=== PATIENT | female | born 1940 | race Two or more races ===

== ENCOUNTER 2016-03-08 18:13 | Inpatient (IN) | payer MEDICARE, MEDICAID ==
[~2016-03-08] VITALS: Ht 162.6 cm; Wt 63.2 kg
[~2016-03-08 18:13] MED LIST: AMLODIPINE BESY10 MG ORAL; ASPIRIN-LOW81 MG ORAL; ATORVASTATIN CA40 MG ORAL; CLONIDINE1 EAC1 TD; DIPHENHYDRAMINE25 M1 ORAL; DONEPEZIL HCL5 M2 ORAL; DOXYCYCLINE HY100 M2 ORAL; FAMOTIDINE40 MG ORAL; GABAPENTIN100 MG ORAL; GLIPIZIDE5 MG ORAL; HYDRALAZINE HCL50 MG ORAL; NORMODYNE200 MG ORAL; PENTOXIFYLLINE400 MG ORAL; PLAVIX75 MG ORAL; ROPINIROLE HCL2 MG PO
[2016-03-08 22:20] VITALS: BP 132/58
[2016-03-09 00:10] VITALS: BP 154/59
[2016-03-09 04:10] VITALS: BP 174/78
[2016-03-09] MEDS: HydrALAZINE 50mg tab ORAL SCH ×3 (06:03→23:41)
[2016-03-09] MEDS: GlipiZIDE 5mg tab ORAL SCH ×2 (06:04→17:33)
[2016-03-09] MEDS: NovoLOG Insulin Flexpen SUBQ SCH ×4 (06:17→21:00)
[2016-03-09 07:16] LABS: EOSINOPHILS % (AUTO) 3.2 % (0.0-3.0); MEAN CORPUSCULAR HEMOGLOBIN 29.9 PG (27.0-31.0); MEAN CORPUSCULAR HGB CONC 31.2 G/DL (32.0-36.0); MEAN CORPUSCULAR VOLUME 96 FL (80-99); MEAN PLATELET VOLUME 6.9 FL (6.5-10.1); MONOCYTES % (AUTO) 10.1 % (1.0-10.0); NEUTROPHILS % (AUTO) 67.8 % (45.0-75.0); PLATELET COUNT 214 K/UL (150-450); RED BLOOD COUNT 3.21 M/UL (4.20-5.40); RED CELL DISTRIBUTION WIDTH 16.7 % (11.6-14.8); WHITE BLOOD COUNT 7.8 K/UL (4.8-10.8)
[2016-03-09 07:49] VITALS: BP 123/91
[2016-03-09 07:56] LABS: ALANINE AMINOTRANSFERASE 11 U/L (3-33); ALBUMIN/GLOBULIN RATIO 1.2 (1.0-2.7); ANION GAP 12 (5-15); ASPARTATE AMINO TRANSFERASE 18 U/L (5-40); CALCIUM 8.3 mg/dL (8.6-10.2); CARBON DIOXIDE 27 mEQ/L (20-30); CHLORIDE 99 mEQ/L (98-107); CREATININE 2.1 mg/dL (0.5-0.9); HEMOLYSIS 4; MAGNESIUM 1.7 mg/dL (1.7-2.5); PHOSPHORUS 2.9 mg/dL (2.5-4.8); POTASSIUM 3.8 mEQ/L (3.4-4.9); SODIUM 138 mEQ/L (135-145); TOTAL PROTEIN 5.5 g/dL (6.6-8.7)
[2016-03-09 08:30] LABS: TROPONIN I < 0.30 ng/mL (<=0.30)
[2016-03-09] MEDS: Aspirin Baby 81mg ORAL SCH (09:57)
[2016-03-09] MEDS: Labetalol 200mg tab ORAL SCH ×2 (09:58→20:39)
[2016-03-09] MEDS: Heparin 5000 units/ml inj SUBQ SCH ×2 (09:59→20:38)
[2016-03-09] MEDS ORDERED: Influenza Virus Vaccine 0.5ml IM ONE (11:30)
[2016-03-09 11:33] VITALS: BP 184/68
--- NOTE | 2016-03-09 11:56 | Consultation ---
History of Present Illness General Date patient seen: Mar 09, 2016 Reason for Consultation: dyspnea Present Illness HPI 75 year old female with hx of ESRF, on HD, DM, PVD CABG 2004, Pace maker, s/p cerebellar tumor resection 2014, missed her HD and got short of breath, called paramedics. was taken to [facility] where she was urgently dialyzed, 2.6 liters removed and [place] [facility] [place] Currently Patient is somfortable, complaining of generalized weakness. Doesn't seem to be dyspnic, poor historian. Allergies: Coded Allergies: No Known Allergies (Unverified , 02/02/15) Medication History Scheduled Amlodipine Besylate* (Amlodipine Besylate*), 10 MG ORAL DAILY, (Reported) Aspirin (Aspirin EC), 81 MG ORAL DAILY, (Reported) Atorvastatin Calcium* (Atorvastatin Calcium*), 40 MG ORAL BEDTIME, (Reported) Clopidogrel Bisulfate* (Plavix*), 75 MG ORAL DAILY, (Reported) Donepezil Hcl* (Donepezil Hcl*), 5 MG ORAL DAILY, (Reported) Doxycycline Hyclate (Doxycycline Hyclate), 100 MG ORAL EVERY 12 HOURS Famotidine (Famotidine), 40 MG ORAL DAILY, (Reported) Gabapentin* (Gabapentin*), 100 MG ORAL THREE TIMES A DAY, (Reported) Glipizide* (Glipizide*), 5 MG ORAL BIDAC, (Reported) Hydralazine Hcl* (Hydralazine Hcl*), 50 MG ORAL TID, (Reported) Labetalol HCl (Labetalol HCl), 200 MG ORAL BID, (Reported) Pentoxifylline* (Trental*), 400 MG ORAL BID, (Reported) Ropinirole Hcl* (Ropinirole Hcl*), 2 MG PO QHS, (Reported) Scheduled PRN Diphenhydramine Hcl* (Diphenhydramine Hcl*), 25 MG ORAL Q8H PRN for Itching, ( Reported) Miscellaneous Medications Clonidine (Clonidine), 0.3 MG TD, (Reported) Patient History Healthcare decision maker Resuscitation status Full Code Advanced Directive on File Past Medical/Surgical History Past Medical/Surgical History: (1) Alzheimer's dementia (2) Parkinson disease (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 Review of Systems Respiratory: Reports: shortness of breath, stridor All Other Systems: negative except mentioned in HPI Physical Exam General Appearance: WD/WN, no apparent distress Lines, tubes and drains: peripheral, central line HEENT: normocephalic, atraumatic Neck: non-tender, normal alignment Respiratory/Chest: chest wall non-tender, lungs clear Cardiovascular/Chest: normal peripheral pulses, normal rate Abdomen: normal bowel sounds, non tender Genitourinary/Rectal: normal genital exam, normal rectal exam Last 24 Hour Vital Signs Date Time Temp Pulse Resp B/P Pulse Ox O2 Delivery O2 Flow Rate FiO2 03/09/16 11:33 97.6 70 18 184/68 96 Room Air 03/09/16 10:56 97.1 03/09/16 09:58 78 123/91 03/09/16 09:57 123/91 03/09/16 09:57 78 123/91 03/09/16 08:00 72 03/09/16 07:49 97.1 78 18 123/91 100 Nasal Cannula 2.0 03/09/16 06:03 155/68 03/09/16 04:10 97.2 68 20 174/78 100 Nasal Cannula 2.0 03/09/16 04:00 65 03/09/16 00:10 97.8 71 20 154/59 98 Room Air 03/09/16 00:00 68 03/08/16 22:20 98.7 69 20 132/58 97 Nasal Cannula 2.0 Intake and Output 03/08/16 03/09/16 19:00 07:00 Output Total 450 ml Balance -450 ml Output Urine Total 450 ml Laboratory Tests Test 03/09/16 06:20 White Blood Count 7.8 K/UL (4.8-10.8) Red Blood Count 3.21 M/UL (4.20-5.40) L Hemoglobin 9.6 G/DL (12.0-16.0) L Hematocrit 30.7 % (37.0-47.0) L Mean Corpuscular Volume 96 FL (80-99) Mean Corpuscular Hemoglobin 29.9 PG (27.0-31.0) Mean Corpuscular Hemoglobin Concent 31.2 G/DL (32.0-36.0) L Red Cell Distribution Width 16.7 % (11.6-14.8) H Platelet Count 214 K/UL (150-450) Mean Platelet Volume 6.9 FL (6.5-10.1) Neutrophils (%) (Auto) 67.8 % (45.0-75.0) Lymphocytes (%) (Auto) 18.0 % (20.0-45.0) L Monocytes (%) (Auto) 10.1 % (1.0-10.0) H Eosinophils (%) (Auto) 3.2 % (0.0-3.0) H Basophils (%) (Auto) 1.0 % (0.0-2.0) Sodium Level 138 mEQ/L (135-145) Potassium Level 3.8 mEQ/L (3.4-4.9) Chloride Level 99 mEQ/L (98-107) Carbon Dioxide Level 27 mEQ/L (20-30) Anion Gap 12 (5-15) Blood Urea Nitrogen 23 mg/dL (7-23) Creatinine 2.1 mg/dL (0.5-0.9) H Estimat Glomerular Filtration Rate mL/min (>60) Glucose Level 104 mg/dL (74-106) Calcium Level 8.3 mg/dL (8.6-10.2) L Phosphorus Level 2.9 mg/dL (2.5-4.8) Magnesium Level 1.7 mg/dL (1.7-2.5) Total Bilirubin 0.2 mg/dL (0.0-1.2) Aspartate Amino Transf (AST/SGOT) 18 U/L (5-40) Alanine Aminotransferase (ALT/SGPT) 11 U/L (3-33) Alkaline Phosphatase 92 U/L (35-104) Troponin I < 0.30 ng/mL (<=0.30) Pro-B-Type Natriuretic Peptide 6933 pg/mL (0-125) H Total Protein 5.5 g/dL (6.6-8.7) L Albumin 3.0 g/dL (3.5-5.2) L Globulin 2.5 g/dL Albumin/Globulin Ratio 1.2 (1.0-2.7) Thyroid Stimulating Hormone (TSH) 9.200 uIU/mL (0.300-4.500) Height (Feet): 5 Height (Inches): 4.00 Weight (Pounds): 142 Medications Current Medications Medications (Trade) Dose Ordered Sig/Carrie Route PRN Reason Start Time Stop Time Status Last Admin Dose Admin Amlodipine Besylate (Norvasc) 10 mg DAILY ORAL 03/09/16 09:00 04/08/16 08:59 03/09/16 09:57 Aspirin (ASA) 81 mg DAILY ORAL 03/09/16 09:00 04/08/16 08:59 03/09/16 09:57 Atorvastatin Calcium (Lipitor) 40 mg BEDTIME ORAL 03/09/16 21:00 04/08/16 20:59 Clopidogrel Bisulfate (Plavix) 75 mg DAILY ORAL 03/09/16 09:00 04/08/16 08:59 03/09/16 09:57 Dextrose (Dextrose 50%) STAT PRN IV Hypoglycemia 03/09/16 01:15 04/08/16 01:14 Diphenhydramine HCl (Benadryl) 25 mg Q8H PRN ORAL Itching 03/09/16 01:15 04/08/16 01:14 Donepezil HCl (Aricept) 5 mg QHS ORAL 03/09/16 21:00 04/08/16 20:59 Gabapentin (Neurontin) 100 mg THREE TIMES A DAY ORAL 03/09/16 09:00 04/08/16 08:59 03/09/16 09:57 Glipizide (Glucotrol) 5 mg BIAC ORAL 03/09/16 06:30 04/08/16 06:29 03/09/16 06:04 Heparin Sodium (Porcine) (Heparin 5000 units/ml) 5,000 units EVERY 12 HOURS SUBQ 03/09/16 09:00 04/08/16 08:59 03/09/16 09:59 Hydralazine HCl (Apresoline) 50 mg TID@0600,1400,2200 ORAL 03/09/16 06:00 04/08/16 05:59 03/09/16 06:03 Insulin Aspart (NovoLOG) BEFORE MEALS AND HS SUBQ 03/09/16 06:30 04/08/16 06:29 Labetalol HCl (Normodyne) 200 mg BID@0900,2100 ORAL 03/09/16 09:00 04/08/16 08:59 03/09/16 09:58 Pentoxifylline (TRENtal) 400 mg BID ORAL 03/09/16 09:00 04/08/16 08:59 03/09/16 09:57 Ranitidine HCl (Zantac) 150 mg DAILY ORAL 03/09/16 09:00 04/08/16 08:59 03/09/16 09:57 Ropinirole HCl (Requip) 2 mg QHS ORAL 03/09/16 21:00 04/08/16 20:59 Assessment/Plan Problem List: (1) Acute respiratory failure ICD Codes: J96.00 - Acute respiratory failure, unspecified whether with hypoxia or hypercapnia SNOMED: 29456036 (2) Alzheimer's dementia ICD Codes: G30.9 - Alzheimer's disease, unspecified SNOMED: 92410956 (3) ESRD (end stage renal disease) on dialysis ICD Codes: N18.6 - End stage renal disease; Z99.2 - Dependence on renal dialysis SNOMED: 855522378 (4) DM (diabetes mellitus) ICD Codes: E11.9 - Type 2 diabetes mellitus without complications SNOMED: 09718256 (5) Parkinson disease ICD Codes: G20 - Parkinson's disease SNOMED: 55344420 Assessment/Plan repeat cxr respiratory treatment Nephro and cardio evaluation sliding scale diabetic diet ALMA DELIA MONTES Mar 09, 2016 11:56
--- NOTE | 2016-03-09 12:55 | History & Physical ---
History and Physical History & Physicial Dictated for Int Med - Dr Gr no. [id number]. YENIFER SCHULER Mar 09, 2016 12:55
--- NOTE | 2016-03-09 13:00 | Consultation ---
Consult Note Consult Note asked to eval for dialysis management 75 year old female with hx of ESRF, on HD, DM, PVD CABG 2004, Pace maker, s/p cerebellar tumor resection 2014, missed her HD and got short of breath, called paramedics. was taken to [facility] where she was urgently dialyzed, 2.6 liters removed and transferred to [facility] [place] for further management. Currently Patient is somfortable, complaining of generalized weakness. Doesn't seem to be dyspnic, poor historian. Patient interviewed and examined and data reviewed has left arm fistula last dialysed 03/08 next due 03/11 . Assessment/Plan status; - ESRD (end stage renal disease) on dialysis - Acute respiratory failure ? CHF - Alzheimer's dementia - Pacer / s/p CABGS - DM (diabetes mellitus) - Parkinson disease Plan; Optimize cardiac and pulm status- HD on 03/11 Anemia DODIE Villar Mar 09, 2016 13:00
[2016-03-09] MEDS ORDERED: Tubing IV Secondary IV ONE (13:54)
[2016-03-09] MEDS ORDERED: NS 275ml ONE (13:54)
--- NOTE | 2016-03-09 15:44 | Cardiology Report ---
APPROVED REPORT EXAM: Two-dimensional and M-mode echocardiogram with Doppler and color Doppler. INDICATION Other M-Mode DIMENSIONS IVSd1.5 (0.7-1.1cm)Left Atrium (MM)5.3 (1.6-4.0cm) LVDd3.5 (3.5-5.6cm)Aortic Root2.8 (2.0-3.7cm) PWd1.4 (0.7-1.1cm)Aortic Cusp Exc.1.1 (1.5-2.0cm) LVDs1.4 (2.5-4.0cm) PWs0.8 cm Normal left ventricular chamber size, systolic function and wall motion. Left ventricular ejection fraction estimated to be 60-65%. Mild left ventricular hypertrophy. No evidence of pericardial fat or effusion. Right cardiac chamber sizes are within normal limits. Mild left atrial enlargement by 2D. Focal aortic valve sclerosis with adequate cusp excursion Mildly thickened mitral valve leaflets with normal excursion. Mild mitral annulus and aortic root calcification. Pulmonic valve not well visualized. Normal tricuspid valve structure. IVC is normal in size with minimal physiologic collapse. A color flow and spectral Doppler study was performed and revealed: Trace aortic regurgitation. Peak aortic valve gradient of 27mmHg and a mean of 14 mmHg. Aortic valve area 1.4cm2 calculated by continuity equation. Trace mitral regurgitation. Left ventricular diastolic dysfunction grade 1. Moderate tricuspid regurgitation. Tricuspid systolic velocities suggests peak right ventricular systolic pressure of 52 mmHg Consistent with severe pulmonary hypertension. Pulmonic regurgitation present.
[2016-03-09 16:00] VITALS: BP_SYST 140; BP_SYST 160; BP_DIAS 70
--- NOTE | 2016-03-09 16:57 | History and Physical Report ---
DATE OF ADMISSION: 03/08/2016 CHIEF COMPLAINT: The patient is a 75-year-old female, who presents with a chief complaint of shortness of breath. HISTORY OF PRESENT ILLNESS: The patient has a history of end-stage renal disease and congestive heart failure. The patient states she became short of breath on , 03/07/2016. The patient became increasingly short of breath. The patient was transported to [facility] emergency room. The patient was found to be in fluid overload with congestive heart failure. The patient received dialysis at [facility]. A 2.6 liters was removed. The patient is transferred to [facility] for insurance purposes. The patient presents with a chief complaint of shortness of breath. The patient states her last dialysis was on 03/06/2016. PAST MEDICAL HISTORY: Significant for: 1. End-stage renal disease, on hemodialysis every Friday, Friday, and Friday. The patient's last dialysis was 03/06/2016. 2. Diabetes type 2. 3. Hypertension. 4. Parkinson disease. 5. Coronary artery disease. 6. Congestive heart failure. 7. History of ovarian cancer, status post resection. 8. Metastatic cerebellar tumor, status post resection in 2014. PAST SURGICAL HISTORY: Significant for: 1. Coronary artery bypass graft in April of 2004. 2. Pacemaker implantation. 3. Resection of ovarian tumor. 4. Cerebellar metastatic tumor resection in June of 2014. 5. Left upper extremity arteriovenous graft for dialysis. CURRENT MEDICATIONS: 1. Amlodipine 10 mg one tablet p.o. daily. 2. Terazosin 1 mg one tablet p.o. at bedtime. 3. Lantus insulin of an unknown dose at bedtime. 4. Lispro sliding scale. 5. Glipizide 5 mg p.o. twice daily. 6. Requip 1 mg one tablet p.o. at bedtime. 7. Trental 400 mg p.o. at bedtime. 8. Atorvastatin of an unknown dose daily. 9. Benadryl 25 mg q.4 h. p.r.n. 10. Hydralazine of an unknown dose three times daily. 11. Glyburide 5 mg one tablet p.o. twice daily. 12. Neurontin 100 mg one tablet p.o. twice daily. 13. Plavix 75 mg one tablet p.o. daily. 14. Pepcid 40 mg one tablet p.o. daily. 15. Aspirin 81 mg one tablet p.o. daily. ALLERGIES: No known drug allergies. SOCIAL HISTORY: The patient lives with her adult son. The patient denies tobacco or alcohol use. PHYSICAL EXAMINATION: VITAL SIGNS: Temperature 97.1 degrees, respirations 18, pulse 70, and blood pressure 123/91. GENERAL: The patient is a well-developed and well-nourished female, in no apparent distress. HEENT: Eyes, pupils are equal and responsive to light and accommodation. Extraocular movements are intact. NECK: Supple without lymphadenopathy. CHEST: Lungs are clear to auscultation bilaterally without wheezes or rales. CARDIOVASCULAR: Regular rhythm and rate. S1 and S2 are normal without murmurs, rubs, or gallops. ABDOMEN: Soft, nontender, and nondistended. Positive bowel sounds. No evidence of hepatosplenomegaly. Currently, no rebound or guarding noted. RECTAL/GENITAL: Refused. NEUROLOGIC: Cranial nerves II through XII are grossly intact without focal deficits. Motor strength is 5/5 bilaterally. Deep tendon reflexes are 2+ plantar. LABORATORY DATA: Laboratory studies from [facility], WBC 7.0, hemoglobin 9.8, hematocrit 30.3, and platelets 277,000. Sodium 139, potassium 3.3, chloride 104, CO2 25, BUN 38, creatinine 2.62, and glucose 156. An echocardiogram revealed ejection fraction of 70%. ASSESSMENT: This is a 75-year-old female. 1. Volume overload. 2. Congestive heart failure. 3. Shortness of breath. 4. End-stage renal disease. 5. Diabetes type 2. 6. Hypertension. 7. Parkinson disease. 8. Coronary artery disease. 9. Ovarian cancer. 10. History metastatic cerebellar tumor. TREATMENT: 1. Shortness of breath. This is probably secondary to fluid overload and congestive heart failure. The patient received dialysis at [facility] with 2.6 liters removed. A Nephrology consultation was obtained with Dr. Mamadou Forbes. A Pulmonary consultation was obtained with Dr. Daisha Child. 2. Fluid overload/congestive heart failure. Cardiology consultation is pending. Congestive heart failure appears to be secondary to volume overload. We will follow recommendation of Cardiology. 3. End-stage renal disease. The patient's last dialysis was 03/06/2016. The patient then received dialysis at [facility] on 03/08/2016. The patient's next dialysis is scheduled for 03/11/2016. A Nephrology consultation was obtained with Dr. Mamadou Forbes. 4. Diabetes type 2. Continue Lantus and NovoLog sliding scale as above. 5. Hypertension. The patient is currently receiving labetalol 200 mg twice daily. 6. Parkinson disease. 7. Coronary artery disease. The patient is status post coronary artery bypass graft. 8. History of ovarian cancer. The patient is status post resection. 9. History of metastatic cerebral tumor. The patient is status post resection. Jasen Larkin M.D. DR: LIZ JOB#: [id number] CC:
--- NOTE | 2016-03-09 17:22 | Consultation ---
Consult Note Consult Note Cardiology for Dr. Earl full note dictated #[id number] MELL GARZON Mar 09, 2016 17:22
[2016-03-09 20:00] VITALS: BP 184/76
[2016-03-09] MEDS: Donepezil 5mg Tab ORAL SCH (20:39)
--- NOTE | 2016-03-09 22:47 | Consultation ---
DATE OF CONSULTATION: CARDIOLOGY CONSULTATION: REQUESTING PHYSICIAN: Daisha Child M.D. REASON FOR CONSULT: Shortness of breath. HISTORY OF PRESENT ILLNESS: History was obtained from the patient, treating providers, and the chart. HISTORY OF PRESENT ILLNESS: The patient is a 75-year-old woman with a history of coronary artery disease, remote history of coronary artery bypass graft surgery, history of permanent pacemaker placement, diabetes, and end-stage renal disease on hemodialysis, who presented with increasing shortness of breath over a few days prior to admission. She was initially admitted to [facility] where she received urgent hemodialysis with removal of 2.6 liters of fluid. She was felt to be in pulmonary edema. She was transferred here for insurance reasons. She is currently comfortable without complaints of chest pain, dyspnea, or palpitation. PAST MEDICAL HISTORY: As noted above. History of coronary artery bypass graft surgery in 2004, history of permanent pacemaker (uncertain indication) history of ovarian and cerebellar tumors treated surgically, and history of end-stage renal disease, on hemodialysis with placement of the left upper extremity AV graft. MEDICATIONS: Lipitor 40 mg daily, Aricept 5 mg at nightly, Requip 2 mg at nightly, subcutaneous heparin 5000 units q.12 hours, amlodipine 10 mg daily, aspirin 81 mg daily, Plavix 75 mg daily, Neurontin 100 mg three times daily, labetalol 200 mg twice daily, Trental 400 mg b.i.d., insulin sliding scale, glipizide 5 mg daily, hydralazine 50 mg t.i.d., and Benadryl p.r.n. ALLERGIES: No known drug allergies. SOCIAL HISTORY: The patient is a nonsmoker. She has no history of alcohol abuse. PHYSICAL EXAMINATION: VITAL SIGNS: Blood pressure is 140/70, pulse 70 regular, respirations 18, and afebrile. GENERAL: Alert and elderly appearing female in no acute distress. HEENT: Normocephalic and atraumatic. Pupils are equal, round, and reactive to light. Sclerae anicteric. Oral mucosa are moist. NECK: Supple. There is no jugular venous distention. Carotid pulses are 2+. There is a bilateral transmitted carotid murmur. LUNGS: Clear to auscultation bilaterally. HEART: Regular rate and rhythm. S1, S2 with a harsh 2 to 3/6 systolic ejection murmur heard at the right second intercostal space radiating along left sternal border and to the carotids. No S3-S4 or rubs. ABDOMEN: Obese, soft, and nontender. No palpable mass. EXTREMITIES: No cyanosis, clubbing, or edema. There is a healed left thigh surgical scar (saphenous vein graft) and left upper extremity AV graft proximally, positive bruit. LABORATORY AND DIAGNOSTIC DATA: EKG shows sinus rhythm at a rate of 80 beats per minute, axis +10 degrees, normal intervals, nonspecific lateral T-wave changes. No old EKG available for comparison. Potassium 3.8, BUN 23, and creatinine 2.1. Troponin less than 0.3. Hemoglobin 9.6, white blood count 7800, and platelets 214,000. Chest x-ray is pending. Echo shows normal left ventricular systolic function with ejection fraction 60% to 65%, mild left ventricular hypertrophy, mild aortic stenosis with valve area 1.4 cm square peak gradient 27, mean 14, moderate tricuspid regurgitation, PA pressure, moderate tricuspid regurgitation, and severe pulmonary hypertension with RV systolic pressure of 52. ASSESSMENT AND RECOMMENDATION: The patient is a 75-year-old woman with multiple chronic medical problems as outlined above, who was admitted initially to [place] with pulmonary edema and responded to dialysis with removal of 2.6 liters. She is currently hemodynamically stable. The reason for her acute decompensation is unclear. She does not appear to have an acute cardiac event. Troponin levels were negative. She does not have any chest pain. An EKG did not show any acute ischemic changes. Echo does not show any wall motion abnormalities. She may have had a heart failure due to diastolic dysfunction or volume overload related to dialysis issues. I would favor continued treatment with aspirin , statin, and beta-erica (labetalol and alpha beta-erica) for coronary artery disease. Continue amlodipine and hydralazine for blood pressure control. I would not pursue further evaluation for ischemia given lack of objective would not pursue further workup for myocardial ischemia at this time. We will attempt to obtain information regarding her pacemaker and interrogate the device to determine if normal function and if any arrhythmias may have contributed to her recent decompensation. Ramona Nguyen M.D. DR: Ed JOB#: [id number] CC:
[2016-03-10 00:32] VITALS: BP 155/79
[2016-03-10 04:17] VITALS: BP 124/70
[2016-03-10] MEDS: NovoLOG Insulin Flexpen SUBQ SCH ×4 (06:42→20:37)
[2016-03-10] MEDS: GlipiZIDE 5mg tab ORAL SCH ×2 (06:42→17:55)
[2016-03-10] MEDS: HydrALAZINE 50mg tab ORAL SCH (06:43)
[2016-03-10 07:04] LABS: BASOPHILS % (AUTO) 1.1 % (0.0-2.0); EOSINOPHILS % (AUTO) 3.5 % (0.0-3.0); LYMPHOCYTES % (AUTO) 19.9 % (20.0-45.0); MEAN CORPUSCULAR HEMOGLOBIN 30.7 PG (27.0-31.0); MEAN CORPUSCULAR HGB CONC 32.5 G/DL (32.0-36.0); MEAN CORPUSCULAR VOLUME 94 FL (80-99); MEAN PLATELET VOLUME 7.2 FL (6.5-10.1); MONOCYTES % (AUTO) 10.2 % (1.0-10.0); NEUTROPHILS % (AUTO) 65.3 % (45.0-75.0); PLATELET COUNT 226 K/UL (150-450); RED CELL DISTRIBUTION WIDTH 15.9 % (11.6-14.8); WHITE BLOOD COUNT 6.3 K/UL (4.8-10.8)
[2016-03-10 07:46] VITALS: BP 151/55
[2016-03-10 07:51] LABS: HEMOLYSIS 20; IRON 29 ug/dL (37-145); TOTAL IRON BINDING CAPACITY 188 ug/dL (250-400)
[2016-03-10 07:52] LABS: FERRITIN 411 ng/mL (13-150)
[2016-03-10 07:53] LABS: ALANINE AMINOTRANSFERASE 9 U/L (3-33); ANION GAP 17 (5-15); ASPARTATE AMINO TRANSFERASE 19 U/L (5-40); CALCIUM 8.3 mg/dL (8.6-10.2); CARBON DIOXIDE 23 mEQ/L (20-30); CHLORIDE 99 mEQ/L (98-107); CHOLESTEROL 154 mg/dL (< 200); CHOLESTEROL/HDL RATIO 2.7 (3.3-4.4); CREATININE 2.7 mg/dL (0.5-0.9); HEMOLYSIS 20; LDL CHOLESTEROL (CALC.) 54 mg/dL (60-99); POTASSIUM 4.2 mEQ/L (3.4-4.9); SODIUM 139 mEQ/L (135-145); TOTAL PROTEIN 5.4 g/dL (6.6-8.7)
[2016-03-10 07:54] LABS: CRP QUANT < 0.3 mg/dL (< 0.5); MAGNESIUM 1.7 mg/dL (1.7-2.5); PHOSPHORUS 3.9 mg/dL (2.5-4.8); URIC ACID 6.1 mg/dL (3.0-7.5)
[2016-03-10] MEDS: Aspirin Baby 81mg ORAL SCH (09:26)
[2016-03-10] MEDS: Labetalol 200mg tab ORAL SCH ×2 (09:26→20:36)
[2016-03-10] MEDS: Heparin 5000 units/ml inj SUBQ SCH ×2 (09:28→20:37)
[2016-03-10 11:21] VITALS: BP 153/70
--- NOTE | 2016-03-10 11:55 | General Progress Note ---
Assessment/Plan Status: stable Assessment/Plan status; - ESRD (end stage renal disease) on dialysis by history - Acute respiratory failure ? CHF - Alzheimer's dementia - Pacer / s/p CABGS - DM (diabetes mellitus) - Parkinson disease Plan; Optimize cardiac and pulm status- HD if needed- check 24 h Urine Cr Cl Anemia rothman per orders adjust BP meds Subjective ROS Limited/Unobtainable: No Constitutional: Reports: malaise Allergies: Coded Allergies: No Known Allergies (Unverified , 02/02/15) Objective Last 24 Hour Vital Signs Date Time Temp Pulse Resp B/P Pulse Ox O2 Delivery O2 Flow Rate FiO2 03/10/16 11:21 98.1 74 18 153/70 99 Room Air 03/10/16 09:26 151/55 03/10/16 09:26 76 151/55 03/10/16 09:26 76 151/55 03/10/16 08:00 67 03/10/16 07:46 97.9 76 18 151/55 99 Room Air 03/10/16 06:43 124/70 03/10/16 04:17 98.5 70 19 124/70 98 Room Air 03/10/16 04:00 70 03/10/16 00:32 98.6 73 18 155/79 95 Room Air 03/10/16 00:00 73 03/09/16 23:41 184/76 03/09/16 20:39 85 184/76 03/09/16 20:00 80 03/09/16 20:00 97.2 85 18 184/76 96 Room Air 03/09/16 17:34 140/70 03/09/16 16:00 75 03/09/16 16:00 98.4 70 18 140/70 98 Room Air 03/09/16 16:00 96.4 70 18 160/70 98 Room Air 03/09/16 14:11 97.6 03/09/16 13:11 168/72 Intake and Output 03/09/16 03/10/16 19:00 07:00 Intake Total 480 ml 240 ml Output Total 525 ml 800 ml Balance -45 ml -560 ml Intake Oral 480 ml 240 ml Output Urine Total 525 ml 800 ml # Bowel Movements 2 1 Laboratory Tests 03/10/16 04:55: White Blood Count 6.3, Red Blood Count 3.00L, Hemoglobin 9.2L, Hematocrit 28.3L , Mean Corpuscular Volume 94, Mean Corpuscular Hemoglobin 30.7, Mean Corpuscular Hemoglobin Concent 32.5, Red Cell Distribution Width 15.9H, Platelet Count 226, Mean Platelet Volume 7.2, Neutrophils (%) (Auto) 65.3, Lymphocytes (%) (Auto) 19.9L, Monocytes (%) (Auto) 10.2H, Eosinophils (%) (Auto ) 3.5H, Basophils (%) (Auto) 1.1, Sodium Level 139, Potassium Level 4.2, Chloride Level 99, Carbon Dioxide Level 23, Anion Gap 17H, Blood Urea Nitrogen 39H, Creatinine 2.7H, Estimat Glomerular Filtration Rate , Glucose Level 113H, Hemoglobin A1c 5.0, Uric Acid 6.1, Calcium Level 8.3L, Phosphorus Level 3.9, Magnesium Level 1.7, Iron Level 29L, Total Iron Binding Capacity 188L, Percent Iron Saturation 15, Unsaturated Iron Binding 159, Ferritin 411H, Total Bilirubin 0.3, Gamma Glutamyl Transpeptidase 16, Aspartate Amino Transf (AST/ SGOT) 19, Alanine Aminotransferase (ALT/SGPT) 9, Alkaline Phosphatase 83, C- Reactive Protein, Quantitative < 0.3, Pro-B-Type Natriuretic Peptide 7200H, Total Protein 5.4L, Albumin 2.8L, Globulin 2.6, Albumin/Globulin Ratio 1.0, Triglycerides Level 217H, Cholesterol Level 154, LDL Cholesterol 54L, HDL Cholesterol 57, Cholesterol/HDL Ratio 2.7L, Vitamin B12 Level 366, Folate [ Pending], Thyroid Stimulating Hormone (TSH) 3.910, Free Thyroxine 1.05 Height (Feet): 5 Height (Inches): 4.00 Weight (Pounds): 142 General Appearance: no apparent distress Cardiovascular: normal rate Abdomen: soft Objective no change in PE DODIE CONNER Mar 10, 2016 11:55
--- NOTE | 2016-03-10 12:13 | Pulmonology Progress Note ---
Assessment/Plan Problems: (1) Acute respiratory failure (2) Alzheimer's dementia (3) ESRD (end stage renal disease) on dialysis (4) DM (diabetes mellitus) (5) Parkinson disease Assessment/Plan improving respiratory treatment cxr reviewed HD by nephrology anemia work up Subjective ROS Limited/Unobtainable: No Constitutional: Reports: no symptoms HEENT: Repors: no symptoms Respiratory: Reports: no symptoms Cardiovascular: Reports: no symptoms Allergies: Coded Allergies: No Known Allergies (Unverified , 02/02/15) Objective Last 24 Hour Vital Signs Date Time Temp Pulse Resp B/P Pulse Ox O2 Delivery O2 Flow Rate FiO2 03/10/16 11:21 98.1 74 18 153/70 99 Room Air 03/10/16 09:26 151/55 03/10/16 09:26 76 151/55 03/10/16 09:26 76 151/55 03/10/16 08:00 67 03/10/16 07:46 97.9 76 18 151/55 99 Room Air 03/10/16 06:43 124/70 03/10/16 04:17 98.5 70 19 124/70 98 Room Air 03/10/16 04:00 70 03/10/16 00:32 98.6 73 18 155/79 95 Room Air 03/10/16 00:00 73 03/09/16 23:41 184/76 03/09/16 20:39 85 184/76 03/09/16 20:00 80 03/09/16 20:00 97.2 85 18 184/76 96 Room Air 03/09/16 17:34 140/70 03/09/16 16:00 75 03/09/16 16:00 98.4 70 18 140/70 98 Room Air 03/09/16 16:00 96.4 70 18 160/70 98 Room Air 03/09/16 14:11 97.6 03/09/16 13:11 168/72 Intake and Output 03/09/16 03/10/16 19:00 07:00 Intake Total 480 ml 240 ml Output Total 525 ml 800 ml Balance -45 ml -560 ml Intake Oral 480 ml 240 ml Output Urine Total 525 ml 800 ml # Bowel Movements 2 1 General Appearance: WD/WN HEENT: normocephalic, atraumatic Respiratory/Chest: chest wall non-tender, lungs clear Cardiovascular: normal peripheral pulses, normal rate Abdomen: normal bowel sounds, soft, non tender Genitourinary: normal external genitalia Extremities: no cyanosis Neurologic/Psychiatric: dedenter II-XII grossly normal Microbiology Date/Time Source Procedure Growth Status 03/08/16 23:05 Wound Gram Stain - Final Resulted 03/08/16 23:05 Wound Wound Culture - Preliminary NO GROWTH AFTER 24 HOURS Resulted Laboratory Tests 03/10/16 04:55: White Blood Count 6.3, Red Blood Count 3.00L, Hemoglobin 9.2L, Hematocrit 28.3L , Mean Corpuscular Volume 94, Mean Corpuscular Hemoglobin 30.7, Mean Corpuscular Hemoglobin Concent 32.5, Red Cell Distribution Width 15.9H, Platelet Count 226, Mean Platelet Volume 7.2, Neutrophils (%) (Auto) 65.3, Lymphocytes (%) (Auto) 19.9L, Monocytes (%) (Auto) 10.2H, Eosinophils (%) (Auto ) 3.5H, Basophils (%) (Auto) 1.1, Sodium Level 139, Potassium Level 4.2, Chloride Level 99, Carbon Dioxide Level 23, Anion Gap 17H, Blood Urea Nitrogen 39H, Creatinine 2.7H, Estimat Glomerular Filtration Rate , Glucose Level 113H, Hemoglobin A1c 5.0, Uric Acid 6.1, Calcium Level 8.3L, Phosphorus Level 3.9, Magnesium Level 1.7, Iron Level 29L, Total Iron Binding Capacity 188L, Percent Iron Saturation 15, Unsaturated Iron Binding 159, Ferritin 411H, Total Bilirubin 0.3, Gamma Glutamyl Transpeptidase 16, Aspartate Amino Transf (AST/ SGOT) 19, Alanine Aminotransferase (ALT/SGPT) 9, Alkaline Phosphatase 83, C- Reactive Protein, Quantitative < 0.3, Pro-B-Type Natriuretic Peptide 7200H, Total Protein 5.4L, Albumin 2.8L, Globulin 2.6, Albumin/Globulin Ratio 1.0, Triglycerides Level 217H, Cholesterol Level 154, LDL Cholesterol 54L, HDL Cholesterol 57, Cholesterol/HDL Ratio 2.7L, Vitamin B12 Level 366, Folate [ Pending], Thyroid Stimulating Hormone (TSH) 3.910, Free Thyroxine 1.05 Current Medications Medications (Trade) Dose Ordered Sig/Carrie Route PRN Reason Start Time Stop Time Status Last Admin Dose Admin Amlodipine Besylate (Norvasc) 10 mg DAILY ORAL 1/28/17 09:00 04/08/16 08:59 03/10/16 09:26 Aspirin (ASA) 81 mg DAILY ORAL 03/09/16 09:00 04/08/16 08:59 03/10/16 09:26 Atorvastatin Calcium (Lipitor) 40 mg BEDTIME ORAL 03/09/16 21:00 04/08/16 20:59 03/09/16 20:30 Clonidine HCl (Catapres) 0.1 mg Q4H PRN ORAL bp over 170 syst 03/10/16 12:00 04/09/16 11:59 Clopidogrel Bisulfate (Plavix) 75 mg DAILY ORAL 03/09/16 09:00 04/08/16 08:59 03/10/16 09:26 Dextrose (Dextrose 50%) STAT PRN IV Hypoglycemia 03/09/16 01:15 04/08/16 01:14 Diphenhydramine HCl (Benadryl) 25 mg Q8H PRN ORAL Itching 03/09/16 01:15 04/08/16 01:14 Donepezil HCl (Aricept) 5 mg QHS ORAL 03/09/16 21:00 04/08/16 20:59 03/09/16 20:39 Gabapentin (Neurontin) 100 mg THREE TIMES A DAY ORAL 03/09/16 09:00 04/08/16 08:59 03/10/16 09:26 Glipizide (Glucotrol) 5 mg BIAC ORAL 03/09/16 06:30 04/08/16 06:29 03/10/16 06:42 Heparin Sodium (Porcine) (Heparin 5000 units/ml) 5,000 units EVERY 12 HOURS SUBQ 03/09/16 09:00 04/08/16 08:59 03/10/16 09:28 Hydralazine HCl (Apresoline) 75 mg TID@0600,1400,2200 ORAL 03/10/16 14:00 04/09/16 13:59 Insulin Aspart (NovoLOG) BEFORE MEALS AND HS SUBQ 03/09/16 06:30 04/08/16 06:29 03/10/16 11:34 Labetalol HCl (Normodyne) 200 mg BID@0900,2100 ORAL 03/09/16 09:00 04/08/16 08:59 03/10/16 09:26 Pentoxifylline (TRENtal) 400 mg BID ORAL 03/09/16 09:00 04/08/16 08:59 03/10/16 09:26 Ranitidine HCl (Zantac) 150 mg DAILY ORAL 03/09/16 09:00 04/08/16 08:59 03/10/16 09:26 Ropinirole HCl (Requip) 2 mg QHS ORAL 03/09/16 21:00 04/08/16 20:59 03/09/16 20:31 ALMA DELIA MONTES Mar 10, 2016 12:12
[2016-03-10] MEDS: HydrALAZINE 25mg tab ORAL SCH ×2 (13:46→22:02)
[2016-03-10 14:07] LABS: APPEARANCE,URINE SLIGHTLY CLOUDY; KETONES,URINE NEGATIVE (NEGATIVE); LEUKOCYTE ESTERASE ,URINE 1+ (NEGATIVE); NITRITE,URINE NEGATIVE (NEGATIVE); PH,URINE 7 (4.5-8.0); PROTEIN,URINE 4+ (NEGATIVE); UROBILINOGEN,URINE NORMAL MG/DL (0.0-1.0)
[2016-03-10 14:20] LABS: SQUAMOUS EPITHELIAL CELL,UR OCCASIONAL /LPF (NONE/OCC); WBC,URINE 0-2 /HPF (0 - 2)
--- NOTE | 2016-03-10 14:25 | Cardiology Progress Note ---
Assessment/Plan Problem List: (1) Vascular dementia (2) Diabetic polyneuropathy associated with type 2 diabetes mellitus (3) Anemia (4) CAD (coronary artery disease) (5) Hypercholesterolemia (6) Pulmonary edema (7) ESRD (end stage renal disease) on dialysis (8) HTN (hypertension) Status: stable, progressing Status Narrative Mrs Nicole is hemodynamically stable. She has no angina or chf symptoms. Her ECHO showed normal LV systolic function, pulm hypertension. Her recent decompensation may have been due to vol overload in the setting of RF Assessment/Plan Continue current rx w/ b erica, asa, plavix, statin Management of dialysis per Dr. Forbes Subjective ROS Limited/Unobtainable: No Subjective Cardiology for Dr. Sotelo Pt without c/o chest pain or dyspnea. Objective Last 24 Hour Vital Signs Date Time Temp Pulse Resp B/P Pulse Ox O2 Delivery O2 Flow Rate FiO2 03/10/16 13:46 153/70 03/10/16 11:21 98.1 74 18 153/70 99 Room Air 03/10/16 09:26 151/55 03/10/16 09:26 76 151/55 03/10/16 09:26 76 151/55 03/10/16 08:00 67 03/10/16 07:46 97.9 76 18 151/55 99 Room Air 03/10/16 06:43 124/70 03/10/16 04:17 98.5 70 19 124/70 98 Room Air 03/10/16 04:00 70 03/10/16 00:32 98.6 73 18 155/79 95 Room Air 03/10/16 00:00 73 03/09/16 23:41 184/76 03/09/16 20:39 85 184/76 03/09/16 20:00 80 03/09/16 20:00 97.2 85 18 184/76 96 Room Air 03/09/16 17:34 140/70 03/09/16 16:00 75 03/09/16 16:00 98.4 70 18 140/70 98 Room Air 03/09/16 16:00 96.4 70 18 160/70 98 Room Air General Appearance: WD/WN, no apparent distress, alert Neck: non-tender, no JVD Rhythm: NSR Cardiovascular: normal rate, regular rhythm, systolic murmur - ii/vi agustin along lsb. no s3 Respiratory/Chest: lungs clear, normal breath sounds, no respiratory distress Abdomen: non tender, soft Extremities: other - L UE av graft + bruit. no edema Intake and Output 03/09/16 03/10/16 19:00 07:00 Intake Total 480 ml 240 ml Output Total 525 ml 800 ml Balance -45 ml -560 ml Intake Oral 480 ml 240 ml Output Urine Total 525 ml 800 ml # Bowel Movements 2 1 Laboratory Tests Test 03/10/16 04:55 03/10/16 13:00 White Blood Count 6.3 K/UL (4.8-10.8) Red Blood Count 3.00 M/UL (4.20-5.40) L Hemoglobin 9.2 G/DL (12.0-16.0) L Hematocrit 28.3 % (37.0-47.0) L Mean Corpuscular Volume 94 FL (80-99) Mean Corpuscular Hemoglobin 30.7 PG (27.0-31.0) Mean Corpuscular Hemoglobin Concent 32.5 G/DL (32.0-36.0) Red Cell Distribution Width 15.9 % (11.6-14.8) H Platelet Count 226 K/UL (150-450) Mean Platelet Volume 7.2 FL (6.5-10.1) Neutrophils (%) (Auto) 65.3 % (45.0-75.0) Lymphocytes (%) (Auto) 19.9 % (20.0-45.0) L Monocytes (%) (Auto) 10.2 % (1.0-10.0) H Eosinophils (%) (Auto) 3.5 % (0.0-3.0) H Basophils (%) (Auto) 1.1 % (0.0-2.0) Sodium Level 139 mEQ/L (135-145) Potassium Level 4.2 mEQ/L (3.4-4.9) Chloride Level 99 mEQ/L (98-107) Carbon Dioxide Level 23 mEQ/L (20-30) Anion Gap 17 (5-15) H Blood Urea Nitrogen 39 mg/dL (7-23) H Creatinine 2.7 mg/dL (0.5-0.9) H Estimat Glomerular Filtration Rate mL/min (>60) Glucose Level 113 mg/dL (74-106) H Hemoglobin A1c 5.0 % (< 6.0) Uric Acid 6.1 mg/dL (3.0-7.5) Calcium Level 8.3 mg/dL (8.6-10.2) L Phosphorus Level 3.9 mg/dL (2.5-4.8) Magnesium Level 1.7 mg/dL (1.7-2.5) Iron Level 29 ug/dL (37-145) L Total Iron Binding Capacity 188 ug/dL (250-400) L Percent Iron Saturation 15 % (15-50) Unsaturated Iron Binding 159 ug/dL (112-346) Ferritin 411 ng/mL (13-150) H Total Bilirubin 0.3 mg/dL (0.0-1.2) Gamma Glutamyl Transpeptidase 16 U/L (5-36) Aspartate Amino Transf (AST/SGOT) 19 U/L (5-40) Alanine Aminotransferase (ALT/SGPT) 9 U/L (3-33) Alkaline Phosphatase 83 U/L (35-104) C-Reactive Protein, Quantitative < 0.3 mg/dL (< 0.5) Pro-B-Type Natriuretic Peptide 7200 pg/mL (0-125) H Total Protein 5.4 g/dL (6.6-8.7) L Albumin 2.8 g/dL (3.5-5.2) L Globulin 2.6 g/dL Albumin/Globulin Ratio 1.0 (1.0-2.7) Triglycerides Level 217 mg/dL (< 150) H Cholesterol Level 154 mg/dL (< 200) LDL Cholesterol 54 mg/dL (60-99) L HDL Cholesterol 57 mg/dL (> 60) Cholesterol/HDL Ratio 2.7 (3.3-4.4) L Vitamin B12 Level 366 pg/mL (211-946) Folate Pending Thyroid Stimulating Hormone (TSH) 3.910 uIU/mL (0.300-4.500) Free Thyroxine 1.05 ng/dL (0.86-1.85) Urine Color Yellow Urine Appearance Slightly cloudy Urine pH 7 (4.5-8.0) Urine Specific [place] 1.005 (1.005-1.035) Urine Protein 4+ (NEGATIVE) H Urine Glucose (UA) 1+ (NEGATIVE) H Urine Ketones Negative (NEGATIVE) Urine Occult Blood 4+ (NEGATIVE) H Urine Nitrite Negative (NEGATIVE) Urine Bilirubin Negative (NEGATIVE) Urine Urobilinogen Normal MG/DL (0.0-1.0) Urine Leukocyte Esterase 1+ (NEGATIVE) H Urine RBC 5-10 /HPF (0 - 2) H Urine WBC 0-2 /HPF (0 - 2) Urine Squamous Epithelial Cells Occasional /LPF Urine Bacteria None /HPF (NONE) Microbiology Date/Time Source Procedure Growth Status 03/08/16 23:05 Wound Gram Stain - Final Resulted 03/08/16 23:05 Wound Wound Culture - Preliminary NO GROWTH AFTER 24 HOURS Resulted MELL GARZON Mar 10, 2016 14:25
--- NOTE | 2016-03-10 14:46 | Internal Med Progress Note ---
Subjective Date of Service: Mar 10, 2016 Physician Name Yenifer Schuler Attending Physician Jovani Gr MD Current Medications Medications (Trade) Dose Ordered Sig/Carrie Route PRN Reason Start Time Stop Time Status Last Admin Dose Admin Amlodipine Besylate (Norvasc) 10 mg DAILY ORAL 03/09/16 09:00 04/08/16 08:59 03/10/16 09:26 Aspirin (ASA) 81 mg DAILY ORAL 03/09/16 09:00 04/08/16 08:59 03/10/16 09:26 Atorvastatin Calcium (Lipitor) 40 mg BEDTIME ORAL 03/09/16 21:00 04/08/16 20:59 03/09/16 20:30 Clonidine HCl (Catapres) 0.1 mg Q4H PRN ORAL bp over 170 syst 03/10/16 12:00 04/09/16 11:59 Clopidogrel Bisulfate (Plavix) 75 mg DAILY ORAL 03/09/16 09:00 04/08/16 08:59 03/10/16 09:26 Dextrose (Dextrose 50%) STAT PRN IV Hypoglycemia 03/09/16 01:15 04/08/16 01:14 Diphenhydramine HCl (Benadryl) 25 mg Q8H PRN ORAL Itching 03/09/16 01:15 04/08/16 01:14 Donepezil HCl (Aricept) 5 mg QHS ORAL 03/09/16 21:00 04/08/16 20:59 03/09/16 20:39 Gabapentin (Neurontin) 100 mg THREE TIMES A DAY ORAL 03/09/16 09:00 04/08/16 08:59 03/10/16 13:46 Glipizide (Glucotrol) 5 mg BIAC ORAL 03/09/16 06:30 04/08/16 06:29 03/10/16 06:42 Heparin Sodium (Porcine) (Heparin 5000 units/ml) 5,000 units EVERY 12 HOURS SUBQ 03/09/16 09:00 04/08/16 08:59 03/10/16 09:28 Hydralazine HCl (Apresoline) 75 mg TID@0600,1400,2200 ORAL 03/10/16 14:00 04/09/16 13:59 03/10/16 13:46 Insulin Aspart (NovoLOG) BEFORE MEALS AND HS SUBQ 03/09/16 06:30 04/08/16 06:29 03/10/16 11:34 Labetalol HCl (Normodyne) 200 mg BID@0900,2100 ORAL 03/09/16 09:00 04/08/16 08:59 03/10/16 09:26 Pentoxifylline (TRENtal) 400 mg BID ORAL 03/09/16 09:00 04/08/16 08:59 03/10/16 09:26 Ranitidine HCl (Zantac) 150 mg DAILY ORAL 03/09/16 09:00 04/08/16 08:59 03/10/16 09:26 Ropinirole HCl (Requip) 2 mg QHS ORAL 03/09/16 21:00 04/08/16 20:59 03/09/16 20:31 Allergies: Coded Allergies: No Known Allergies (Unverified , 02/02/15) ROS Limited/Unobtainable: No Constitutional: Reports: no symptoms HEENT: Reports: no symptoms Cardiovascular: Reports: no symptoms Respiratory: Reports: shortness of breath Gastrointestinal/Abdominal: Reports: no symptoms Genitourinary: Reports: no symptoms Neurologic/Psychiatric: Reports: no symptoms Subjective 75 YO F admitted with shortness of breath and arpita heart failure. Cover for Int Med-Dr Gr Objective Last Vital Signs Date Time Temp Pulse Resp B/P Pulse Ox O2 Delivery O2 Flow Rate FiO2 03/10/16 13:46 153/70 03/10/16 11:21 98.1 74 18 99 Room Air 03/09/16 07:49 2.0 General Appearance: WD/WN, no apparent distress, alert EENT: PERRL/EOMI, normal ENT inspection, TMs normal Neck: non-tender, normal alignment, supple Cardiovascular: normal peripheral pulses, normal rate, regular rhythm, no gallop/murmur, no JVD Respiratory/Chest: chest wall non-tender, no respiratory distress, no accessory muscle use, crackles/rales, rhonchi - bilaterally, expiratory wheezing Abdomen: normal bowel sounds, non tender, soft, no organomegaly, no mass Extremities: normal range of motion Neurologic: mophead trimmer and wrapper II-XII grossly normal, no motor/sensory deficits Skin: normal pigmentation, warm/dry Laboratory Tests Test 03/10/16 04:55 1/29/17 13:00 White Blood Count 6.3 K/UL (4.8-10.8) Red Blood Count 3.00 M/UL (4.20-5.40) L Hemoglobin 9.2 G/DL (12.0-16.0) L Hematocrit 28.3 % (37.0-47.0) L Mean Corpuscular Volume 94 FL (80-99) Mean Corpuscular Hemoglobin 30.7 PG (27.0-31.0) Mean Corpuscular Hemoglobin Concent 32.5 G/DL (32.0-36.0) Red Cell Distribution Width 15.9 % (11.6-14.8) H Platelet Count 226 K/UL (150-450) Mean Platelet Volume 7.2 FL (6.5-10.1) Neutrophils (%) (Auto) 65.3 % (45.0-75.0) Lymphocytes (%) (Auto) 19.9 % (20.0-45.0) L Monocytes (%) (Auto) 10.2 % (1.0-10.0) H Eosinophils (%) (Auto) 3.5 % (0.0-3.0) H Basophils (%) (Auto) 1.1 % (0.0-2.0) Sodium Level 139 mEQ/L (135-145) Potassium Level 4.2 mEQ/L (3.4-4.9) Chloride Level 99 mEQ/L (98-107) Carbon Dioxide Level 23 mEQ/L (20-30) Anion Gap 17 (5-15) H Blood Urea Nitrogen 39 mg/dL (7-23) H Creatinine 2.7 mg/dL (0.5-0.9) H Estimat Glomerular Filtration Rate mL/min (>60) Glucose Level 113 mg/dL (74-106) H Hemoglobin A1c 5.0 % (< 6.0) Uric Acid 6.1 mg/dL (3.0-7.5) Calcium Level 8.3 mg/dL (8.6-10.2) L Phosphorus Level 3.9 mg/dL (2.5-4.8) Magnesium Level 1.7 mg/dL (1.7-2.5) Iron Level 29 ug/dL (37-145) L Total Iron Binding Capacity 188 ug/dL (250-400) L Percent Iron Saturation 15 % (15-50) Unsaturated Iron Binding 159 ug/dL (112-346) Ferritin 411 ng/mL (13-150) H Total Bilirubin 0.3 mg/dL (0.0-1.2) Gamma Glutamyl Transpeptidase 16 U/L (5-36) Aspartate Amino Transf (AST/SGOT) 19 U/L (5-40) Alanine Aminotransferase (ALT/SGPT) 9 U/L (3-33) Alkaline Phosphatase 83 U/L (35-104) C-Reactive Protein, Quantitative < 0.3 mg/dL (< 0.5) Pro-B-Type Natriuretic Peptide 7200 pg/mL (0-125) H Total Protein 5.4 g/dL (6.6-8.7) L Albumin 2.8 g/dL (3.5-5.2) L Globulin 2.6 g/dL Albumin/Globulin Ratio 1.0 (1.0-2.7) Triglycerides Level 217 mg/dL (< 150) H Cholesterol Level 154 mg/dL (< 200) LDL Cholesterol 54 mg/dL (60-99) L HDL Cholesterol 57 mg/dL (> 60) Cholesterol/HDL Ratio 2.7 (3.3-4.4) L Vitamin B12 Level 366 pg/mL (211-946) Folate Pending Thyroid Stimulating Hormone (TSH) 3.910 uIU/mL (0.300-4.500) Free Thyroxine 1.05 ng/dL (0.86-1.85) Urine Color Yellow Urine Appearance Slightly cloudy Urine pH 7 (4.5-8.0) Urine Specific [place] 1.005 (1.005-1.035) Urine Protein 4+ (NEGATIVE) H Urine Glucose (UA) 1+ (NEGATIVE) H Urine Ketones Negative (NEGATIVE) Urine Occult Blood 4+ (NEGATIVE) H Urine Nitrite Negative (NEGATIVE) Urine Bilirubin Negative (NEGATIVE) Urine Urobilinogen Normal MG/DL (0.0-1.0) Urine Leukocyte Esterase 1+ (NEGATIVE) H Urine RBC 5-10 /HPF (0 - 2) H Urine WBC 0-2 /HPF (0 - 2) Urine Squamous Epithelial Cells Occasional /LPF Urine Bacteria None /HPF (NONE) Microbiology Date/Time Source Procedure Growth Status 03/08/16 23:05 Wound Gram Stain - Final Resulted 03/08/16 23:05 Wound Wound Culture - Preliminary NO GROWTH AFTER 24 HOURS Resulted Intake and Output 03/09/16 03/10/16 19:00 07:00 Intake Total 480 ml 240 ml Output Total 525 ml 800 ml Balance -45 ml -560 ml Intake Oral 480 ml 240 ml Output Urine Total 525 ml 800 ml # Bowel Movements 2 1 Assessment/Plan Problem List: (1) SOB (shortness of breath) Assessment & Plan: Due to fluid overload. S/P dialysis 03/08 @ [place]. Follow nephrology recs for dialysis. (2) CHF (congestive heart failure) Assessment & Plan: Secondary to fluid overload. See cardiology note. (3) Fluid overload (4) Mass, brain (5) ESRD (end stage renal disease) on dialysis Assessment & Plan: See nephrology note. Hemodialysis in am 03/11/16 per nephrology (6) DM (diabetes mellitus) Assessment & Plan: Cont glipizide and novolog sliding scale. (7) HTN (hypertension) Assessment & Plan: Cont hydralazine and labetolol (8) Parkinson disease (9) CAD (coronary artery disease) Assessment & Plan: See cardiology note. Status: progressing YENIFER SCHULER Mar 10, 2016 14:46
[2016-03-10 16:00] VITALS: BP 146/58
[2016-03-10 20:00] VITALS: BP 143/62
[2016-03-10] MEDS: Donepezil 5mg Tab ORAL SCH (20:36)
[2016-03-10] MEDS ORDERED: Miralax 17gm pkt ORAL ONE (22:30)
[2016-03-11 00:10] VITALS: BP 159/61
[2016-03-11 04:03] VITALS: BP 156/61
[2016-03-11] MEDS: GlipiZIDE 5mg tab ORAL SCH ×2 (06:01→16:26)
[2016-03-11] MEDS: NovoLOG Insulin Flexpen SUBQ SCH ×4 (06:02→21:50)
[2016-03-11] MEDS: HydrALAZINE 25mg tab ORAL SCH ×3 (06:03→21:47)
[2016-03-11 06:48] LABS: EOSINOPHILS % (AUTO) 3.6 % (0.0-3.0); MEAN CORPUSCULAR HEMOGLOBIN 30.5 PG (27.0-31.0); MEAN CORPUSCULAR HGB CONC 31.4 G/DL (32.0-36.0); MEAN CORPUSCULAR VOLUME 97 FL (80-99); MEAN PLATELET VOLUME 6.6 FL (6.5-10.1); MONOCYTES % (AUTO) 10.4 % (1.0-10.0); PLATELET COUNT 194 K/UL (150-450); RED BLOOD COUNT 2.88 M/UL (4.20-5.40); RED CELL DISTRIBUTION WIDTH 15.7 % (11.6-14.8); WHITE BLOOD COUNT 6.7 K/UL (4.8-10.8)
[2016-03-11 07:05] LABS: ALANINE AMINOTRANSFERASE 9 U/L (3-33); ALBUMIN/GLOBULIN RATIO 1.2 (1.0-2.7); ANION GAP 15 (5-15); ASPARTATE AMINO TRANSFERASE 12 U/L (5-40); CALCIUM 8.2 mg/dL (8.6-10.2); CARBON DIOXIDE 25 mEQ/L (20-30); CHLORIDE 98 mEQ/L (98-107); CRP QUANT < 0.3 mg/dL (< 0.5); HEMOLYSIS 3; MAGNESIUM 1.8 mg/dL (1.7-2.5); PHOSPHORUS 4.6 mg/dL (2.5-4.8); POTASSIUM 4.7 mEQ/L (3.4-4.9); SODIUM 138 mEQ/L (135-145); TOTAL PROTEIN 5.4 g/dL (6.6-8.7); URIC ACID 6.6 mg/dL (3.0-7.5)
[2016-03-11 08:00] VITALS: BP 143/65
[2016-03-11] MEDS: Labetalol 200mg tab ORAL SCH ×2 (09:36→21:46)
[2016-03-11] MEDS: Aspirin Baby 81mg ORAL SCH (09:36)
[2016-03-11] MEDS: Heparin 5000 units/ml inj SUBQ SCH ×2 (09:38→21:49)
--- NOTE | 2016-03-11 10:16 | Pulmonology Progress Note ---
Assessment/Plan Problems: (1) Acute respiratory failure (2) Alzheimer's dementia (3) ESRD (end stage renal disease) on dialysis (4) DM (diabetes mellitus) (5) Parkinson disease Assessment/Plan improving respiratory treatment cxr reviewed HD by nephrology anemia work up cxr from yesterday, showing minimal congestion 24 hour urine being collected. Subjective ROS Limited/Unobtainable: No Interval Events: feeling bettter Allergies: Coded Allergies: No Known Allergies (Unverified , 02/02/15) Objective Last 24 Hour Vital Signs Date Time Temp Pulse Resp B/P Pulse Ox O2 Delivery O2 Flow Rate FiO2 03/11/16 09:36 143/65 03/11/16 09:36 60 143/65 03/11/16 09:35 60 143/65 03/11/16 08:00 96.8 60 17 143/65 97 Room Air 03/11/16 06:03 147/61 03/11/16 04:03 97.9 67 20 156/61 95 Room Air 03/11/16 04:00 69 03/11/16 00:10 98.4 64 20 159/61 97 Room Air 03/11/16 00:00 63 03/10/16 22:02 143/62 03/10/16 20:36 68 143/62 03/10/16 20:00 65 03/10/16 20:00 98.2 68 20 143/62 97 Room Air 03/10/16 17:54 146/58 03/10/16 16:00 67 03/10/16 16:00 97.7 67 19 146/58 100 Room Air 03/10/16 13:46 153/70 03/10/16 12:00 64 03/10/16 11:21 98.1 74 18 153/70 99 Room Air Intake and Output 03/10/16 03/11/16 19:00 07:00 Intake Total 320 ml 600 ml Output Total 400 ml 800 ml Balance -80 ml -200 ml Intake Oral 320 ml 600 ml Output Urine Total 400 ml 800 ml # Bowel Movements 2 General Appearance: WD/WN HEENT: normocephalic, atraumatic Respiratory/Chest: chest wall non-tender, lungs clear Cardiovascular: normal peripheral pulses, normal rate Abdomen: normal bowel sounds, soft, non tender Skin: no rash Microbiology Date/Time Source Procedure Growth Status 03/08/16 23:05 Wound Gram Stain - Final Resulted 03/08/16 23:05 Wound Wound Culture - Preliminary NO GROWTH AFTER 48 HOURS Resulted 03/08/16 23:05 Nasal Nares MRSA Culture - Final NO METHICILLIN RESISTANT STAPH AUREUS... Complete 03/08/16 23:05 Rectum VRE Culture - Final NO VANCOMYCIN RESISTANT ENTEROCOCCUS ... Complete Laboratory Tests 03/10/16 13:00: Urine Color Yellow, Urine Appearance Slightly cloudy, Urine pH 7, Urine Specific [place] 1.005, Urine Protein 4+H, Urine Glucose (UA) 1+H, Urine Ketones Negative, Urine Occult Blood 4+H, Urine Nitrite Negative, Urine Bilirubin Negative, Urine Urobilinogen Normal, Urine Leukocyte Esterase 1+H, Urine RBC 5-10H, Urine WBC 0-2, Urine Squamous Epithelial Cells Occasional, Urine Bacteria None 03/11/16 05:40: White Blood Count 6.7, Red Blood Count 2.88L, Hemoglobin 8.8L, Hematocrit 27.9L , Mean Corpuscular Volume 97, Mean Corpuscular Hemoglobin 30.5, Mean Corpuscular Hemoglobin Concent 31.4L, Red Cell Distribution Width 15.7H, Platelet Count 194, Mean Platelet Volume 6.6, Neutrophils (%) (Auto) 64.0, Lymphocytes (%) (Auto) 21.0, Monocytes (%) (Auto) 10.4H, Eosinophils (%) (Auto) 3.6H, Basophils (%) (Auto) 1.0, Sodium Level 138, Potassium Level 4.7, Chloride Level 98, Carbon Dioxide Level 25, Anion Gap 15, Blood Urea Nitrogen 54H, Creatinine 3.0H, Estimat Glomerular Filtration Rate , Glucose Level 142H, Uric Acid 6.6, Calcium Level 8.2L, Phosphorus Level 4.6, Magnesium Level 1.8, Total Bilirubin < 0.2, Aspartate Amino Transf (AST/SGOT) 12, Alanine Aminotransferase (ALT/SGPT) 9, Alkaline Phosphatase 89, C-Reactive Protein, Quantitative < 0.3, Pro-B-Type Natriuretic Peptide 6780H, Total Protein 5.4L, Albumin 3.0L, Globulin 2.4, Albumin/Globulin Ratio 1.2 Current Medications Medications (Trade) Dose Ordered Sig/Carrie Route PRN Reason Start Time Stop Time Status Last Admin Dose Admin Amlodipine Besylate (Norvasc) 10 mg DAILY ORAL 1/28/17 09:00 04/08/16 08:59 03/11/16 09:35 Aspirin (ASA) 81 mg DAILY ORAL 03/09/16 09:00 04/08/16 08:59 03/11/16 09:36 Atorvastatin Calcium (Lipitor) 40 mg BEDTIME ORAL 03/09/16 21:00 04/08/16 20:59 03/10/16 20:35 Clonidine HCl (Catapres) 0.1 mg Q4H PRN ORAL bp over 170 syst 03/10/16 12:00 04/09/16 11:59 Clopidogrel Bisulfate (Plavix) 75 mg DAILY ORAL 03/09/16 09:00 04/08/16 08:59 03/11/16 09:36 Dextrose (Dextrose 50%) STAT PRN IV Hypoglycemia 03/09/16 01:15 04/08/16 01:14 Diphenhydramine HCl (Benadryl) 25 mg Q8H PRN ORAL Itching 03/09/16 01:15 04/08/16 01:14 Donepezil HCl (Aricept) 5 mg QHS ORAL 03/09/16 21:00 04/08/16 20:59 03/10/16 20:36 Gabapentin (Neurontin) 100 mg THREE TIMES A DAY ORAL 03/09/16 09:00 04/08/16 08:59 03/11/16 09:36 Glipizide (Glucotrol) 5 mg BIAC ORAL 03/09/16 06:30 04/08/16 06:29 03/11/16 06:01 Heparin Sodium (Porcine) (Heparin 5000 units/ml) 5,000 units EVERY 12 HOURS SUBQ 03/09/16 09:00 04/08/16 08:59 03/11/16 09:38 Hydralazine HCl (Apresoline) 75 mg TID@0600,1400,2200 ORAL 03/10/16 14:00 04/09/16 13:59 03/11/16 06:03 Insulin Aspart (NovoLOG) BEFORE MEALS AND HS SUBQ 03/09/16 06:30 04/08/16 06:29 03/11/16 06:02 Labetalol HCl (Normodyne) 200 mg BID@0900,2100 ORAL 03/09/16 09:00 04/08/16 08:59 03/11/16 09:36 Pentoxifylline (TRENtal) 400 mg BID ORAL 03/09/16 09:00 04/08/16 08:59 03/11/16 09:36 Ranitidine HCl (Zantac) 150 mg DAILY ORAL 03/09/16 09:00 04/08/16 08:59 03/11/16 09:36 Ropinirole HCl (Requip) 2 mg QHS ORAL 03/09/16 21:00 04/08/16 20:59 03/10/16 20:35 ALMA DELIA MONTES Mar 11, 2016 10:16
--- NOTE | 2016-03-11 10:32 | Internal Med Progress Note ---
Subjective Date of Service: Mar 11, 2016 Physician Name Yenifer Schuler Attending Physician Jovani Gr MD Current Medications Medications (Trade) Dose Ordered Sig/Carrie Route PRN Reason Start Time Stop Time Status Last Admin Dose Admin Amlodipine Besylate (Norvasc) 10 mg DAILY ORAL 03/09/16 09:00 04/08/16 08:59 03/11/16 09:35 Aspirin (ASA) 81 mg DAILY ORAL 03/09/16 09:00 04/08/16 08:59 03/11/16 09:36 Atorvastatin Calcium (Lipitor) 40 mg BEDTIME ORAL 03/09/16 21:00 04/08/16 20:59 03/10/16 20:35 Clonidine HCl (Catapres) 0.1 mg Q4H PRN ORAL bp over 170 syst 03/10/16 12:00 04/09/16 11:59 Clopidogrel Bisulfate (Plavix) 75 mg DAILY ORAL 03/09/16 09:00 04/08/16 08:59 03/11/16 09:36 Dextrose (Dextrose 50%) STAT PRN IV Hypoglycemia 03/09/16 01:15 04/08/16 01:14 Diphenhydramine HCl (Benadryl) 25 mg Q8H PRN ORAL Itching 03/09/16 01:15 04/08/16 01:14 Donepezil HCl (Aricept) 5 mg QHS ORAL 03/09/16 21:00 04/08/16 20:59 03/10/16 20:36 Gabapentin (Neurontin) 100 mg THREE TIMES A DAY ORAL 03/09/16 09:00 04/08/16 08:59 03/11/16 09:36 Glipizide (Glucotrol) 5 mg BIAC ORAL 03/09/16 06:30 04/08/16 06:29 03/11/16 06:01 Heparin Sodium (Porcine) (Heparin 5000 units/ml) 5,000 units EVERY 12 HOURS SUBQ 03/09/16 09:00 04/08/16 08:59 03/11/16 09:38 Hydralazine HCl (Apresoline) 75 mg TID@0600,1400,2200 ORAL 03/10/16 14:00 04/09/16 13:59 03/11/16 06:03 Insulin Aspart (NovoLOG) BEFORE MEALS AND HS SUBQ 03/09/16 06:30 04/08/16 06:29 03/11/16 06:02 Labetalol HCl (Normodyne) 200 mg BID@0900,2100 ORAL 03/09/16 09:00 04/08/16 08:59 03/11/16 09:36 Pentoxifylline (TRENtal) 400 mg BID ORAL 03/09/16 09:00 04/08/16 08:59 03/11/16 09:36 Ranitidine HCl (Zantac) 150 mg DAILY ORAL 03/09/16 09:00 04/08/16 08:59 03/11/16 09:36 Ropinirole HCl (Requip) 2 mg QHS ORAL 03/09/16 21:00 04/08/16 20:59 03/10/16 20:35 Allergies: Coded Allergies: No Known Allergies (Unverified , 02/02/15) ROS Limited/Unobtainable: No Constitutional: Reports: no symptoms HEENT: Reports: no symptoms Cardiovascular: Reports: no symptoms Respiratory: Reports: shortness of breath Gastrointestinal/Abdominal: Reports: no symptoms Genitourinary: Reports: no symptoms Neurologic/Psychiatric: Reports: no symptoms Subjective 75 YO F admitted with shortness of breath and congestive heart failure. Cover for Int Morales-Dr Gr Objective Last Vital Signs Date Time Temp Pulse Resp B/P Pulse Ox O2 Delivery O2 Flow Rate FiO2 03/11/16 09:36 143/65 03/11/16 09:36 60 03/11/16 08:00 96.8 17 97 Room Air 03/09/16 07:49 2.0 Laboratory Tests Test 03/10/16 13:00 03/11/16 05:40 Urine Color Yellow Urine Appearance Slightly cloudy Urine pH 7 (4.5-8.0) Urine Specific [place] 1.005 (1.005-1.035) Urine Protein 4+ (NEGATIVE) H Urine Glucose (UA) 1+ (NEGATIVE) H Urine Ketones Negative (NEGATIVE) Urine Occult Blood 4+ (NEGATIVE) H Urine Nitrite Negative (NEGATIVE) Urine Bilirubin Negative (NEGATIVE) Urine Urobilinogen Normal MG/DL (0.0-1.0) Urine Leukocyte Esterase 1+ (NEGATIVE) H Urine RBC 5-10 /HPF (0 - 2) H Urine WBC 0-2 /HPF (0 - 2) Urine Squamous Epithelial Cells Occasional /LPF Urine Bacteria None /HPF (NONE) White Blood Count 6.7 K/UL (4.8-10.8) Red Blood Count 2.88 M/UL (4.20-5.40) L Hemoglobin 8.8 G/DL (12.0-16.0) L Hematocrit 27.9 % (37.0-47.0) L Mean Corpuscular Volume 97 FL (80-99) Mean Corpuscular Hemoglobin 30.5 PG (27.0-31.0) Mean Corpuscular Hemoglobin Concent 31.4 G/DL (32.0-36.0) L Red Cell Distribution Width 15.7 % (11.6-14.8) H Platelet Count 194 K/UL (150-450) Mean Platelet Volume 6.6 FL (6.5-10.1) Neutrophils (%) (Auto) 64.0 % (45.0-75.0) Lymphocytes (%) (Auto) 21.0 % (20.0-45.0) Monocytes (%) (Auto) 10.4 % (1.0-10.0) H Eosinophils (%) (Auto) 3.6 % (0.0-3.0) H Basophils (%) (Auto) 1.0 % (0.0-2.0) Sodium Level 138 mEQ/L (135-145) Potassium Level 4.7 mEQ/L (3.4-4.9) Chloride Level 98 mEQ/L (98-107) Carbon Dioxide Level 25 mEQ/L (20-30) Anion Gap 15 (5-15) Blood Urea Nitrogen 54 mg/dL (7-23) H Creatinine 3.0 mg/dL (0.5-0.9) H Estimat Glomerular Filtration Rate mL/min (>60) Glucose Level 142 mg/dL (74-106) H Uric Acid 6.6 mg/dL (3.0-7.5) Calcium Level 8.2 mg/dL (8.6-10.2) L Phosphorus Level 4.6 mg/dL (2.5-4.8) Magnesium Level 1.8 mg/dL (1.7-2.5) Total Bilirubin < 0.2 mg/dL (0.0-1.2) Aspartate Amino Transf (AST/SGOT) 12 U/L (5-40) Alanine Aminotransferase (ALT/SGPT) 9 U/L (3-33) Alkaline Phosphatase 89 U/L (35-104) C-Reactive Protein, Quantitative < 0.3 mg/dL (< 0.5) Pro-B-Type Natriuretic Peptide 6780 pg/mL (0-125) H Total Protein 5.4 g/dL (6.6-8.7) L Albumin 3.0 g/dL (3.5-5.2) L Globulin 2.4 g/dL Albumin/Globulin Ratio 1.2 (1.0-2.7) Microbiology Date/Time Source Procedure Growth Status 03/08/16 23:05 Wound Gram Stain - Final Resulted 03/08/16 23:05 Wound Wound Culture - Preliminary NO GROWTH AFTER 48 HOURS Resulted 03/08/16 23:05 Nasal Nares MRSA Culture - Final NO METHICILLIN RESISTANT STAPH AUREUS... Complete 03/08/16 23:05 Rectum VRE Culture - Final NO VANCOMYCIN RESISTANT ENTEROCOCCUS ... Complete Intake and Output 03/10/16 03/11/16 19:00 07:00 Intake Total 320 ml 600 ml Output Total 400 ml 800 ml Balance -80 ml -200 ml Intake Oral 320 ml 600 ml Output Urine Total 400 ml 800 ml # Bowel Movements 2 Objective General Appearance: WD/WN, no apparent distress, alert EENT: PERRL/EOMI, normal ENT inspection, TMs normal Neck: non-tender, normal alignment, supple Cardiovascular: normal peripheral pulses, normal rate, regular rhythm, no gallop/murmur, no JVD Respiratory/Chest: chest wall non-tender, no respiratory distress, no accessory muscle use, crackles/rales, rhonchi - bilaterally, expiratory wheezing Abdomen: normal bowel sounds, non tender, soft, no organomegaly, no mass Extremities: normal range of motion Neurologic: swing manager II-XII grossly normal, no motor/sensory deficits Skin: normal pigmentation, warm/dry Assessment/Plan Problem List: (1) SOB (shortness of breath) Assessment & Plan: Due to fluid overload. S/P dialysis 03/08 @ [place]. Follow nephrology recs for dialysis. (2) CHF (congestive heart failure) Assessment & Plan: Secondary to fluid overload. See cardiology note. (3) Fluid overload (4) Mass, brain (5) ESRD (end stage renal disease) on dialysis Assessment & Plan: See nephrology note. Hemodialysis today 03/11/16 per nephrology (6) DM (diabetes mellitus) Assessment & Plan: Cont glipizide and novolog sliding scale. (7) HTN (hypertension) Assessment & Plan: Cont hydralazine and labetolol (8) Parkinson disease (9) CAD (coronary artery disease) Assessment & Plan: See cardiology note. Status: progressing YENIFER SCHULER Mar 11, 2016 10:32
[2016-03-11 12:00] VITALS: BP 141/46
--- NOTE | 2016-03-11 12:32 | General Progress Note ---
Assessment/Plan Status: stable Assessment/Plan status; - ESRD (end stage renal disease) on dialysis by history - Acute respiratory failure ? CHF - Alzheimer's dementia - Pacer / s/p CABGS - DM (diabetes mellitus) - Parkinson disease Plan; Optimize cardiac and pulm status- Hold HD - check 24 h Urine Cr Cl Anemia rothman per orders adjust BP meds Subjective ROS Limited/Unobtainable: No Constitutional: Reports: malaise Allergies: Coded Allergies: No Known Allergies (Unverified , 02/02/15) Objective Last 24 Hour Vital Signs Date Time Temp Pulse Resp B/P Pulse Ox O2 Delivery O2 Flow Rate FiO2 03/11/16 09:36 143/65 03/11/16 09:36 60 143/65 03/11/16 09:35 60 143/65 03/11/16 08:00 96.8 60 17 143/65 97 Room Air 03/11/16 06:03 147/61 03/11/16 04:03 97.9 67 20 156/61 95 Room Air 03/11/16 04:00 69 03/11/16 00:10 98.4 64 20 159/61 97 Room Air 03/11/16 00:00 63 03/10/16 22:02 143/62 03/10/16 20:36 68 143/62 03/10/16 20:00 65 03/10/16 20:00 98.2 68 20 143/62 97 Room Air 03/10/16 17:54 146/58 03/10/16 16:00 67 03/10/16 16:00 97.7 67 19 146/58 100 Room Air 03/10/16 13:46 153/70 Intake and Output 03/10/16 03/11/16 19:00 07:00 Intake Total 320 ml 600 ml Output Total 400 ml 800 ml Balance -80 ml -200 ml Intake Oral 320 ml 600 ml Output Urine Total 400 ml 800 ml # Bowel Movements 2 Laboratory Tests 03/10/16 13:00: Urine Color Yellow, Urine Appearance Slightly cloudy, Urine pH 7, Urine Specific [place] 1.005, Urine Protein 4+H, Urine Glucose (UA) 1+H, Urine Ketones Negative, Urine Occult Blood 4+H, Urine Nitrite Negative, Urine Bilirubin Negative, Urine Urobilinogen Normal, Urine Leukocyte Esterase 1+H, Urine RBC 5-10H, Urine WBC 0-2, Urine Squamous Epithelial Cells Occasional, Urine Bacteria None 03/11/16 05:40: White Blood Count 6.7, Red Blood Count 2.88L, Hemoglobin 8.8L, Hematocrit 27.9L , Mean Corpuscular Volume 97, Mean Corpuscular Hemoglobin 30.5, Mean Corpuscular Hemoglobin Concent 31.4L, Red Cell Distribution Width 15.7H, Platelet Count 194, Mean Platelet Volume 6.6, Neutrophils (%) (Auto) 64.0, Lymphocytes (%) (Auto) 21.0, Monocytes (%) (Auto) 10.4H, Eosinophils (%) (Auto) 3.6H, Basophils (%) (Auto) 1.0, Sodium Level 138, Potassium Level 4.7, Chloride Level 98, Carbon Dioxide Level 25, Anion Gap 15, Blood Urea Nitrogen 54H, Creatinine 3.0H, Estimat Glomerular Filtration Rate , Glucose Level 142H, Uric Acid 6.6, Calcium Level 8.2L, Phosphorus Level 4.6, Magnesium Level 1.8, Total Bilirubin < 0.2, Aspartate Amino Transf (AST/SGOT) 12, Alanine Aminotransferase (ALT/SGPT) 9, Alkaline Phosphatase 89, C-Reactive Protein, Quantitative < 0.3, Pro-B-Type Natriuretic Peptide 6780H, Total Protein 5.4L, Albumin 3.0L, Globulin 2.4, Albumin/Globulin Ratio 1.2 Height (Feet): 5 Height (Inches): 4.00 Weight (Pounds): 146 General Appearance: no apparent distress Respiratory/Chest: decreased breath sounds Abdomen: soft Objective no change in PE DODIE CONNER Mar 11, 2016 12:32
--- NOTE | 2016-03-11 12:40 | Cardiology Report ---
APPROVED REPORT EKG Measurement Heart [id number] Normal sinus rhythm Prolonged QT Abnormal ECG
[2016-03-11 16:00] VITALS: BP 131/54
--- NOTE | 2016-03-11 19:35 | Cardiology Progress Note ---
Assessment/Plan Problem List: (1) Vascular dementia (2) Diabetic polyneuropathy associated with type 2 diabetes mellitus (3) Anemia (4) CAD (coronary artery disease) (5) Hypercholesterolemia (6) Pulmonary edema (7) ESRD (end stage renal disease) on dialysis (8) HTN (hypertension) Status: stable, not improved Status Narrative Mrs Nicole is hemodynamically stable. She has no angina or chf symptoms. ECHO shows miild to mod and normal LV systolic function Her recent decompensation may have been due to vol overload in the setting of RF She is now c/o rt abd pain Assessment/Plan Continue current rx w/ b erica, asa, plavix, statin W/u of abd pain per primary MD Subjective ROS Limited/Unobtainable: No Subjective Cardiology for Dr. Earl Pt without c/o chest pain or dyspnea. She c/o Rt sided abd pain Objective Last 24 Hour Vital Signs Date Time Temp Pulse Resp B/P Pulse Ox O2 Delivery O2 Flow Rate FiO2 03/11/16 17:28 131/54 03/11/16 16:00 98.1 60 20 131/54 97 Room Air 03/11/16 13:41 141/46 03/11/16 12:00 98.4 60 17 141/46 98 Room Air 03/11/16 12:00 60 03/11/16 09:36 143/65 03/11/16 09:36 60 143/65 03/11/16 09:35 60 143/65 03/11/16 08:00 96.8 60 17 143/65 97 Room Air 03/11/16 08:00 60 03/11/16 06:03 147/61 03/11/16 04:03 97.9 67 20 156/61 95 Room Air 03/11/16 04:00 69 03/11/16 00:10 98.4 64 20 159/61 97 Room Air 03/11/16 00:00 63 03/10/16 22:02 143/62 03/10/16 20:36 68 143/62 03/10/16 20:00 65 03/10/16 20:00 98.2 68 20 143/62 97 Room Air General Appearance: WD/WN, alert, mild distress EENT: PERRL/EOMI Neck: supple, no JVD Rhythm: NSR Cardiovascular: normal rate, regular rhythm, systolic murmur Respiratory/Chest: lungs clear Abdomen: normal bowel sounds, soft, other - R sided abd tenderness Extremities: no swelling, other - L UE AV graft Intake and Output 03/10/16 03/11/16 19:00 07:00 Intake Total 320 ml 600 ml Output Total 400 ml 800 ml Balance -80 ml -200 ml Intake Oral 320 ml 600 ml Output Urine Total 400 ml 800 ml # Bowel Movements 2 Laboratory Tests Test 03/11/16 05:40 03/11/16 14:00 White Blood Count 6.7 K/UL (4.8-10.8) Red Blood Count 2.88 M/UL (4.20-5.40) L Hemoglobin 8.8 G/DL (12.0-16.0) L Hematocrit 27.9 % (37.0-47.0) L Mean Corpuscular Volume 97 FL (80-99) Mean Corpuscular Hemoglobin 30.5 PG (27.0-31.0) Mean Corpuscular Hemoglobin Concent 31.4 G/DL (32.0-36.0) L Red Cell Distribution Width 15.7 % (11.6-14.8) H Platelet Count 194 K/UL (150-450) Mean Platelet Volume 6.6 FL (6.5-10.1) Neutrophils (%) (Auto) 64.0 % (45.0-75.0) Lymphocytes (%) (Auto) 21.0 % (20.0-45.0) Monocytes (%) (Auto) 10.4 % (1.0-10.0) H Eosinophils (%) (Auto) 3.6 % (0.0-3.0) H Basophils (%) (Auto) 1.0 % (0.0-2.0) Sodium Level 138 mEQ/L (135-145) Potassium Level 4.7 mEQ/L (3.4-4.9) Chloride Level 98 mEQ/L (98-107) Carbon Dioxide Level 25 mEQ/L (20-30) Anion Gap 15 (5-15) Blood Urea Nitrogen 54 mg/dL (7-23) H Creatinine 3.0 mg/dL (0.5-0.9) H 3.0 mg/dL (0.5-0.9) H Estimat Glomerular Filtration Rate mL/min (>60) mL/min (>60) Glucose Level 142 mg/dL (74-106) H Uric Acid 6.6 mg/dL (3.0-7.5) Calcium Level 8.2 mg/dL (8.6-10.2) L Phosphorus Level 4.6 mg/dL (2.5-4.8) Magnesium Level 1.8 mg/dL (1.7-2.5) Total Bilirubin < 0.2 mg/dL (0.0-1.2) Aspartate Amino Transf (AST/SGOT) 12 U/L (5-40) Alanine Aminotransferase (ALT/SGPT) 9 U/L (3-33) Alkaline Phosphatase 89 U/L (35-104) C-Reactive Protein, Quantitative < 0.3 mg/dL (< 0.5) Pro-B-Type Natriuretic Peptide 6780 pg/mL (0-125) H Total Protein 5.4 g/dL (6.6-8.7) L Albumin 3.0 g/dL (3.5-5.2) L Globulin 2.4 g/dL Albumin/Globulin Ratio 1.2 (1.0-2.7) Microbiology Date/Time Source Procedure Growth Status 03/08/16 23:05 Wound Gram Stain - Final Resulted 03/08/16 23:05 Wound Wound Culture - Preliminary NO GROWTH AFTER 48 HOURS Resulted 03/08/16 23:05 Nasal Nares MRSA Culture - Final NO METHICILLIN RESISTANT STAPH AUREUS... Complete 03/08/16 23:05 Rectum VRE Culture - Final NO VANCOMYCIN RESISTANT ENTEROCOCCUS ... Complete MELL GARZON Mar 11, 2016 19:35
[2016-03-11 20:00] VITALS: BP 137/60
[2016-03-11] MEDS: Donepezil 5mg Tab ORAL SCH (21:45)
[2016-03-12 00:17] VITALS: BP 160/55
[2016-03-12 04:00] VITALS: BP 146/59
[2016-03-12] MEDS: HydrALAZINE 25mg tab ORAL SCH ×3 (05:32→21:30)
[2016-03-12] MEDS: GlipiZIDE 5mg tab ORAL SCH ×2 (05:48→16:37)
[2016-03-12] MEDS: NovoLOG Insulin Flexpen SUBQ SCH ×4 (06:40→20:32)
[2016-03-12 07:55] VITALS: BP 143/58
[2016-03-12 08:07] LABS: EOSINOPHILS % (AUTO) 2.8 % (0.0-3.0); LYMPHOCYTES % (AUTO) 10.6 % (20.0-45.0); MEAN CORPUSCULAR HEMOGLOBIN 30.6 PG (27.0-31.0); MEAN CORPUSCULAR HGB CONC 32.3 G/DL (32.0-36.0); MEAN CORPUSCULAR VOLUME 95 FL (80-99); MEAN PLATELET VOLUME 7.4 FL (6.5-10.1); MONOCYTES % (AUTO) 8.5 % (1.0-10.0); PLATELET COUNT 196 K/UL (150-450); RED BLOOD COUNT 2.98 M/UL (4.20-5.40); RED CELL DISTRIBUTION WIDTH 15.8 % (11.6-14.8); WHITE BLOOD COUNT 6.6 K/UL (4.8-10.8)
[2016-03-12 08:25] LABS: ANION GAP 14 (5-15); CALCIUM 8.2 mg/dL (8.6-10.2); CARBON DIOXIDE 22 mEQ/L (20-30); CHLORIDE 101 mEQ/L (98-107); CREATININE 3.2 mg/dL (0.5-0.9); HEMOLYSIS 0; POTASSIUM 4.7 mEQ/L (3.4-4.9); SODIUM 137 mEQ/L (135-145)
[2016-03-12] MEDS: Heparin 5000 units/ml inj SUBQ SCH ×2 (10:04→20:31)
[2016-03-12] MEDS: Aspirin Baby 81mg ORAL SCH (10:04)
[2016-03-12] MEDS: Labetalol 200mg tab ORAL SCH ×2 (10:06→20:28)
[2016-03-12 11:52] VITALS: BP 142/62
--- NOTE | 2016-03-12 13:49 | General Progress Note ---
Assessment/Plan Status: stable Assessment/Plan status; - ESRD (end stage renal disease) on dialysis by history - Acute respiratory failure ? CHF - Alzheimer's dementia - Pacer / s/p CABGS - DM (diabetes mellitus) - Parkinson disease Plan; Optimize cardiac and pulm status- Hold HD - check 24 h Urine Cr Cl- results pending Anemia rothman per orders adjust BP meds one dose Zaroxyline Subjective ROS Limited/Unobtainable: No Constitutional: Reports: other - denies sob Allergies: Coded Allergies: No Known Allergies (Unverified , 02/02/15) Objective Last 24 Hour Vital Signs Date Time Temp Pulse Resp B/P Pulse Ox O2 Delivery O2 Flow Rate FiO2 03/12/16 13:06 142/62 03/12/16 11:52 98.0 70 20 142/62 99 Room Air 03/12/16 10:06 72 143/58 03/12/16 10:05 143/58 03/12/16 10:05 72 143/58 03/12/16 07:55 97.6 72 21 143/58 97 Room Air 03/12/16 05:32 163/68 03/12/16 04:00 98.8 65 20 146/59 98 Room Air 03/12/16 00:39 99.0 03/12/16 00:17 100.6 64 20 160/55 97 Room Air 03/11/16 21:47 137/60 03/11/16 21:46 67 137/60 03/11/16 20:00 98.2 67 21 137/60 96 Room Air 03/11/16 17:28 131/54 03/11/16 16:00 98.1 60 20 131/54 97 Room Air Intake and Output 03/11/16 03/12/16 19:00 07:00 Intake Total 460 ml Output Total 300 ml 725 ml Balance 160 ml -725 ml Intake Oral 460 ml Output Urine Total 300 ml 725 ml Laboratory Tests 03/11/16 14:00: Creatinine 3.0H, Estimat Glomerular Filtration Rate 03/12/16 07:25: Creatinine 3.2H, Estimat Glomerular Filtration Rate , White Blood Count 6.6, Red Blood Count 2.98L, Hemoglobin 9.1L, Hematocrit 28.2L, Mean Corpuscular Volume 95, Mean Corpuscular Hemoglobin 30.6, Mean Corpuscular Hemoglobin Concent 32.3, Red Cell Distribution Width 15.8H, Platelet Count 196, Mean Platelet Volume 7.4, Neutrophils (%) (Auto) 77.0H, Lymphocytes (%) (Auto) 10.6L , Monocytes (%) (Auto) 8.5, Eosinophils (%) (Auto) 2.8, Basophils (%) (Auto) 1.0 , Sodium Level 137, Potassium Level 4.7, Chloride Level 101, Carbon Dioxide Level 22, Anion Gap 14, Blood Urea Nitrogen 60H, Glucose Level 164H, Calcium Level 8.2L Height (Feet): 5 Height (Inches): 4.00 Weight (Pounds): 148 General Appearance: no apparent distress Objective no change in PE- no signs of chf DODIE CONNER Mar 12, 2016 13:49
[2016-03-12] MEDS ORDERED: Metolazone 5mg tab ORAL ONE (14:30)
[2016-03-12 16:00] VITALS: BP 160/65
--- NOTE | 2016-03-12 16:52 | Internal Med Progress Note ---
Subjective Date of Service: Mar 12, 2016 Physician Name Jasen Schuler Attending Physician Jovani Gr MD Current Medications Medications (Trade) Dose Ordered Sig/Carrie Route PRN Reason Start Time Stop Time Status Last Admin Dose Admin Amlodipine Besylate (Norvasc) 10 mg DAILY ORAL 03/12/16 09:00 04/11/16 08:59 03/12/16 10:05 Aspirin (ASA) 81 mg DAILY ORAL 03/12/16 09:00 04/11/16 08:59 03/12/16 10:04 Atorvastatin Calcium (Lipitor) 40 mg BEDTIME ORAL 03/12/16 21:00 04/11/16 20:59 Clonidine HCl (Catapres) 0.1 mg Q4H PRN ORAL bp over 170 syst 03/12/16 04:00 04/11/16 03:59 Clopidogrel Bisulfate (Plavix) 75 mg DAILY ORAL 03/12/16 09:00 04/11/16 08:59 03/12/16 10:06 Dextrose (Dextrose 50%) STAT PRN IV Hypoglycemia 03/12/16 01:15 04/11/16 01:14 Diphenhydramine HCl (Benadryl) 25 mg Q8H PRN ORAL Itching 03/12/16 01:15 04/11/16 01:14 Donepezil HCl (Aricept) 5 mg QHS ORAL 03/12/16 21:00 04/11/16 20:59 Gabapentin (Neurontin) 100 mg THREE TIMES A DAY ORAL 03/12/16 09:00 04/11/16 08:59 03/12/16 13:05 Glipizide (Glucotrol) 5 mg BIAC ORAL 03/12/16 06:30 04/11/16 06:29 03/12/16 16:37 Heparin Sodium (Porcine) (Heparin 5000 units/ml) 5,000 units EVERY 12 HOURS SUBQ 03/12/16 09:00 04/11/16 08:59 03/12/16 10:04 Hydralazine HCl (Apresoline) 75 mg TID@0600,1400,2200 ORAL 03/12/16 06:00 04/11/16 05:59 03/12/16 13:06 Insulin Aspart (NovoLOG) BEFORE MEALS AND HS SUBQ 03/12/16 06:30 04/11/16 06:29 03/12/16 16:41 Labetalol HCl (Normodyne) 200 mg BID@0900,2100 ORAL 03/12/16 09:00 04/11/16 08:59 03/12/16 10:06 Pentoxifylline (TRENtal) 400 mg BID ORAL 03/12/16 09:00 04/11/16 08:59 03/12/16 10:05 Ranitidine HCl (Zantac) 150 mg DAILY ORAL 03/12/16 09:00 04/11/16 08:59 03/12/16 10:06 Ropinirole HCl (Requip) 2 mg QHS ORAL 03/12/16 21:00 04/11/16 20:59 Allergies: Coded Allergies: No Known Allergies (Unverified , 02/02/15) ROS Limited/Unobtainable: No Constitutional: Reports: no symptoms HEENT: Reports: no symptoms Cardiovascular: Reports: no symptoms Respiratory: Reports: shortness of breath Gastrointestinal/Abdominal: Reports: no symptoms Genitourinary: Reports: no symptoms Neurologic/Psychiatric: Reports: no symptoms Subjective 75 YO F admitted with shortness of breath and congestive heart failure. Cover for Int Med-Dr Gr Objective Last Vital Signs Date Time Temp Pulse Resp B/P Pulse Ox O2 Delivery O2 Flow Rate FiO2 03/12/16 16:00 100.6 67 20 160/65 95 Room Air 03/09/16 07:49 2.0 Laboratory Tests Test 03/12/16 07:25 White Blood Count 6.6 K/UL (4.8-10.8) Red Blood Count 2.98 M/UL (4.20-5.40) L Hemoglobin 9.1 G/DL (12.0-16.0) L Hematocrit 28.2 % (37.0-47.0) L Mean Corpuscular Volume 95 FL (80-99) Mean Corpuscular Hemoglobin 30.6 PG (27.0-31.0) Mean Corpuscular Hemoglobin Concent 32.3 G/DL (32.0-36.0) Red Cell Distribution Width 15.8 % (11.6-14.8) H Platelet Count 196 K/UL (150-450) Mean Platelet Volume 7.4 FL (6.5-10.1) Neutrophils (%) (Auto) 77.0 % (45.0-75.0) H Lymphocytes (%) (Auto) 10.6 % (20.0-45.0) L Monocytes (%) (Auto) 8.5 % (1.0-10.0) Eosinophils (%) (Auto) 2.8 % (0.0-3.0) Basophils (%) (Auto) 1.0 % (0.0-2.0) Sodium Level 137 mEQ/L (135-145) Potassium Level 4.7 mEQ/L (3.4-4.9) Chloride Level 101 mEQ/L (98-107) Carbon Dioxide Level 22 mEQ/L (20-30) Anion Gap 14 (5-15) Blood Urea Nitrogen 60 mg/dL (7-23) H Creatinine 3.2 mg/dL (0.5-0.9) H Estimat Glomerular Filtration Rate mL/min (>60) Glucose Level 164 mg/dL (74-106) H Calcium Level 8.2 mg/dL (8.6-10.2) L Intake and Output 03/11/16 03/12/16 19:00 07:00 Intake Total 460 ml Output Total 300 ml 725 ml Balance 160 ml -725 ml Intake Oral 460 ml Output Urine Total 300 ml 725 ml Objective General Appearance: WD/WN, no apparent distress, alert EENT: PERRL/EOMI, normal ENT inspection, TMs normal Neck: non-tender, normal alignment, supple Cardiovascular: normal peripheral pulses, normal rate, regular rhythm, no gallop/murmur, no JVD Respiratory/Chest: chest wall non-tender, no respiratory distress, no accessory muscle use, crackles/rales, rhonchi - bilaterally, expiratory wheezing Abdomen: normal bowel sounds, non tender, soft, no organomegaly, no mass Extremities: normal range of motion Neurologic: him clerk II-XII grossly normal, no motor/sensory deficits Skin: normal pigmentation, warm/dry Assessment/Plan Problem List: (1) SOB (shortness of breath) Assessment & Plan: Due to fluid overload. S/P dialysis 03/08 @ [place]. Follow nephrology recs for dialysis. (2) CHF (congestive heart failure) Assessment & Plan: Secondary to fluid overload. See cardiology note. (3) Fluid overload (4) Mass, brain (5) ESRD (end stage renal disease) on dialysis Assessment & Plan: See nephrology note. Hold Hemodialysis per nephrology (6) DM (diabetes mellitus) Assessment & Plan: Cont glipizide and novolog sliding scale. (7) HTN (hypertension) Assessment & Plan: Cont hydralazine and labetolol (8) Parkinson disease (9) CAD (coronary artery disease) Assessment & Plan: See cardiology note. Status: progressing JASEN SCHULER Mar 12, 2016 16:52
[2016-03-12 19:00] VITALS: BP 157/62
[2016-03-12] MEDS: Donepezil 5mg Tab ORAL SCH (20:27)
--- NOTE | 2016-03-12 23:33 | Pulmonology Progress Note ---
Assessment/Plan Problems: (1) Acute respiratory failure (2) Alzheimer's dementia (3) ESRD (end stage renal disease) on dialysis (4) DM (diabetes mellitus) (5) Parkinson disease Assessment/Plan improving respiratory treatment cxr reviewed HD by nephrology pt/ot Subjective ROS Limited/Unobtainable: No Interval Events: comfortable Allergies: Coded Allergies: No Known Allergies (Unverified , 02/02/15) Objective Last 24 Hour Vital Signs Date Time Temp Pulse Resp B/P Pulse Ox O2 Delivery O2 Flow Rate FiO2 03/12/16 21:30 151/62 03/12/16 20:28 73 151/62 03/12/16 19:00 99.3 73 20 157/62 95 Room Air 03/12/16 18:20 160/65 03/12/16 16:00 100.6 67 20 160/65 95 Room Air 03/12/16 13:06 142/62 03/12/16 11:52 98.0 70 20 142/62 99 Room Air 03/12/16 10:06 72 143/58 03/12/16 10:05 143/58 03/12/16 10:05 72 143/58 03/12/16 07:55 97.6 72 21 143/58 97 Room Air 03/12/16 05:32 163/68 03/12/16 04:00 98.8 65 20 146/59 98 Room Air 03/12/16 00:39 99.0 03/12/16 00:17 100.6 64 20 160/55 97 Room Air Intake and Output 03/11/16 03/12/16 19:00 07:00 Intake Total 460 ml Output Total 300 ml 725 ml Balance 160 ml -725 ml Intake Oral 460 ml Output Urine Total 300 ml 725 ml General Appearance: WD/WN HEENT: normocephalic, atraumatic Respiratory/Chest: chest wall non-tender, lungs clear Breasts: no masses Cardiovascular: normal peripheral pulses Abdomen: normal bowel sounds, soft, non tender Genitourinary: normal external genitalia Extremities: no cyanosis Skin: no rash Laboratory Tests 03/12/16 07:25: White Blood Count 6.6, Red Blood Count 2.98L, Hemoglobin 9.1L, Hematocrit 28.2L , Mean Corpuscular Volume 95, Mean Corpuscular Hemoglobin 30.6, Mean Corpuscular Hemoglobin Concent 32.3, Red Cell Distribution Width 15.8H, Platelet Count 196, Mean Platelet Volume 7.4, Neutrophils (%) (Auto) 77.0H, Lymphocytes (%) (Auto) 10.6L, Monocytes (%) (Auto) 8.5, Eosinophils (%) (Auto) 2.8, Basophils (%) (Auto) 1.0, Sodium Level 137, Potassium Level 4.7, Chloride Level 101, Carbon Dioxide Level 22, Anion Gap 14, Blood Urea Nitrogen 60H, Creatinine 3.2H, Estimat Glomerular Filtration Rate , Glucose Level 164H, Calcium Level 8.2L Current Medications Medications (Trade) Dose Ordered Sig/Carrie Route PRN Reason Start Time Stop Time Status Last Admin Dose Admin Amlodipine Besylate (Norvasc) 10 mg DAILY ORAL 03/12/16 09:00 04/11/16 08:59 03/12/16 10:05 Aspirin (ASA) 81 mg DAILY ORAL 03/12/16 09:00 04/11/16 08:59 03/12/16 10:04 Atorvastatin Calcium (Lipitor) 40 mg BEDTIME ORAL 03/12/16 21:00 04/11/16 20:59 03/12/16 20:27 Clonidine HCl (Catapres) 0.1 mg Q4H PRN ORAL bp over 170 syst 03/12/16 04:00 04/11/16 03:59 Clopidogrel Bisulfate (Plavix) 75 mg DAILY ORAL 03/12/16 09:00 04/11/16 08:59 03/12/16 10:06 Dextrose (Dextrose 50%) STAT PRN IV Hypoglycemia 03/12/16 01:15 04/11/16 01:14 Diphenhydramine HCl (Benadryl) 25 mg Q8H PRN ORAL Itching 03/12/16 01:15 04/11/16 01:14 Donepezil HCl (Aricept) 5 mg QHS ORAL 03/12/16 21:00 04/11/16 20:59 03/12/16 20:27 Gabapentin (Neurontin) 100 mg THREE TIMES A DAY ORAL 03/12/16 09:00 04/11/16 08:59 03/12/16 18:20 Glipizide (Glucotrol) 5 mg BIAC ORAL 03/12/16 06:30 04/11/16 06:29 03/12/16 16:37 Heparin Sodium (Porcine) (Heparin 5000 units/ml) 5,000 units EVERY 12 HOURS SUBQ 03/12/16 09:00 04/11/16 08:59 03/12/16 20:31 Hydralazine HCl (Apresoline) 75 mg TID@0600,1400,2200 ORAL 03/12/16 06:00 04/11/16 05:59 03/12/16 21:30 Insulin Aspart (NovoLOG) BEFORE MEALS AND HS SUBQ 03/12/16 06:30 04/11/16 06:29 03/12/16 20:32 Labetalol HCl (Normodyne) 200 mg BID@0900,2100 ORAL 03/12/16 09:00 04/11/16 08:59 03/12/16 20:28 Pentoxifylline (TRENtal) 400 mg BID ORAL 03/12/16 09:00 04/11/16 08:59 03/12/16 18:20 Ranitidine HCl (Zantac) 150 mg DAILY ORAL 03/12/16 09:00 04/11/16 08:59 03/12/16 10:06 Ropinirole HCl (Requip) 2 mg QHS ORAL 03/12/16 21:00 04/11/16 20:59 03/12/16 20:27 ALMA DELIA MONTES Mar 12, 2016 23:33
[2016-03-13] VITALS: BP 134/59
[2016-03-13 04:00] VITALS: BP 139/60
[2016-03-13] MEDS: GlipiZIDE 5mg tab ORAL SCH ×2 (06:27→16:47)
[2016-03-13] MEDS: HydrALAZINE 25mg tab ORAL SCH ×2 (06:28→13:30)
[2016-03-13] MEDS: NovoLOG Insulin Flexpen SUBQ SCH ×4 (06:29→21:08)
[2016-03-13 07:42] LABS: BASOPHILS % (AUTO) 1.4 % (0.0-2.0); EOSINOPHILS % (AUTO) 0.8 % (0.0-3.0); LYMPHOCYTES % (AUTO) 14.8 % (20.0-45.0); MEAN CORPUSCULAR HEMOGLOBIN 31.4 PG (27.0-31.0); MEAN CORPUSCULAR VOLUME 95 FL (80-99); NEUTROPHILS % (AUTO) 73.1 % (45.0-75.0); PLATELET COUNT 185 K/UL (150-450); RED BLOOD COUNT 2.83 M/UL (4.20-5.40); WHITE BLOOD COUNT 6.1 K/UL (4.8-10.8)
[2016-03-13 08:00] LABS: ALANINE AMINOTRANSFERASE 12 U/L (3-33); ALBUMIN/GLOBULIN RATIO 1.4 (1.0-2.7); ANION GAP 16 (5-15); ASPARTATE AMINO TRANSFERASE 23 U/L (5-40); CALCIUM 8.2 mg/dL (8.6-10.2); CARBON DIOXIDE 19 mEQ/L (20-30); CHLORIDE 97 mEQ/L (98-107); CREATININE 3.5 mg/dL (0.5-0.9); HEMOLYSIS 23; PHOSPHORUS 5.9 mg/dL (2.5-4.8); POTASSIUM 5.1 mEQ/L (3.4-4.9); SODIUM 132 mEQ/L (135-145); TOTAL PROTEIN 5.1 g/dL (6.6-8.7)
[2016-03-13 08:15] VITALS: BP 135/48
[2016-03-13] MEDS: Aspirin Baby 81mg ORAL SCH (09:23)
[2016-03-13] MEDS: Heparin 5000 units/ml inj SUBQ SCH ×2 (09:24→21:07)
[2016-03-13] MEDS: Labetalol 200mg tab ORAL SCH ×2 (09:24→21:07)
[2016-03-13 11:56] VITALS: BP 141/58
--- NOTE | 2016-03-13 13:31 | Internal Med Progress Note ---
Subjective Date of Service: Mar 13, 2016 Physician Name Jasen Schuler Attending Physician Jovani Gr MD Current Medications Medications (Trade) Dose Ordered Sig/Carrie Route PRN Reason Start Time Stop Time Status Last Admin Dose Admin Amlodipine Besylate (Norvasc) 10 mg DAILY ORAL 03/12/16 09:00 04/11/16 08:59 03/13/16 09:23 Aspirin (ASA) 81 mg DAILY ORAL 03/12/16 09:00 04/11/16 08:59 03/13/16 09:23 Atorvastatin Calcium (Lipitor) 40 mg BEDTIME ORAL 03/12/16 21:00 04/11/16 20:59 03/12/16 20:27 Clonidine HCl (Catapres) 0.1 mg Q4H PRN ORAL bp over 170 syst 03/12/16 04:00 04/11/16 03:59 Clopidogrel Bisulfate (Plavix) 75 mg DAILY ORAL 03/12/16 09:00 04/11/16 08:59 03/13/16 09:23 Dextrose (Dextrose 50%) STAT PRN IV Hypoglycemia 03/12/16 01:15 04/11/16 01:14 Diphenhydramine HCl (Benadryl) 25 mg Q8H PRN ORAL Itching 03/12/16 01:15 04/11/16 01:14 Donepezil HCl (Aricept) 5 mg QHS ORAL 03/12/16 21:00 04/11/16 20:59 03/12/16 20:27 Gabapentin (Neurontin) 100 mg THREE TIMES A DAY ORAL 03/12/16 09:00 04/11/16 08:59 03/13/16 13:30 Glipizide (Glucotrol) 5 mg BIAC ORAL 03/12/16 06:30 04/11/16 06:29 03/13/16 06:27 Heparin Sodium (Porcine) (Heparin 5000 units/ml) 5,000 units EVERY 12 HOURS SUBQ 03/12/16 09:00 04/11/16 08:59 03/13/16 09:24 Hydralazine HCl (Apresoline) 75 mg TID@0600,1400,2200 ORAL 03/12/16 06:00 04/11/16 05:59 03/13/16 13:30 Insulin Aspart (NovoLOG) BEFORE MEALS AND HS SUBQ 03/12/16 06:30 04/11/16 06:29 03/13/16 12:22 Labetalol HCl (Normodyne) 200 mg BID@0900,2100 ORAL 03/12/16 09:00 04/11/16 08:59 03/13/16 09:24 Pentoxifylline (TRENtal) 400 mg BID ORAL 03/12/16 09:00 04/11/16 08:59 03/13/16 09:23 Ranitidine HCl (Zantac) 150 mg DAILY ORAL 03/12/16 09:00 04/11/16 08:59 03/13/16 09:22 Ropinirole HCl (Requip) 2 mg QHS ORAL 03/12/16 21:00 04/11/16 20:59 03/12/16 20:27 Allergies: Coded Allergies: No Known Allergies (Unverified , 02/02/15) ROS Limited/Unobtainable: No Constitutional: Reports: no symptoms HEENT: Reports: no symptoms Cardiovascular: Reports: no symptoms Respiratory: Reports: shortness of breath Gastrointestinal/Abdominal: Reports: no symptoms Genitourinary: Reports: no symptoms Neurologic/Psychiatric: Reports: no symptoms Subjective 75 YO F admitted with shortness of breath and congestive heart failure. Cover for Int Med-Dr Gr Objective Last Vital Signs Date Time Temp Pulse Resp B/P Pulse Ox O2 Delivery O2 Flow Rate FiO2 03/13/16 13:30 141/58 03/13/16 11:56 97.6 71 20 97 Room Air 03/09/16 07:49 2.0 Laboratory Tests Test 03/13/16 05:45 White Blood Count 6.1 K/UL (4.8-10.8) Red Blood Count 2.83 M/UL (4.20-5.40) L Hemoglobin 8.9 G/DL (12.0-16.0) L Hematocrit 27.0 % (37.0-47.0) L Mean Corpuscular Volume 95 FL (80-99) Mean Corpuscular Hemoglobin 31.4 PG (27.0-31.0) H Mean Corpuscular Hemoglobin Concent 33.0 G/DL (32.0-36.0) Red Cell Distribution Width 16.0 % (11.6-14.8) H Platelet Count 185 K/UL (150-450) Mean Platelet Volume 8.0 FL (6.5-10.1) Neutrophils (%) (Auto) 73.1 % (45.0-75.0) Lymphocytes (%) (Auto) 14.8 % (20.0-45.0) L Monocytes (%) (Auto) 10.0 % (1.0-10.0) Eosinophils (%) (Auto) 0.8 % (0.0-3.0) Basophils (%) (Auto) 1.4 % (0.0-2.0) Sodium Level 132 mEQ/L (135-145) L Potassium Level 5.1 mEQ/L (3.4-4.9) H Chloride Level 97 mEQ/L (98-107) L Carbon Dioxide Level 19 mEQ/L (20-30) L Anion Gap 16 (5-15) H Blood Urea Nitrogen 64 mg/dL (7-23) H Creatinine 3.5 mg/dL (0.5-0.9) H Estimat Glomerular Filtration Rate mL/min (>60) Glucose Level 173 mg/dL (74-106) H Uric Acid Pending Calcium Level 8.2 mg/dL (8.6-10.2) L Phosphorus Level 5.9 mg/dL (2.5-4.8) H Total Bilirubin 0.3 mg/dL (0.0-1.2) Aspartate Amino Transf (AST/SGOT) 23 U/L (5-40) Alanine Aminotransferase (ALT/SGPT) 12 U/L (3-33) Alkaline Phosphatase 90 U/L (35-104) C-Reactive Protein, Quantitative Pending Pro-B-Type Natriuretic Peptide 83133 pg/mL (0-125) H Total Protein 5.1 g/dL (6.6-8.7) L Albumin 3.0 g/dL (3.5-5.2) L Globulin 2.1 g/dL Albumin/Globulin Ratio 1.4 (1.0-2.7) Intake and Output 03/12/16 03/13/16 19:00 07:00 Intake Total 540 ml 240 ml Output Total 250 ml Balance 290 ml 240 ml Intake Oral 540 ml 240 ml Output Urine Total 250 ml # Voids 3 6 Objective General Appearance: WD/WN, no apparent distress, alert EENT: PERRL/EOMI, normal ENT inspection, TMs normal Neck: non-tender, normal alignment, supple Cardiovascular: normal peripheral pulses, normal rate, regular rhythm, no gallop/murmur, no JVD Respiratory/Chest: chest wall non-tender, no respiratory distress, no accessory muscle use, crackles/rales, rhonchi - bilaterally, expiratory wheezing Abdomen: normal bowel sounds, non tender, soft, no organomegaly, no mass Extremities: normal range of motion Neurologic: snagger II-XII grossly normal, no motor/sensory deficits Skin: normal pigmentation, warm/dry Assessment/Plan Problem List: (1) SOB (shortness of breath) Assessment & Plan: Due to fluid overload. S/P dialysis 03/08 @ [place]. Follow nephrology recs for dialysis. (2) CHF (congestive heart failure) Assessment & Plan: Secondary to fluid overload. See cardiology note. (3) Fluid overload (4) Mass, brain (5) ESRD (end stage renal disease) on dialysis Assessment & Plan: See nephrology note. Hold Hemodialysis per nephrology (6) DM (diabetes mellitus) Assessment & Plan: Cont glipizide and novolog sliding scale. (7) HTN (hypertension) Assessment & Plan: Cont hydralazine and labetolol (8) Parkinson disease (9) CAD (coronary artery disease) Assessment & Plan: See cardiology note. Status: progressing JASEN SCHULER Mar 13, 2016 13:31
[2016-03-13 13:47] LABS: CRP QUANT 0.9 mg/dL (< 0.5); URIC ACID 8.6 mg/dL (3.0-7.5)
--- NOTE | 2016-03-13 13:52 | General Progress Note ---
Assessment/Plan Status: stable Assessment/Plan status; - ESRD (end stage renal disease) on dialysis by history - Acute respiratory failure ? CHF - Alzheimer's dementia - Pacer / s/p CABGS - DM (diabetes mellitus) - Parkinson disease Plan; Optimize cardiac and pulm status- Hold HD - check 24 h Urine Cr Cl- results pending Anemia rothman per orders adjust BP meds one dose Zaroxyline Subjective ROS Limited/Unobtainable: No Constitutional: Reports: malaise, weakness Allergies: Coded Allergies: No Known Allergies (Unverified , 02/02/15) Objective Last 24 Hour Vital Signs Date Time Temp Pulse Resp B/P Pulse Ox O2 Delivery O2 Flow Rate FiO2 03/13/16 13:30 141/58 03/13/16 11:56 97.6 71 20 141/58 97 Room Air 03/13/16 09:24 65 135/48 03/13/16 09:23 135/48 03/13/16 09:23 65 135/48 03/13/16 08:15 97.9 65 21 135/48 97 Room Air 03/13/16 06:28 139/60 03/13/16 04:00 97.2 72 20 139/60 97 Room Air 03/13/16 00:00 98.7 65 20 134/59 93 Room Air 03/12/16 21:30 151/62 03/12/16 20:28 73 151/62 03/12/16 19:00 99.3 73 20 157/62 95 Room Air 03/12/16 18:20 160/65 03/12/16 16:00 100.6 67 20 160/65 95 Room Air Intake and Output 03/12/16 03/13/16 19:00 07:00 Intake Total 540 ml 240 ml Output Total 250 ml Balance 290 ml 240 ml Intake Oral 540 ml 240 ml Output Urine Total 250 ml # Voids 3 6 Laboratory Tests 03/13/16 05:45: White Blood Count 6.1, Red Blood Count 2.83L, Hemoglobin 8.9L, Hematocrit 27.0L , Mean Corpuscular Volume 95, Mean Corpuscular Hemoglobin 31.4H, Mean Corpuscular Hemoglobin Concent 33.0, Red Cell Distribution Width 16.0H, Platelet Count 185, Mean Platelet Volume 8.0, Neutrophils (%) (Auto) 73.1, Lymphocytes (%) (Auto) 14.8L, Monocytes (%) (Auto) 10.0, Eosinophils (%) (Auto) 0.8, Basophils (%) (Auto) 1.4, Sodium Level 132L, Potassium Level 5.1H, Chloride Level 97L, Carbon Dioxide Level 19L, Anion Gap 16H, Blood Urea Nitrogen 64H, Creatinine 3.5H, Estimat Glomerular Filtration Rate , Glucose Level 173H, Uric Acid 8.6H, Calcium Level 8.2L, Phosphorus Level 5.9H, Total Bilirubin 0.3, Aspartate Amino Transf (AST/SGOT) 23, Alanine Aminotransferase ( ALT/SGPT) 12, Alkaline Phosphatase 90, C-Reactive Protein, Quantitative 0.9H, Pro-B-Type Natriuretic Peptide 59864C, Total Protein 5.1L, Albumin 3.0L, Globulin 2.1, Albumin/Globulin Ratio 1.4 Height (Feet): 5 Height (Inches): 4.00 Weight (Pounds): 148 General Appearance: no apparent distress Cardiovascular: normal rate Respiratory/Chest: decreased breath sounds Abdomen: soft Objective no change in PE- no signs of chf DODIE CONNER Mar 13, 2016 13:52
[2016-03-13] MEDS: Albuterol ud Inhalation HHN PRN ×2 (13:59→19:01)
[2016-03-13] MEDS ORDERED: Metolazone 5mg tab ORAL ONE (14:00)
[2016-03-13] MEDS ORDERED: HydrALAZINE 50mg tab ORAL SCH (14:00)
[2016-03-13] MEDS ORDERED: HydrALAZINE 25mg tab ORAL ONE (14:00)
[2016-03-13 16:00] VITALS: BP 168/60
--- NOTE | 2016-03-13 16:56 | Pulmonology Progress Note ---
Assessment/Plan Problems: (1) Acute respiratory failure (2) Alzheimer's dementia (3) ESRD (end stage renal disease) on dialysis (4) DM (diabetes mellitus) (5) Parkinson disease Assessment/Plan improving respiratory treatment cxr reviewed HD by nephrology pt/ot Subjective ROS Limited/Unobtainable: No Constitutional: Reports: no symptoms HEENT: Repors: no symptoms Respiratory: Reports: no symptoms Cardiovascular: Reports: no symptoms Allergies: Coded Allergies: No Known Allergies (Unverified , 02/02/15) Objective Last 24 Hour Vital Signs Date Time Temp Pulse Resp B/P Pulse Ox O2 Delivery O2 Flow Rate FiO2 03/13/16 14:40 141/58 03/13/16 14:14 Nasal Cannula 2.0 03/13/16 14:13 97 Nasal Cannula 2.0 03/13/16 14:11 67 22 97 Nasal Cannula 2.0 28 03/13/16 13:58 69 26 86 Room Air 21 03/13/16 13:55 69 26 Room Air 21 03/13/16 13:30 141/58 03/13/16 11:56 97.6 71 20 141/58 97 Room Air 03/13/16 09:24 65 135/48 03/13/16 09:23 135/48 03/13/16 09:23 65 135/48 03/13/16 08:15 97.9 65 21 135/48 97 Room Air 03/13/16 06:28 139/60 03/13/16 04:00 97.2 72 20 139/60 97 Room Air 03/13/16 00:00 98.7 65 20 134/59 93 Room Air 03/12/16 21:30 151/62 03/12/16 20:28 73 151/62 03/12/16 19:00 99.3 73 20 157/62 95 Room Air 03/12/16 18:20 160/65 Intake and Output 03/12/16 03/13/16 19:00 07:00 Intake Total 540 ml 240 ml Output Total 250 ml Balance 290 ml 240 ml Intake Oral 540 ml 240 ml Output Urine Total 250 ml # Voids 3 6 General Appearance: WD/WN, no acute distress HEENT: normocephalic Respiratory/Chest: chest wall non-tender, lungs clear Cardiovascular: normal peripheral pulses, normal rate Abdomen: normal bowel sounds, soft, non tender Laboratory Tests 03/13/16 05:45: White Blood Count 6.1, Red Blood Count 2.83L, Hemoglobin 8.9L, Hematocrit 27.0L , Mean Corpuscular Volume 95, Mean Corpuscular Hemoglobin 31.4H, Mean Corpuscular Hemoglobin Concent 33.0, Red Cell Distribution Width 16.0H, Platelet Count 185, Mean Platelet Volume 8.0, Neutrophils (%) (Auto) 73.1, Lymphocytes (%) (Auto) 14.8L, Monocytes (%) (Auto) 10.0, Eosinophils (%) (Auto) 0.8, Basophils (%) (Auto) 1.4, Sodium Level 132L, Potassium Level 5.1H, Chloride Level 97L, Carbon Dioxide Level 19L, Anion Gap 16H, Blood Urea Nitrogen 64H, Creatinine 3.5H, Estimat Glomerular Filtration Rate , Glucose Level 173H, Uric Acid 8.6H, Calcium Level 8.2L, Phosphorus Level 5.9H, Total Bilirubin 0.3, Aspartate Amino Transf (AST/SGOT) 23, Alanine Aminotransferase ( ALT/SGPT) 12, Alkaline Phosphatase 90, C-Reactive Protein, Quantitative 0.9H, Pro-B-Type Natriuretic Peptide 24970E, Total Protein 5.1L, Albumin 3.0L, Globulin 2.1, Albumin/Globulin Ratio 1.4 Current Medications Medications (Trade) Dose Ordered Sig/Carrie Route PRN Reason Start Time Stop Time Status Last Admin Dose Admin Albuterol Sulfate (Proventil) 2.5 mg Q4H PRN HHN Shortness of Breath 03/13/16 13:45 03/18/16 13:44 03/13/16 13:59 Amlodipine Besylate (Norvasc) 10 mg DAILY ORAL 03/12/16 09:00 04/11/16 08:59 03/13/16 09:23 Aspirin (ASA) 81 mg DAILY ORAL 03/12/16 09:00 04/11/16 08:59 03/13/16 09:23 Atorvastatin Calcium (Lipitor) 40 mg BEDTIME ORAL 03/12/16 21:00 04/11/16 20:59 03/12/16 20:27 Clonidine HCl (Catapres) 0.1 mg Q4H PRN ORAL bp over 170 syst 03/12/16 04:00 04/11/16 03:59 Clopidogrel Bisulfate (Plavix) 75 mg DAILY ORAL 03/12/16 09:00 04/11/16 08:59 03/13/16 09:23 Dextrose (Dextrose 50%) STAT PRN IV Hypoglycemia 03/12/16 01:15 04/11/16 01:14 Diphenhydramine HCl (Benadryl) 25 mg Q8H PRN ORAL Itching 03/12/16 01:15 04/11/16 01:14 Donepezil HCl (Aricept) 5 mg QHS ORAL 03/12/16 21:00 04/11/16 20:59 03/12/16 20:27 Gabapentin (Neurontin) 100 mg THREE TIMES A DAY ORAL 03/12/16 09:00 04/11/16 08:59 03/13/16 13:30 Glipizide (Glucotrol) 5 mg BIAC ORAL 03/12/16 06:30 04/11/16 06:29 03/13/16 16:47 Heparin Sodium (Porcine) (Heparin 5000 units/ml) 5,000 units EVERY 12 HOURS SUBQ 03/12/16 09:00 04/11/16 08:59 03/13/16 09:24 Hydralazine HCl (Apresoline) 100 mg TID@0600,1400,2200 ORAL 03/13/16 22:00 04/12/16 21:59 Insulin Aspart (NovoLOG) BEFORE MEALS AND HS SUBQ 03/12/16 06:30 04/11/16 06:29 03/13/16 16:49 Labetalol HCl (Normodyne) 200 mg BID@0900,2100 ORAL 03/12/16 09:00 04/11/16 08:59 03/13/16 09:24 Pentoxifylline (TRENtal) 400 mg BID ORAL 03/12/16 09:00 04/11/16 08:59 03/13/16 09:23 Ranitidine HCl (Zantac) 150 mg DAILY ORAL 03/12/16 09:00 04/11/16 08:59 03/13/16 09:22 Ropinirole HCl (Requip) 2 mg QHS ORAL 03/12/16 21:00 04/11/16 20:59 03/12/16 20:27 ALMA DELIA MONTES Mar 13, 2016 16:56
[2016-03-13 20:00] VITALS: BP 150/59
[2016-03-13] MEDS: Donepezil 5mg Tab ORAL SCH (21:08)
[2016-03-13] MEDS: HydrALAZINE 50mg tab ORAL SCH (21:08)
[2016-03-14] VITALS: BP 159/67
[2016-03-14 04:00] VITALS: BP 140/63
[2016-03-14] MEDS: HydrALAZINE 50mg tab ORAL SCH ×3 (06:09→21:32)
[2016-03-14] MEDS: GlipiZIDE 5mg tab ORAL SCH ×2 (06:09→17:36)
[2016-03-14] MEDS: NovoLOG Insulin Flexpen SUBQ SCH ×4 (06:11→21:35)
[2016-03-14 07:13] LABS: BASOPHILS % (AUTO) 0.9 % (0.0-2.0); EOSINOPHILS % (AUTO) 0.2 % (0.0-3.0); LYMPHOCYTES % (AUTO) 14.3 % (20.0-45.0); MEAN CORPUSCULAR HEMOGLOBIN 30.1 PG (27.0-31.0); MEAN CORPUSCULAR HGB CONC 32.2 G/DL (32.0-36.0); MEAN CORPUSCULAR VOLUME 93 FL (80-99); MONOCYTES % (AUTO) 7.6 % (1.0-10.0); NEUTROPHILS % (AUTO) 77.1 % (45.0-75.0); PLATELET COUNT 182 K/UL (150-450); RED BLOOD COUNT 2.83 M/UL (4.20-5.40); RED CELL DISTRIBUTION WIDTH 15.7 % (11.6-14.8); WHITE BLOOD COUNT 6.7 K/UL (4.8-10.8)
[2016-03-14 07:32] LABS: ALANINE AMINOTRANSFERASE 14 U/L (3-33); ALBUMIN/GLOBULIN RATIO 1.2 (1.0-2.7); ANION GAP 19 (5-15); ASPARTATE AMINO TRANSFERASE 25 U/L (5-40); CARBON DIOXIDE 19 mEQ/L (20-30); CHLORIDE 93 mEQ/L (98-107); CREATININE 3.7 mg/dL (0.5-0.9); HEMOLYSIS 1; MAGNESIUM 2.1 mg/dL (1.7-2.5); PHOSPHORUS 6.3 mg/dL (2.5-4.8); POTASSIUM 5.2 mEQ/L (3.4-4.9); SODIUM 131 mEQ/L (135-145); TOTAL PROTEIN 5.5 g/dL (6.6-8.7); URIC ACID 9.1 mg/dL (3.0-7.5)
[2016-03-14 07:35] LABS: CREATININE 2.7 mg/dL (0.5-0.9)
[2016-03-14 07:53] LABS: URINE TOTAL PROTEIN (MG/DL) > 600 mg/dL
[2016-03-14 08:08] VITALS: BP 138/57
[2016-03-14] MEDS: Labetalol 200mg tab ORAL SCH ×2 (09:00→21:34)
[2016-03-14] MEDS: Aspirin Baby 81mg ORAL SCH (09:10)
[2016-03-14] MEDS: Heparin 5000 units/ml inj SUBQ SCH ×2 (09:12→21:35)
[2016-03-14 11:42] VITALS: BP 143/65
[2016-03-14 12:11] LABS: CREATININE CLEARANCE,URINE 10 mL/min (71-151)
--- NOTE | 2016-03-14 12:58 | Diagnostic Imaging Report ---
Indication: Dyspnea Comparison: 10/15/15 A single view chest radiograph was obtained. Findings: Pulmonary vascularity is mildly prominent. The heart is enlarged. There is hazy opacity of scarring the left hemidiaphragm. Sternotomy and pacemaker noted. Bones are osteopenic. Impression: Probable small left pleural effusion. Borderline findings for CHF. Please correlate clinically
--- NOTE | 2016-03-14 13:00 | Diagnostic Imaging Report ---
Indication: SOB Technique: One view of the chest Comparison: 03/03/16 Findings: There is a left chest bifocal pacemaker. There is bilateral interstitial edema again demonstrated. Prior CABG. Impression: Findings consistent with congestive heart failure, unchanged from prior study of 03/09/2016 Other findings as noted
--- NOTE | 2016-03-14 13:27 | General Progress Note ---
Assessment/Plan Status: unchanged, deteriorating Assessment/Plan status; - ESRD (end stage renal disease) on dialysis by history - Acute respiratory failure ? CHF - Alzheimer's dementia - Pacer / s/p CABGS - DM (diabetes mellitus) - Parkinson disease Plan; dialysis today- Phos binders- Optimize cardiac and pulm status- check 24 h Urine Cr Cl- results 10 Anemia rothman per orders adjust BP meds Subjective ROS Limited/Unobtainable: No Constitutional: Reports: malaise, weakness Allergies: Coded Allergies: No Known Allergies (Unverified , 02/02/15) Objective Last 24 Hour Vital Signs Date Time Temp Pulse Resp B/P Pulse Ox O2 Delivery O2 Flow Rate FiO2 03/14/16 11:42 97.6 63 20 143/65 97 Nasal Cannula 2.0 03/14/16 09:15 138/57 03/14/16 09:00 60 138/57 03/14/16 09:00 60 138/57 03/14/16 08:08 97.7 60 20 138/57 99 Room Air 03/14/16 07:36 63 20 Nasal Cannula 2.0 28 03/14/16 07:36 93 Nasal Cannula 2.0 28 03/14/16 07:36 Nasal Cannula 2.0 28 03/14/16 06:09 140/63 03/14/16 04:00 98.6 60 20 140/63 94 Room Air 03/14/16 00:00 98.1 65 20 159/67 93 Room Air 03/13/16 21:08 150/59 03/13/16 21:07 72 150/59 03/13/16 20:00 97.8 72 16 150/59 100 Room Air 03/13/16 18:50 67 20 97 Nasal Cannula 2.0 28 03/13/16 18:45 Nasal Cannula 2.0 28 03/13/16 18:45 67 20 96 Nasal Cannula 2.0 28 03/13/16 18:45 96 Nasal Cannula 2.0 28 03/13/16 18:45 67 20 Nasal Cannula 2.0 28 03/13/16 17:51 168/60 03/13/16 16:00 97.2 69 19 168/60 97 Room Air 03/13/16 14:40 141/58 03/13/16 14:14 Nasal Cannula 2.0 28 03/13/16 14:13 97 Nasal Cannula 2.0 28 03/13/16 14:11 67 22 97 Nasal Cannula 2.0 28 03/13/16 13:58 69 26 86 Room Air 21 03/13/16 13:55 69 26 Room Air 21 03/13/16 13:30 141/58 Intake and Output 03/13/16 03/14/16 19:00 07:00 Intake Total 480 ml 180 ml Balance 480 ml 180 ml Intake Oral 480 ml 180 ml # Voids 3 4 # Bowel Movements 2 Laboratory Tests 03/14/16 05:40: White Blood Count 6.7, Red Blood Count 2.83L, Hemoglobin 8.5L, Hematocrit 26.4L , Mean Corpuscular Volume 93, Mean Corpuscular Hemoglobin 30.1, Mean Corpuscular Hemoglobin Concent 32.2, Red Cell Distribution Width 15.7H, Platelet Count 182, Mean Platelet Volume 8.0, Neutrophils (%) (Auto) 77.1H, Lymphocytes (%) (Auto) 14.3L, Monocytes (%) (Auto) 7.6, Eosinophils (%) (Auto) 0.2, Basophils (%) (Auto) 0.9, Sodium Level 131L, Potassium Level 5.2H, Chloride Level 93L, Carbon Dioxide Level 19L, Anion Gap 19H, Blood Urea Nitrogen 74H, Creatinine 3.7H, Estimat Glomerular Filtration Rate , Glucose Level 195H, Uric Acid 9.1H, Calcium Level 8.0L, Phosphorus Level 6.3H, Magnesium Level 2.1, Total Bilirubin < 0.2, Aspartate Amino Transf (AST/SGOT) 25 , Alanine Aminotransferase (ALT/SGPT) 14, Alkaline Phosphatase 91, Total Protein 5.5L, Albumin 3.0L, Globulin 2.5, Albumin/Globulin Ratio 1.2 Height (Feet): 5 Height (Inches): 4.00 Weight (Pounds): 146 General Appearance: mild distress Neck: stiff neck Cardiovascular: normal rate Respiratory/Chest: decreased breath sounds Abdomen: soft Objective no change in PE- no signs of chf DODIE CONNER Mar 14, 2016 13:27
--- NOTE | 2016-03-14 15:48 | Pulmonology Progress Note ---
Assessment/Plan Problems: (1) Acute respiratory failure (2) Alzheimer's dementia (3) ESRD (end stage renal disease) on dialysis (4) DM (diabetes mellitus) (5) Parkinson disease Assessment/Plan being dialyzed improving respiratory treatment cxr reviewed HD by nephrology pt/ot dc planning Subjective ROS Limited/Unobtainable: No Interval Events: being dialyzed Constitutional: Reports: no symptoms HEENT: Repors: no symptoms Respiratory: Reports: no symptoms Allergies: Coded Allergies: No Known Allergies (Unverified , 02/02/15) Objective Last 24 Hour Vital Signs Date Time Temp Pulse Resp B/P Pulse Ox O2 Delivery O2 Flow Rate FiO2 03/14/16 11:42 97.6 63 20 143/65 97 Nasal Cannula 2.0 03/14/16 09:15 138/57 03/14/16 09:00 60 138/57 03/14/16 09:00 60 138/57 03/14/16 08:08 97.7 60 20 138/57 99 Room Air 03/14/16 07:36 63 20 Nasal Cannula 2.0 28 03/14/16 07:36 93 Nasal Cannula 2.0 28 03/14/16 07:36 Nasal Cannula 2.0 28 03/14/16 06:09 140/63 03/14/16 04:00 98.6 60 20 140/63 94 Room Air 03/14/16 00:00 98.1 65 20 159/67 93 Room Air 03/13/16 21:08 150/59 03/13/16 21:07 72 150/59 03/13/16 20:00 97.8 72 16 150/59 100 Room Air 03/13/16 18:50 67 20 97 Nasal Cannula 2.0 28 03/13/16 18:45 Nasal Cannula 2.0 28 03/13/16 18:45 67 20 96 Nasal Cannula 2.0 28 03/13/16 18:45 96 Nasal Cannula 2.0 28 03/13/16 18:45 67 20 Nasal Cannula 2.0 28 03/13/16 17:51 168/60 03/13/16 16:00 97.2 69 19 168/60 97 Room Air Intake and Output 03/13/16 03/14/16 19:00 07:00 Intake Total 480 ml 180 ml Balance 480 ml 180 ml Intake Oral 480 ml 180 ml # Voids 3 4 # Bowel Movements 2 General Appearance: WD/WN HEENT: normocephalic, atraumatic Breasts: no masses Cardiovascular: normal rate Abdomen: normal bowel sounds, no organomegaly Genitourinary: normal external genitalia Skin: no rash Laboratory Tests 03/14/16 05:40: White Blood Count 6.7, Red Blood Count 2.83L, Hemoglobin 8.5L, Hematocrit 26.4L , Mean Corpuscular Volume 93, Mean Corpuscular Hemoglobin 30.1, Mean Corpuscular Hemoglobin Concent 32.2, Red Cell Distribution Width 15.7H, Platelet Count 182, Mean Platelet Volume 8.0, Neutrophils (%) (Auto) 77.1H, Lymphocytes (%) (Auto) 14.3L, Monocytes (%) (Auto) 7.6, Eosinophils (%) (Auto) 0.2, Basophils (%) (Auto) 0.9, Sodium Level 131L, Potassium Level 5.2H, Chloride Level 93L, Carbon Dioxide Level 19L, Anion Gap 19H, Blood Urea Nitrogen 74H, Creatinine 3.7H, Estimat Glomerular Filtration Rate , Glucose Level 195H, Uric Acid 9.1H, Calcium Level 8.0L, Phosphorus Level 6.3H, Magnesium Level 2.1, Total Bilirubin < 0.2, Aspartate Amino Transf (AST/SGOT) 25 , Alanine Aminotransferase (ALT/SGPT) 14, Alkaline Phosphatase 91, Total Protein 5.5L, Albumin 3.0L, Globulin 2.5, Albumin/Globulin Ratio 1.2 Current Medications Medications (Trade) Dose Ordered Sig/Carrie Route PRN Reason Start Time Stop Time Status Last Admin Dose Admin Albuterol Sulfate (Proventil) 2.5 mg Q4H PRN HHN Shortness of Breath 03/13/16 13:45 03/18/16 13:44 03/13/16 19:01 Amlodipine Besylate (Norvasc) 10 mg DAILY ORAL 03/12/16 09:00 04/11/16 08:59 03/13/16 09:23 Aspirin (ASA) 81 mg DAILY ORAL 03/12/16 09:00 04/11/16 08:59 03/14/16 09:10 Atorvastatin Calcium (Lipitor) 40 mg BEDTIME ORAL 03/12/16 21:00 04/11/16 20:59 03/13/16 21:07 Clonidine HCl (Catapres) 0.1 mg Q4H PRN ORAL bp over 170 syst 03/12/16 04:00 04/11/16 03:59 Clopidogrel Bisulfate (Plavix) 75 mg DAILY ORAL 03/12/16 09:00 04/11/16 08:59 03/14/16 09:09 Dextrose (Dextrose 50%) STAT PRN IV Hypoglycemia 03/12/16 01:15 04/11/16 01:14 Diphenhydramine HCl (Benadryl) 25 mg Q8H PRN ORAL Itching 03/12/16 01:15 04/11/16 01:14 Donepezil HCl (Aricept) 5 mg QHS ORAL 03/12/16 21:00 04/11/16 20:59 03/13/16 21:08 Gabapentin (Neurontin) 100 mg THREE TIMES A DAY ORAL 03/12/16 09:00 04/11/16 08:59 03/14/16 09:10 Glipizide (Glucotrol) 5 mg BIAC ORAL 03/12/16 06:30 04/11/16 06:29 03/14/16 06:09 Heparin Sodium (Porcine) (Heparin 5000 units/ml) 5,000 units EVERY 12 HOURS SUBQ 03/12/16 09:00 04/11/16 08:59 03/14/16 09:12 Hydralazine HCl (Apresoline) 100 mg TID@0600,1400,2200 ORAL 03/13/16 22:00 04/12/16 21:59 03/14/16 06:09 Insulin Aspart (NovoLOG) BEFORE MEALS AND HS SUBQ 03/12/16 06:30 04/11/16 06:29 03/14/16 06:11 Labetalol HCl (Normodyne) 200 mg BID@0900,2100 ORAL 03/12/16 09:00 04/11/16 08:59 03/13/16 21:07 Pentoxifylline (TRENtal) 400 mg BID ORAL 03/12/16 09:00 04/11/16 08:59 03/14/16 09:15 Ranitidine HCl (Zantac) 150 mg DAILY ORAL 03/12/16 09:00 04/11/16 08:59 03/14/16 09:09 Ropinirole HCl (Requip) 2 mg QHS ORAL 03/12/16 21:00 04/11/16 20:59 03/13/16 21:07 Sevelamer Carbonate (Renvela) 1,600 mg TIAC ORAL 03/14/16 16:30 04/13/16 16:29 ALMA DELIA MONTES Mar 14, 2016 15:48
[2016-03-14 16:00] VITALS: BP 157/56
--- NOTE | 2016-03-14 17:41 | Internal Med Progress Note ---
Subjective Date of Service: Mar 14, 2016 Physician Name Jasen Schuler Attending Physician Jovani Gr MD Current Medications Medications (Trade) Dose Ordered Sig/Carrie Route PRN Reason Start Time Stop Time Status Last Admin Dose Admin Albuterol Sulfate (Proventil) 2.5 mg Q4H PRN HHN Shortness of Breath 03/13/16 13:45 03/18/16 13:44 03/13/16 19:01 Amlodipine Besylate (Norvasc) 10 mg DAILY ORAL 03/12/16 09:00 04/11/16 08:59 03/13/16 09:23 Aspirin (ASA) 81 mg DAILY ORAL 03/12/16 09:00 04/11/16 08:59 03/14/16 09:10 Atorvastatin Calcium (Lipitor) 40 mg BEDTIME ORAL 03/12/16 21:00 04/11/16 20:59 03/13/16 21:07 Clonidine HCl (Catapres) 0.1 mg Q4H PRN ORAL bp over 170 syst 03/12/16 04:00 04/11/16 03:59 Clopidogrel Bisulfate (Plavix) 75 mg DAILY ORAL 03/12/16 09:00 04/11/16 08:59 03/14/16 09:09 Dextrose (Dextrose 50%) STAT PRN IV Hypoglycemia 03/12/16 01:15 04/11/16 01:14 Diphenhydramine HCl (Benadryl) 25 mg Q8H PRN ORAL Itching 03/12/16 01:15 04/11/16 01:14 Donepezil HCl (Aricept) 5 mg QHS ORAL 03/12/16 21:00 04/11/16 20:59 03/13/16 21:08 Gabapentin (Neurontin) 100 mg THREE TIMES A DAY ORAL 03/12/16 09:00 04/11/16 08:59 03/14/16 09:10 Glipizide (Glucotrol) 5 mg BIAC ORAL 03/12/16 06:30 04/11/16 06:29 03/14/16 17:36 Heparin Sodium (Porcine) (Heparin 5000 units/ml) 5,000 units EVERY 12 HOURS SUBQ 03/12/16 09:00 04/11/16 08:59 03/14/16 09:12 Hydralazine HCl (Apresoline) 100 mg TID@0600,1400,2200 ORAL 03/13/16 22:00 04/12/16 21:59 03/14/16 06:09 Insulin Aspart (NovoLOG) BEFORE MEALS AND HS SUBQ 03/12/16 06:30 04/11/16 06:29 03/14/16 06:11 Labetalol HCl (Normodyne) 200 mg BID@0900,2100 ORAL 03/12/16 09:00 04/11/16 08:59 03/13/16 21:07 Pentoxifylline (TRENtal) 400 mg BID ORAL 03/12/16 09:00 04/11/16 08:59 03/14/16 09:15 Ranitidine HCl (Zantac) 150 mg DAILY ORAL 03/12/16 09:00 04/11/16 08:59 03/14/16 09:09 Ropinirole HCl (Requip) 2 mg QHS ORAL 03/12/16 21:00 04/11/16 20:59 03/13/16 21:07 Sevelamer Carbonate (Renvela) 1,600 mg TIAC ORAL 03/14/16 16:30 04/13/16 16:29 03/14/16 17:36 Allergies: Coded Allergies: No Known Allergies (Unverified , 02/02/15) ROS Limited/Unobtainable: No Constitutional: Reports: no symptoms HEENT: Reports: no symptoms Cardiovascular: Reports: no symptoms Respiratory: Reports: shortness of breath Gastrointestinal/Abdominal: Reports: no symptoms Genitourinary: Reports: no symptoms Neurologic/Psychiatric: Reports: no symptoms Subjective 75 YO F admitted with shortness of breath and congestive heart failure. Cover for Int Med-Dr Gr. Hemodialysis today 03/14/16 Objective Last Vital Signs Date Time Temp Pulse Resp B/P Pulse Ox O2 Delivery O2 Flow Rate FiO2 03/14/16 16:00 96.8 61 20 157/56 99 Nasal Cannula 2.0 03/14/16 07:36 28 Laboratory Tests Test 03/14/16 05:40 White Blood Count 6.7 K/UL (4.8-10.8) Red Blood Count 2.83 M/UL (4.20-5.40) L Hemoglobin 8.5 G/DL (12.0-16.0) L Hematocrit 26.4 % (37.0-47.0) L Mean Corpuscular Volume 93 FL (80-99) Mean Corpuscular Hemoglobin 30.1 PG (27.0-31.0) Mean Corpuscular Hemoglobin Concent 32.2 G/DL (32.0-36.0) Red Cell Distribution Width 15.7 % (11.6-14.8) H Platelet Count 182 K/UL (150-450) Mean Platelet Volume 8.0 FL (6.5-10.1) Neutrophils (%) (Auto) 77.1 % (45.0-75.0) H Lymphocytes (%) (Auto) 14.3 % (20.0-45.0) L Monocytes (%) (Auto) 7.6 % (1.0-10.0) Eosinophils (%) (Auto) 0.2 % (0.0-3.0) Basophils (%) (Auto) 0.9 % (0.0-2.0) Sodium Level 131 mEQ/L (135-145) L Potassium Level 5.2 mEQ/L (3.4-4.9) H Chloride Level 93 mEQ/L (98-107) L Carbon Dioxide Level 19 mEQ/L (20-30) L Anion Gap 19 (5-15) H Blood Urea Nitrogen 74 mg/dL (7-23) H Creatinine 3.7 mg/dL (0.5-0.9) H Estimat Glomerular Filtration Rate mL/min (>60) Glucose Level 195 mg/dL (74-106) H Uric Acid 9.1 mg/dL (3.0-7.5) H Calcium Level 8.0 mg/dL (8.6-10.2) L Phosphorus Level 6.3 mg/dL (2.5-4.8) H Magnesium Level 2.1 mg/dL (1.7-2.5) Total Bilirubin < 0.2 mg/dL (0.0-1.2) Aspartate Amino Transf (AST/SGOT) 25 U/L (5-40) Alanine Aminotransferase (ALT/SGPT) 14 U/L (3-33) Alkaline Phosphatase 91 U/L (35-104) Total Protein 5.5 g/dL (6.6-8.7) L Albumin 3.0 g/dL (3.5-5.2) L Globulin 2.5 g/dL Albumin/Globulin Ratio 1.2 (1.0-2.7) Intake and Output 03/13/16 03/14/16 19:00 07:00 Intake Total 480 ml 180 ml Balance 480 ml 180 ml Intake Oral 480 ml 180 ml # Voids 3 4 # Bowel Movements 2 Objective General Appearance: WD/WN, no apparent distress, alert EENT: PERRL/EOMI, normal ENT inspection, TMs normal Neck: non-tender, normal alignment, supple Cardiovascular: normal peripheral pulses, normal rate, regular rhythm, no gallop/murmur, no JVD Respiratory/Chest: chest wall non-tender, no respiratory distress, no accessory muscle use, crackles/rales, rhonchi - bilaterally, expiratory wheezing Abdomen: normal bowel sounds, non tender, soft, no organomegaly, no mass Extremities: normal range of motion Neurologic: relations liaison II-XII grossly normal, no motor/sensory deficits Skin: normal pigmentation, warm/dry Assessment/Plan Problem List: (1) SOB (shortness of breath) Assessment & Plan: Due to fluid overload. S/P dialysis 03/08 @ [place]. Follow nephrology recs for dialysis. (2) CHF (congestive heart failure) Assessment & Plan: Secondary to fluid overload. See cardiology note. (3) Fluid overload (4) Mass, brain (5) ESRD (end stage renal disease) on dialysis Assessment & Plan: See nephrology note. Hold Hemodialysis today 03/14/16 per nephrology (6) DM (diabetes mellitus) Assessment & Plan: Cont glipizide and novolog sliding scale. (7) HTN (hypertension) Assessment & Plan: Cont hydralazine and labetolol (8) Parkinson disease (9) CAD (coronary artery disease) Assessment & Plan: See cardiology note. Status: not improved JASEN SCHULER Mar 14, 2016 17:41
[2016-03-14 19:00] VITALS: BP 158/67
[2016-03-14] MEDS: Donepezil 5mg Tab ORAL SCH (21:32)
[2016-03-15] VITALS: BP 147/57
[2016-03-15] MEDS ORDERED: Guaifenesin/DM 10ml syrup ORAL PRN
[2016-03-15 04:00] VITALS: BP 149/68
[2016-03-15] MEDS: GlipiZIDE 5mg tab ORAL SCH ×2 (06:18→17:01)
[2016-03-15] MEDS: HydrALAZINE 50mg tab ORAL SCH ×2 (06:19→13:17)
[2016-03-15] MEDS: NovoLOG Insulin Flexpen SUBQ SCH ×3 (06:22→17:04)
[2016-03-15 07:52] VITALS: BP 151/85
[2016-03-15] MEDS: Labetalol 200mg tab ORAL SCH (09:32)
[2016-03-15] MEDS: Aspirin Baby 81mg ORAL SCH (09:32)
[2016-03-15] MEDS: Heparin 5000 units/ml inj SUBQ SCH (09:33)
[2016-03-15 09:59] LABS: BASOPHILS % (AUTO) 1.6 % (0.0-2.0); EOSINOPHILS % (AUTO) 0.2 % (0.0-3.0); LYMPHOCYTES % (AUTO) 15.6 % (20.0-45.0); MEAN CORPUSCULAR HEMOGLOBIN 30.1 PG (27.0-31.0); MEAN CORPUSCULAR HGB CONC 32.4 G/DL (32.0-36.0); MEAN CORPUSCULAR VOLUME 93 FL (80-99); MEAN PLATELET VOLUME 8.2 FL (6.5-10.1); MONOCYTES % (AUTO) 9.4 % (1.0-10.0); NEUTROPHILS % (AUTO) 73.2 % (45.0-75.0); PLATELET COUNT 164 K/UL (150-450); RED BLOOD COUNT 2.95 M/UL (4.20-5.40); RED CELL DISTRIBUTION WIDTH 15.7 % (11.6-14.8); WHITE BLOOD COUNT 5.2 K/UL (4.8-10.8)
[2016-03-15 10:34] LABS: ALANINE AMINOTRANSFERASE 13 U/L (3-33); ANION GAP 12 (5-15); ASPARTATE AMINO TRANSFERASE 22 U/L (5-40); CARBON DIOXIDE 30 mEQ/L (20-30); CHLORIDE 93 mEQ/L (98-107); CREATININE 2.5 mg/dL (0.5-0.9); HEMOLYSIS 5; PHOSPHORUS 3.8 mg/dL (2.5-4.8); SODIUM 135 mEQ/L (135-145); TOTAL PROTEIN 5.4 g/dL (6.6-8.7); URIC ACID 5.8 mg/dL (3.0-7.5)
[2016-03-15 11:13] VITALS: BP 144/56
--- NOTE | 2016-03-15 12:28 | General Progress Note ---
Assessment/Plan Status: stable - from renal stand Status Narrative Assessment/Plan status; - ESRD (end stage renal disease) on dialysis by history - Acute respiratory failure ? CHF - Alzheimer's dementia - Pacer / s/p CABGS - DM (diabetes mellitus) - Parkinson disease Plan; dialysis 2/2 Phos binders- Optimize cardiac and pulm status- check 24 h Urine Cr Cl- results 10 Anemia rothman per orders adjust BP meds ? DC ? Subjective ROS Limited/Unobtainable: No Constitutional: Reports: malaise Allergies: Coded Allergies: No Known Allergies (Unverified , 02/02/15) Objective Last 24 Hour Vital Signs Date Time Temp Pulse Resp B/P Pulse Ox O2 Delivery O2 Flow Rate FiO2 03/15/16 11:13 98.1 60 14 144/56 97 03/15/16 09:32 151/85 03/15/16 09:32 62 151/85 03/15/16 09:31 62 151/85 03/15/16 07:52 98.4 62 15 151/85 98 Room Air 03/15/16 06:19 149/68 03/15/16 04:00 97.9 65 20 149/68 99 Room Air 03/15/16 00:00 99.0 61 20 147/57 95 Room Air 03/14/16 21:34 65 157/56 03/14/16 21:32 157/56 03/14/16 21:10 96.8 03/14/16 20:11 157/56 03/14/16 19:07 Nasal Cannula 2.0 28 03/14/16 19:07 95 Nasal Cannula 2.0 28 03/14/16 19:06 63 20 Nasal Cannula 2.0 28 03/14/16 19:00 100.2 65 20 158/67 94 Nasal Cannula 2.0 03/14/16 18:24 Nasal Cannula 03/14/16 18:13 Nasal Cannula 2.0 28 03/14/16 16:00 96.8 61 20 157/56 99 Nasal Cannula 2.0 Intake and Output 03/14/16 03/15/16 19:00 07:00 Intake Total 440 ml 360 ml Output Total 2200 ml Balance -1760 ml 360 ml Intake Oral 440 ml 360 ml Hemodialysis UF 2200 ml # Voids 4 # Bowel Movements 4 Laboratory Tests 03/15/16 09:45: White Blood Count 5.2, Red Blood Count 2.95L, Hemoglobin 8.9L, Hematocrit 27.4L , Mean Corpuscular Volume 93, Mean Corpuscular Hemoglobin 30.1, Mean Corpuscular Hemoglobin Concent 32.4, Red Cell Distribution Width 15.7H, Platelet Count 164, Mean Platelet Volume 8.2, Neutrophils (%) (Auto) 73.2, Lymphocytes (%) (Auto) 15.6L, Monocytes (%) (Auto) 9.4, Eosinophils (%) (Auto) 0.2, Basophils (%) (Auto) 1.6, Sodium Level 135, Potassium Level 4.0, Chloride Level 93L, Carbon Dioxide Level 30, Anion Gap 12, Blood Urea Nitrogen 36#H, Creatinine 2.5H, Estimat Glomerular Filtration Rate , Glucose Level 85#, Uric Acid 5.8, Calcium Level 8.0L, Phosphorus Level 3.8, Total Bilirubin < 0.2, Aspartate Amino Transf (AST/SGOT) 22, Alanine Aminotransferase (ALT/SGPT) 13, Alkaline Phosphatase 81, Total Protein 5.4L, Albumin 2.8L, Globulin 2.6, Albumin /Globulin Ratio 1.0 Height (Feet): 5 Height (Inches): 4.00 Weight (Pounds): 139 General Appearance: no apparent distress Objective no change in PE- no signs of chf DODIE CONNER Mar 15, 2016 12:28
--- NOTE | 2016-03-15 15:28 | Discharge Summary ---
Discharge Summary Hospital Course Date of Admission Mar 08, 2016 at 21:51 Date of Discharge Admitting Diagnosis HPI Meghann Nicole is a 75 year old female who was admitted on Mar 08, 2016 at 21: 51 for Pulmonary Edema Hospital Course The patient was seen and examined at bedside and all new and available data was reviewed in the patients chart. Last 24 Hour Vital Signs Date Time Temp Pulse Resp B/P Pulse Ox O2 Delivery O2 Flow Rate FiO2 03/15/16 13:17 147/70 03/15/16 11:13 98.1 60 14 144/56 97 03/15/16 09:32 151/85 03/15/16 09:32 62 151/85 03/15/16 09:31 62 151/85 03/15/16 07:52 98.4 62 15 151/85 98 Room Air 03/15/16 06:19 149/68 03/15/16 04:00 97.9 65 20 149/68 99 Room Air 03/15/16 00:00 99.0 61 20 147/57 95 Room Air 03/14/16 21:34 65 157/56 03/14/16 21:32 157/56 03/14/16 21:10 96.8 03/14/16 20:11 157/56 03/14/16 19:07 Nasal Cannula 2.0 28 03/14/16 19:07 95 Nasal Cannula 2.0 28 03/14/16 19:06 63 20 Nasal Cannula 2.0 28 03/14/16 19:00 100.2 65 20 158/67 94 Nasal Cannula 2.0 03/14/16 18:24 Nasal Cannula 03/14/16 18:13 Nasal Cannula 2.0 28 03/14/16 16:00 96.8 61 20 157/56 99 Nasal Cannula 2.0 General Appearance: WD/WN, no apparent distress, alert EENT: PERRL/EOMI, normal ENT inspection, TMs normal Neck: non-tender, normal alignment, supple Cardiovascular: normal peripheral pulses, normal rate, regular rhythm, no murmur. Respiratory/Chest: chest wall non-tender, no respiratory distress,No wheezes or Rales. Abdomen: normal bowel sounds, non tender, soft, no organomegaly, no mass Extremities: normal range of motion, No edema, Left UE AVF. Neurologic: kier pleater II-XII grossly normal, no motor/sensory deficits Skin: normal pigmentation, warm/dry Plan : DC Home today F/U at dialysis (Patient was seen earlier today. Signature timestamp does not reflect patient encounter time) Jovani Gr MD Discharge Discharge Disposition Patient was discharged to Discharge Diagnoses: Jovani Gr MD Mar 15, 2016 15:28
[2016-03-15 16:00] VITALS: BP 139/74
[2016-03-15 18:19] VITALS: BP 139/74
--- NOTE | 2016-03-15 19:07 | Internal Med Progress Note ---
Subjective Date of Service: Mar 15, 2016 Physician Name Yenifer Schuler Attending Physician Jovani Gr MD Current Medications Medications (Trade) Dose Ordered Sig/Carrie Route PRN Reason Start Time Stop Time Status Last Admin Dose Admin Albuterol Sulfate (Proventil) 2.5 mg Q4H PRN HHN Shortness of Breath 03/13/16 13:45 03/18/16 13:44 03/13/16 19:01 Amlodipine Besylate (Norvasc) 10 mg DAILY ORAL 03/12/16 09:00 04/11/16 08:59 03/15/16 09:31 Aspirin (ASA) 81 mg DAILY ORAL 03/12/16 09:00 04/11/16 08:59 03/15/16 09:32 Atorvastatin Calcium (Lipitor) 40 mg BEDTIME ORAL 03/12/16 21:00 04/11/16 20:59 03/14/16 21:34 Clonidine HCl (Catapres) 0.1 mg Q4H PRN ORAL bp over 170 syst 03/12/16 04:00 04/11/16 03:59 Clopidogrel Bisulfate (Plavix) 75 mg DAILY ORAL 03/12/16 09:00 04/11/16 08:59 03/15/16 09:32 Dextrose (Dextrose 50%) STAT PRN IV Hypoglycemia 03/12/16 01:15 04/11/16 01:14 Diphenhydramine HCl (Benadryl) 25 mg Q8H PRN ORAL Itching 03/12/16 01:15 04/11/16 01:14 Donepezil HCl (Aricept) 5 mg QHS ORAL 03/12/16 21:00 04/11/16 20:59 03/14/16 21:32 Gabapentin (Neurontin) 100 mg THREE TIMES A DAY ORAL 03/12/16 09:00 04/11/16 08:59 03/15/16 18:19 Glipizide (Glucotrol) 5 mg BIAC ORAL 03/12/16 06:30 04/11/16 06:29 03/15/16 17:01 Guaifenesin/ Dextromethorphan (Robitussin DM Syrup) 10 ml Q4H PRN ORAL For Cough 03/15/16 00:00 04/14/16 00:00 03/15/16 03:26 Heparin Sodium (Porcine) (Heparin 5000 units/ml) 5,000 units EVERY 12 HOURS SUBQ 03/12/16 09:00 04/11/16 08:59 03/15/16 09:33 Hydralazine HCl (Apresoline) 100 mg TID@0600,1400,2200 ORAL 03/13/16 22:00 04/12/16 21:59 03/15/16 13:17 Insulin Aspart (NovoLOG) BEFORE MEALS AND HS SUBQ 03/12/16 06:30 04/11/16 06:29 03/15/16 17:04 Labetalol HCl (Normodyne) 200 mg BID@0900,2100 ORAL 03/12/16 09:00 04/11/16 08:59 03/15/16 09:32 Ondansetron HCl (Zofran) 4 mg Q4H PRN IVP Nausea & Vomiting 03/15/16 14:00 04/14/16 13:59 Pentoxifylline (TRENtal) 400 mg BID ORAL 03/12/16 09:00 04/11/16 08:59 03/15/16 18:19 Ranitidine HCl (Zantac) 150 mg DAILY ORAL 03/12/16 09:00 04/11/16 08:59 03/15/16 09:32 Ropinirole HCl (Requip) 2 mg QHS ORAL 03/12/16 21:00 04/11/16 20:59 03/14/16 21:32 Sevelamer Carbonate (Renvela) 1,600 mg TIAC ORAL 03/14/16 16:30 04/13/16 16:29 03/15/16 17:02 Allergies: Coded Allergies: No Known Allergies (Unverified , 02/02/15) ROS Limited/Unobtainable: No Constitutional: Reports: no symptoms HEENT: Reports: no symptoms Cardiovascular: Reports: no symptoms Respiratory: Reports: no symptoms Genitourinary: Reports: no symptoms Neurologic/Psychiatric: Reports: no symptoms Subjective 75 YO F admitted with shortness of breath and congestive heart failure. Cover for Int [facility]-Dr Gr. Await discharge. Objective Last Vital Signs Date Time Temp Pulse Resp B/P Pulse Ox O2 Delivery O2 Flow Rate FiO2 03/15/16 18:19 139/74 03/15/16 16:00 96.3 62 20 97 Room Air 03/14/16 19:07 2.0 28 Laboratory Tests Test 03/15/16 09:45 White Blood Count 5.2 K/UL (4.8-10.8) Red Blood Count 2.95 M/UL (4.20-5.40) L Hemoglobin 8.9 G/DL (12.0-16.0) L Hematocrit 27.4 % (37.0-47.0) L Mean Corpuscular Volume 93 FL (80-99) Mean Corpuscular Hemoglobin 30.1 PG (27.0-31.0) Mean Corpuscular Hemoglobin Concent 32.4 G/DL (32.0-36.0) Red Cell Distribution Width 15.7 % (11.6-14.8) H Platelet Count 164 K/UL (150-450) Mean Platelet Volume 8.2 FL (6.5-10.1) Neutrophils (%) (Auto) 73.2 % (45.0-75.0) Lymphocytes (%) (Auto) 15.6 % (20.0-45.0) L Monocytes (%) (Auto) 9.4 % (1.0-10.0) Eosinophils (%) (Auto) 0.2 % (0.0-3.0) Basophils (%) (Auto) 1.6 % (0.0-2.0) Sodium Level 135 mEQ/L (135-145) Potassium Level 4.0 mEQ/L (3.4-4.9) Chloride Level 93 mEQ/L (98-107) L Carbon Dioxide Level 30 mEQ/L (20-30) Anion Gap 12 (5-15) Blood Urea Nitrogen 36 mg/dL (7-23) #H Creatinine 2.5 mg/dL (0.5-0.9) H Estimat Glomerular Filtration Rate mL/min (>60) Glucose Level 85 mg/dL (74-106) # Uric Acid 5.8 mg/dL (3.0-7.5) Calcium Level 8.0 mg/dL (8.6-10.2) L Phosphorus Level 3.8 mg/dL (2.5-4.8) Total Bilirubin < 0.2 mg/dL (0.0-1.2) Aspartate Amino Transf (AST/SGOT) 22 U/L (5-40) Alanine Aminotransferase (ALT/SGPT) 13 U/L (3-33) Alkaline Phosphatase 81 U/L (35-104) Total Protein 5.4 g/dL (6.6-8.7) L Albumin 2.8 g/dL (3.5-5.2) L Globulin 2.6 g/dL Albumin/Globulin Ratio 1.0 (1.0-2.7) Intake and Output 03/14/16 03/15/16 19:00 07:00 Intake Total 440 ml 360 ml Output Total 2200 ml Balance -1760 ml 360 ml Intake Oral 440 ml 360 ml Hemodialysis UF 2200 ml # Voids 4 # Bowel Movements 4 Objective General Appearance: WD/WN, no apparent distress, alert EENT: PERRL/EOMI, normal ENT inspection, TMs normal Neck: non-tender, normal alignment, supple Cardiovascular: normal peripheral pulses, normal rate, regular rhythm, no gallop/murmur, no JVD Respiratory/Chest: chest wall non-tender, no respiratory distress, no accessory muscle use, crackles/rales, rhonchi - bilaterally, expiratory wheezing Abdomen: normal bowel sounds, non tender, soft, no organomegaly, no mass Extremities: normal range of motion Neurologic: compliance review specialist II-XII grossly normal, no motor/sensory deficits Skin: normal pigmentation, warm/dry Assessment/Plan Problem List: (1) SOB (shortness of breath) Assessment & Plan: Due to fluid overload. S/P dialysis 03/08 @ [place]. Follow nephrology recs for dialysis. (2) CHF (congestive heart failure) Assessment & Plan: Secondary to fluid overload. See cardiology note. (3) Fluid overload (4) Mass, brain (5) ESRD (end stage renal disease) on dialysis Assessment & Plan: See nephrology note. Hold Hemodialysis today 03/14/16 per nephrology (6) DM (diabetes mellitus) Assessment & Plan: Cont glipizide and novolog sliding scale. (7) HTN (hypertension) Assessment & Plan: Cont hydralazine and labetolol (8) Parkinson disease (9) CAD (coronary artery disease) Assessment & Plan: See cardiology note. Assessment/Plan D/C home today SCHULERYENIFER Mar 15, 2016 19:07
== END 2016-03-15 19:10 | disposition home or self-care (01) | DRG 291 ==
LOC: 2E 21:51 → 4E 03-12 00:18
PROC: 5A1D00Z (ICD-10-PCS; principal; 2016-03-14)
DX: I50.30 Unspecified diastolic (congestive) heart failure (principal); N18.6 End stage renal disease; J96.00 Acute respiratory failure, unspecified whether with hypoxia or hypercapnia; N17.9 Acute kidney failure, unspecified; I12.0 Hypertensive chronic kidney disease with stage 5 chronic kidney disease or end stage renal disease; Z99.2 Dependence on renal dialysis; G20 Parkinson's disease; E11.9 Type 2 diabetes mellitus without complications; G30.9 Alzheimer's disease, unspecified; F02.80 Dementia in other diseases classified elsewhere, unspecified severity, without behavioral disturbance, psychotic disturbance, mood disturbance, and anxiety; Z95.1 Presence of aortocoronary bypass graft; Z85.43 Personal history of malignant neoplasm of ovary; Z85.841 Personal history of malignant neoplasm of brain; I25.10 Atherosclerotic heart disease of native coronary artery without angina pectoris; Z95.0 Presence of cardiac pacemaker; Z79.4 Long term (current) use of insulin; Z86.73 Personal history of transient ischemic attack (TIA), and cerebral infarction without residual deficits; Z23 Encounter for immunization
CPT/HCPCS: 36415; 71010; 80048; 80053; 80061; 81001; 81050; 82565; 82575; 82607; 82728; 82746; 82962; 82977; 83036; 83540; 83550; 83735; 83880; 84100; 84156; 84439; 84443; 84484; 84550; 85025; 86140; 87070; 87081; 87205; 93005; 93306; 94640; 94664; 94760; J1815; Q2036

== ENCOUNTER 2016-03-16 22:12 | Inpatient (IN) | payer MEDICARE, MEDICAID ==
[~2016-03-16] VITALS: Ht 152.4 cm; Wt 56.7 kg
[2016-03-16 22:24] VITALS: BP 141/42
--- NOTE | 2016-03-16 22:25 | Emergency Room Report ---
History of Present Illness General Chief Complaint: Pain Source: Patient Present Illness HPI Patient presents with flank pain and abdominal discomfort. She states that food just stays in her stomach and doesn't get processed. She feels distended. She also denies chest pain. Denies any fevers. She gets dialysis Friday and Friday however she states her last dialysis was 2 days ago ( ). She rarely makes urine and denies dysuria. She has no fevers but has a mild cough. She states there is no medicine for nausea or this feeling in her stomach. She was discharged from the hospital after she was admitted from March 08 to March 15. She was admitted with a diagnosis of pulmonary edema. She still has a mild cough and also WHITEHEAD and orthopnea. Denies chest pain or fevers. She complains of fairly severe bilateral flank pain that began after being discharged from the hospital. It is somewhat positional. It is an aching pain. She is uncertain if this is related to the feeling in her stomach. No rashes, headache, bleeding, change in bowels including denying constipation or diarrhea. No melena. Allergies: Coded Allergies: No Known Allergies (Unverified , 02/02/15) Patient History Past Medical History: see triage record Past Surgical History: pacemaker, other - fistula Social History Narrative home Now: No Reviewed Nursing Documentation: PMH: Agreed, PSxH: Agreed Nursing Documentation-PMH Hx Cardiac Problems: Yes - Severe mitral stenosis Hx Hypertension: Yes Hx Pacemaker: Yes - Left upper chest Hx Diabetes: Yes Hx Cancer: No Hx Gastrointestinal Problems: No Hx Dialysis: Yes - M-W-F Hx Neurological Problems: Yes Hx Cerebrovascular Accident: Yes Hx Dementia: Yes Hx Neurologic Surgery: Yes - 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 Review of Systems All Other Systems: negative except mentioned in HPI Physical Exam Vital Signs Date Time Temp Pulse Resp B/P Pulse Ox O2 Delivery O2 Flow Rate FiO2 03/16/16 22:09 97.3 69 16 146/79 98 Room Air Sp02 EP Interpretation: reviewed, normal General Appearance: well appearing, no apparent distress, GCS 15 Head: normocephalic Eyes: bilateral eye normal inspection ENT: moist mucus membranes Neck: supple Respiratory: chest non-tender, rales, wheezing, expiration Cardiovascular #1: regular rate, rhythm, other - fistula forearm with thrill Cardiovascular #2: 2+ radial (L) Gastrointestinal: normal inspection, normal bowel sounds, non tender, no mass, distended - minimally Musculoskeletal: back normal, gait/station normal, normal range of motion Neurologic: alert, motor strength/tone normal, sensory intact, speech normal, oriented - X2 Psychiatric: depressed affect Skin: normal inspection, warm/dry Medical Decision Making Diagnostic Impression: Primary Impression: Flank pain Additional Impressions: CHF (congestive heart failure) Qualified Codes: I50.43 - Acute on chronic combined systolic (congestive) and diastolic (congestive) heart failure ESRD (end stage renal disease) on dialysis ER Course Discharged to home. Unable to eat well due to flank pain and also feeling stomach not emptying. DDx: gastroenteritis, GERD, gastritis, diabetic gastroparesis, AMI amongst others. Evaluation with labs, EKG, CXR undertaken. Pepcid and zofran given. Pt with wheezing - albuterol/atrovent ordered. Wheezing could represent cardiac asthma or bronchitis. CXR with CHF. Labs remarkable for elevated BNP. Through night, O2 sats dropped to 94%. Pt NAD. Flank pain better but still feels bloated and lack of appetite. Admit tele Dr. Gr. Laboratory Tests Test 03/16/16 22:35 White Blood Count 6.0 K/UL (4.8-10.8) Red Blood Count 3.07 M/UL (4.20-5.40) L Hemoglobin 9.2 G/DL (12.0-16.0) L Hematocrit 29.1 % (37.0-47.0) L Mean Corpuscular Volume 95 FL (80-99) Mean Corpuscular Hemoglobin 30.0 PG (27.0-31.0) Mean Corpuscular Hemoglobin Concent 31.6 G/DL (32.0-36.0) L Red Cell Distribution Width 15.3 % (11.6-14.8) H Platelet Count 208 K/UL (150-450) Mean Platelet Volume 7.8 FL (6.5-10.1) Neutrophils (%) (Auto) 77.6 % (45.0-75.0) H Lymphocytes (%) (Auto) 14.0 % (20.0-45.0) L Monocytes (%) (Auto) 7.0 % (1.0-10.0) Eosinophils (%) (Auto) 0.6 % (0.0-3.0) Basophils (%) (Auto) 0.9 % (0.0-2.0) Prothrombin Time 10.5 SEC (9.30-11.50) Prothrombin Time INR 1.0 (0.9-1.1) PTT 29 SEC (23-33) Sodium Level 137 mEQ/L (135-145) Potassium Level 3.4 mEQ/L (3.4-4.9) Chloride Level 98 mEQ/L (98-107) Carbon Dioxide Level 22 mEQ/L (20-30) Anion Gap 17 (5-15) H Blood Urea Nitrogen 36 mg/dL (7-23) H Creatinine 2.5 mg/dL (0.5-0.9) H Estimate Glomerular Filtration Rate mL/min (>60) Glucose Level 166 mg/dL (74-106) H Calcium Level 6.9 mg/dL (8.6-10.2) L Total Bilirubin 0.2 mg/dL (0.0-1.2) Aspartate Amino Transferase (AST) 19 U/L (5-40) Alanine Aminotransferase (ALT) 10 U/L (3-33) Alkaline Phosphatase 79 U/L (35-104) Troponin I < 0.30 ng/mL (<=0.30) Pro-B-Type Natriuretic Peptide 8359 pg/mL (0-125) H Total Protein 4.7 g/dL (6.6-8.7) L Albumin 2.4 g/dL (3.5-5.2) L Globulin 2.3 g/dL Albumin/Globulin Ratio 1.0 (1.0-2.7) Lipase 37 U/L (< 60) EKG Diagnostic Results Rhythm: other - paced ST Segments: no acute changes Rhythm Strip Diag. Results Rhythm: no PVC's, no ectopy, other - paced Chest X-Ray Diagnostic Results EP Interpretation: Yes Findings: no pneumothorax, other - CHF, pacer Number of Views: 1 Last Vital Signs Date Time Temp Pulse Resp B/P Pulse Ox O2 Delivery O2 Flow Rate FiO2 03/17/16 08:07 98.7 60 21 134/49 98 Room Air Status: improved Disposition: ADMITTED INPATIENT Condition: Serious Kaushal Lundberg M.D. Mar 16, 2016 22:25
[2016-03-16 22:47] LABS: BASOPHILS % (AUTO) 0.9 % (0.0-2.0); EOSINOPHILS % (AUTO) 0.6 % (0.0-3.0); MEAN CORPUSCULAR HGB CONC 31.6 G/DL (32.0-36.0); MEAN CORPUSCULAR VOLUME 95 FL (80-99); MEAN PLATELET VOLUME 7.8 FL (6.5-10.1); NEUTROPHILS % (AUTO) 77.6 % (45.0-75.0); PLATELET COUNT 208 K/UL (150-450); RED BLOOD COUNT 3.07 M/UL (4.20-5.40); RED CELL DISTRIBUTION WIDTH 15.3 % (11.6-14.8)
[2016-03-16 22:57] LABS: PROTHROMBIN TIME 10.5 SEC (9.30-11.50)
[2016-03-16 23:08] LABS: TROPONIN I < 0.30 ng/mL (<=0.30)
[2016-03-16 23:13] LABS: ALANINE AMINOTRANSFERASE 10 U/L (3-33); ANION GAP 17 (5-15); ASPARTATE AMINO TRANSFERASE 19 U/L (5-40); CALCIUM 6.9 mg/dL (8.6-10.2); CARBON DIOXIDE 22 mEQ/L (20-30); CHLORIDE 98 mEQ/L (98-107); CREATININE 2.5 mg/dL (0.5-0.9); HEMOLYSIS 11; LIPASE 37 U/L (< 60); POTASSIUM 3.4 mEQ/L (3.4-4.9); SODIUM 137 mEQ/L (135-145); TOTAL PROTEIN 4.7 g/dL (6.6-8.7)
[2016-03-16] MEDS ORDERED: Albuterol ud Inhalation HHN ONE (23:15)
[2016-03-16 23:53] VITALS: BP 140/39
[2016-03-17] VITALS (10 sets, daily range): BP systolic 107–157; BP diastolic 38–101
--- NOTE | 2016-03-17 11:06 | Diagnostic Imaging Report ---
Clinical history: Acute shortness of breath. Technique: Portable AP chest radiograph was obtained. Comparison: 03/13/16. Findings: Persistent but diminished airspace opacities are compatible with improving, mild residual pulmonary edema. There is otherwise no significant interval change in the interval, allowing for differences in technique and positioning. Impression: 1. Cardiomegaly with mild residual pulmonary edema, improved since the prior study. 2. Low lung volumes with probable basilar atelectasis. 3. Left chest cardiac conduction device, post cardiothoracic surgical changes, atherosclerotic vascular disease.
[2016-03-17] MEDS ORDERED: Milk of Magnesia 30ml Ud ORAL PRN (18:00)
[2016-03-17] MEDS ORDERED: LORazepam Inj 2mg/ml 1ml IV PRN (18:00)
[2016-03-17] MEDS ORDERED: Miralax 17gm pkt ORAL PRN (18:00)
--- NOTE | 2016-03-17 18:05 | History & Physical ---
History and Physical History & Physicial Dictated for Int Med-Dr Gr no. [id number]. YENIFER SCHULER Mar 17, 2016 18:05
[2016-03-17] MEDS: HydrALAZINE 50mg tab ORAL SCH (20:05)
[2016-03-17] MEDS: GlipiZIDE 5mg tab ORAL SCH (20:07)
[2016-03-17] MEDS ORDERED: NovoLOG Insulin Flexpen SUBQ SCH (21:00)
[2016-03-17] MEDS ORDERED: Docusate 100mg cap ORAL SCH (21:00)
[2016-03-17] MEDS ORDERED: Zolpidem 5mg tab ORAL PRN (21:00)
[2016-03-17] MEDS: Labetalol 200mg tab ORAL SCH (21:40)
[2016-03-17] MEDS: Insulin NovoLOG Flexpen S/S (Mod) SUBQ SCH (21:43)
[2016-03-17] MEDS: Heparin 5000 units/ml inj SUBQ SCH (21:44)
[2016-03-17 22:01] LABS: APPEARANCE,URINE SLIGHTLY CLOUDY; KETONES,URINE NEGATIVE (NEGATIVE); LEUKOCYTE ESTERASE ,URINE NEGATIVE (NEGATIVE); NITRITE,URINE NEGATIVE (NEGATIVE); PROTEIN,URINE 4+ (NEGATIVE); UROBILINOGEN,URINE NORMAL MG/DL (0.0-1.0)
[2016-03-17 22:19] LABS: BACTERIA,URINE MANY /HPF; RBC,URINE 0-2 /HPF (0 - 2); SQUAMOUS EPITHELIAL CELL,UR MODERATE /LPF (NONE/OCC)
--- NOTE | 2016-03-17 23:28 | History and Physical Report ---
DATE OF ADMISSION: 03/17/2016 CHIEF COMPLAINT: The patient is a 75-year-old female presents with complaint of flank pain. HISTORY OF PRESENT ILLNESS: The patient was admitted to [facility] from 03/08/2016 through 03/15/2016. Please see history and physical and discharge summary dictated at that time. The patient was admitted for pulmonary edema. The patient presents to emergency room stating she was having abdominal pain. The patient states she feels like the food is not being processed. The patient complains of right flank pain. The patient was admitted for abdominal pain to rule out obstruction. PAST MEDICAL HISTORY: Significant for 1. End-stage renal disease, on hemodialysis every Friday, Friday, and Friday. The patient's last dialysis was on Friday,03/15/2016. 2. Diabetes type 2. 3. Hypertension. 4. Parkinson disease. 5. Coronary artery disease. 6. Congestive heart failure. 7. History of ovarian cancer, status post resection. 8. Metastatic cerebellar tumor, status post resection in 2014. 9. Bilateral pleural effusion. PAST SURGICAL HISTORY: Significant for 1. Coronary artery bypass graft in 2004. 2. Pacemaker implantation. 3. Resection of ovarian tumor. 4. Cerebellar metastatic tumor, status post resection in June 2014. 5. Left upper extremity arteriovenous graft for dialysis. MEDICATIONS: Current medications 1. Norvasc 10 mg one tablet p.o. daily. 2. Aspirin 81 mg one tablet p.o. daily. 3. Atorvastatin 40 mg one tablet p.o. at bedtime. 4. Clonidine patch 0.3 mg apply weekly. 5. Plavix 75 mg one tablet p.o. daily. 6. Benadryl 25 mg one tablet p.o. q.8 h. p.r.n. #18. 7. Aricept 5 mg one tablet p.o. at bedtime. 8. Pepcid 40 mg one tablet p.o. daily. 9. Gabapentin 100 mg one tablet p.o. three times daily. 10. Glipizide 5 mg one tablet p.o. twice daily. 11. Hydralazine 50 mg one tablet p.o. three times daily. 12. Labetalol 200 mg one tablet p.o. twice daily. 13. Trental 400 mg one tablet p.o. twice daily. 14. Ropinirole 2 mg one tablet p.o. at bedtime. ALLERGIES: No known drug allergies. SOCIAL HISTORY: The patient lives with his adult son. The patient denies tobacco or alcohol use. REVIEW OF SYSTEMS: Constitutional: The patient denies weight loss or weight gain. The patient denies fevers or chills. HEENT: The patient denies ear or throat pain. Cardiovascular: The patient denies palpitations or chest pain. Chest: The patient denies wheeze or shortness of breath. Abdomen: The patient denies diarrhea or constipation. The patient complains of right-sided abdominal pain. Genitourinary: The patient denies dysuria or increased frequency of urination. Neuromuscular: The patient denies seizures or generalized weakness. PHYSICAL EXAMINATION: GENERAL: The patient is a well-developed and well-nourished female, in no apparent distress. VITAL SIGNS: Temperature 98.4 degrees, respirations 23, pulse 74, blood pressure 141/30 to 49. HEENT: Pupils are equal and responsive to light and accommodation. Extraocular movements are intact. NECK: Supple without lymphadenopathy. CHEST: Lungs are clear to auscultation bilaterally without wheezes or rales. CARDIOVASCULAR: Regular rhythm and rate. S1 and S2 normal without murmurs, rubs, or gallops. ABDOMEN: Soft, nontender, and nondistended. Positive bowel sounds. No hepatosplenomegaly. Currently, no rebound. No guarding. EXTREMITIES: No clubbing, cyanosis or edema. RECTAL: Refused. GENITALIA: Refused. NEUROLOGIC: Cranial Nerves II through XII are grossly intact without focal deficits. Motor strength is 5/5 bilaterally. Deep tendon reflexes are 2+ plantar. LABORATORY AND DIAGNOSTIC DATA: WBC 6.3, hemoglobin 9.2, hematocrit 29.1, and platelets 208,000. Sodium 137, potassium 3.4, chloride 98, CO2 22, BUN 36, creatinine 2.5, and glucose 166. BNP elevated at 8359. ASSESSMENT: This is a 75-year-old female 1. Abdominal pain. 2. End-stage renal disease. 3. Diabetes type 2. 4. Hypertension. 5. Parkinson disease. 6. Coronary artery disease. 7. History ovarian cancer. 8. History metastatic cerebral tumor. TREATMENT: 1. Abdominal pain. A Gastroenterology consultation will be obtained with Dr. Santo Polanco. This may be ileus secondary to medication. We will follow recommendations of Gastroenterology. 2. Diabetes type 2. Continue Lantus and NovoLog sliding scale. 3. Hypertension. The patient will received labetalol and hydralazine as above. 4. Parkinson disease. 5. Coronary artery disease. The patient is status post coronary artery bypass graft. 6. History of ovarian cancer. 7. History of metastatic cerebral tumor. 8. End-stage renal disease. A Nephrology consultation will be obtained with Dr. Forbes. The patient's last dialysis was on 03/15/2016. The patient will require dialysis tomorrow on 03/18/2016. We will follow recommendations of Nephrology. Jasen Larkin M.D. DR: JERAD JOB#: [id number] CC:
[2016-03-18] VITALS: BP 136/64
[2016-03-18 04:00] VITALS: BP 145/56
[2016-03-18] MEDS: Insulin NovoLOG Flexpen S/S (Mod) SUBQ SCH ×4 (06:30→21:00)
[2016-03-18] MEDS ORDERED: NovoLOG Insulin Flexpen SUBQ SCH (06:30)
[2016-03-18 07:40] LABS: BASOPHILS % (AUTO) 1.1 % (0.0-2.0); EOSINOPHILS % (AUTO) 2.6 % (0.0-3.0); LYMPHOCYTES % (AUTO) 32.8 % (20.0-45.0); MEAN CORPUSCULAR HEMOGLOBIN 29.8 PG (27.0-31.0); MEAN CORPUSCULAR HGB CONC 32.3 G/DL (32.0-36.0); MEAN CORPUSCULAR VOLUME 92 FL (80-99); MEAN PLATELET VOLUME 7.8 FL (6.5-10.1); MONOCYTES % (AUTO) 10.5 % (1.0-10.0); NEUTROPHILS % (AUTO) 53.1 % (45.0-75.0); PLATELET COUNT 210 K/UL (150-450); RED BLOOD COUNT 2.85 M/UL (4.20-5.40); RED CELL DISTRIBUTION WIDTH 15.6 % (11.6-14.8); WHITE BLOOD COUNT 4.6 K/UL (4.8-10.8)
[2016-03-18 07:45] LABS: INR 1.1 (0.9-1.1); PROTHROMBIN TIME 10.9 SEC (9.30-11.50)
[2016-03-18 07:55] LABS: CRP QUANT 0.5 mg/dL (< 0.5); PHOSPHORUS 3.8 mg/dL (2.5-4.8); URIC ACID 8.9 mg/dL (3.0-7.5)
[2016-03-18 07:58] VITALS: BP 159/61
[2016-03-18 08:02] LABS: ALANINE AMINOTRANSFERASE 11 U/L (3-33); ALBUMIN/GLOBULIN RATIO 1.6 (1.0-2.7); ANION GAP 15 (5-15); ASPARTATE AMINO TRANSFERASE 19 U/L (5-40); CALCIUM 7.7 mg/dL (8.6-10.2); CARBON DIOXIDE 26 mEQ/L (20-30); CHLORIDE 95 mEQ/L (98-107); CREATININE 3.2 mg/dL (0.5-0.9); HEMOLYSIS 0; MAGNESIUM 2.1 mg/dL (1.7-2.5); POTASSIUM 3.9 mEQ/L (3.4-4.9); SODIUM 136 mEQ/L (135-145); TOTAL PROTEIN 4.8 g/dL (6.6-8.7)
[2016-03-18 08:39] LABS: HEMOGLOBIN A1C 4.8 % (< 6.0)
--- NOTE | 2016-03-18 09:32 | Consultation ---
Consult Note Consult Note known to me from her previous admission- Asked to eval for management of renal failure and dialysis Chief Complaint: Pain HPI Patient presents with flank pain and abdominal discomfort. She states that food just stays in her stomach and doesn't get processed. She feels distended. She also denies chest pain. Denies any fevers. She gets dialysis Friday and Friday however she states her last dialysis was 2 days ago ( ). She rarely makes urine and denies dysuria. She has no fevers but has a mild cough. She was discharged from the hospital after she was admitted from March 08 to March 15. She was admitted with a diagnosis of pulmonary edema. She still has a mild cough and also WHITEHEAD and orthopnea. Denies chest pain or fevers. Admitted with Dx of Flank Pain , CHF , ESRD Patient examined- data reviewed. . Assessment/Plan - Flank Pain, Etiology? - ESRD (end stage renal disease) on dialysis by history: check 24 h Urine Cr Cl - results 10 - Acute respiratory failure ? CHF - Alzheimer's dementia - Pacer / s/p CABGS - DM (diabetes mellitus) - Parkinson disease - Anemia Plan; dialysis as needed- plan for 2/7 Phos binders- Monitor Lytes and Chems Optimize cardiac and pulm status- Per GI advise per orders adjust BP DODIE Valdes Mar 18, 2016 09:32
[2016-03-18] MEDS: Heparin 5000 units/ml inj SUBQ SCH ×2 (10:07→21:27)
[2016-03-18] MEDS: Aspirin EC 81mg tab ORAL SCH (10:09)
[2016-03-18] MEDS: Labetalol 200mg tab ORAL SCH ×2 (10:09→21:29)
[2016-03-18] MEDS: GlipiZIDE 5mg tab ORAL SCH ×2 (10:09→18:24)
[2016-03-18] MEDS: Docusate 100mg cap ORAL SCH ×3 (10:09→21:00)
[2016-03-18] MEDS: HydrALAZINE 50mg tab ORAL SCH ×3 (10:10→18:25)
[2016-03-18] MEDS: Donepezil 5mg Tab ORAL SCH (10:13)
[2016-03-18 11:21] VITALS: BP 160/67
--- NOTE | 2016-03-18 13:16 | Consultation ---
History of Present Illness General Date patient seen: Mar 18, 2016 Chief Complaint: Pain Referring physician: Dr. Larkin Reason for Consultation: Dyspnea Present Illness HPI 75 year old female with hx of ESRF on HD, was recently at [facility] for pulmonary edema and dyspnea. She was discharged after she improved. She is coming back with CC of Flank pain and dyspnea and cough. Her cxr showed mild edema. She has a pace maker therefore she is admitted to telemetry. Allergies: Coded Allergies: No Known Allergies (Unverified , 02/02/15) Medication History Scheduled Amlodipine Besylate* (Amlodipine Besylate*), 10 MG ORAL DAILY, (Reported) Aspirin (Aspirin EC), 81 MG ORAL DAILY, (Reported) Atorvastatin Calcium* (Atorvastatin Calcium*), 40 MG ORAL BEDTIME, (Reported) Clopidogrel Bisulfate* (Plavix*), 75 MG ORAL DAILY, (Reported) Donepezil Hcl* (Donepezil Hcl*), 5 MG ORAL DAILY, (Reported) Famotidine (Famotidine), 40 MG ORAL DAILY, (Reported) Gabapentin* (Gabapentin*), 100 MG ORAL THREE TIMES A DAY, (Reported) Glipizide* (Glipizide*), 5 MG ORAL BIDAC, (Reported) Hydralazine Hcl* (Hydralazine Hcl*), 50 MG ORAL TID, (Reported) Labetalol HCl (Labetalol HCl), 200 MG ORAL BID, (Reported) Pentoxifylline* (Trental*), 400 MG ORAL BID, (Reported) Ropinirole Hcl* (Ropinirole Hcl*), 2 MG PO QHS, (Reported) Scheduled PRN Diphenhydramine Hcl* (Diphenhydramine Hcl*), 25 MG ORAL Q8H PRN for Itching, ( Reported) Miscellaneous Medications Clonidine (Clonidine), 0.3 MG TD, (Reported) Discontinued Medications Doxycycline Hyclate (Doxycycline Hyclate), 100 MG ORAL EVERY 12 HOURS Discontinued Reason: Therapy completed Patient History Healthcare decision maker Resuscitation status Advanced Directive on File Past Medical/Surgical History Past Medical/Surgical History: (1) Vascular dementia (2) Parkinson disease (3) Alzheimer's dementia (4) Pulmonary edema (5) ESRD (end stage renal disease) on dialysis (6) DM (diabetes mellitus) (7) HTN (hypertension) Review of Systems Respiratory: Reports: shortness of breath, sputum Cardiovascular: Reports: no symptoms Genitourinary: Reports: no symptoms Musculoskeletal: Reports: no symptoms Skin: Reports: no symptoms Psychiatric: Reports: no symptoms Physical Exam General Appearance: WD/WN Lines, tubes and drains: peripheral, central line HEENT: normocephalic, atraumatic Respiratory/Chest: chest wall non-tender, lungs clear Cardiovascular/Chest: normal peripheral pulses Abdomen: normal bowel sounds Extremities: normal range of motion Skin Exam: normal pigmentation Last 24 Hour Vital Signs Date Time Temp Pulse Resp B/P Pulse Ox O2 Delivery O2 Flow Rate FiO2 03/18/16 11:21 97.3 64 18 160/67 96 Room Air 03/18/16 10:10 159/61 03/18/16 10:10 61 159/61 03/18/16 10:09 61 159/61 03/18/16 10:08 159/61 03/18/16 08:00 60 03/18/16 07:58 97.5 61 18 159/61 96 Room Air 03/18/16 04:00 98.1 60 18 145/56 95 Room Air 03/18/16 04:00 60 03/18/16 00:00 98.1 60 18 136/64 95 Room Air 03/18/16 00:00 60 03/17/16 21:40 66 159/74 03/17/16 20:05 170/62 03/17/16 20:05 170/62 03/17/16 20:04 170/62 03/17/16 20:00 98.2 66 18 118/85 96 Room Air 03/17/16 20:00 64 03/17/16 17:00 66 03/17/16 16:32 65 18 170/52 100 Room Air 03/17/16 15:09 63 20 157/54 98 Room Air 03/17/16 13:57 62 20 146/101 95 Room Air Intake and Output 03/17/16 03/18/16 19:00 07:00 # Voids 1 # Bowel Movements 1 Laboratory Tests Test 03/17/16 21:05 03/17/16 21:45 03/18/16 06:35 Hemoglobin A1c 5.1 % (< 6.0) 4.8 % (< 6.0) Urine Color Yellow Urine Appearance Slightly cloudy Urine pH 7.0 (4.5-8.0) Urine Specific [place] 1.005 (1.005-1.035) Urine Protein 4+ (NEGATIVE) H Urine Glucose (UA) 4+ (NEGATIVE) H Urine Ketones Negative (NEGATIVE) Urine Occult Blood Negative (NEGATIVE) Urine Nitrite Negative (NEGATIVE) Urine Bilirubin Negative (NEGATIVE) Urine Urobilinogen Normal MG/DL (0.0-1.0) Urine Leukocyte Esterase Negative (NEGATIVE) Urine RBC 0-2 /HPF (0 - 2) Urine WBC 10-15 /HPF (0 - 2) H Urine Squamous Epithelial Cells Moderate /LPF (NONE/OCC) H Urine Bacteria Many /HPF (NONE) H White Blood Count 4.6 K/UL (4.8-10.8) L Red Blood Count 2.85 M/UL (4.20-5.40) L Hemoglobin 8.5 G/DL (12.0-16.0) L Hematocrit 26.4 % (37.0-47.0) L Mean Corpuscular Volume 92 FL (80-99) Mean Corpuscular Hemoglobin 29.8 PG (27.0-31.0) Mean Corpuscular Hemoglobin Concent 32.3 G/DL (32.0-36.0) Red Cell Distribution Width 15.6 % (11.6-14.8) H Platelet Count 210 K/UL (150-450) Mean Platelet Volume 7.8 FL (6.5-10.1) Neutrophils (%) (Auto) 53.1 % (45.0-75.0) Lymphocytes (%) (Auto) 32.8 % (20.0-45.0) Monocytes (%) (Auto) 10.5 % (1.0-10.0) H Eosinophils (%) (Auto) 2.6 % (0.0-3.0) Basophils (%) (Auto) 1.1 % (0.0-2.0) Prothrombin Time 10.9 SEC (9.30-11.50) Prothromb Time International Ratio 1.1 (0.9-1.1) Activated Partial Thromboplast Time 29 SEC (23-33) Sodium Level 136 mEQ/L (135-145) Potassium Level 3.9 mEQ/L (3.4-4.9) Chloride Level 95 mEQ/L (98-107) L Carbon Dioxide Level 26 mEQ/L (20-30) Anion Gap 15 (5-15) Blood Urea Nitrogen 44 mg/dL (7-23) H Creatinine 3.2 mg/dL (0.5-0.9) H Estimat Glomerular Filtration Rate mL/min (>60) Glucose Level 101 mg/dL (74-106) Uric Acid 8.9 mg/dL (3.0-7.5) H Calcium Level 7.7 mg/dL (8.6-10.2) L Phosphorus Level 3.8 mg/dL (2.5-4.8) Magnesium Level 2.1 mg/dL (1.7-2.5) Total Bilirubin 0.3 mg/dL (0.0-1.2) Gamma Glutamyl Transpeptidase 32 U/L (5-36) Aspartate Amino Transf (AST/SGOT) 19 U/L (5-40) Alanine Aminotransferase (ALT/SGPT) 11 U/L (3-33) Alkaline Phosphatase 81 U/L (35-104) Total Creatine Kinase 93 U/L (26-140) C-Reactive Protein, Quantitative 0.5 mg/dL (< 0.5) Pro-B-Type Natriuretic Peptide 20758 pg/mL (0-125) H Total Protein 4.8 g/dL (6.6-8.7) L Albumin 3.0 g/dL (3.5-5.2) L Globulin 1.8 g/dL Albumin/Globulin Ratio 1.6 (1.0-2.7) Height (Feet): 5 Height (Inches): 0.00 Weight (Pounds): 125 Medications Current Medications Medications (Trade) Dose Ordered Sig/Carrie Route PRN Reason Start Time Stop Time Status Last Admin Dose Admin Acetaminophen (Tylenol) 650 mg Q4H PRN ORAL Mild Pain (Pain Scale 1-3) 03/17/16 18:00 04/16/16 17:59 Amlodipine Besylate (Norvasc) 10 mg DAILY ORAL 03/18/16 09:00 04/17/16 08:59 03/18/16 10:10 Aspirin (Ecotrin) 81 mg DAILY ORAL 03/18/16 09:00 04/17/16 08:59 03/18/16 10:09 Atorvastatin Calcium (Lipitor) 40 mg BEDTIME ORAL 03/17/16 21:00 04/16/16 20:59 03/17/16 21:39 Bisacodyl (Dulcolax) 10 mg DAILYPRN PRN RECTAL Constipation 03/17/16 18:26 04/16/16 17:59 Clonidine HCl (Catapres TTS-2) 1 patch QWEEK TDERMAL 03/17/16 20:00 04/16/16 19:59 03/17/16 20:04 Clopidogrel Bisulfate (Plavix) 75 mg DAILY ORAL 03/18/16 09:00 04/17/16 08:59 03/18/16 10:11 Dextrose (Dextrose 50%) STAT PRN IV Hypoglycemia 03/17/16 18:00 04/16/16 17:59 Diphenhydramine HCl (Benadryl) 25 mg Q6H PRN ORAL Itching/Pruritis 03/17/16 18:00 04/16/16 17:59 Docusate Sodium (Colace) 100 mg TID ORAL 03/18/16 10:00 04/17/16 09:59 03/18/16 10:09 Donepezil HCl (Aricept) 5 mg DAILY ORAL 03/18/16 09:00 04/17/16 08:59 03/18/16 10:13 Gabapentin (Neurontin) 100 mg THREE TIMES A DAY ORAL 03/17/16 18:00 04/16/16 17:59 03/18/16 10:08 Glipizide (Glucotrol) 5 mg BID ORAL 03/17/16 18:00 04/16/16 17:59 03/18/16 10:09 Heparin Sodium (Porcine) (Heparin 5000 units/ml) 5,000 units EVERY 12 HOURS SUBQ 03/17/16 21:00 04/16/16 20:59 03/18/16 10:07 Hydralazine HCl (Apresoline) 50 mg TID ORAL 03/17/16 20:00 04/16/16 19:59 03/18/16 10:10 Insulin Aspart (NovoLOG) No Dose BEFORE MEALS AND HS SUBQ 03/17/16 21:00 04/16/16 20:59 03/17/16 21:43 Labetalol HCl (Normodyne) 200 mg Q12HR ORAL 03/17/16 21:00 04/16/16 20:59 03/18/16 10:09 Lorazepam (Ativan 2mg/ml 1ml) 0.5 mg Q4H PRN IV For Anxiety 03/17/16 18:00 03/24/16 17:59 Morphine Sulfate (Morphine Sulfate) 1 mg Q4H PRN IVP Moderate Pain (Pain Scale 4-6) 03/17/16 18:00 03/24/16 17:59 Ondansetron HCl (Zofran) 4 mg Q6H PRN IVP Nausea & Vomiting 03/17/16 18:00 04/16/16 17:59 Pantoprazole (Protonix) 40 mg DAILY ORAL 03/18/16 09:00 04/17/16 08:59 03/18/16 10:10 Pentoxifylline (TRENtal) 400 mg BID ORAL 03/17/16 20:00 04/16/16 19:59 03/18/16 10:08 Polyethylene Glycol (Miralax) 17 gm DAILYPRN PRN ORAL Constipation 03/17/16 18:00 04/16/16 17:59 Zolpidem Tartrate (Ambien) 5 mg HSPRN PRN ORAL Insomnia 03/17/16 21:00 04/16/16 20:59 Assessment/Plan Problem List: (1) Pulmonary edema ICD Codes: J81.1 - Chronic pulmonary edema SNOMED: 04491170 (2) Alzheimer's dementia ICD Codes: G30.9 - Alzheimer's disease, unspecified SNOMED: 44327937 (3) Parkinson disease ICD Codes: G20 - Parkinson's disease SNOMED: 27907125 (4) Vascular dementia ICD Codes: F01.50 - Vascular dementia without behavioral disturbance SNOMED: 467045959 (5) Flank pain ICD Codes: R10.9 - Unspecified abdominal pain SNOMED: 180870231 (6) HTN (hypertension) ICD Codes: I10 - Essential (primary) hypertension SNOMED: 82897963 (7) ESRD (end stage renal disease) on dialysis ICD Codes: N18.6 - End stage renal disease; Z99.2 - Dependence on renal dialysis SNOMED: 689061893 Assessment/Plan respiratory treatment check sputum HD f/u cxr antitussives titrate fio2 to sat of 92% cardio evaluation. ALMA DELIA MONTES Mar 18, 2016 13:16
[2016-03-18 16:00] VITALS: BP 140/55
[2016-03-18 20:00] VITALS: BP 128/55
--- NOTE | 2016-03-18 20:08 | Internal Med Progress Note ---
Subjective Date of Service: Mar 18, 2016 Physician Name Yenifer Schuler Attending Physician Jovani Gr MD Current Medications Medications (Trade) Dose Ordered Sig/Carrie Route PRN Reason Start Time Stop Time Status Last Admin Dose Admin Acetaminophen (Tylenol) 650 mg Q4H PRN ORAL Mild Pain (Pain Scale 1-3) 03/17/16 18:00 04/16/16 17:59 Amlodipine Besylate (Norvasc) 10 mg DAILY ORAL 03/18/16 09:00 04/17/16 08:59 03/18/16 10:10 Aspirin (Ecotrin) 81 mg DAILY ORAL 03/18/16 09:00 04/17/16 08:59 03/18/16 10:09 Atorvastatin Calcium (Lipitor) 40 mg BEDTIME ORAL 03/17/16 21:00 04/16/16 20:59 03/17/16 21:39 Bisacodyl (Dulcolax) 10 mg DAILYPRN PRN RECTAL Constipation 03/17/16 18:26 04/16/16 17:59 Clonidine HCl (Catapres TTS-2) 1 patch QWEEK TDERMAL 03/17/16 20:00 04/16/16 19:59 03/17/16 20:04 Clopidogrel Bisulfate (Plavix) 75 mg DAILY ORAL 03/18/16 09:00 04/17/16 08:59 03/18/16 10:11 Dextrose (Dextrose 50%) STAT PRN IV Hypoglycemia 03/17/16 18:00 04/16/16 17:59 Diphenhydramine HCl (Benadryl) 25 mg Q6H PRN ORAL Itching/Pruritis 03/17/16 18:00 04/16/16 17:59 Docusate Sodium (Colace) 100 mg TID ORAL 03/18/16 10:00 04/17/16 09:59 03/18/16 13:22 Donepezil HCl (Aricept) 5 mg DAILY ORAL 03/18/16 09:00 04/17/16 08:59 03/18/16 10:13 Gabapentin (Neurontin) 100 mg THREE TIMES A DAY ORAL 03/17/16 18:00 04/16/16 17:59 03/18/16 18:24 Glipizide (Glucotrol) 5 mg BID ORAL 03/17/16 18:00 04/16/16 17:59 2/6/17 18:24 Heparin Sodium (Porcine) (Heparin 5000 units/ml) 5,000 units EVERY 12 HOURS SUBQ 03/17/16 21:00 04/16/16 20:59 03/18/16 10:07 Hydralazine HCl (Apresoline) 50 mg TID ORAL 03/17/16 20:00 04/16/16 19:59 03/18/16 18:25 Insulin Aspart (NovoLOG) No Dose BEFORE MEALS AND HS SUBQ 03/17/16 21:00 04/16/16 20:59 03/17/16 21:43 Labetalol HCl (Normodyne) 200 mg Q12HR ORAL 03/17/16 21:00 04/16/16 20:59 03/18/16 10:09 Lorazepam (Ativan 2mg/ml 1ml) 0.5 mg Q4H PRN IV For Anxiety 03/17/16 18:00 03/24/16 17:59 Morphine Sulfate (Morphine Sulfate) 1 mg Q4H PRN IVP Moderate Pain (Pain Scale 4-6) 03/17/16 18:00 03/24/16 17:59 Ondansetron HCl (Zofran) 4 mg Q6H PRN IVP Nausea & Vomiting 03/17/16 18:00 04/16/16 17:59 Pantoprazole (Protonix) 40 mg DAILY ORAL 03/18/16 09:00 04/17/16 08:59 03/18/16 10:10 Pentoxifylline (TRENtal) 400 mg BID ORAL 03/17/16 20:00 04/16/16 19:59 03/18/16 18:23 Polyethylene Glycol (Miralax) 17 gm DAILYPRN PRN ORAL Constipation 03/17/16 18:00 04/16/16 17:59 Zolpidem Tartrate (Ambien) 5 mg HSPRN PRN ORAL Insomnia 03/17/16 21:00 04/16/16 20:59 Allergies: Coded Allergies: No Known Allergies (Unverified , 02/02/15) ROS Limited/Unobtainable: No Constitutional: Reports: no symptoms HEENT: Reports: no symptoms Cardiovascular: Reports: no symptoms Respiratory: Reports: no symptoms Gastrointestinal/Abdominal: Reports: abdominal pain Genitourinary: Reports: no symptoms Neurologic/Psychiatric: Reports: no symptoms Subjective 75 YO F admitted with flank pain. Cover for Int Med-Sr Simón. Objective Last Vital Signs Date Time Temp Pulse Resp B/P Pulse Ox O2 Delivery O2 Flow Rate FiO2 03/18/16 18:25 140/55 03/18/16 16:00 98.2 60 22 99 Room Air General Appearance: WD/WN, no apparent distress, alert EENT: PERRL/EOMI, normal ENT inspection, TMs normal Neck: non-tender, normal alignment, supple, normal inspection Cardiovascular: normal peripheral pulses, normal rate, regular rhythm, no gallop/murmur, no JVD Respiratory/Chest: chest wall non-tender, lungs clear, normal breath sounds, no respiratory distress, no accessory muscle use Abdomen: no organomegaly, no mass, decreased bowel sounds, guarding, tender Extremities: normal range of motion 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, no motor/sensory deficits Skin: normal pigmentation, warm/dry Laboratory Tests Test 03/17/16 21:05 03/17/16 21:45 03/18/16 06:35 Hemoglobin A1c 5.1 % (< 6.0) 4.8 % (< 6.0) Urine Color Yellow Urine Appearance Slightly cloudy Urine pH 7.0 (4.5-8.0) Urine Specific [place] 1.005 (1.005-1.035) Urine Protein 4+ (NEGATIVE) H Urine Glucose (UA) 4+ (NEGATIVE) H Urine Ketones Negative (NEGATIVE) Urine Occult Blood Negative (NEGATIVE) Urine Nitrite Negative (NEGATIVE) Urine Bilirubin Negative (NEGATIVE) Urine Urobilinogen Normal MG/DL (0.0-1.0) Urine Leukocyte Esterase Negative (NEGATIVE) Urine RBC 0-2 /HPF (0 - 2) Urine WBC 10-15 /HPF (0 - 2) H Urine Squamous Epithelial Cells Moderate /LPF (NONE/OCC) H Urine Bacteria Many /HPF (NONE) H White Blood Count 4.6 K/UL (4.8-10.8) L Red Blood Count 2.85 M/UL (4.20-5.40) L Hemoglobin 8.5 G/DL (12.0-16.0) L Hematocrit 26.4 % (37.0-47.0) L Mean Corpuscular Volume 92 FL (80-99) Mean Corpuscular Hemoglobin 29.8 PG (27.0-31.0) Mean Corpuscular Hemoglobin Concent 32.3 G/DL (32.0-36.0) Red Cell Distribution Width 15.6 % (11.6-14.8) H Platelet Count 210 K/UL (150-450) Mean Platelet Volume 7.8 FL (6.5-10.1) Neutrophils (%) (Auto) 53.1 % (45.0-75.0) Lymphocytes (%) (Auto) 32.8 % (20.0-45.0) Monocytes (%) (Auto) 10.5 % (1.0-10.0) H Eosinophils (%) (Auto) 2.6 % (0.0-3.0) Basophils (%) (Auto) 1.1 % (0.0-2.0) Prothrombin Time 10.9 SEC (9.30-11.50) Prothromb Time International Ratio 1.1 (0.9-1.1) Activated Partial Thromboplast Time 29 SEC (23-33) Sodium Level 136 mEQ/L (135-145) Potassium Level 3.9 mEQ/L (3.4-4.9) Chloride Level 95 mEQ/L (98-107) L Carbon Dioxide Level 26 mEQ/L (20-30) Anion Gap 15 (5-15) Blood Urea Nitrogen 44 mg/dL (7-23) H Creatinine 3.2 mg/dL (0.5-0.9) H Estimat Glomerular Filtration Rate mL/min (>60) Glucose Level 101 mg/dL (74-106) Uric Acid 8.9 mg/dL (3.0-7.5) H Calcium Level 7.7 mg/dL (8.6-10.2) L Phosphorus Level 3.8 mg/dL (2.5-4.8) Magnesium Level 2.1 mg/dL (1.7-2.5) Total Bilirubin 0.3 mg/dL (0.0-1.2) Gamma Glutamyl Transpeptidase 32 U/L (5-36) Aspartate Amino Transf (AST/SGOT) 19 U/L (5-40) Alanine Aminotransferase (ALT/SGPT) 11 U/L (3-33) Alkaline Phosphatase 81 U/L (35-104) Total Creatine Kinase 93 U/L (26-140) C-Reactive Protein, Quantitative 0.5 mg/dL (< 0.5) Pro-B-Type Natriuretic Peptide 32720 pg/mL (0-125) H Total Protein 4.8 g/dL (6.6-8.7) L Albumin 3.0 g/dL (3.5-5.2) L Globulin 1.8 g/dL Albumin/Globulin Ratio 1.6 (1.0-2.7) Intake and Output 03/17/16 03/18/16 19:00 07:00 # Voids 1 # Bowel Movements 1 Assessment/Plan Problem List: (1) Ovarian cancer Assessment & Plan: S/P resection (2) Cerebellar tumor Assessment & Plan: S/P resection (3) Flank pain (4) Abdominal pain Assessment & Plan: await GI consult. (5) ESRD (end stage renal disease) on dialysis Assessment & Plan: Next dialysis on 03/19/16-See nephrology note. (6) DM (diabetes mellitus) Assessment & Plan: Cont novolog (7) HTN (hypertension) Assessment & Plan: Cont labetolol (8) Parkinson disease (9) CAD (coronary artery disease) (10) CHF (congestive heart failure) Status: not improved YENIFER SCHULER Mar 18, 2016 20:08
[2016-03-19] VITALS (14 sets, daily range): BP systolic 124–169; BP diastolic 37–86
[2016-03-19] MEDS: Insulin NovoLOG Flexpen S/S (Mod) SUBQ SCH ×3 (05:54→16:30)
[2016-03-19 07:45] LABS: BASOPHILS % (AUTO) 0.8 % (0.0-2.0); EOSINOPHILS % (AUTO) 3.1 % (0.0-3.0); LYMPHOCYTES % (AUTO) 30.4 % (20.0-45.0); MEAN CORPUSCULAR HEMOGLOBIN 29.4 PG (27.0-31.0); MEAN CORPUSCULAR HGB CONC 31.9 G/DL (32.0-36.0); MEAN CORPUSCULAR VOLUME 92 FL (80-99); MEAN PLATELET VOLUME 7.5 FL (6.5-10.1); MONOCYTES % (AUTO) 8.1 % (1.0-10.0); NEUTROPHILS % (AUTO) 57.6 % (45.0-75.0); PLATELET COUNT 246 K/UL (150-450); RED BLOOD COUNT 3.03 M/UL (4.20-5.40); RED CELL DISTRIBUTION WIDTH 15.7 % (11.6-14.8); WHITE BLOOD COUNT 5.7 K/UL (4.8-10.8)
[2016-03-19 08:04] LABS: ALANINE AMINOTRANSFERASE 12 U/L (3-33); ALBUMIN/GLOBULIN RATIO 1.2 (1.0-2.7); ANION GAP 17 (5-15); ASPARTATE AMINO TRANSFERASE 20 U/L (5-40); CALCIUM 8.2 mg/dL (8.6-10.2); CARBON DIOXIDE 24 mEQ/L (20-30); CHLORIDE 94 mEQ/L (98-107); CHOLESTEROL 142 mg/dL (< 200); CHOLESTEROL/HDL RATIO 2.5 (3.3-4.4); CREATININE 3.2 mg/dL (0.5-0.9); CRP QUANT < 0.3 mg/dL (< 0.5); LDL CHOLESTEROL (CALC.) 42 mg/dL (60-99); POTASSIUM 4.2 mEQ/L (3.4-4.9); SODIUM 135 mEQ/L (135-145); TOTAL PROTEIN 5.5 g/dL (6.6-8.7)
[2016-03-19 08:06] LABS: FERRITIN 997 ng/mL (13-150)
[2016-03-19 08:15] LABS: HEMOGLOBIN A1C 4.8 % (< 6.0)
[2016-03-19] MEDS: Morphine Sulfate 2mg/ml Inj IVP PRN ×3 (08:16→14:13)
[2016-03-19 08:19] LABS: HEMOLYSIS 1; IRON 53 ug/dL (37-145); TOTAL IRON BINDING CAPACITY 188 ug/dL (250-400)
--- NOTE | 2016-03-19 08:54 | Cardiology Progress Note ---
Assessment/Plan Assessment/Plan 1. Aortic stenosis, mitral stenosis ([facility] echo 11/2015: PG 27.0 mmHg. MG 15.0 mmHg. STEFF 1.2 cm2. Trace aortic regurgitation. Severe mitral annular calcification. PG 21.0 mmHg. MG is 7.0 mmHg.MVA 2.0 cm )(not severe) 2. Congestive heart failure with [place] [employer] class 1. 3. Coronary artery disease status post coronary artery bypass graft in 2004, 4. 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 5. Ovarian cancer status post resection. The patient denies. 6. Thrombosis of right ovarian vein 2010. 7. Chronic migraines. 8. History of acute thromboembolism 9. Sick sinus syndrome s/p pmi st [facility] . 10. Hypertension. 11. Hyperlipidemia. 12. Chronic migraines. 13. Iron deficiency. 14. Bronchial asthma. 15. ESRD on HD 16. Sever knee pain seem she was see at [facility] for tavr one time but not followed up, i assume since the stenosis was nto felt to be severe based on echo no not have sever MS or only moderate dialysis as planned her ef in november at [facility] was 70% has a pacer seems to be functionin well ekg noted will repeat echo treatmetn of knee pain and falnk pain as per dr sky this is list of meds at [facility] records 1. Norvasc 10 mg p.o. daily. 2. Lipitor 40 mg p.o. at bedtime. 3. Insulin as directed by scale. 4. Plavix 75 mg p.o. daily. 5. Neurontin 100 mg p.o. t.i.d. 6. Glucotrol 5 mg p.o. b.i.d. 7. Humalog a.c., at bedtime. 8. Apresoline 100 mg p.o. daily. 9. Labetalol 100 mg p.o. b.i.d. 10. Lantus 10 units q.a.m. 11. Trental 400 mg p.o. b.i.d. 12. Requip 2 mg p.o. at bedtime. 13. Hytrin 1 mg p.o. daily. Objective Last 24 Hour Vital Signs Date Time Temp Pulse Resp B/P Pulse Ox O2 Delivery O2 Flow Rate FiO2 2/7/17 08:01 97.5 67 18 153/86 97 Room Air 03/19/16 04:27 98.1 59 20 139/52 96 Room Air 03/19/16 04:00 70 03/19/16 00:16 97.7 59 20 153/66 97 Room Air 03/19/16 00:00 66 03/18/16 21:29 60 128/55 03/18/16 20:00 98.0 60 19 128/55 97 Room Air 03/18/16 18:25 140/55 03/18/16 18:23 140/55 03/18/16 16:00 98.2 60 22 140/55 99 Room Air 03/18/16 16:00 60 03/18/16 14:21 97.3 03/18/16 13:21 160/67 03/18/16 12:00 61 03/18/16 11:21 97.3 64 18 160/67 96 Room Air 03/18/16 10:10 159/61 03/18/16 10:10 61 159/61 03/18/16 10:09 61 159/61 03/18/16 10:08 159/61 Intake and Output 03/18/16 03/19/16 19:00 07:00 Intake Total 270 ml 260 ml Balance 270 ml 260 ml Intake Oral 270 ml 260 ml # Voids 1 # Bowel Movements 1 2 Laboratory Tests Test 03/19/16 07:25 White Blood Count 5.7 K/UL (4.8-10.8) Red Blood Count 3.03 M/UL (4.20-5.40) L Hemoglobin 8.9 G/DL (12.0-16.0) L Hematocrit 27.9 % (37.0-47.0) L Mean Corpuscular Volume 92 FL (80-99) Mean Corpuscular Hemoglobin 29.4 PG (27.0-31.0) Mean Corpuscular Hemoglobin Concent 31.9 G/DL (32.0-36.0) L Red Cell Distribution Width 15.7 % (11.6-14.8) H Platelet Count 246 K/UL (150-450) Mean Platelet Volume 7.5 FL (6.5-10.1) Neutrophils (%) (Auto) 57.6 % (45.0-75.0) Lymphocytes (%) (Auto) 30.4 % (20.0-45.0) Monocytes (%) (Auto) 8.1 % (1.0-10.0) Eosinophils (%) (Auto) 3.1 % (0.0-3.0) H Basophils (%) (Auto) 0.8 % (0.0-2.0) Sodium Level 135 mEQ/L (135-145) Potassium Level 4.2 mEQ/L (3.4-4.9) Chloride Level 94 mEQ/L (98-107) L Carbon Dioxide Level 24 mEQ/L (20-30) Anion Gap 17 (5-15) H Blood Urea Nitrogen 46 mg/dL (7-23) H Creatinine 3.2 mg/dL (0.5-0.9) H Estimat Glomerular Filtration Rate mL/min (>60) Glucose Level 142 mg/dL (74-106) H Hemoglobin A1c 4.8 % (< 6.0) Uric Acid 9.0 mg/dL (3.0-7.5) H Calcium Level 8.2 mg/dL (8.6-10.2) L Phosphorus Level 4.0 mg/dL (2.5-4.8) Magnesium Level 2.0 mg/dL (1.7-2.5) Iron Level 53 ug/dL (37-145) Total Iron Binding Capacity 188 ug/dL (250-400) L Percent Iron Saturation 28 % (15-50) Unsaturated Iron Binding 135 ug/dL (112-346) Ferritin 997 ng/mL (13-150) H Total Bilirubin 0.3 mg/dL (0.0-1.2) Gamma Glutamyl Transpeptidase 36 U/L (5-36) Aspartate Amino Transf (AST/SGOT) 20 U/L (5-40) Alanine Aminotransferase (ALT/SGPT) 12 U/L (3-33) Alkaline Phosphatase 83 U/L (35-104) C-Reactive Protein, Quantitative < 0.3 mg/dL (< 0.5) Pro-B-Type Natriuretic Peptide 19812 pg/mL (0-125) H Total Protein 5.5 g/dL (6.6-8.7) L Albumin 3.0 g/dL (3.5-5.2) L Globulin 2.5 g/dL Albumin/Globulin Ratio 1.2 (1.0-2.7) Triglycerides Level 219 mg/dL (< 150) H Cholesterol Level 142 mg/dL (< 200) LDL Cholesterol 42 mg/dL (60-99) L HDL Cholesterol 56 mg/dL (> 60) Cholesterol/HDL Ratio 2.5 (3.3-4.4) L Vitamin B12 Level 1010 pg/mL (211-946) H Folate Pending Thyroid Stimulating Hormone (TSH) 10.150 uIU/mL (0.300-4.500) Microbiology Date/Time Source Procedure Growth Status 03/16/16 23:36 Nasal Nares MRSA Culture - Final NO METHICILLIN RESISTANT STAPH AUREUS... Complete 03/17/16 21:45 Urine,Clean Catch Urine Culture - Preliminary Gram Negative Bacillus 1 Resulted 03/16/16 23:36 Rectum VRE Culture - Final NO VANCOMYCIN RESISTANT ENTEROCOCCUS ... Complete CUAUHTEMOC WALKER Mar 19, 2016 08:53
[2016-03-19] MEDS: Donepezil 5mg Tab ORAL SCH ×2 (08:55→10:09)
[2016-03-19] MEDS: HydrALAZINE 50mg tab ORAL SCH ×4 (08:55→18:00)
[2016-03-19] MEDS: Docusate 100mg cap ORAL SCH ×3 (08:55→18:13)
[2016-03-19] MEDS: Labetalol 200mg tab ORAL SCH ×3 (08:56→21:16)
[2016-03-19] MEDS: GlipiZIDE 5mg tab ORAL SCH ×3 (08:56→18:13)
[2016-03-19] MEDS: Aspirin EC 81mg tab ORAL SCH ×2 (08:56→10:09)
[2016-03-19] MEDS: Heparin 5000 units/ml inj SUBQ SCH ×3 (08:57→21:17)
[2016-03-19] MEDS ORDERED: Morphine Sulfate 2mg/ml Inj IVP ONE (09:30)
--- NOTE | 2016-03-19 12:12 | Pulmonology Progress Note ---
Assessment/Plan Problems: (1) Pulmonary edema (2) Alzheimer's dementia (3) Parkinson disease (4) Vascular dementia (5) Flank pain (6) HTN (hypertension) (7) ESRD (end stage renal disease) on dialysis Assessment/Plan improving fistulogram HD by nephrology respiratory treatment d/w cardiology about Pts aortic stenosis sliding scale diabetic diet. Subjective ROS Limited/Unobtainable: No Interval Events: getting Hd Constitutional: Reports: no symptoms Allergies: Coded Allergies: No Known Allergies (Unverified , 02/02/15) Objective Last 24 Hour Vital Signs Date Time Temp Pulse Resp B/P Pulse Ox O2 Delivery O2 Flow Rate FiO2 03/19/16 12:02 153/59 03/19/16 11:25 97.7 62 18 153/59 97 Room Air 03/19/16 10:22 Room Air 03/19/16 10:10 153/86 03/19/16 10:10 67 153/86 03/19/16 10:10 153/86 03/19/16 10:10 67 153/86 03/19/16 08:45 Room Air 03/19/16 08:01 97.5 67 18 153/86 97 Room Air 03/19/16 04:27 98.1 59 20 139/52 96 Room Air 03/19/16 04:00 70 03/19/16 00:16 97.7 59 20 153/66 97 Room Air 03/19/16 00:00 66 03/18/16 21:29 60 128/55 03/18/16 20:00 98.0 60 19 128/55 97 Room Air 03/18/16 18:25 140/55 03/18/16 18:23 140/55 03/18/16 16:00 98.2 60 22 140/55 99 Room Air 03/18/16 16:00 60 03/18/16 14:21 97.3 03/18/16 13:21 160/67 Intake and Output 03/18/16 03/19/16 19:00 07:00 Intake Total 270 ml 260 ml Balance 270 ml 260 ml Intake Oral 270 ml 260 ml # Voids 1 # Bowel Movements 1 2 General Appearance: WD/WN Respiratory/Chest: chest wall non-tender, lungs clear Cardiovascular: normal peripheral pulses, normal rate 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 Complete 03/17/16 21:45 Urine,Clean Catch Urine Culture - Preliminary Gram Negative Bacillus 1 Resulted 03/16/16 23:36 Rectum VRE Culture - Final NO VANCOMYCIN RESISTANT ENTEROCOCCUS ... Complete Laboratory Tests 03/19/16 07:25: White Blood Count 5.7, Red Blood Count 3.03L, Hemoglobin 8.9L, Hematocrit 27.9L , Mean Corpuscular Volume 92, Mean Corpuscular Hemoglobin 29.4, Mean Corpuscular Hemoglobin Concent 31.9L, Red Cell Distribution Width 15.7H, Platelet Count 246, Mean Platelet Volume 7.5, Neutrophils (%) (Auto) 57.6, Lymphocytes (%) (Auto) 30.4, Monocytes (%) (Auto) 8.1, Eosinophils (%) (Auto) 3.1H, Basophils (%) (Auto) 0.8, Sodium Level 135, Potassium Level 4.2, Chloride Level 94L, Carbon Dioxide Level 24, Anion Gap 17H, Blood Urea Nitrogen 46H, Creatinine 3.2H, Estimat Glomerular Filtration Rate , Glucose Level 142H, Hemoglobin A1c 4.8, Uric Acid 9.0H, Calcium Level 8.2L, Phosphorus Level 4.0, Magnesium Level 2.0, Iron Level 53, Total Iron Binding Capacity 188L, Percent Iron Saturation 28, Unsaturated Iron Binding 135, Ferritin 997H, Total Bilirubin 0.3, Gamma Glutamyl Transpeptidase 36, Aspartate Amino Transf (AST/ SGOT) 20, Alanine Aminotransferase (ALT/SGPT) 12, Alkaline Phosphatase 83, C- Reactive Protein, Quantitative < 0.3, Pro-B-Type Natriuretic Peptide 61480Z, Total Protein 5.5L, Albumin 3.0L, Globulin 2.5, Albumin/Globulin Ratio 1.2, Triglycerides Level 219H, Cholesterol Level 142, LDL Cholesterol 42L, HDL Cholesterol 56, Cholesterol/HDL Ratio 2.5L, Vitamin B12 Level 1010H, Folate [ Pending], Thyroid Stimulating Hormone (TSH) 10.150H Current Medications Medications (Trade) Dose Ordered Sig/Carrie Route PRN Reason Start Time Stop Time Status Last Admin Dose Admin Acetaminophen (Tylenol) 650 mg Q4H PRN ORAL Mild Pain (Pain Scale 1-3) 03/17/16 18:00 04/16/16 17:59 Amlodipine Besylate (Norvasc) 10 mg DAILY ORAL 03/18/16 09:00 04/17/16 08:59 03/19/16 10:10 Aspirin (Ecotrin) 81 mg DAILY ORAL 03/18/16 09:00 04/17/16 08:59 03/19/16 10:09 Atorvastatin Calcium (Lipitor) 40 mg BEDTIME ORAL 03/17/16 21:00 04/16/16 20:59 03/18/16 21:27 Bisacodyl (Dulcolax) 10 mg DAILYPRN PRN RECTAL Constipation 03/17/16 18:26 04/16/16 17:59 Clonidine HCl (Catapres TTS-2) 1 patch QWEEK TDERMAL 03/17/16 20:00 04/16/16 19:59 03/17/16 20:04 Clopidogrel Bisulfate (Plavix) 75 mg DAILY ORAL 03/18/16 09:00 04/17/16 08:59 03/19/16 10:11 Dextrose (Dextrose 50%) STAT PRN IV Hypoglycemia 03/17/16 18:00 04/16/16 17:59 Diphenhydramine HCl (Benadryl) 25 mg Q6H PRN ORAL Itching/Pruritis 03/17/16 18:00 04/16/16 17:59 03/19/16 00:52 Docusate Sodium (Colace) 100 mg TID ORAL 03/18/16 10:00 04/17/16 09:59 03/19/16 12:01 Donepezil HCl (Aricept) 5 mg DAILY ORAL 03/18/16 09:00 04/17/16 08:59 03/19/16 10:09 Gabapentin (Neurontin) 100 mg THREE TIMES A DAY ORAL 03/17/16 18:00 04/16/16 17:59 03/19/16 12:01 Glipizide (Glucotrol) 5 mg BID ORAL 03/17/16 18:00 04/16/16 17:59 03/19/16 10:10 Heparin Sodium (Porcine) (Heparin 5000 units/ml) 5,000 units EVERY 12 HOURS SUBQ 03/17/16 21:00 04/16/16 20:59 03/19/16 10:12 Hydralazine HCl (Apresoline) 50 mg TID ORAL 03/17/16 20:00 04/16/16 19:59 03/19/16 12:02 Insulin Aspart (NovoLOG) No Dose BEFORE MEALS AND HS SUBQ 03/17/16 21:00 04/16/16 20:59 03/19/16 12:03 Labetalol HCl (Normodyne) 200 mg Q12HR ORAL 03/17/16 21:00 04/16/16 20:59 03/19/16 10:10 Lorazepam (Ativan 2mg/ml 1ml) 0.5 mg Q4H PRN IV For Anxiety 03/17/16 18:00 03/24/16 17:59 Morphine Sulfate (Morphine Sulfate) 1 mg Q4H PRN IVP Moderate Pain (Pain Scale 4-6) 03/17/16 18:00 03/24/16 17:59 03/19/16 08:16 Ondansetron HCl (Zofran) 4 mg Q6H PRN IVP Nausea & Vomiting 03/17/16 18:00 04/16/16 17:59 Pantoprazole (Protonix) 40 mg DAILY ORAL 03/18/16 09:00 04/17/16 08:59 03/19/16 10:10 Pentoxifylline (TRENtal) 400 mg BID ORAL 03/17/16 20:00 04/16/16 19:59 03/19/16 10:10 Polyethylene Glycol (Miralax) 17 gm DAILYPRN PRN ORAL Constipation 03/17/16 18:00 04/16/16 17:59 Zolpidem Tartrate (Ambien) 5 mg HSPRN PRN ORAL Insomnia 03/17/16 21:00 04/16/16 20:59 03/18/16 23:44 ALMA DELIA MONTES Mar 19, 2016 12:12
--- NOTE | 2016-03-19 12:31 | General Progress Note ---
Assessment/Plan Status: unchanged Status Narrative dialysis aborted as venous site infiltrated Assessment/Plan status: - Flank Pain, Etiology? - ESRD (end stage renal disease) on dialysis by history: check 24 h Urine Cr Cl - results 10 - Acute respiratory failure ? CHF - Alzheimer's dementia - Pacer / s/p CABGS - DM (diabetes mellitus) - Parkinson disease - Anemia Plan; dialysis as needed- plan for 03/19, aborted needle infiltrated Phos binders- Monitor Lytes and Chems Optimize cardiac and pulm status- Per GI advise per orders adjust BP meds retry HD in am. Subjective ROS Limited/Unobtainable: No Constitutional: Reports: malaise, weakness Allergies: Coded Allergies: No Known Allergies (Unverified , 02/02/15) Objective Last 24 Hour Vital Signs Date Time Temp Pulse Resp B/P Pulse Ox O2 Delivery O2 Flow Rate FiO2 03/19/16 12:02 153/59 03/19/16 11:25 97.7 62 18 153/59 97 Room Air 03/19/16 10:22 Room Air 03/19/16 10:10 153/86 03/19/16 10:10 67 153/86 03/19/16 10:10 153/86 03/19/16 10:10 67 153/86 03/19/16 08:45 Room Air 03/19/16 08:01 97.5 67 18 153/86 97 Room Air 03/19/16 04:27 98.1 59 20 139/52 96 Room Air 03/19/16 04:00 70 03/19/16 00:16 97.7 59 20 153/66 97 Room Air 03/19/16 00:00 66 03/18/16 21:29 60 128/55 03/18/16 20:00 98.0 60 19 128/55 97 Room Air 03/18/16 18:25 140/55 03/18/16 18:23 140/55 03/18/16 16:00 98.2 60 22 140/55 99 Room Air 03/18/16 16:00 60 03/18/16 14:21 97.3 03/18/16 13:21 160/67 Intake and Output 03/18/16 03/19/16 19:00 07:00 Intake Total 270 ml 260 ml Balance 270 ml 260 ml Intake Oral 270 ml 260 ml # Voids 1 # Bowel Movements 1 2 Laboratory Tests 03/19/16 07:25: White Blood Count 5.7, Red Blood Count 3.03L, Hemoglobin 8.9L, Hematocrit 27.9L , Mean Corpuscular Volume 92, Mean Corpuscular Hemoglobin 29.4, Mean Corpuscular Hemoglobin Concent 31.9L, Red Cell Distribution Width 15.7H, Platelet Count 246, Mean Platelet Volume 7.5, Neutrophils (%) (Auto) 57.6, Lymphocytes (%) (Auto) 30.4, Monocytes (%) (Auto) 8.1, Eosinophils (%) (Auto) 3.1H, Basophils (%) (Auto) 0.8, Sodium Level 135, Potassium Level 4.2, Chloride Level 94L, Carbon Dioxide Level 24, Anion Gap 17H, Blood Urea Nitrogen 46H, Creatinine 3.2H, Estimat Glomerular Filtration Rate , Glucose Level 142H, Hemoglobin A1c 4.8, Uric Acid 9.0H, Calcium Level 8.2L, Phosphorus Level 4.0, Magnesium Level 2.0, Iron Level 53, Total Iron Binding Capacity 188L, Percent Iron Saturation 28, Unsaturated Iron Binding 135, Ferritin 997H, Total Bilirubin 0.3, Gamma Glutamyl Transpeptidase 36, Aspartate Amino Transf (AST/ SGOT) 20, Alanine Aminotransferase (ALT/SGPT) 12, Alkaline Phosphatase 83, C- Reactive Protein, Quantitative < 0.3, Pro-B-Type Natriuretic Peptide 37743F, Total Protein 5.5L, Albumin 3.0L, Globulin 2.5, Albumin/Globulin Ratio 1.2, Triglycerides Level 219H, Cholesterol Level 142, LDL Cholesterol 42L, HDL Cholesterol 56, Cholesterol/HDL Ratio 2.5L, Vitamin B12 Level 1010H, Folate [ Pending], Thyroid Stimulating Hormone (TSH) 10.150H Height (Feet): 5 Height (Inches): 0.00 Weight (Pounds): 125 General Appearance: no apparent distress, lethargic Cardiovascular: regular rhythm Respiratory/Chest: decreased breath sounds Abdomen: soft Objective other PE not changed DODIE CONNER Mar 19, 2016 12:31
[2016-03-19] MEDS ORDERED: Lidocaine 1% Plain 30 ml INJ ONE (12:45)
[2016-03-19] MEDS ORDERED: Heparin 2000 units/Ns 1000ml IV ONE (12:45)
[2016-03-19] MEDS ORDERED: Heparin Sod 1000 units/ml 10ml INJ ONE (12:45)
[2016-03-19] MEDS ORDERED: Sodium Bicarbonate 8.4% 50ml Inj IV ONE (12:45)
--- NOTE | 2016-03-19 13:10 | Pre-Procedure Note/Attestation ---
Pre-Procedure Note/Attestation Complete Prior to Procedure Planned Procedure: not applicable Procedure Narrative: fistulogram and possible endovascular intervention Indications for Procedure Pre-Operative Diagnosis: malfunctioning dialysis graft Attestation I attest that I discussed the nature of the procedure; its benefits; risks and complications; and alternatives (and the risks and benefits of such alternatives ), prior to the procedure, with the patient (or the patient's legal sales representative jewelry). I attest that, if there was a reasonable possibility of needing a blood transfusion, the patient (or the patient's legal sales representative jewelry) was given the [facility] standardized written summary, pursuant to the Chandu Ruddy Blood Safety Act ([place] Health and Safety Code # 1645, as amended). I attest that I re-evaluated the patient just prior to the surgery and that there has been no change in the patient's H&P, except as documented below: BRENDEN DELANEY M.D. Mar 19, 2016 13:10
--- NOTE | 2016-03-19 13:11 | Moderate Sedation - Procedural ---
Moderate Sedation HPI Home Medication Reported Medications Clonidine (CLONIDINE) 1 Each Patch.tdwk, 0.3 MG TD, PATCH 10/13/15 Glipizide* (GLIPIZIDE*) 5 Mg Tablet, 5 MG ORAL BIDAC, TAB 10/13/15 Diphenhydramine Hcl* (DIPHENHYDRAMINE HCL*) 25 Mg Capsule, 25 MG ORAL Q8H Y for Itching, #30 CAP 0 Refills 02/02/15 Donepezil Hcl* (DONEPEZIL HCL*) 5 Mg Tab.rapdis, 5 MG ORAL DAILY, TAB 02/02/15 Gabapentin* (GABAPENTIN*) 100 Mg Capsule, 100 MG ORAL THREE TIMES A DAY, CAP 02/02/15 Aspirin (Aspirin EC) 81 Mg Tabec, 81 MG ORAL DAILY, TAB 02/02/15 Clopidogrel Bisulfate* (PLAVIX*) 75 Mg Tablet, 75 MG ORAL DAILY, TAB 02/02/15 Ropinirole Hcl* (ROPINIROLE HCL*) 2 Mg Tablet, 2 MG PO QHS, TAB 02/02/15 Pentoxifylline* (TRENTAL*) 400 Mg Tablet.er, 400 MG ORAL BID, #30 TAB 0 Refills 02/02/15 Labetalol HCl (Labetalol HCl) 200 Mg Tab, 200 MG ORAL BID, TAB 02/02/15 Atorvastatin Calcium* (ATORVASTATIN CALCIUM*) 40 Mg Tablet, 40 MG ORAL BEDTIME, TAB 02/02/15 Amlodipine Besylate* (AMLODIPINE BESYLATE*) 10 Mg Tablet, 10 MG ORAL DAILY, TAB 02/02/15 Famotidine (FAMOTIDINE) 40 Mg Tablet, 40 MG ORAL DAILY, #60 TAB 0 Refills 02/02/15 Hydralazine Hcl* (HYDRALAZINE HCL*) 50 Mg Tablet, 50 MG ORAL TID, TAB 02/02/15 Discontinued Scripts Doxycycline Hyclate (DOXYCYCLINE HYCLATE) 100 Mg Capsule, 100 MG ORAL EVERY 12 HOURS for 5 Days, CAP Prov:YENIFER SCHULER 10/18/15 Patient History Allergies: Coded Allergies: No Known Allergies (Unverified , 02/02/15) PAST MEDICAL HISTORY: Past Surgeries: Social History: Pre-Procedural Mod Sedation Date: Mar 19, 2016 Pre-Assessment Time: 13:30 Pre-Sedation Assessment: Elective Airway Assessment (Malampati): III Heart: normal Lungs: normal Abdomen: normal Extremities: normal Pre-op Diagnosis: malfunctioning dialysis graft Evaluation Hx of untoward rxns to mod sed: No Procedures/Plans: Radiology ASA Score: II Informed Consent The nature of the procedure/sedation; its benefits; risks and complications; and alternatives (and the risks and benefits of such alternatives) were discussed with the patient (or their legal customer assistance representative), prior to the procedure. All questions were answered to the patient's (or their legal customer assistance representative's) satisfaction and the patient (or their legal customer assistance representative) gave informed consent to the procedure. I attest that I re-evaluated the patient just prior to the surgery and that there has been no change in the patient's H&P, except as documented below: BRENDEN DELANEY M.D. Mar 19, 2016 13:11
[2016-03-19] MEDS ORDERED: LORazepam Inj 2mg/ml 1ml IV PRN (18:00)
[2016-03-19] MEDS ORDERED: Morphine Sulfate 2mg/ml Inj IVP PRN (18:00)
[2016-03-19] MEDS ORDERED: Miralax 17gm pkt ORAL PRN (18:00)
--- NOTE | 2016-03-19 19:01 | Internal Med Progress Note ---
Subjective Date of Service: Mar 19, 2016 Physician Name SchulerYenifer Attending Physician Jovani Gr MD Current Medications Medications (Trade) Dose Ordered Sig/Carrie Route PRN Reason Start Time Stop Time Status Last Admin Dose Admin Acetaminophen (Tylenol) 650 mg Q4H PRN ORAL Mild Pain (Pain Scale 1-3) 03/19/16 18:00 04/18/16 17:59 Amlodipine Besylate (Norvasc) 10 mg DAILY ORAL 03/20/16 09:00 04/19/16 08:59 Aspirin (Ecotrin) 81 mg DAILY ORAL 03/20/16 09:00 04/19/16 08:59 Atorvastatin Calcium (Lipitor) 40 mg BEDTIME ORAL 03/19/16 21:00 04/18/16 20:59 Bisacodyl (Dulcolax) 10 mg DAILYPRN PRN RECTAL Constipation 03/19/16 18:30 04/18/16 18:29 Clonidine HCl (Catapres TTS-2) 1 patch QWEEK TDERMAL 03/17/16 20:00 04/16/16 19:59 03/17/16 20:04 Clopidogrel Bisulfate (Plavix) 75 mg DAILY ORAL 03/20/16 09:00 04/19/16 08:59 Dextrose (Dextrose 50%) STAT PRN IV Hypoglycemia 03/19/16 18:00 04/18/16 17:59 Diphenhydramine HCl (Benadryl) 25 mg Q6H PRN ORAL Itching/Pruritis 03/19/16 18:00 04/18/16 17:59 Docusate Sodium (Colace) 100 mg TID ORAL 03/19/16 18:00 04/18/16 17:59 03/19/16 18:13 Donepezil HCl (Aricept) 5 mg DAILY ORAL 03/20/16 09:00 04/19/16 08:59 Gabapentin (Neurontin) 100 mg THREE TIMES A DAY ORAL 03/19/16 18:00 04/18/16 17:59 03/19/16 18:13 Glipizide (Glucotrol) 5 mg BID ORAL 03/19/16 18:00 04/18/16 17:59 03/19/16 18:13 Heparin Sodium (Porcine) (Heparin 5000 units/ml) 5,000 units EVERY 12 HOURS SUBQ 03/19/16 21:00 04/18/16 20:59 Hydralazine HCl (Apresoline) 50 mg TID ORAL 03/19/16 18:00 04/18/16 17:59 Insulin Aspart (NovoLOG) No Dose BEFORE MEALS AND HS SUBQ 03/19/16 21:00 04/18/16 20:59 Labetalol HCl (Normodyne) 200 mg Q12HR ORAL 03/19/16 21:00 04/18/16 20:59 Lorazepam (Ativan 2mg/ml 1ml) 0.5 mg Q4H PRN IV For Anxiety 03/19/16 18:00 03/26/16 17:59 Morphine Sulfate (Morphine Sulfate) 1 mg Q4H PRN IVP Moderate Pain (Pain Scale 4-6) 03/19/16 18:00 03/26/16 17:59 Ondansetron HCl (Zofran) 4 mg Q6H PRN IVP Nausea & Vomiting 03/19/16 18:00 04/18/16 17:59 Pantoprazole (Protonix) 40 mg DAILY ORAL 03/20/16 09:00 04/19/16 08:59 Pentoxifylline (TRENtal) 400 mg BID ORAL 03/19/16 18:00 04/18/16 17:59 03/19/16 18:13 Polyethylene Glycol (Miralax) 17 gm DAILYPRN PRN ORAL Constipation 03/19/16 18:00 04/18/16 17:59 Zolpidem Tartrate (Ambien) 5 mg HSPRN PRN ORAL Insomnia 03/19/16 21:00 04/18/16 20:59 Allergies: Coded Allergies: No Known Allergies (Unverified , 02/02/15) ROS Limited/Unobtainable: No Constitutional: Reports: no symptoms HEENT: Reports: no symptoms Cardiovascular: Reports: no symptoms Respiratory: Reports: no symptoms Gastrointestinal/Abdominal: Reports: abdominal pain Genitourinary: Reports: flank pain Neurologic/Psychiatric: Reports: no symptoms Subjective 75 YO F admitted with flank pain. Cover for Int Med-Sr Sim[facility]. Unsuccessful dialysis today. Objective Last Vital Signs Date Time Temp Pulse Resp B/P Pulse Ox O2 Delivery O2 Flow Rate FiO2 03/19/16 18:13 146/56 03/19/16 16:00 97.9 61 22 97 Room Air Laboratory Tests Test 03/19/16 07:25 White Blood Count 5.7 K/UL (4.8-10.8) Red Blood Count 3.03 M/UL (4.20-5.40) L Hemoglobin 8.9 G/DL (12.0-16.0) L Hematocrit 27.9 % (37.0-47.0) L Mean Corpuscular Volume 92 FL (80-99) Mean Corpuscular Hemoglobin 29.4 PG (27.0-31.0) Mean Corpuscular Hemoglobin Concent 31.9 G/DL (32.0-36.0) L Red Cell Distribution Width 15.7 % (11.6-14.8) H Platelet Count 246 K/UL (150-450) Mean Platelet Volume 7.5 FL (6.5-10.1) Neutrophils (%) (Auto) 57.6 % (45.0-75.0) Lymphocytes (%) (Auto) 30.4 % (20.0-45.0) Monocytes (%) (Auto) 8.1 % (1.0-10.0) Eosinophils (%) (Auto) 3.1 % (0.0-3.0) H Basophils (%) (Auto) 0.8 % (0.0-2.0) Sodium Level 135 mEQ/L (135-145) Potassium Level 4.2 mEQ/L (3.4-4.9) Chloride Level 94 mEQ/L (98-107) L Carbon Dioxide Level 24 mEQ/L (20-30) Anion Gap 17 (5-15) H Blood Urea Nitrogen 46 mg/dL (7-23) H Creatinine 3.2 mg/dL (0.5-0.9) H Estimat Glomerular Filtration Rate mL/min (>60) Glucose Level 142 mg/dL (74-106) H Hemoglobin A1c 4.8 % (< 6.0) Uric Acid 9.0 mg/dL (3.0-7.5) H Calcium Level 8.2 mg/dL (8.6-10.2) L Phosphorus Level 4.0 mg/dL (2.5-4.8) Magnesium Level 2.0 mg/dL (1.7-2.5) Iron Level 53 ug/dL (37-145) Total Iron Binding Capacity 188 ug/dL (250-400) L Percent Iron Saturation 28 % (15-50) Unsaturated Iron Binding 135 ug/dL (112-346) Ferritin 997 ng/mL (13-150) H Total Bilirubin 0.3 mg/dL (0.0-1.2) Gamma Glutamyl Transpeptidase 36 U/L (5-36) Aspartate Amino Transf (AST/SGOT) 20 U/L (5-40) Alanine Aminotransferase (ALT/SGPT) 12 U/L (3-33) Alkaline Phosphatase 83 U/L (35-104) C-Reactive Protein, Quantitative < 0.3 mg/dL (< 0.5) Pro-B-Type Natriuretic Peptide 03566 pg/mL (0-125) H Total Protein 5.5 g/dL (6.6-8.7) L Albumin 3.0 g/dL (3.5-5.2) L Globulin 2.5 g/dL Albumin/Globulin Ratio 1.2 (1.0-2.7) Triglycerides Level 219 mg/dL (< 150) H Cholesterol Level 142 mg/dL (< 200) LDL Cholesterol 42 mg/dL (60-99) L HDL Cholesterol 56 mg/dL (> 60) Cholesterol/HDL Ratio 2.5 (3.3-4.4) L Vitamin B12 Level 1010 pg/mL (211-946) H Folate Pending Thyroid Stimulating Hormone (TSH) 10.150 uIU/mL (0.300-4.500) Microbiology Date/Time Source Procedure Growth Status 03/16/16 23:36 Nasal Nares MRSA Culture - Final NO METHICILLIN RESISTANT STAPH AUREUS... Complete 03/17/16 21:45 Urine,Clean Catch Urine Culture - Preliminary Gram Negative Bacillus 1 Resulted 03/16/16 23:36 Rectum VRE Culture - Final NO VANCOMYCIN RESISTANT ENTEROCOCCUS ... Complete Intake and Output 03/18/16 03/19/16 19:00 07:00 Intake Total 270 ml 260 ml Balance 270 ml 260 ml Intake Oral 270 ml 260 ml # Voids 1 # Bowel Movements 1 2 Objective General Appearance: WD/WN, no apparent distress, alert EENT: PERRL/EOMI, normal ENT inspection, TMs normal Neck: non-tender, normal alignment, supple, normal inspection Cardiovascular: normal peripheral pulses, normal rate, regular rhythm, no gallop/murmur, no JVD Respiratory/Chest: chest wall non-tender, lungs clear, normal breath sounds, no respiratory distress, no accessory muscle use Abdomen: no organomegaly, no mass, decreased bowel sounds, guarding, tender Extremities: normal range of motion Neurologic: manager mass II-XII grossly normal, no motor/sensory deficits Skin: normal pigmentation, warm/dry Assessment/Plan Problem List: (1) Ovarian cancer Assessment & Plan: S/P resection (2) Cerebellar tumor Assessment & Plan: S/P resection (3) Flank pain (4) Abdominal pain Assessment & Plan: await GI consult. (5) ESRD (end stage renal disease) on dialysis Assessment & Plan: S/P procedure for malfunction of A/V graft today. Next dialysis on 03/20/16-See nephrology note. (6) DM (diabetes mellitus) Assessment & Plan: Cont novolog (7) HTN (hypertension) Assessment & Plan: Cont labetolol (8) Parkinson disease (9) CAD (coronary artery disease) (10) CHF (congestive heart failure) Status: not improved YENIFER SCHULER Mar 19, 2016 19:01
[2016-03-19] MEDS ORDERED: Zolpidem 5mg tab ORAL PRN (21:00)
[2016-03-19] MEDS: NovoLOG Insulin Flexpen SUBQ SCH (21:17)
[2016-03-20] VITALS: BP 120/75
[2016-03-20 04:00] VITALS: BP 116/61
[2016-03-20] MEDS: NovoLOG Insulin Flexpen SUBQ SCH ×4 (06:30→22:17)
[2016-03-20 07:04] LABS: MEAN CORPUSCULAR HEMOGLOBIN 31.1 PG (27.0-31.0); MEAN CORPUSCULAR HGB CONC 33.8 G/DL (32.0-36.0); MEAN CORPUSCULAR VOLUME 92 FL (80-99); MEAN PLATELET VOLUME 7.5 FL (6.5-10.1); PLATELET COUNT 202 K/UL (150-450); RED BLOOD COUNT 2.51 M/UL (4.20-5.40); RED CELL DISTRIBUTION WIDTH 15.3 % (11.6-14.8); WHITE BLOOD COUNT 9.2 K/UL (4.8-10.8)
[2016-03-20 07:13] LABS: ALANINE AMINOTRANSFERASE 9 U/L (3-33); ALBUMIN/GLOBULIN RATIO 0.9 (1.0-2.7); ANION GAP 14 (5-15); ASPARTATE AMINO TRANSFERASE 15 U/L (5-40); CALCIUM 7.7 mg/dL (8.6-10.2); CARBON DIOXIDE 23 mEQ/L (20-30); CHLORIDE 98 mEQ/L (98-107); CREATININE 3.4 mg/dL (0.5-0.9); HEMOLYSIS 0; SODIUM 135 mEQ/L (135-145)
--- NOTE | 2016-03-20 08:47 | Diagnostic Imaging Report ---
Indication: Nonfunctioning AV fistula Technique: Informed consent obtained prior to commencement of procedure. Total sterile technique, including sterile gloves and hand hygiene, hat, mask, sterile gown, large sterile drape, and preparation with 2% chlorhexidine utilized. Local anesthesia with 1% lidocaine. Under real-time ultrasound guidance, puncture juxta anastomotic segment of left arm AV fistula using 20-gauge micropuncture needle, passage 0.18 guidewire, insertion 4 Irish micropuncture introducer. This was used to inject contrast and perform multistation fistulography. After review of images, the catheter was removed, and pressure held until hemostasis was achieved. The patient tolerated the procedure well, without immediate complication. Total fluoroscopy time 4.7 minutes. Total dose area product 1428 [id number] Comparison: None Findings: Patent left upper extremity brachiobasilic AV fistula. No significant stenosis is demonstrated. The juxta anastomotic segment is patent without evidence of significant narrowing. Impression: Negative left upper extremity fistulogram
[2016-03-20] MEDS: Docusate 100mg cap ORAL SCH ×3 (09:21→16:52)
[2016-03-20] MEDS: GlipiZIDE 5mg tab ORAL SCH ×2 (09:22→16:52)
[2016-03-20] MEDS: HydrALAZINE 50mg tab ORAL SCH ×3 (09:22→16:52)
[2016-03-20] MEDS: Aspirin EC 81mg tab ORAL SCH (09:23)
[2016-03-20] MEDS: Labetalol 200mg tab ORAL SCH ×2 (09:23→22:18)
[2016-03-20] MEDS: Donepezil 5mg Tab ORAL SCH (09:23)
[2016-03-20] MEDS: Heparin 5000 units/ml inj SUBQ SCH ×2 (09:27→22:18)
[2016-03-20 10:21] LABS: ANISOCYTOSIS 1+; BAND NEUTROPHILS % (MANUAL) 0 % (0-8); BASOPHILS % (MANUAL) 0 % (0-2); EOSINOPHILS % (MANUAL) 0 % (0-3); HYPOCHROMASIA 1+; LYMPHOCYTES % (MANUAL) 26 % (20-45); NEUTROPHILS % (MANUAL) 72 % (45-75); PLATELET ESTIMATE ADEQUATE; PLATELET MORPHOLOGY NORMAL; TOTAL CELLS COUNTED 100
--- NOTE | 2016-03-20 11:46 | General Progress Note ---
Assessment/Plan Status: stable Assessment/Plan status: - Flank Pain, Etiology? - ESRD (end stage renal disease) on dialysis by history: check 24 h Urine Cr Cl - results 10 - Acute respiratory failure ? CHF - Alzheimer's dementia - Pacer / s/p CABGS - DM (diabetes mellitus) - Parkinson disease - Anemia Plan; dialysis as needed- plan for 03/19, aborted needle infiltrated, repeat today 03/20 Phos binders- Monitor Lytes and Chems Optimize cardiac and pulm status- Per GI advise per orders adjust BP meds Subjective ROS Limited/Unobtainable: No Constitutional: Reports: malaise Allergies: Coded Allergies: No Known Allergies (Unverified , 02/02/15) Objective Last 24 Hour Vital Signs Date Time Temp Pulse Resp B/P Pulse Ox O2 Delivery O2 Flow Rate FiO2 03/20/16 10:24 98.1 03/20/16 09:35 116/61 03/20/16 09:23 61 116/61 03/20/16 09:22 116/61 03/20/16 09:21 61 116/61 03/20/16 04:00 98.1 61 20 116/61 100 Room Air 03/20/16 03:23 98.1 03/20/16 00:00 100.2 60 20 120/75 97 Room Air 03/19/16 21:16 61 146/56 03/19/16 20:00 97.8 61 20 124/37 95 Room Air 03/19/16 18:13 146/56 03/19/16 16:00 97.9 61 22 146/56 97 Room Air 03/19/16 13:51 59 23 167/55 99 Room Air 03/19/16 13:46 59 23 169/53 99 Room Air 03/19/16 13:41 60 23 162/57 99 Room Air 03/19/16 13:37 59 23 161/52 100 Room Air 03/19/16 13:31 60 20 152/52 99 Room Air 03/19/16 13:22 62 18 03/19/16 13:21 59 20 162/57 99 Room Air 03/19/16 13:13 60 20 159/57 100 Room Air 03/19/16 12:02 153/59 03/19/16 12:00 61 Intake and Output 03/19/16 03/20/16 19:00 07:00 Intake Total 220 ml Balance 220 ml Intake Oral 220 ml # Voids 2 Laboratory Tests 03/20/16 05:50: White Blood Count 9.2#, Red Blood Count 2.51L, Hemoglobin 7.8L, Hematocrit 23.1L , Mean Corpuscular Volume 92, Mean Corpuscular Hemoglobin 31.1H, Mean Corpuscular Hemoglobin Concent 33.8, Red Cell Distribution Width 15.3H, Platelet Count 202, Mean Platelet Volume 7.5, Neutrophils (%) (Auto) , Lymphocytes (%) (Auto) , Monocytes (%) (Auto) , Eosinophils (%) (Auto) , Basophils (%) (Auto) , Differential Total Cells Counted 100, Neutrophils % ( Manual) 72, Lymphocytes % (Manual) 26, Monocytes % (Manual) 2, Eosinophils % ( Manual) 0, Basophils % (Manual) 0, Band Neutrophils 0, Platelet Estimate Adequate, Platelet Morphology Normal, Hypochromasia 1+, Anisocytosis 1+, Sodium Level 135, Potassium Level 4.0, Chloride Level 98, Carbon Dioxide Level 23, Anion Gap 14, Blood Urea Nitrogen 53H, Creatinine 3.4H, Estimat Glomerular Filtration Rate , Glucose Level 117H, Calcium Level 7.7L, Total Bilirubin 0.2, Aspartate Amino Transf (AST/SGOT) 15, Alanine Aminotransferase (ALT/SGPT) 9, Alkaline Phosphatase 76, Total Protein 5.0L, Albumin 2.4L, Globulin 2.6, Albumin /Globulin Ratio 0.9L Height (Feet): 5 Height (Inches): 0.00 Weight (Pounds): 125 General Appearance: no apparent distress Respiratory/Chest: decreased breath sounds Objective other PE not changed DODIE CONNER Mar 20, 2016 11:46
[2016-03-20 11:47] VITALS: BP 136/49
--- NOTE | 2016-03-20 11:51 | Internal Med Progress Note ---
Subjective Date of Service: Mar 20, 2016 Physician Name Yenifer Schuler Attending Physician Jovani Gr MD Current Medications Medications (Trade) Dose Ordered Sig/Carrie Route PRN Reason Start Time Stop Time Status Last Admin Dose Admin Acetaminophen (Tylenol) 650 mg Q4H PRN ORAL Mild Pain (Pain Scale 1-3) 03/19/16 18:00 04/18/16 17:59 03/20/16 02:24 Amlodipine Besylate (Norvasc) 10 mg DAILY ORAL 03/20/16 09:00 04/19/16 08:59 03/20/16 09:21 Aspirin (Ecotrin) 81 mg DAILY ORAL 03/20/16 09:00 04/19/16 08:59 03/20/16 09:23 Atorvastatin Calcium (Lipitor) 40 mg BEDTIME ORAL 03/19/16 21:00 04/18/16 20:59 03/19/16 21:16 Bisacodyl (Dulcolax) 10 mg DAILYPRN PRN RECTAL Constipation 03/19/16 18:30 04/18/16 18:29 Clonidine HCl (Catapres TTS-2) 1 patch QWEEK TDERMAL 03/17/16 20:00 04/16/16 19:59 03/17/16 20:04 Clopidogrel Bisulfate (Plavix) 75 mg DAILY ORAL 03/20/16 09:00 04/19/16 08:59 03/20/16 09:22 Dextrose (Dextrose 50%) STAT PRN IV Hypoglycemia 03/19/16 18:00 04/18/16 17:59 Diphenhydramine HCl (Benadryl) 25 mg Q6H PRN ORAL Itching/Pruritis 03/19/16 18:00 04/18/16 17:59 Docusate Sodium (Colace) 100 mg TID ORAL 03/19/16 18:00 04/18/16 17:59 03/20/16 09:21 Donepezil HCl (Aricept) 5 mg DAILY ORAL 03/20/16 09:00 04/19/16 08:59 03/20/16 09:23 Gabapentin (Neurontin) 100 mg THREE TIMES A DAY ORAL 03/19/16 18:00 04/18/16 17:59 03/20/16 09:22 Glipizide (Glucotrol) 5 mg BID ORAL 03/19/16 18:00 3/9/17 17:59 03/20/16 09:22 Heparin Sodium (Porcine) (Heparin 5000 units/ml) 5,000 units EVERY 12 HOURS SUBQ 03/19/16 21:00 04/18/16 20:59 03/20/16 09:27 Hydralazine HCl (Apresoline) 50 mg TID ORAL 03/19/16 18:00 04/18/16 17:59 03/20/16 09:22 Insulin Aspart (NovoLOG) No Dose BEFORE MEALS AND HS SUBQ 03/19/16 21:00 04/18/16 20:59 03/20/16 06:30 Labetalol HCl (Normodyne) 200 mg Q12HR ORAL 03/19/16 21:00 04/18/16 20:59 03/20/16 09:23 Lorazepam (Ativan 2mg/ml 1ml) 0.5 mg Q4H PRN IV For Anxiety 03/19/16 18:00 03/26/16 17:59 Morphine Sulfate (Morphine Sulfate) 1 mg Q4H PRN IVP Moderate Pain (Pain Scale 4-6) 03/19/16 18:00 03/26/16 17:59 Ondansetron HCl (Zofran) 4 mg Q6H PRN IVP Nausea & Vomiting 03/19/16 18:00 04/18/16 17:59 Pantoprazole (Protonix) 40 mg DAILY ORAL 03/20/16 09:00 04/19/16 08:59 03/20/16 09:22 Pentoxifylline (TRENtal) 400 mg BID ORAL 03/19/16 18:00 04/18/16 17:59 03/20/16 09:35 Polyethylene Glycol (Miralax) 17 gm DAILYPRN PRN ORAL Constipation 03/19/16 18:00 04/18/16 17:59 Zolpidem Tartrate (Ambien) 5 mg HSPRN PRN ORAL Insomnia 03/19/16 21:00 04/18/16 20:59 Allergies: Coded Allergies: No Known Allergies (Unverified , 02/02/15) ROS Limited/Unobtainable: No Constitutional: Reports: no symptoms HEENT: Reports: no symptoms Cardiovascular: Reports: no symptoms Respiratory: Reports: no symptoms Gastrointestinal/Abdominal: Reports: abdominal pain Genitourinary: Reports: flank pain Neurologic/Psychiatric: Reports: no symptoms Subjective 75 YO F admitted with flank pain. Cover for Int Med-Sr Simón. Unsuccessful dialysis yesterday. S/P interventional radiology on A/V graft on 03/19/16 Objective Last Vital Signs Date Time Temp Pulse Resp B/P Pulse Ox O2 Delivery O2 Flow Rate FiO2 03/20/16 11:47 97.5 60 19 136/49 97 Room Air Laboratory Tests Test 03/20/16 05:50 White Blood Count 9.2 K/UL (4.8-10.8) # Red Blood Count 2.51 M/UL (4.20-5.40) L Hemoglobin 7.8 G/DL (12.0-16.0) L Hematocrit 23.1 % (37.0-47.0) L Mean Corpuscular Volume 92 FL (80-99) Mean Corpuscular Hemoglobin 31.1 PG (27.0-31.0) H Mean Corpuscular Hemoglobin Concent 33.8 G/DL (32.0-36.0) Red Cell Distribution Width 15.3 % (11.6-14.8) H Platelet Count 202 K/UL (150-450) Mean Platelet Volume 7.5 FL (6.5-10.1) Neutrophils (%) (Auto) % (45.0-75.0) Lymphocytes (%) (Auto) % (20.0-45.0) Monocytes (%) (Auto) % (1.0-10.0) Eosinophils (%) (Auto) % (0.0-3.0) Basophils (%) (Auto) % (0.0-2.0) Differential Total Cells Counted 100 Neutrophils % (Manual) 72 % (45-75) Lymphocytes % (Manual) 26 % (20-45) Monocytes % (Manual) 2 % (1-10) Eosinophils % (Manual) 0 % (0-3) Basophils % (Manual) 0 % (0-2) Band Neutrophils 0 % (0-8) Platelet Estimate Adequate Platelet Morphology Normal Hypochromasia 1+ Anisocytosis 1+ Sodium Level 135 mEQ/L (135-145) Potassium Level 4.0 mEQ/L (3.4-4.9) Chloride Level 98 mEQ/L (98-107) Carbon Dioxide Level 23 mEQ/L (20-30) Anion Gap 14 (5-15) Blood Urea Nitrogen 53 mg/dL (7-23) H Creatinine 3.4 mg/dL (0.5-0.9) H Estimat Glomerular Filtration Rate mL/min (>60) Glucose Level 117 mg/dL (74-106) H Calcium Level 7.7 mg/dL (8.6-10.2) L Total Bilirubin 0.2 mg/dL (0.0-1.2) Aspartate Amino Transf (AST/SGOT) 15 U/L (5-40) Alanine Aminotransferase (ALT/SGPT) 9 U/L (3-33) Alkaline Phosphatase 76 U/L (35-104) Total Protein 5.0 g/dL (6.6-8.7) L Albumin 2.4 g/dL (3.5-5.2) L Globulin 2.6 g/dL Albumin/Globulin Ratio 0.9 (1.0-2.7) L Microbiology Date/Time Source Procedure Growth Status 03/17/16 21:45 Urine,Clean Catch Urine Culture - Preliminary Escherichia Coli Gram Positive Cocci Resulted Intake and Output 03/19/16 03/20/16 19:00 07:00 Intake Total 220 ml Balance 220 ml Intake Oral 220 ml # Voids 2 Objective General Appearance: WD/WN, no apparent distress, alert EENT: PERRL/EOMI, normal ENT inspection, TMs normal Neck: non-tender, normal alignment, supple, normal inspection Cardiovascular: normal peripheral pulses, normal rate, regular rhythm, no gallop/murmur, no JVD Respiratory/Chest: chest wall non-tender, lungs clear, normal breath sounds, no respiratory distress, no accessory muscle use Abdomen: no organomegaly, no mass, decreased bowel sounds, guarding, tender Extremities: normal range of motion Neurologic: economic historian II-XII grossly normal, no motor/sensory deficits Skin: normal pigmentation, warm/dry Assessment/Plan Problem List: (1) Ovarian cancer Assessment & Plan: S/P resection (2) Cerebellar tumor Assessment & Plan: S/P resection (3) Flank pain (4) Abdominal pain Assessment & Plan: await GI consult. (5) ESRD (end stage renal disease) on dialysis Assessment & Plan: S/P procedure for malfunction of A/V graft on 03/19/16. Next dialysis today 03/20/16-See nephrology note. (6) DM (diabetes mellitus) Assessment & Plan: Cont novolog (7) HTN (hypertension) Assessment & Plan: Cont labetolol (8) Parkinson disease (9) CAD (coronary artery disease) (10) CHF (congestive heart failure) Status: progressing YENIFER SCHULER Mar 20, 2016 11:51
--- NOTE | 2016-03-20 12:59 | Diagnostic Imaging Report ---
Indications: DYSPNEA Technique: Portable AP chest Findings: Comparison: 03/16/2016 Cardiomegaly, pulmonary vascular redistribution, bilateral interstitial infiltrates, thickening of right minor fissure suggesting pleural fluid unchanged. New abnormality demonstrated. IMPRESSION: Stable bilateral congestive changes
[2016-03-20 16:00] VITALS: BP 127/44
--- NOTE | 2016-03-20 16:22 | Pulmonology Progress Note ---
Assessment/Plan Problems: (1) Pulmonary edema (2) Alzheimer's dementia (3) Parkinson disease (4) Vascular dementia (5) Flank pain (6) HTN (hypertension) (7) ESRD (end stage renal disease) on dialysis Assessment/Plan improving fistulogram ordered HD by nephrology respiratory treatment d/w cardiology about Pts aortic stenosis sliding scale diabetic diet. prbc ordered Subjective ROS Limited/Unobtainable: No Constitutional: Reports: no symptoms HEENT: Repors: no symptoms Respiratory: Reports: no symptoms Allergies: Coded Allergies: No Known Allergies (Unverified , 02/02/15) Objective Last 24 Hour Vital Signs Date Time Temp Pulse Resp B/P Pulse Ox O2 Delivery O2 Flow Rate FiO2 03/20/16 16:00 97.3 61 18 127/44 97 Room Air 03/20/16 13:59 97.5 03/20/16 12:15 136/49 03/20/16 11:47 97.5 60 19 136/49 97 Room Air 03/20/16 09:35 116/61 03/20/16 09:23 61 116/61 03/20/16 09:22 116/61 03/20/16 09:21 61 116/61 03/20/16 04:00 98.1 61 20 116/61 100 Room Air 03/20/16 03:23 98.1 03/20/16 00:00 100.2 60 20 120/75 97 Room Air 03/19/16 21:16 61 146/56 03/19/16 20:00 97.8 61 20 124/37 95 Room Air 03/19/16 18:13 146/56 Intake and Output 03/19/16 03/20/16 19:00 07:00 Intake Total 220 ml Balance 220 ml Intake Oral 220 ml # Voids 2 General Appearance: WD/WN, no acute distress HEENT: atraumatic Respiratory/Chest: chest wall non-tender, lungs clear Cardiovascular: normal peripheral pulses, regular rhythm Abdomen: normal bowel sounds, soft, non tender Genitourinary: normal external genitalia Extremities: no clubbing Skin: no lesions Neurologic/Psychiatric: no motor/sensory deficits Microbiology Date/Time Source Procedure Growth Status 03/17/16 21:45 Urine,Clean Catch Urine Culture - Preliminary Escherichia Coli Gram Positive Cocci Resulted Laboratory Tests 03/20/16 05:50: White Blood Count 9.2#, Red Blood Count 2.51L, Hemoglobin 7.8L, Hematocrit 23.1L , Mean Corpuscular Volume 92, Mean Corpuscular Hemoglobin 31.1H, Mean Corpuscular Hemoglobin Concent 33.8, Red Cell Distribution Width 15.3H, Platelet Count 202, Mean Platelet Volume 7.5, Neutrophils (%) (Auto) , Lymphocytes (%) (Auto) , Monocytes (%) (Auto) , Eosinophils (%) (Auto) , Basophils (%) (Auto) , Differential Total Cells Counted 100, Neutrophils % ( Manual) 72, Lymphocytes % (Manual) 26, Monocytes % (Manual) 2, Eosinophils % ( Manual) 0, Basophils % (Manual) 0, Band Neutrophils 0, Platelet Estimate Adequate, Platelet Morphology Normal, Hypochromasia 1+, Anisocytosis 1+, Sodium Level 135, Potassium Level 4.0, Chloride Level 98, Carbon Dioxide Level 23, Anion Gap 14, Blood Urea Nitrogen 53H, Creatinine 3.4H, Estimat Glomerular Filtration Rate , Glucose Level 117H, Calcium Level 7.7L, Total Bilirubin 0.2, Aspartate Amino Transf (AST/SGOT) 15, Alanine Aminotransferase (ALT/SGPT) 9, Alkaline Phosphatase 76, Total Protein 5.0L, Albumin 2.4L, Globulin 2.6, Albumin /Globulin Ratio 0.9L Current Medications Medications (Trade) Dose Ordered Sig/Carrie Route PRN Reason Start Time Stop Time Status Last Admin Dose Admin Acetaminophen (Tylenol) 650 mg Q4H PRN ORAL Mild Pain (Pain Scale 1-3) 03/19/16 18:00 04/18/16 17:59 03/20/16 02:24 Amlodipine Besylate (Norvasc) 10 mg DAILY ORAL 03/20/16 09:00 04/19/16 08:59 03/20/16 09:21 Aspirin (Ecotrin) 81 mg DAILY ORAL 03/20/16 09:00 04/19/16 08:59 03/20/16 09:23 Atorvastatin Calcium (Lipitor) 40 mg BEDTIME ORAL 03/19/16 21:00 04/18/16 20:59 03/19/16 21:16 Bisacodyl (Dulcolax) 10 mg DAILYPRN PRN RECTAL Constipation 03/19/16 18:30 04/18/16 18:29 Clonidine HCl (Catapres TTS-2) 1 patch QWEEK TDERMAL 03/17/16 20:00 04/16/16 19:59 03/17/16 20:04 Clopidogrel Bisulfate (Plavix) 75 mg DAILY ORAL 03/20/16 09:00 04/19/16 08:59 03/20/16 09:22 Dextrose (Dextrose 50%) STAT PRN IV Hypoglycemia 03/19/16 18:00 04/18/16 17:59 Diphenhydramine HCl (Benadryl) 25 mg Q6H PRN ORAL Itching/Pruritis 03/19/16 18:00 04/18/16 17:59 Docusate Sodium (Colace) 100 mg TID ORAL 03/19/16 18:00 04/18/16 17:59 03/20/16 12:15 Donepezil HCl (Aricept) 5 mg DAILY ORAL 03/20/16 09:00 04/19/16 08:59 03/20/16 09:23 Gabapentin (Neurontin) 100 mg THREE TIMES A DAY ORAL 03/19/16 18:00 04/18/16 17:59 03/20/16 12:15 Glipizide (Glucotrol) 5 mg BID ORAL 03/19/16 18:00 04/18/16 17:59 03/20/16 09:22 Heparin Sodium (Porcine) (Heparin 5000 units/ml) 5,000 units EVERY 12 HOURS SUBQ 03/19/16 21:00 04/18/16 20:59 03/20/16 09:27 Hydralazine HCl (Apresoline) 50 mg TID ORAL 03/19/16 18:00 04/18/16 17:59 03/20/16 12:15 Insulin Aspart (NovoLOG) No Dose BEFORE MEALS AND HS SUBQ 03/19/16 21:00 04/18/16 20:59 03/20/16 12:19 Labetalol HCl (Normodyne) 200 mg Q12HR ORAL 03/19/16 21:00 04/18/16 20:59 03/20/16 09:23 Lorazepam (Ativan 2mg/ml 1ml) 0.5 mg Q4H PRN IV For Anxiety 03/19/16 18:00 03/26/16 17:59 Morphine Sulfate (Morphine Sulfate) 1 mg Q4H PRN IVP Moderate Pain (Pain Scale 4-6) 03/19/16 18:00 03/26/16 17:59 Ondansetron HCl (Zofran) 4 mg Q6H PRN IVP Nausea & Vomiting 03/19/16 18:00 04/18/16 17:59 Pantoprazole (Protonix) 40 mg DAILY ORAL 03/20/16 09:00 04/19/16 08:59 03/20/16 09:22 Pentoxifylline (TRENtal) 400 mg BID ORAL 03/19/16 18:00 04/18/16 17:59 03/20/16 09:35 Polyethylene Glycol (Miralax) 17 gm DAILYPRN PRN ORAL Constipation 03/19/16 18:00 04/18/16 17:59 Zolpidem Tartrate (Ambien) 5 mg HSPRN PRN ORAL Insomnia 03/19/16 21:00 04/18/16 20:59 ALMA DELIA MONTES Mar 20, 2016 16:22
[2016-03-20 19:00] VITALS: BP 122/60
--- NOTE | 2016-03-20 21:15 | Cardiology Progress Note ---
Assessment/Plan Assessment/Plan 1. Aortic stenosis, mitral stenosis ([facility] echo 11/2015: PG 27.0 mmHg. MG 15.0 mmHg. STEFF 1.2 cm2. Trace aortic regurgitation. Severe mitral annular calcification. PG 21.0 mmHg. MG is 7.0 mmHg.MVA 2.0 cm )(not severe) 2. Congestive heart failure with [place] [employer] class 1. 3. Coronary artery disease status post coronary artery bypass graft in 2004, 4. 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 5. Ovarian cancer status post resection. The patient denies. 6. Thrombosis of right ovarian vein 2010. 7. Chronic migraines. 8. History of acute thromboembolism 9. Sick sinus syndrome s/p pmi st judes . 10. Hypertension. 11. Hyperlipidemia. 12. Chronic migraines. 13. Iron deficiency. 14. Bronchial asthma. 15. ESRD on HD 16. Sever knee pain seem better pos dialysis await repeat echo same meds Subjective Cardiovascular: Denies: chest pain, edema, irregular heart rate Respiratory: Denies: shortness of breath Gastrointestinal/Abdominal: Denies: abdominal pain Genitourinary: Denies: burning Objective Last 24 Hour Vital Signs Date Time Temp Pulse Resp B/P Pulse Ox O2 Delivery O2 Flow Rate FiO2 03/20/16 19:00 96.6 62 18 122/60 97 Nasal Cannula 03/20/16 17:51 97.3 03/20/16 16:52 127/44 03/20/16 16:52 127/44 03/20/16 16:00 97.3 61 18 127/44 97 Room Air 03/20/16 12:15 136/49 03/20/16 11:47 97.5 60 19 136/49 97 Room Air 03/20/16 09:35 116/61 03/20/16 09:23 61 116/61 03/20/16 09:22 116/61 03/20/16 09:21 61 116/61 03/20/16 04:00 98.1 61 20 116/61 100 Room Air 03/20/16 03:23 98.1 03/20/16 00:00 100.2 60 20 120/75 97 Room Air 03/19/16 21:16 61 146/56 General Appearance: no apparent distress, alert Neck: no JVD Cardiovascular: normal rate, regular rhythm, systolic murmur Respiratory/Chest: lungs clear, normal breath sounds Abdomen: normal bowel sounds, non tender, soft Extremities: no swelling Intake and Output 03/19/16 03/20/16 19:00 07:00 Intake Total 220 ml Balance 220 ml Intake Oral 220 ml # Voids 2 Laboratory Tests Test 03/20/16 05:50 White Blood Count 9.2 K/UL (4.8-10.8) # Red Blood Count 2.51 M/UL (4.20-5.40) L Hemoglobin 7.8 G/DL (12.0-16.0) L Hematocrit 23.1 % (37.0-47.0) L Mean Corpuscular Volume 92 FL (80-99) Mean Corpuscular Hemoglobin 31.1 PG (27.0-31.0) H Mean Corpuscular Hemoglobin Concent 33.8 G/DL (32.0-36.0) Red Cell Distribution Width 15.3 % (11.6-14.8) H Platelet Count 202 K/UL (150-450) Mean Platelet Volume 7.5 FL (6.5-10.1) Neutrophils (%) (Auto) % (45.0-75.0) Lymphocytes (%) (Auto) % (20.0-45.0) Monocytes (%) (Auto) % (1.0-10.0) Eosinophils (%) (Auto) % (0.0-3.0) Basophils (%) (Auto) % (0.0-2.0) Differential Total Cells Counted 100 Neutrophils % (Manual) 72 % (45-75) Lymphocytes % (Manual) 26 % (20-45) Monocytes % (Manual) 2 % (1-10) Eosinophils % (Manual) 0 % (0-3) Basophils % (Manual) 0 % (0-2) Band Neutrophils 0 % (0-8) Platelet Estimate Adequate Platelet Morphology Normal Hypochromasia 1+ Anisocytosis 1+ Sodium Level 135 mEQ/L (135-145) Potassium Level 4.0 mEQ/L (3.4-4.9) Chloride Level 98 mEQ/L (98-107) Carbon Dioxide Level 23 mEQ/L (20-30) Anion Gap 14 (5-15) Blood Urea Nitrogen 53 mg/dL (7-23) H Creatinine 3.4 mg/dL (0.5-0.9) H Estimat Glomerular Filtration Rate mL/min (>60) Glucose Level 117 mg/dL (74-106) H Calcium Level 7.7 mg/dL (8.6-10.2) L Total Bilirubin 0.2 mg/dL (0.0-1.2) Aspartate Amino Transf (AST/SGOT) 15 U/L (5-40) Alanine Aminotransferase (ALT/SGPT) 9 U/L (3-33) Alkaline Phosphatase 76 U/L (35-104) Total Protein 5.0 g/dL (6.6-8.7) L Albumin 2.4 g/dL (3.5-5.2) L Globulin 2.6 g/dL Albumin/Globulin Ratio 0.9 (1.0-2.7) L Microbiology Date/Time Source Procedure Growth Status 03/17/16 21:45 Urine,Clean Catch Urine Culture - Preliminary Escherichia Coli Gram Positive Cocci Resulted CUAUHTEMOC WALKER Mar 20, 2016 21:15
[2016-03-21] VITALS (8 sets, daily range): BP systolic 117–162; BP diastolic 46–66
[2016-03-21] MEDS: NovoLOG Insulin Flexpen SUBQ SCH ×3 (06:23→17:34)
[2016-03-21 08:17] LABS: MEAN CORPUSCULAR HEMOGLOBIN 30.1 PG (27.0-31.0); MEAN CORPUSCULAR HGB CONC 32.8 G/DL (32.0-36.0); MEAN CORPUSCULAR VOLUME 92 FL (80-99); MEAN PLATELET VOLUME 7.3 FL (6.5-10.1); PLATELET COUNT 235 K/UL (150-450); RED BLOOD COUNT 2.48 M/UL (4.20-5.40); RED CELL DISTRIBUTION WIDTH 15.7 % (11.6-14.8); WHITE BLOOD COUNT 8.6 K/UL (4.8-10.8)
[2016-03-21] MEDS: Docusate 100mg cap ORAL SCH ×3 (08:19→17:33)
[2016-03-21] MEDS: Donepezil 5mg Tab ORAL SCH (08:20)
[2016-03-21] MEDS: GlipiZIDE 5mg tab ORAL SCH ×2 (08:20→17:33)
[2016-03-21] MEDS: HydrALAZINE 50mg tab ORAL SCH ×3 (08:20→17:33)
[2016-03-21] MEDS: Labetalol 200mg tab ORAL SCH (08:20)
[2016-03-21] MEDS: Aspirin EC 81mg tab ORAL SCH (08:20)
[2016-03-21 08:37] LABS: ANION GAP 17 (5-15); CALCIUM 7.6 mg/dL (8.6-10.2); CARBON DIOXIDE 22 mEQ/L (20-30); CHLORIDE 95 mEQ/L (98-107); CREATININE 3.8 mg/dL (0.5-0.9); HEMOLYSIS 5; POTASSIUM 4.2 mEQ/L (3.4-4.9); SODIUM 134 mEQ/L (135-145)
[2016-03-21] MEDS: Heparin 5000 units/ml inj SUBQ SCH (09:00)
[2016-03-21 09:50] LABS: BAND NEUTROPHILS % (MANUAL) 0 % (0-8); BASOPHILS % (MANUAL) 0 % (0-2); EOSINOPHILS % (MANUAL) 5 % (0-3); LYMPHOCYTES % (MANUAL) 16 % (20-45); NEUTROPHILS % (MANUAL) 74 % (45-75); PLATELET ESTIMATE ADEQUATE; PLATELET MORPHOLOGY NORMAL; TOTAL CELLS COUNTED 100
[2016-03-21 09:51] LABS: ANISOCYTOSIS 1+; HYPOCHROMASIA 1+
[2016-03-21 10:11] LABS: OTHERS PATHOLOGIST COMMENT
--- NOTE | 2016-03-21 10:29 | General Progress Note ---
Assessment/Plan Status: stable Assessment/Plan status: - Flank Pain, Etiology? - ESRD (end stage renal disease) on dialysis by history: check 24 h Urine Cr Cl - results 10 - Acute respiratory failure ? CHF - Alzheimer's dementia - Pacer / s/p CABGS - DM (diabetes mellitus) - Parkinson disease - Anemia Plan; dialysis as needed- plan for 03/19, aborted needle infiltrated, wasnt done 03/20 repeat today 03/21 Phos binders- Monitor Lytes and [employer] cardiac and pulm status- Per GI advise per orders adjust BP meds DC planning Subjective ROS Limited/Unobtainable: No Constitutional: Reports: malaise Allergies: Coded Allergies: No Known Allergies (Unverified , 02/02/15) Objective Last 24 Hour Vital Signs Date Time Temp Pulse Resp B/P Pulse Ox O2 Delivery O2 Flow Rate FiO2 03/21/16 09:45 97.7 03/21/16 08:20 60 122/57 03/21/16 08:20 122/57 03/21/16 08:20 60 122/57 03/21/16 08:19 122/57 03/21/16 08:15 98.1 60 19 155/66 97 Room Air 03/21/16 04:00 97.7 60 20 122/57 97 Room Air 03/21/16 00:00 98.1 61 20 117/46 96 Room Air 03/20/16 22:18 62 122/60 03/20/16 19:00 96.6 62 18 122/60 97 Nasal Cannula 03/20/16 16:52 127/44 03/20/16 16:52 127/44 03/20/16 16:00 97.3 61 18 127/44 97 Room Air 03/20/16 12:15 136/49 03/20/16 11:47 97.5 60 19 136/49 97 Room Air Intake and Output 03/20/16 03/21/16 19:00 07:00 Intake Total 480 ml 480 ml Output Total 0 ml Balance 480 ml 480 ml Intake Oral 480 ml 480 ml Output Urine Total 0 ml # Voids 4 Laboratory Tests 03/21/16 07:55: White Blood Count 8.6, Red Blood Count 2.48L, Hemoglobin 7.5L, Hematocrit 22.8L , Mean Corpuscular Volume 92, Mean Corpuscular Hemoglobin 30.1, Mean Corpuscular Hemoglobin Concent 32.8, Red Cell Distribution Width 15.7H, Platelet Count 235, Mean Platelet Volume 7.3, Neutrophils (%) (Auto) , Lymphocytes (%) (Auto) , Monocytes (%) (Auto) , Eosinophils (%) (Auto) , Basophils (%) (Auto) , Differential Total Cells Counted 100, Neutrophils % ( Manual) 74, Lymphocytes % (Manual) 16L, Monocytes % (Manual) 5, Eosinophils % ( Manual) 5H, Basophils % (Manual) 0, Band Neutrophils 0, Platelet Estimate Adequate, Platelet Morphology Normal, Hypochromasia 1+, Anisocytosis 1+, Sodium Level 134L, Potassium Level 4.2, Chloride Level 95L, Carbon Dioxide Level 22, Anion Gap 17H, Blood Urea Nitrogen 59H, Creatinine 3.8H, Estimat Glomerular Filtration Rate , Glucose Level 199H, Calcium Level 7.6L Height (Feet): 5 Height (Inches): 0.00 Weight (Pounds): 125 General Appearance: no apparent distress Cardiovascular: normal rate Respiratory/Chest: decreased breath sounds Abdomen: soft Objective other PE not changed DODIE CONNER Mar 21, 2016 10:29
--- NOTE | 2016-03-21 15:15 | Discharge Summary ---
Discharge Summary Hospital Course Date of Admission Mar 17, 2016 at 14:55 Date of Discharge Admitting Diagnosis flank pain ESRD HPI Meghann Nicole is a 75 year old female who was admitted on Mar 17, 2016 at 14:55 for Flank Pain End Stage Renal Disease Hospital Course The patient was seen and examined at bedside and all new and available data was reviewed in the patients chart. Last 24 Hour Vital Signs Date Time Temp Pulse Resp B/P Pulse Ox O2 Delivery O2 Flow Rate FiO2 03/21/16 14:50 97.0 03/21/16 14:17 Room Air 03/21/16 14:16 97.0 63 18 162/62 95 Room Air 03/21/16 11:52 97.7 60 20 144/58 97 Room Air 03/21/16 10:30 Room Air 03/21/16 10:30 97.2 60 20 141/50 99 Room Air 03/21/16 08:20 60 122/57 03/21/16 08:20 122/57 03/21/16 08:20 60 122/57 03/21/16 08:19 122/57 03/21/16 08:15 98.1 60 19 155/66 97 Room Air 03/21/16 04:00 97.7 60 20 122/57 97 Room Air 03/21/16 00:00 98.1 61 20 117/46 96 Room Air 03/20/16 22:18 62 122/60 03/20/16 19:00 96.6 62 18 122/60 97 Nasal Cannula 03/20/16 16:52 127/44 03/20/16 16:52 127/44 03/20/16 16:00 97.3 61 18 127/44 97 Room Air GENERAL: The patient is a well-developed and well-nourished female, in no apparent distress. HEENT: Eyes: Pupils are equal and responsive to light and accommodation. Extraocular movements are intact. NECK: Supple without lymphadenopathy. CHEST: Lungs are clear to auscultation bilaterally. without wheezes or rales. CARDIOVASCULAR: Regular rhythm and rate. S1 and S2 are normal without murmurs, ABDOMEN: Soft, nontender, and nondistended. Positive bowel sounds. RECTAL: Refused. GENITALIA: Refused. EXTREMITIES: No clubbing, cyanosis, or edema. LUE AVF. NEUROLOGIC: Cranial nerves II through XII grossly intact without focal deficits. Motor strength is 5/5 bilaterally. Plan: DC Home today with HH. (Patient was seen earlier today. Signature timestamp does not reflect patient encounter time) Jovani Gr MD Discharge Discharge Disposition Patient was discharged to Discharge Diagnoses: Jovani Gr MD Mar 21, 2016 15:15
--- NOTE | 2016-03-21 23:19 | Pulmonology Progress Note ---
Assessment/Plan Problems: (1) Pulmonary edema (2) Alzheimer's dementia (3) Parkinson disease (4) Vascular dementia (5) Flank pain (6) HTN (hypertension) (7) ESRD (end stage renal disease) on dialysis Assessment/Plan improving fistulogram ordered HD by nephrology respiratory treatment d/w cardiology about Pts aortic stenosis sliding scale diabetic diet. prbc ordered Subjective ROS Limited/Unobtainable: Yes Respiratory: Reports: dyspnea at rest, dyspnea on exertion, pleuritic pain, productive cough, shortness of breath, sputum, wheezing Neurologic: Reports: seizures Allergies: Coded Allergies: No Known Allergies (Unverified , 02/02/15) Objective Last 24 Hour Vital Signs Date Time Temp Pulse Resp B/P Pulse Ox O2 Delivery O2 Flow Rate FiO2 03/21/16 17:33 145/60 03/21/16 17:33 145/60 03/21/16 16:00 97.9 62 18 145/60 96 Room Air 03/21/16 14:50 97.0 03/21/16 14:17 Room Air 03/21/16 14:16 97.0 63 18 162/62 95 Room Air 03/21/16 11:52 97.7 60 20 144/58 97 Room Air 03/21/16 10:30 Room Air 03/21/16 10:30 97.2 60 20 141/50 99 Room Air 03/21/16 08:20 60 122/57 03/21/16 08:20 122/57 03/21/16 08:20 60 122/57 03/21/16 08:19 122/57 03/21/16 08:15 98.1 60 19 155/66 97 Room Air 03/21/16 04:00 97.7 60 20 122/57 97 Room Air 03/21/16 00:00 98.1 61 20 117/46 96 Room Air Intake and Output 03/20/16 03/21/16 19:00 07:00 Intake Total 480 ml 480 ml Output Total 0 ml Balance 480 ml 480 ml Intake Oral 480 ml 480 ml Output Urine Total 0 ml # Voids 4 General Appearance: no acute distress HEENT: normocephalic, atraumatic, PERRL Respiratory/Chest: chest wall non-tender, decreased breath sounds, accessory muscle use, rhonchi Breasts: no masses Cardiovascular: normal peripheral pulses, normal rate, regular rhythm, no JVD Abdomen: normal bowel sounds, soft, non tender, no organomegaly Genitourinary: normal external genitalia Extremities: no cyanosis Skin: rash, lesions Neurologic/Psychiatric: land manager II-XII grossly normal, responsive, disoriented, depressed affect Laboratory Tests 03/21/16 07:55: White Blood Count 8.6, Red Blood Count 2.48L, Hemoglobin 7.5L, Hematocrit 22.8L , Mean Corpuscular Volume 92, Mean Corpuscular Hemoglobin 30.1, Mean Corpuscular Hemoglobin Concent 32.8, Red Cell Distribution Width 15.7H, Platelet Count 235, Mean Platelet Volume 7.3, Neutrophils (%) (Auto) , Lymphocytes (%) (Auto) , Monocytes (%) (Auto) , Eosinophils (%) (Auto) , Basophils (%) (Auto) , Differential Total Cells Counted 100, Neutrophils % ( Manual) 74, Lymphocytes % (Manual) 16L, Monocytes % (Manual) 5, Eosinophils % ( Manual) 5H, Basophils % (Manual) 0, Band Neutrophils 0, Platelet Estimate Adequate, Platelet Morphology Normal, Hypochromasia 1+, Anisocytosis 1+, Sodium Level 134L, Potassium Level 4.2, Chloride Level 95L, Carbon Dioxide Level 22, Anion Gap 17H, Blood Urea Nitrogen 59H, Creatinine 3.8H, Estimat Glomerular Filtration Rate , Glucose Level 199H, Calcium Level 7.6L ALMA DELIA MONTES Mar 21, 2016 23:19
--- NOTE | 2016-04-03 09:29 | Cardiology Report ---
APPROVED REPORT EKG Measurement Heart [id number] [place] [id number] [id number] T wave abnormality, consider lateral ischemia Prolonged QT Atrial pacing ventricular sensing Abnormal ECG
--- NOTE | 2016-04-03 09:29 | Diagnostic Imaging Report ---
Clinical history: Acute abdominal pain. Technique: Single frontal abdominal radiograph was obtained. Comparisons: None Findings: Visualized bowel gas pattern is nonspecific,, without evidence of obstruction. The visualized soft tissues are unremarkable. Extensive calcification of the abdominal aorta and mesenteric and pelvic branches noted. The visualized osseous structures exhibit degenerative disease. IMPRESSION: Nonspecific, nonobstructive bowel gas pattern. Extensive atherosclerotic vascular disease.
--- NOTE | 2016-04-10 16:38 | Consultation ---
DATE OF CONSULTATION: 03/19/2016 CONSULTING PHYSICIAN: Micah Sotelo M.D. REFERRING PHYSICIAN: Daisha Child M.D. REASON FOR REFERRAL: Valvular heart disease. HISTORY OF PRESENT ILLNESS: This is an elderly female, who was brought in by paramedics with a complaint of flank pain. The patient apparently was complaining of back pain when the paramedics arrived, apparently she was seen for the same reason earlier. The patient was brought to the emergency room at [facility] and has been admitted to the hospital. She does have some shortness of breath on exertion. There is no PND, but she is not able to fall asleep because of pain, not clear whether the pains are purely in the flank or mainly in the knees as she seems to be complaining about that at the present time. She does not have any chest pain at this time. She uses two pillows at night. She does have dizziness and occasional palpitations as well. PAST MEDICAL HISTORY: Positive for history of coronary artery bypass grafting, three vessels were bypassed. She has a history of permanent pacemaker implantation, diabetes mellitus, and end-stage renal disease, on hemodialysis. She has a history of ovarian and cerebellar tumors, treated surgically and she has a history of congestive heart failure and she had been bradycardic and a pacemaker was implanted on 10/15/[address] Earl because of significant bradycardia. Apparently, the patient does have a history of known significant aortic stenosis, supposed to have a TAVR as an outpatient. She has also a history of hyperlipidemia, Parkinson disease, Alzheimer dementia, left bundle-branch conduction defect, as well as diabetes mellitus. I have been able to find some data on review of the [facility]. She has had a history of cerebellar tumor resection back in June of 2014 with pre-existing brain metastasis and ovarian cancer that was resected. She was noted to have moderate disease of both aortic and mitral valves and needed a workup in November with ejection fraction of 70% and aortic valve stenosis with a peak gradient of 27 and a mean gradient of 15, aortic valve area of 1.2 and severe mitral annular calcification with trivial mitral regurgitation with a peak gradient of 21 and a mean gradient of 71 with ejection fraction of 70%. Apparently, she has a history of bronchial asthma and history of deep venous thrombosis including thrombosis of the ovarian vein in 2010 on the right side and she has a [employer] pacemaker that was implanted. She has had oophorectomy, omentectomy, exploratory laparotomy, and a brain tumor debulking. SOCIAL HISTORY: She is . She has three sons and two daughters. No smoking. No alcoholic beverages. FAMILY HISTORY: Parents . REVIEW OF SYSTEMS: Gastrointestinal: She actually denies any nausea or vomiting. She claims to have had some diarrhea this morning, but the current nurse denies it. Genitourinary: She still makes urine. Pulmonary: She has coughing and wheezing and shortness of breath. Constitutional: Denies any fevers or chills. Musculoskeletal: She seems to indicate she has significant pain in the right knee. PHYSICAL EXAMINATION: VITAL SIGNS: This morning, blood pressure 153/86 with a heart rate of 67 and temperature 97.5. GENERAL: Elderly female, writhing around, and appears to be quite uncomfortable from the pain that she indicates only in her knee, nowhere else that we can elicit pain and/or pain on questioning. NECK: Supple. No jugular venous distention. LUNGS: Appear to be clear to auscultation. CARDIAC: Regular rate and rhythm. Systolic ejection murmur is noted. There is no RV lift, heaves or thrills noted. ABDOMEN: Soft and obese. Positive bowel sounds. EXTREMITIES: There is no edema. There is some eschar on the left knee. There does not appear to be any significant erythema or induration or effusion associated with the knee itself. LABORATORY DATA: EKG shows atrial pacing and ventricular sensing. She has some biphasic T-waves in multiple leads. The last EKG for comparison from [facility], and she was apparently in AV pacing at that time. EKG 03/09/2016 not available for comparison; however, it's interpretation is available, prolonged QT, abnormal EKG. Her labs, white count 5.7, hemoglobin 8.9, and platelet count of 246,000. Sodium 142, potassium 4.2, chloride 94, bicarbonate 24, BUN 46, creatinine 3.2, and glucose of 142. A1c of 4.8, 20% saturation and ferritin of 997. ProBNP of 12,621. Total protein of 5.5 and total cholesterol of 142, with LDL of 42. B12 level of 1010. TSH of 10.15, up from 3.9 not too long ago. Chest x-ray read as cardiomegaly with mild residual pulmonary edema, improved; low lung volumes; and left cardiac conduction device. INCOMPLETE DICTATION Micah Sotelo M.D. DR: YARELY JOB#: [id number] CC:
== END 2016-03-21 19:59 | disposition home health service (06) | DRG 682 ==
LOC: EDBD 22:12 → EMR 22:50 → EDBEDREQ 03-17 14:35 → 2E 03-17 14:55 → 4E 03-19 18:25
PROC: 5A1D60Z (ICD-10-PCS; principal; 2016-03-19)
PROC: B51W1ZZ Fluoroscopy of Dialysis Shunt/Fistula using Low Osmolar Contrast (ICD-10-PCS; principal; 2016-03-19)
PROC: 30233N1 Transfusion of Nonautologous Red Blood Cells into Peripheral Vein, Percutaneous Approach (ICD-10-PCS; 2016-03-21)
DX: I12.0 Hypertensive chronic kidney disease with stage 5 chronic kidney disease or end stage renal disease (principal); N18.6 End stage renal disease; T82.590A Other mechanical complication of surgically created arteriovenous fistula, initial encounter; G20 Parkinson's disease; I50.9 Heart failure, unspecified; Z99.2 Dependence on renal dialysis; Z95.1 Presence of aortocoronary bypass graft; Z85.43 Personal history of malignant neoplasm of ovary; Z85.841 Personal history of malignant neoplasm of brain; E11.9 Type 2 diabetes mellitus without complications; I25.10 Atherosclerotic heart disease of native coronary artery without angina pectoris; Z79.02 Long term (current) use of antithrombotics/antiplatelets; F01.50 Vascular dementia, unspecified severity, without behavioral disturbance, psychotic disturbance, mood disturbance, and anxiety; G30.9 Alzheimer's disease, unspecified; F02.80 Dementia in other diseases classified elsewhere, unspecified severity, without behavioral disturbance, psychotic disturbance, mood disturbance, and anxiety; I35.0 Nonrheumatic aortic (valve) stenosis; I05.0 Rheumatic mitral stenosis; Z86.718 Personal history of other venous thrombosis and embolism; E78.5 Hyperlipidemia, unspecified; Z79.4 Long term (current) use of insulin; Y83.8 Other surgical procedures as the cause of abnormal reaction of the patient, or of later complication, without mention of misadventure at the time of the procedure; R10.9 Unspecified abdominal pain
CPT/HCPCS: 20501; 36415; 71010; 74000; 76080; 80048; 80053; 80061; 81003; 82550; 82607; 82728; 82746; 82962; 82977; 83036; 83540; 83550; 83690; 83735; 83880; 84100; 84443; 84484; 84550; 85007; 85025; 85610; 85730; 86140; 86850; 86900; 86901; 86920; 87081; 87086; 87181; 93005; 94640; 94664; J1815

== ENCOUNTER 2017-04-12 03:34 | Inpatient (IN) | payer MEDICARE, MEDICAID ==
[~2017-04-12] VITALS: Ht 154.9 cm; Wt 67.8 kg
[2017-04-12] MEDS ORDERED: Nitroglycerin Subl 0.4mg tab SL PRN ×3 (03:45→08:00)
[2017-04-12 03:50] VITALS: BP 148/57
[2017-04-12 03:54] LABS: BASOPHILS % (AUTO) 2.1 % (0.0-2.0); HEMATOCRIT 39.6 % (37.0-47.0); HEMOGLOBIN 12.9 G/DL (12.0-16.0); LYMPHOCYTES % (AUTO) 37.5 % (20.0-45.0); MEAN CORPUSCULAR VOLUME 86 FL (80-99); MONOCYTES % (AUTO) 8.3 % (1.0-10.0); RED BLOOD COUNT 4.59 M/UL (4.20-5.40); RED CELL DISTRIBUTION WIDTH 13.5 % (11.6-14.8); WHITE BLOOD COUNT 8.3 K/UL (4.8-10.8)
[2017-04-12] MEDS ORDERED: Heparin 5000 units/ml inj IV ONE (04:00)
[2017-04-12] MEDS ORDERED: Heparin 25,000u/D5W 500ml 500 ML IV SCH (04:00)
[2017-04-12] MEDS ORDERED: LORazepam Inj 2mg/ml 1ml IV ONE (04:15)
[2017-04-12 04:26] LABS: PLATELET COUNT 109 K/UL (150-450)
[2017-04-12 04:45] LABS: ANION GAP 7 mmol/L (5-15); BLOOD UREA NITROGEN 59 mg/dL (7-18); CALCIUM 8.8 MG/DL (8.5-10.1); CARBON DIOXIDE 30 MMOL/L (21-32); CHLORIDE 92 MMOL/L (98-107); CREATININE 3.9 MG/DL (0.55-1.30); POTASSIUM 4.8 MMOL/L (3.5-5.1); SODIUM 129 MMOL/L (136-145)
[2017-04-12 04:58] LABS: ALANINE AMINOTRANSFERASE 41 U/L (12-78); ALBUMIN 3.4 G/DL (3.4-5.0); ALKALINE PHOSPHATASE 459 U/L (46-116); ASPARTATE AMINO TRANSFERASE 34 U/L (15-37); BILIRUBIN,TOTAL 0.6 MG/DL (0.2-1.0); CKMB 2.8 NG/ML (0.0-3.6); CREATINE KINASE 88 U/L (26-308)
[2017-04-12] MEDS ORDERED: Morphine Sulfate 2mg/ml Inj IVP ONE (05:15)
[2017-04-12 05:50] VITALS: BP 122/45
--- NOTE | 2017-04-12 07:28 | Emergency Room Report ---
History of Present Illness General Chief Complaint: Chest Pain Source: Patient Present Illness HPI Patient is a 76-year-old female who presented for increased chest pain. Patient had increased pain. She reported having increased abdominal pain for several days. The patient prior history of aortic stenosis as well as the previous CABG. The patient reported having increased pain onset at rest. Patient is diabetic and had prior history of end-stage renal disease and is on dialysis. She denied any fever or cough. 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 Review of Systems All Other Systems: negative except mentioned in HPI Physical Exam Vital Signs Date Time Temp Pulse Resp B/P (MAP) Pulse Ox O2 Delivery O2 Flow Rate FiO2 04/12/17 03:37 97.7 62 20 148/57 100 Room Air 97.7 Sp02 EP Interpretation: reviewed, normal General Appearance: normal inspection, alert, moderate distress Head: atraumatic ENT: normal ENT inspection, hearing grossly normal, normal voice Neck: normal inspection, full range of motion, supple, no bony tend Respiratory: normal inspection, lungs clear, normal breath sounds, no respiratory distress, no retraction, no wheezing Cardiovascular #1: regular rate, rhythm, no edema Gastrointestinal: normal inspection, normal bowel sounds, soft, no guarding, no hernia, tenderness - epigastric Genitourinary: no CVA tenderness Musculoskeletal: normal inspection, back normal, normal range of motion Neurologic: normal inspection, alert, responsive, speech normal Psychiatric: normal inspection, judgement/insight normal, mood/affect normal Skin: normal inspection, normal color, no rash Medical Decision Making Diagnostic Impression: Primary Impression: Chest pain Additional Impressions: ESRD (end stage renal disease) on dialysis Uncontrolled diabetes mellitus Pancreatitis, acute ER Course Patient presented for chest pain . Differential diagnosis included but was not limited to acute coronary syndrome, pulmonary embolism, pneumonia, aortic dissection, shingles, pneumothorax, aortic dissection, esophageal rupture, pericarditis. EKG interpreted by me showed paced rhythm. The patient noted have some T-wave inversion. The patient was given aspirin by EMS. She was given heparin drip initially but was noted to be thrombocytopenic and so this was DC'd. The patient was noted to have elevation of her lipase consistent with pancreatitis. The patient reported having some improvement in pain after IV morphine. Dr. Jovani Gr was contacted for inpatient management Labs Test 04/12/17 03:41 04/12/17 04:00 White Blood Count 8.3 K/UL (4.8-10.8) Red Blood Count 4.59 M/UL (4.20-5.40) Hemoglobin 12.9 G/DL (12.0-16.0) Hematocrit 39.6 % (37.0-47.0) Mean Corpuscular Volume 86 FL (80-99) Mean Corpuscular Hemoglobin 28.2 PG (27.0-31.0) Mean Corpuscular Hemoglobin Concent 32.7 G/DL (32.0-36.0) Red Cell Distribution Width 13.5 % (11.6-14.8) Platelet Count 109 K/UL (150-450) Mean Platelet Volume 8.2 FL (6.5-10.1) Neutrophils (%) (Auto) 51.0 % (45.0-75.0) Lymphocytes (%) (Auto) 37.5 % (20.0-45.0) Monocytes (%) (Auto) 8.3 % (1.0-10.0) Eosinophils (%) (Auto) 1.0 % (0.0-3.0) Basophils (%) (Auto) 2.1 % (0.0-2.0) Activated Partial Thromboplast Time 28 SEC (23-33) Sodium Level 129 MMOL/L (136-145) Potassium Level 4.8 MMOL/L (3.5-5.1) Chloride Level 92 MMOL/L (98-107) Carbon Dioxide Level 30 MMOL/L (21-32) Anion Gap 7 mmol/L (5-15) Blood Urea Nitrogen 59 mg/dL (7-18) Creatinine 3.9 MG/DL (0.55-1.30) Estimat Glomerular Filtration Rate mL/min (>60) Glucose Level 439 MG/DL (74-106) Calcium Level 8.8 MG/DL (8.5-10.1) Total Bilirubin 0.6 MG/DL (0.2-1.0) Aspartate Amino Transf (AST/SGOT) 34 U/L (15-37) Alanine Aminotransferase (ALT/SGPT) 41 U/L (12-78) Alkaline Phosphatase 459 U/L (46-116) Total Creatine Kinase 88 U/L (26-308) Creatine Kinase MB 2.8 NG/ML (0.0-3.6) Creatine Kinase MB Relative Index 3.1 Troponin I 0.123 ng/mL (0.000-0.056) Pro-B-Type Natriuretic Peptide 76122 pg/mL (0-125) Total Protein 6.9 G/DL (6.4-8.2) Albumin 3.4 G/DL (3.4-5.0) Globulin 3.5 g/dL Albumin/Globulin Ratio 1.0 (1.0-2.7) Lipase 586 U/L (73-393) Last Vital Signs Date Time Temp Pulse Resp B/P (MAP) Pulse Ox O2 Delivery O2 Flow Rate FiO2 04/12/17 06:05 97.7 04/12/17 06:05 60 19 122/45 99 Room Air Status: unchanged Disposition: ADMITTED INPATIENT Condition: Stable Referrals: NOT CHOSEN IPA/,REFERRING (PCP) Osmany Wright Apr 12, 2017 07:28
--- NOTE | 2017-04-12 07:48 | Consultation ---
History of Present Illness General Date patient seen: Apr 12, 2017 Time patient seen: 07:30 Chief Complaint: Chest Pain Referring physician: dr Gr Reason for Consultation: pulm status, inpatient management Present Illness HPI 76-year-old female with PMH of HTN, DM, ESRD, on HD, CVA, CAD with hx of stent and bypass, severe mitral stenosis, metastatic cerebellar tumor wih resection( 2014), presented with chest pain. Also reported increased abdominal pain for several days. The patient reported having increased pain onset at rest. Patient denied fevers, chills, workup in ED revealed elevated troponin-0.123 ECG paced rhythm, no acute ischemic changes no leukocytosis, stable HH BUN/creat c/w known ghx of ESRD, hypo Na -129 CXR no acute disease lipase -587 patient was admitted for further management Allergies: Coded Allergies: No Known Allergies (Unverified , 02/02/15) Medication History Scheduled Amlodipine Besylate* (Amlodipine Besylate*), 10 MG ORAL DAILY, (Reported) Aspirin (Aspirin EC), 81 MG ORAL DAILY, (Reported) Atorvastatin Calcium* (Atorvastatin Calcium*), 40 MG ORAL BEDTIME, (Reported) Clopidogrel Bisulfate* (Plavix*), 75 MG ORAL DAILY, (Reported) Donepezil Hcl* (Donepezil Hcl*), 5 MG ORAL DAILY, (Reported) Famotidine (Famotidine), 40 MG ORAL DAILY, (Reported) Gabapentin* (Gabapentin*), 100 MG ORAL THREE TIMES A DAY, (Reported) Glipizide* (Glipizide*), 5 MG ORAL BIDAC, (Reported) Hydralazine Hcl* (Hydralazine Hcl*), 50 MG ORAL TID, (Reported) Labetalol HCl (Labetalol HCl), 200 MG ORAL BID, (Reported) Pentoxifylline* (Trental*), 400 MG ORAL BID, (Reported) Ropinirole Hcl* (Ropinirole Hcl*), 2 MG PO QHS, (Reported) Scheduled PRN Diphenhydramine Hcl* (Diphenhydramine Hcl*), 25 MG ORAL Q8H PRN for Itching, ( Reported) Miscellaneous Medications Clonidine (Clonidine), 0.3 MG TD, (Reported) Patient History History Provided By: Patient Healthcare decision maker Resuscitation status Advanced Directive on File Past Medical/Surgical History Past Medical/Surgical History: (1) Diabetic polyneuropathy associated with type 2 diabetes mellitus (2) Vascular dementia (3) Alzheimer's dementia (4) ESRD (end stage renal disease) on dialysis (5) DM (diabetes mellitus) (6) HTN (hypertension) (7) CAD (coronary artery disease) (8) Cerebellar tumor (9) CHF (congestive heart failure) (10) Sick sinus syndrome (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 (12) Anemia Review of Systems Constitutional: Reports: weakness Eye: Reports: no symptoms ENT: Reports: no symptoms Respiratory: Reports: no symptoms Cardiovascular: Reports: see HPI Gastrointestinal: Reports: constipation Genitourinary: Reports: other - ESRD, on HD Skin: Reports: no symptoms Psychiatric: Reports: no symptoms Neurological: Reports: other - hx of CVA, hx of cerebellar tumor with resection Hematologic/Lymphatic: Reports: other - DM Physical Exam General Appearance: no apparent distress, alert - [place]ian speaking female in NASD Lines, tubes and drains: peripheral HEENT: normocephalic, atraumatic, anicteric, mucous membranes moist Neck: non-tender, supple Respiratory/Chest: no respiratory distress, decreased breath sounds, other - left chest pacemaker Cardiovascular/Chest: normal rate, regular rhythm - SR with TWI, other - LUE AV fistula + bruit/thrill Abdomen: normal bowel sounds, non tender - obese, soft Extremities: non-tender, no calf tenderness Skin Exam: warm/dry Neurologic: abnormal gait, alert, responsive Musculoskeletal: atrophy - BLE Last 24 Hour Vital Signs Date Time Temp Pulse Resp B/P (MAP) Pulse Ox O2 Delivery O2 Flow Rate FiO2 04/12/17 06:05 97.7 04/12/17 06:05 98.6 60 19 122/45 99 Room Air 207.9 04/12/17 05:50 60 19 122/45 99 Room Air 04/12/17 05:41 97.7 04/12/17 04:35 127/90 04/12/17 03:50 97.7 20 148/57 100 Room Air 97.7 04/12/17 03:50 62 20 Room Air 04/12/17 03:37 97.7 62 20 148/57 100 Room Air 97.7 Intake and Output 04/11/17 04/12/17 19:00 07:00 Intake Total 0 ml Balance 0 ml Intake Oral 0 ml Laboratory Tests Test 04/12/17 03:41 04/12/17 04:00 White Blood Count 8.3 K/UL (4.8-10.8) Red Blood Count 4.59 M/UL (4.20-5.40) Hemoglobin 12.9 G/DL (12.0-16.0) Hematocrit 39.6 % (37.0-47.0) Mean Corpuscular Volume 86 FL (80-99) Mean Corpuscular Hemoglobin 28.2 PG (27.0-31.0) Mean Corpuscular Hemoglobin Concent 32.7 G/DL (32.0-36.0) Red Cell Distribution Width 13.5 % (11.6-14.8) Platelet Count 109 K/UL (150-450) L Mean Platelet Volume 8.2 FL (6.5-10.1) Neutrophils (%) (Auto) 51.0 % (45.0-75.0) Lymphocytes (%) (Auto) 37.5 % (20.0-45.0) Monocytes (%) (Auto) 8.3 % (1.0-10.0) Eosinophils (%) (Auto) 1.0 % (0.0-3.0) Basophils (%) (Auto) 2.1 % (0.0-2.0) H Activated Partial Thromboplast Time 28 SEC (23-33) Sodium Level 129 MMOL/L (136-145) L Potassium Level 4.8 MMOL/L (3.5-5.1) Chloride Level 92 MMOL/L (98-107) L Carbon Dioxide Level 30 MMOL/L (21-32) Anion Gap 7 mmol/L (5-15) Blood Urea Nitrogen 59 mg/dL (7-18) H Creatinine 3.9 MG/DL (0.55-1.30) H Estimat Glomerular Filtration Rate mL/min (>60) Glucose Level 439 MG/DL (74-106) H Calcium Level 8.8 MG/DL (8.5-10.1) Total Bilirubin 0.6 MG/DL (0.2-1.0) Aspartate Amino Transf (AST/SGOT) 34 U/L (15-37) Alanine Aminotransferase (ALT/SGPT) 41 U/L (12-78) Alkaline Phosphatase 459 U/L (46-116) H Total Creatine Kinase 88 U/L (26-308) Creatine Kinase MB 2.8 NG/ML (0.0-3.6) Creatine Kinase MB Relative Index 3.1 Troponin I 0.123 ng/mL (0.000-0.056) Pro-B-Type Natriuretic Peptide 71482 pg/mL (0-125) H Total Protein 6.9 G/DL (6.4-8.2) Albumin 3.4 G/DL (3.4-5.0) Globulin 3.5 g/dL Albumin/Globulin Ratio 1.0 (1.0-2.7) Lipase 586 U/L (73-393) H Height (Feet): 5 Height (Inches): 1.00 Weight (Pounds): 140 Medications Current Medications Medications (Trade) Dose Ordered Sig/Carrie Route PRN Reason Start Time Stop Time Status Last Admin Dose Admin Nitroglycerin (Ntg) 0.4 mg Q5M PRN SL Prn Chest Pain 04/12/17 03:45 05/12/17 03:44 04/12/17 04:35 Assessment/Plan Assessment/Plan ASSESSMENT Chest pain elevated troponin ESRD, on HD abdominal pain elevated lipase DM OOC pacemaker CAD with hx of CABG hx of CVA HTN hx of metastatic cerebellar tumor resection PLAN OF CARE tele serial troponin ECHO ECG paced rhythm cardio eval- a/PLT therapy, BB BP management with BB and CCB continue statin DVT GI prophylaxis pain management with Nitro and Morphine prn BS management with SSI check HgA1c and optimize further as needed trend amylase, lipase, check lipid panel abdominal US bowel regimen case discussed and evaluated by supervising physician Cali Dunlap)My NP Apr 12, 2017 07:48
[2017-04-12 08:00] VITALS: BP 126/57
[2017-04-12] MEDS ORDERED: dilTIAZem HCl 25mg/5ml Inj IV PRN (08:00)
[2017-04-12] MEDS ORDERED: Miralax 17gm pkt ORAL PRN ×2 (08:00)
[2017-04-12] MEDS ORDERED: Zolpidem 5mg tab ORAL PRN (08:00)
[2017-04-12] MEDS ORDERED: Enalaprilat 2.5mg/2ml Inj IV PRN (08:00)
[2017-04-12] MEDS ORDERED: Acetaminophen 650 MG SUPP RECTAL PRN ×2 (08:00)
[2017-04-12] MEDS ORDERED: Morphine Sulfate 4mg/ml Inj IVP PRN (08:00)
[2017-04-12] MEDS ORDERED: Albuterol/Ipratropium 3ml neb HHN PRN (08:00)
[2017-04-12] MEDS ORDERED: Morphine Sulfate 2mg/ml Inj IVP PRN ×2 (08:00)
[2017-04-12] MEDS ORDERED: Heparin 5000 units/ml inj SUBQ SCH (09:00)
[2017-04-12] MEDS ORDERED: Pantoprazole Inj IVP SCH (09:30)
[2017-04-12] MEDS ORDERED: Aspirin Baby 81mg ORAL SCH (09:30)
[2017-04-12] MEDS: HydrALAZINE 50mg tab ORAL SCH ×3 (10:35→17:46)
[2017-04-12] MEDS: Docusate 100mg cap ORAL SCH ×2 (10:36→21:50)
[2017-04-12] MEDS: Labetalol 200mg tab ORAL SCH ×2 (10:36→17:45)
--- NOTE | 2017-04-12 10:36 | Consultation ---
Consult Note Consult Note asked to eval for dialysis management Patient is a 76-year-old female who presented for increased chest pain. Patient had increased pain. She reported having increased abdominal pain for several days. The patient prior history of aortic stenosis as well as the previous CABG. The patient reported having increased pain onset at rest. Patient is diabetic and had prior history of end-stage renal disease and is on dialysis. She denied any fever or cough. 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 Assessment/Plan Chest pain elevated troponin ESRD, on HD has left arm fistula abdominal pain probably acute pancreatitis DM OOC pacemaker CAD with hx of CABG hx of CVA HTN hx of metastatic cerebellar tumor resection Plan: per cardiology HD M W Fr or as needed DODIE CONNER Apr 12, 2017 10:36
[2017-04-12] MEDS: Donepezil 5mg Tab ORAL SCH (10:40)
--- NOTE | 2017-04-12 10:40 | Diagnostic Imaging Report ---
Indication: Chest pain Comparison: None A single view chest radiograph was obtained. Findings: Sternotomy and pacemaker again noted. No definite infiltrate or pulmonary vascular congestion identified. The heart is enlarged. The aorta is mildly enlarged consistent with atherosclerotic vascular disease. The bones are osteopenic. Impression: No acute disease
[2017-04-12] MEDS: NovoLOG Insulin Flexpen SUBQ SCH ×3 (11:54→21:59)
[2017-04-12 12:18] VITALS: BP 105/70
--- NOTE | 2017-04-12 12:22 | Cardiology Progress Note ---
Assessment/Plan Assessment/Plan [id number] repeat echo enzyme ekg may need ischemia eval as poor histoliran ecotrin for now and statin and bb Objective Last 24 Hour Vital Signs Date Time Temp Pulse Resp B/P (MAP) Pulse Ox O2 Delivery O2 Flow Rate FiO2 04/12/17 12:18 97.0 60 20 105/70 97 Room Air 97.0 04/12/17 12:01 126/57 04/12/17 10:36 126/57 04/12/17 10:36 60 126/57 04/12/17 10:36 60 126/57 04/12/17 10:35 126/57 04/12/17 08:00 97.9 60 21 126/57 98 Room Air 97.9 04/12/17 08:00 62 04/12/17 06:05 97.7 04/12/17 06:05 98.6 60 19 122/45 99 Room Air 207.9 04/12/17 05:50 60 19 122/45 99 Room Air 04/12/17 05:41 97.7 04/12/17 04:35 127/90 04/12/17 03:50 97.7 20 148/57 100 Room Air 97.7 04/12/17 03:50 62 20 Room Air 04/12/17 03:37 97.7 62 20 148/57 100 Room Air 97.7 Intake and Output 04/11/17 04/12/17 19:00 07:00 Intake Total 0 ml Balance 0 ml Intake Oral 0 ml Laboratory Tests Test 04/12/17 03:41 04/12/17 04:00 04/12/17 08:30 White Blood Count 8.3 K/UL (4.8-10.8) Red Blood Count 4.59 M/UL (4.20-5.40) Hemoglobin 12.9 G/DL (12.0-16.0) Hematocrit 39.6 % (37.0-47.0) Mean Corpuscular Volume 86 FL (80-99) Mean Corpuscular Hemoglobin 28.2 PG (27.0-31.0) Mean Corpuscular Hemoglobin Concent 32.7 G/DL (32.0-36.0) Red Cell Distribution Width 13.5 % (11.6-14.8) Platelet Count 109 K/UL (150-450) L Mean Platelet Volume 8.2 FL (6.5-10.1) Neutrophils (%) (Auto) 51.0 % (45.0-75.0) Lymphocytes (%) (Auto) 37.5 % (20.0-45.0) Monocytes (%) (Auto) 8.3 % (1.0-10.0) Eosinophils (%) (Auto) 1.0 % (0.0-3.0) Basophils (%) (Auto) 2.1 % (0.0-2.0) H Activated Partial Thromboplast Time 28 SEC (23-33) Sodium Level 129 MMOL/L (136-145) L Potassium Level 4.8 MMOL/L (3.5-5.1) Chloride Level 92 MMOL/L (98-107) L Carbon Dioxide Level 30 MMOL/L (21-32) Anion Gap 7 mmol/L (5-15) Blood Urea Nitrogen 59 mg/dL (7-18) H Creatinine 3.9 MG/DL (0.55-1.30) H Estimat Glomerular Filtration Rate mL/min (>60) Glucose Level 439 MG/DL (74-106) H Calcium Level 8.8 MG/DL (8.5-10.1) Total Bilirubin 0.6 MG/DL (0.2-1.0) Aspartate Amino Transf (AST/SGOT) 34 U/L (15-37) Alanine Aminotransferase (ALT/SGPT) 41 U/L (12-78) Alkaline Phosphatase 459 U/L (46-116) H Total Creatine Kinase 88 U/L (26-308) Creatine Kinase MB 2.8 NG/ML (0.0-3.6) Creatine Kinase MB Relative Index 3.1 Troponin I 0.123 ng/mL (0.000-0.056) 0.098 ng/mL (0.000-0.056) Pro-B-Type Natriuretic Peptide 89674 pg/mL (0-125) H Total Protein 6.9 G/DL (6.4-8.2) Albumin 3.4 G/DL (3.4-5.0) Globulin 3.5 g/dL Albumin/Globulin Ratio 1.0 (1.0-2.7) Lipase 586 U/L (73-393) H CUAUHTEMOC WALKER Apr 12, 2017 12:22
--- NOTE | 2017-04-12 13:32 | History & Physical ---
History and Physical History & Physicial Dictated for Int Med - Dr Gr no. [id number]. YENIFER SCHULER Apr 12, 2017 13:31
[2017-04-12] MEDS: Heparin 5000 units/ml inj SUBQ SCH ×2 (13:48→21:55)
[2017-04-12 16:00] VITALS: BP 108/50
[2017-04-12 20:00] VITALS: BP 106/60
[2017-04-12] MEDS ORDERED: Atorvastatin 80mg tab ORAL SCH (21:00)
[2017-04-12] MEDS: Atorvastatin 80mg tab ORAL SCH (21:50)
--- NOTE | 2017-04-12 22:45 | History and Physical Report ---
DATE OF ADMISSION: 04/12/2017 CHIEF COMPLAINT: The patient is a 76-year-old female with history of coronary artery disease, who presents with chief complaint of chest pain. HISTORY OF PRESENT ILLNESS: The patient has history of coronary artery disease. The patient is status post coronary artery bypass graft in 2004. The patient states history of the present illness began yesterday, 04/11/2017. The patient began to have chest pain. Chest pain is substernal. There is no radiation to the jaw or to the shoulder. The patient also complains of epigastric pain for several days. The patient presented to [facility]. The patient is admitted with chest pain to rule out acute coronary syndrome. REVIEW OF SYSTEMS: CONSTITUTIONAL: The patient denies weight loss or weight gain. The patient denies fevers or chills. HEENT: The patient denies ear or throat pain. The patient denies headache. CARDIOVASCULAR: The patient denies palpitations. The patient does complain of chest pain as above. ABDOMINAL: The patient complains of epigastric pain. The patient denies nausea, vomiting, diarrhea, or constipation. CHEST: The patient denies wheeze or shortness of breath. NEUROLOGIC: The patient denies seizures or generalized weakness. GENITOURINARY: The patient denies dysuria or increased frequency of urination. PAST MEDICAL HISTORY: Significant for: 1. Type 2 diabetes. 2. End-stage renal disease, on hemodialysis every Friday, Friday, and Friday. The patient's last dialysis was on 04/11/2017. 3. Diabetes type 2. 4. Hypertension. 5. Parkinson disease. 6. History of coronary artery disease. 7. History of congestive heart failure. 8. History of ovarian cancer, status post resection. 9. History of metastatic cerebellar tumor, status post resection in 2014. PAST SURGICAL HISTORY: Significant for: 1. Coronary artery bypass graft in 2004. 2. Pacemaker implantation. 3. Resection of ovarian tumor. 4. Metastatic cerebellar tumor, status post resection in June 2014. 5. Left upper extremity arteriovenous graft for dialysis. CURRENT MEDICATIONS: 1. Amlodipine 10 mg p.o. daily. 2. Aspirin 81 mg p.o. daily. 3. Atorvastatin 40 mg p.o. nightly. 4. Clonidine TTS-3 patch applied weekly. 5. Clopidogrel 75 mg p.o. daily. 6. 5 mg p.o. daily. 7. Pepcid 40 mg p.o. daily. 8. Gabapentin 100 mg p.o. 3 times daily. 9. Glipizide 5 mg p.o. twice daily. 10. Hydralazine 50 mg p.o. 3 times daily. 11. Labetalol 200 mg p.o. twice daily. 12. Trental 400 mg p.o. twice daily. 13. Ropinirole 2 mg p.o. nightly. ALLERGIES: No known drug allergies. SOCIAL HISTORY: The patient is . The patient lives with her adult son. The patient denies tobacco or alcohol use. PHYSICAL EXAMINATION: VITAL SIGNS: Temperature 97.7 degrees, respirations 19, pulse 60, blood pressure 122/45. GENERAL: The patient is a well-developed and well-nourished female, in no apparent distress. HEENT: Eyes, pupils equal and responsive to light and accommodation. Extraocular movements are intact. NECK: Supple without lymphadenopathy. CHEST: Lungs are clear to auscultation bilaterally without wheezes or rales. CARDIOVASCULAR: Regular rate. S1, S2 normal without murmurs, rubs, or gallops. ABDOMEN: Soft, nontender, nondistended. Positive bowel sounds. No evidence of hepatosplenomegaly. Currently, no rebound or guarding noted. EXTREMITIES: Negative for clubbing, cyanosis, or edema. RECTAL: Refused. GENITAL: Refused. NEUROLOGIC: Cranial nerves II through XII grossly intact without focal deficits. Motor strength is 5/5 bilaterally intact. Deep tendon reflexes are 2+, plantar. LABORATORY STUDIES: WBC 8.2, hemoglobin 12.9, hematocrit 39.6, platelets 109,000. Sodium 129, potassium 4.8, chloride 92, CO2 30, BUN 59, creatinine 3.9, glucose 439. Troponin elevated at 0.123. BNP elevated at 34,888. Lipase elevated at 586. ASSESSMENT: This is a 76-year-old female with: 1. Chest pain. 2. Hyponatremia. 3. Elevated troponin. 4. Epigastric pain. 5. Acute pancreatitis. 6. Diabetes type 2. 7. Hypertension. 8. Parkinson disease. 9. Coronary artery disease. 10. Congestive heart failure. 11. Hypercholesterolemia. 12. Pacemaker in situ. TREATMENT: 1. Chest pain/congestive heart failure/coronary artery disease/elevated troponin. Cardiology consultation has been obtained with Dr. Micah Sotelo. We will follow recommendations of Cardiology. 2. Epigastric pain/acute pancreatitis. Gastroenterology consultation has been obtained with Dr. Santo Polanco. We will follow recommendations of Gastroenterology. 3. Hyponatremia. The patient is currently receiving intravenous fluids. 4. Diabetes type 2. NovoLog sliding scale has been instituted. 5. Hypertension. Continue clonidine and amlodipine as above. 6. Parkinson disease. 7. History of coronary artery disease, status post coronary artery bypass graft. 8. Hypercholesterolemia. Continue Lipitor as above. 9. Pacemaker in situ. Jasen Larkin M.D. DR: Bennie JOB#: [id number] CC:
[2017-04-13] VITALS (7 sets, daily range): BP systolic 99–128; BP diastolic 50–70
--- NOTE | 2017-04-13 00:15 | Consultation ---
DATE OF CONSULTATION: 04/12/2017 NOTE: "POOR AUDIO QUALITY" CARDIOLOGY CONSULTATION CONSULTING PHYSICIAN: Micah Sotelo M.D. REFERRING PHYSICIAN: Jovani Gr M.D. REASON FOR REFERRAL: Chest pain. HISTORY OF PRESENT ILLNESS: This is an elderly female, who is a questionable historian. Information was obtained from my review of the patient's chart and records here and at [facility]. I have attempted to contact the patient's son, Laureen, and the patient's daughter, Lima, and I have not been successful in doing so. The patient herself here does not have any chest pain. No shortness of breath. No palpitations. She uses one pillow. No dizziness on standing and no tightness or heaviness in the chest is what she describes to me on questioning, however, the emergency room physician's notation indicated that the patient presented because of increased chest pain and has had some abdominal pain for several days. PAST MEDICAL HISTORY: The patient's past medical history is extensive and as reported in my consultation is the history of coronary artery disease, status post coronary artery bypass grafting of three vessels. She has history of permanent pacemaker implantation, diabetes mellitus, end-stage renal disease, on hemodialysis, history of ovarian and cerebellar tumors treated surgically, and history of congestive heart failure. She has had history of bradycardia for which she underwent a pacemaker implantation by Dr. Earl in 2016 and does have history of known aortic stenosis and was evaluated for possibility of TAVR, but [facility] records do not show that she ever followed up with that. I believe that possibly they felt that she would need some followup, but apparently never did. She does have history of hyperlipidemia, Parkinson disease, Alzheimer dementia, left bundle-branch conduction defect, diabetes mellitus, previously felt to have ejection fraction, the aortic valve peak gradient of 27, mean gradient of 15, and severe mitral annular calcification and with peak gradient of 21 and mean gradient of 7. She has history of bronchial asthma and history of deep venous thromboses and she was [facility]. She has had history of oophorectomy, omentectomy, exploratory laparotomy, brain tumor debulking. SOCIAL HISTORY: She is , 3 sons and 2 daughters. REVIEW OF SYSTEMS: GASTROINTESTINAL: She denies any nausea or vomiting. No diarrhea or constipation. No bloody or black stools. GENITOURINARY: She does not have any burning on urination. PULMONARY: She denies any coughing or wheezing. CONSTITUTIONAL: She denies any fevers, chills, or night sweats. PHYSICAL EXAMINATION: GENERAL: Shows to be an elderly female, in no respiratory distress. HEENT: Unremarkable. NECK: Supple. No jugular venous distention. No abdominojugular reflux noted. LUNGS: Appear to be clear to auscultation and percussion. CARDIAC: S1 is normal. S2 is normal. Regular rate and rhythm. No heaves or thrills noted. ABDOMEN: Soft. There does not appear to be any guarding. No rigidity. EXTREMITIES: Showed no clubbing, cyanosis, or edema. NEUROLOGICAL: She is awake and responsive. She is aware that she is at [facility]. LABORATORY DATA: Her white count is 8.3 with hemoglobin 12.9 and platelet count of 109,000. The values are somewhat different than what she was having in 2017, when she had platelet count of 239,000 and hemoglobin at that time was 7.5. She has got sodium of 129, potassium 4.8, chloride 92, bicarbonate 30, BUN of 59, creatinine 3.9, glucose of 439, and calcium is 8.8. Alkaline phosphatase is 459, that was 76 previously. She has had troponin of 0.123 and 0.098 and proBNP of 34,888. Albumin of 3.4. PTT of 28. Chest x-ray performed in the emergency room shows no acute disease processes at this time. An electrocardiogram shows T-wave inversions in I, aVL with ST segment depressions in V5 and V6 as well as T-wave inversions in basically the V2, V3, and V6. In direct comparison with her prior electrocardiogram back in May 2016, the electrocardiographic changes appeared to be more extensive than what was on prior occasion. ASSESSMENT AND PLAN: 1. Reported history of chest pains. 2. Minimal abnormal cardiac enzymes, questionable significance in light of renal insufficiency. 3. History of aortic stenosis with peak gradient of 27 and mean of 15 previously. 4. History of mitral stenosis with peak gradient of 21 and mean gradient of 7 previously at [facility]. 5. History of congestive heart failure. 6. Coronary artery disease, status post coronary artery bypass grafting in 2004. 7. History of cerebellar tumor, status post resection in 2014. 8. History of ovarian vein thrombosis in 2010. 9. History of thromboembolism. 10. History of sick sinus syndrome, status post permanent pacemaker implantation of [place]. 11. History of hypertension. 12. History of hyperlipidemia. 13. End-stage renal disease, on hemodialysis. Dr. Gr, this patient was seen in cardiac consultation. The patient is somewhat of a poor historian. Her electrocardiogram is abnormal, so did have some abnormalities in the cardiac enzymes. She does have coronary artery disease and several other risk factors. I would repeat the cardiac enzymes, repeat the EKG, and an echocardiogram for further evaluation and decide whether she needs further imaging and possibly in the form of an ischemia evaluation. We will determine whether her LV function has changed since prior evaluation, although her valvular severity has also changed since prior evaluation back in 2017. Further recommendation will be provided depending on the results of those tests. Micah Sotelo M.D. DR: Christine JOB#: [id number] CC:
--- NOTE | 2017-04-13 03:00 | Consultation ---
DATE OF CONSULTATION: 04/12/2017 GASTROENTEROLOGY CONSULTATION CONSULTING PHYSICIAN: Santo Polanco M.D. CHIEF COMPLAINT: Abdominal pain. HISTORY OF PRESENT ILLNESS: The patient is a 76-year-old female with multiple medical problems including diabetes, hypertension, end-stage renal disease, on hemodialysis, CVA, coronary artery disease, history of gastric bypass, stent placement, history of pacemaker placement, history of mitral stenosis, and history of metastatic cerebellar tumor, presented to the hospital mainly complaining of chest pain, had elevated troponin, also had complaint of abdominal pain and elevated lipase, so Gastrointestinal consultation requested for evaluation. At this time, the patient denies any abdominal pain. No nausea. No vomiting. No dysphagia. No odynophagia. She does not remember any prior history of endoscopy nor colonoscopy. PAST MEDICAL HISTORY: 1. End-stage renal disease, on hemodialysis. 2. Type 2 diabetes. 3. Hypertension. 4. Parkinson disease. 5. Coronary artery disease, status post gastric bypass. 6. Congestive heart failure. 7. History of ovarian cancer. 8. Metastatic cerebellar tumor. 9. Bilateral pleural effusions. 10. Pacemaker placement. ALLERGIES: No known drug allergies. MEDICATIONS: Please see medication reconciliation list. PAST SURGICAL HISTORY: 1. Coronary artery bypass. 2. Pacemaker. 3. Resection of ovarian tumor. 4. Cerebellar metastasis tumor resection. 5. Left upper extremity AV graft placement for hemodialysis. SOCIAL HISTORY: The patient denies any tobacco, alcohol, or drug abuse. FAMILY HISTORY: Noncontributory. REVIEW OF SYSTEMS: A 10-point review of systems was performed and pertinent positives in the history of present illness. PHYSICAL EXAMINATION: GENERAL: This is a well-developed female, in no acute distress. VITAL SIGNS: Temperature is 97.5, pulse is 62, respirations 20, and blood pressure is 108/50. HEENT: Normocephalic, atraumatic. Sclerae anicteric. NECK: Supple. No evidence of lymphadenopathy. CARDIOVASCULAR: Regular rate and rhythm. Plus S1 and S2. LUNGS: Clear to auscultation bilaterally. ABDOMEN: Positive bowel sounds. Soft and nontender. No rebound. No guarding. No peritoneal sign. EXTREMITIES: No cyanosis, no clubbing, and no edema. LABORATORY DATA: White count is 8.3, hemoglobin is 12, hematocrit 39, and platelet count is 109. Chemistry, sodium 129, potassium 4.8, BUN is 69, and creatinine is 3.9. Troponin elevated at 0.123. Alkaline phosphatase maximum was 459, but was normal yesterday at 76. Lipase 586. ASSESSMENT: The patient is a 76-year-old female with numerous medical problems as dictated above, admitted to the hospital with chest pain, abdominal pain, has elevated lipase, elevated alkaline phosphatase, has evidence of hyponatremia, elevated troponins, and thrombocytopenia PLAN: Repeat laboratories for tomorrow including CBC, CMP, amylase, and lipase. Consider abdominal ultrasound if the patient has persistently elevated alkaline phosphatase for tomorrow. Start the patient on diet and advance as tolerated. The patient needs to get a workup with Cardiology, given elevated troponin. The patient also will benefit as an outpatient. Follow for endoscopy and colonoscopy. Santo Polanco M.D. DR: PRADIP JOB#: [id number] CC:
[2017-04-13] MEDS: Heparin 5000 units/ml inj SUBQ SCH (06:32)
[2017-04-13] MEDS: NovoLOG Insulin Flexpen SUBQ SCH ×4 (06:34→20:36)
[2017-04-13] MEDS: Donepezil 5mg Tab ORAL SCH (08:27)
[2017-04-13] MEDS: HydrALAZINE 50mg tab ORAL SCH ×3 (08:29→22:00)
[2017-04-13] MEDS: Labetalol 200mg tab ORAL SCH ×2 (08:29→17:03)
[2017-04-13] MEDS: Docusate 100mg cap ORAL SCH ×3 (08:30→17:04)
[2017-04-13] MEDS ORDERED: Aspirin Baby 81mg ORAL SCH (09:00)
--- NOTE | 2017-04-13 09:35 | General Progress Note ---
Assessment/Plan Problem List: (1) HTN (hypertension) ICD Codes: I10 - Essential (primary) hypertension SNOMED: 44641834 (2) DM (diabetes mellitus) ICD Codes: E11.9 - Type 2 diabetes mellitus without complications SNOMED: 88346529 (3) ESRD (end stage renal disease) on dialysis ICD Codes: N18.6 - End stage renal disease; Z99.2 - Dependence on renal dialysis SNOMED: 326834642 (4) Anemia ICD Codes: D64.9 - Anemia, unspecified SNOMED: 184314418 (5) Ovarian cancer ICD Codes: C56.9 - Malignant neoplasm of unspecified ovary SNOMED: 519326767 Assessment/Plan no abd pain hold GI procedures for now fu labs fu cardiology recs Subjective ROS Limited/Unobtainable: Yes Allergies: Coded Allergies: No Known Allergies (Unverified , 02/02/15) Subjective no abd pain Objective Last 24 Hour Vital Signs Date Time Temp Pulse Resp B/P (MAP) Pulse Ox O2 Delivery O2 Flow Rate FiO2 04/13/17 08:30 63 128/70 04/13/17 08:29 63 128/70 04/13/17 08:29 128/70 04/13/17 08:28 128/70 04/13/17 08:00 97.7 63 22 128/70 98 Room Air 97.7 04/13/17 04:00 60 04/13/17 04:00 97.7 60 18 122/61 98 Room Air 97.7 04/13/17 00:00 61 04/13/17 00:00 98.2 60 20 103/57 100 Room Air 98.2 04/12/17 20:00 62 04/12/17 20:00 97.0 62 20 106/60 100 97.0 04/12/17 20:00 Room Air 04/12/17 17:46 115/60 04/12/17 17:45 115/60 04/12/17 17:45 62 115/60 04/12/17 16:00 58 04/12/17 16:00 97.5 60 21 108/50 95 Room Air 97.5 04/12/17 13:00 105/70 04/12/17 12:18 97.0 60 20 105/70 97 Room Air 97.0 04/12/17 12:01 126/57 04/12/17 12:00 60 04/12/17 10:36 126/57 04/12/17 10:36 60 126/57 04/12/17 10:36 60 126/57 04/12/17 10:35 126/57 Intake and Output 04/12/17 04/13/17 19:00 07:00 Intake Total 800 ml 0 ml Balance 800 ml 0 ml Intake Oral 800 ml 0 ml # Voids 1 Laboratory Tests 04/13/17 07:20: White Blood Count [Pending], Red Blood Count [Pending], Hemoglobin [Pending], Hematocrit [Pending], Mean Corpuscular Volume [Pending], Mean Corpuscular Hemoglobin [Pending], Mean Corpuscular Hemoglobin Concent [Pending], Red Cell Distribution Width [Pending], Platelet Count [Pending], Mean Platelet Volume [ Pending], Neutrophils (%) (Auto) [Pending], Lymphocytes (%) (Auto) [Pending], Monocytes (%) (Auto) [Pending], Eosinophils (%) (Auto) [Pending], Basophils (%) (Auto) [Pending], Prothrombin Time [Pending], Prothromb Time International Ratio [Pending], Activated Partial Thromboplast Time [Pending], Sodium Level [ Pending], Potassium Level [Pending], Chloride Level [Pending], Carbon Dioxide Level [Pending], Blood Urea Nitrogen [Pending], Creatinine [Pending], Estimat Glomerular Filtration Rate [Pending], Glucose Level [Pending], Hemoglobin A1c [ Pending], Uric Acid [Pending], Calcium Level [Pending], Phosphorus Level [ Pending], Magnesium Level [Pending], Total Bilirubin [Pending], Aspartate Amino Transf (AST/SGOT) [Pending], Alanine Aminotransferase (ALT/SGPT) [Pending], Alkaline Phosphatase [Pending], Troponin I [Pending], C-Reactive Protein, Quantitative [Pending], Pro-B-Type Natriuretic Peptide [Pending], Total Protein [Pending], Albumin [Pending], Globulin [Pending], Triglycerides Level [Pending] , Cholesterol Level [Pending], LDL Cholesterol [Pending], HDL Cholesterol [ Pending], Cholesterol/HDL Ratio [Pending], Amylase Level [Pending], Lipase [ Pending], Vitamin B12 Level [Pending], Folate [Pending], Thyroid Stimulating Hormone (TSH) [Pending] Height (Feet): 5 Height (Inches): 1.00 Weight (Pounds): 140 General Appearance: alert EENT: normal ENT inspection Neck: supple Cardiovascular: normal rate Respiratory/Chest: lungs clear Abdomen: normal bowel sounds, non tender, soft Extremities: non-tender DILLON TOWNSEND Apr 13, 2017 09:35
[2017-04-13 09:54] LABS: ALANINE AMINOTRANSFERASE 29 U/L (12-78); ALBUMIN 3.1 G/DL (3.4-5.0); ALBUMIN/GLOBULIN RATIO 0.9 (1.0-2.7); ALKALINE PHOSPHATASE 238 U/L (46-116); ANION GAP 10 mmol/L (5-15); ASPARTATE AMINO TRANSFERASE 23 U/L (15-37); BILIRUBIN,TOTAL 0.8 MG/DL (0.2-1.0); BLOOD UREA NITROGEN 76 mg/dL (7-18); CALCIUM 8.6 MG/DL (8.5-10.1); CARBON DIOXIDE 26 MMOL/L (21-32); CHLORIDE 93 MMOL/L (98-107); CHOLESTEROL 84 MG/DL (< 200); CREATININE 5.1 MG/DL (0.55-1.30); HDL CHOLESTEROL 61 MG/DL (40-60); PHOSPHORUS 2.6 MG/DL (2.5-4.9); POTASSIUM 5.1 MMOL/L (3.5-5.1); SODIUM 129 MMOL/L (136-145); TRIGLYCERIDES 18 MG/DL (30-150)
--- NOTE | 2017-04-13 10:45 | Nephrology Progress Note ---
Assessment/Plan Problem List: (1) ESRD (end stage renal disease) on dialysis Assessment Chest pain elevated troponin ESRD, on HD has left arm fistula abdominal pain probably acute pancreatitis DM OOC pacemaker CAD with hx of CABG hx of CVA HTN hx of metastatic cerebellar tumor resection Plan HD 04/14 add nitrates per cardiology BS and BP control per orders Subjective ROS Limited/Unobtainable: No Constitutional: Reports: malaise Objective Objective Last 24 Hour Vital Signs Date Time Temp Pulse Resp B/P (MAP) Pulse Ox O2 Delivery O2 Flow Rate FiO2 04/13/17 08:30 63 128/70 04/13/17 08:29 63 128/70 04/13/17 08:29 128/70 04/13/17 08:28 128/70 04/13/17 08:00 58 04/13/17 08:00 97.7 63 22 128/70 98 Room Air 97.7 04/13/17 04:00 60 04/13/17 04:00 97.7 60 18 122/61 98 Room Air 97.7 04/13/17 00:00 61 04/13/17 00:00 98.2 60 20 103/57 100 Room Air 98.2 04/12/17 20:00 62 04/12/17 20:00 97.0 62 20 106/60 100 97.0 04/12/17 20:00 Room Air 04/12/17 17:46 115/60 04/12/17 17:45 115/60 04/12/17 17:45 62 115/60 04/12/17 16:00 58 04/12/17 16:00 97.5 60 21 108/50 95 Room Air 97.5 04/12/17 13:00 105/70 04/12/17 12:18 97.0 60 20 105/70 97 Room Air 97.0 04/12/17 12:01 126/57 04/12/17 12:00 60 Intake and Output 04/12/17 04/13/17 19:00 07:00 Intake Total 800 ml 0 ml Balance 800 ml 0 ml Intake Oral 800 ml 0 ml # Voids 1 Laboratory Tests 04/13/17 07:20: Prothrombin Time [Pending], Prothromb Time International Ratio [Pending], Activated Partial Thromboplast Time [Pending], Sodium Level 129L, Potassium Level 5.1, Chloride Level 93L, Carbon Dioxide Level 26, Anion Gap 10, Blood Urea Nitrogen 76H, Creatinine 5.1H, Estimat Glomerular Filtration Rate , Glucose Level 153#H, Hemoglobin A1c [Pending], Uric Acid [Pending], Calcium Level 8.6, Phosphorus Level 2.6, Magnesium Level 2.1, Total Bilirubin 0.8, Aspartate Amino Transf (AST/SGOT) 23, Alanine Aminotransferase (ALT/SGPT) 29, Alkaline Phosphatase 238H, Troponin I [Pending], C-Reactive Protein, Quantitative [Pending], Pro-B-Type Natriuretic Peptide [Pending], Total Protein 6.4, Albumin 3.1L, Globulin 3.3, Albumin/Globulin Ratio 0.9L, Triglycerides Level 18L, Cholesterol Level 84, LDL Cholesterol 30, HDL Cholesterol 61H, Cholesterol/HDL Ratio 1.4L, Amylase Level 59, Lipase 177, Vitamin B12 Level 1243H, Folate 19.0, Thyroid Stimulating Hormone (TSH) 10.497H Height (Feet): 5 Height (Inches): 1.00 Weight (Pounds): 140 General Appearance: no apparent distress Cardiovascular: normal rate Respiratory/Chest: decreased breath sounds Abdomen: soft Objective no change DODIE CONNER Apr 13, 2017 10:44
[2017-04-13 11:26] LABS: HEMATOCRIT 33.3 % (37.0-47.0); HEMOGLOBIN 10.6 G/DL (12.0-16.0); MEAN CORPUSCULAR VOLUME 99 FL (80-99); PLATELET COUNT 62 K/UL (150-450); RED BLOOD COUNT 3.37 M/UL (4.20-5.40); RED CELL DISTRIBUTION WIDTH 19.8 % (11.6-14.8)
[2017-04-13 11:37] LABS: INR 1.2 (0.9-1.1)
[2017-04-13] MEDS: Imdur 30mg tab ORAL SCH (11:48)
--- NOTE | 2017-04-13 12:25 | Cardiology Progress Note ---
Assessment/Plan Assessment/Plan 1. Reported history of chest pains. 2. Minimal abnormal cardiac enzymes, questionable significance in light of renal insufficiency. 3. History of aortic stenosis with peak gradient of 27 and mean of 15 previously. 4. History of mitral stenosis with peak gradient of 21 and mean gradient of 7 previously at [facility]. 5. History of congestive heart failure. 6. Coronary artery disease, status post coronary artery bypass grafting in 2004. 7. History of cerebellar tumor, status post resection in 2014. 8. History of ovarian vein thrombosis in 2010. 9. History of thromboembolism. 10. History of sick sinus syndrome, status post permanent pacemaker implantation of [place]. 11. History of hypertension. 12. History of hyperlipidemia. 13. End-stage renal disease, on hemodialysis. min anb trop remains tele sinus v paced reviewed persoanlly awiat echo for as , ms severity myocardial perfusion imaging tomorrow d/w pt Subjective Cardiovascular: Denies: chest pain, lightheadedness, palpitations Respiratory: Denies: shortness of breath Gastrointestinal/Abdominal: Denies: abdominal pain Genitourinary: Denies: burning Objective Last 24 Hour Vital Signs Date Time Temp Pulse Resp B/P (MAP) Pulse Ox O2 Delivery O2 Flow Rate FiO2 04/13/17 11:48 128/70 04/13/17 08:30 63 128/70 04/13/17 08:29 63 128/70 04/13/17 08:29 128/70 04/13/17 08:28 128/70 04/13/17 08:00 58 04/13/17 08:00 97.7 63 22 128/70 98 Room Air 97.7 04/13/17 04:00 60 04/13/17 04:00 97.7 60 18 122/61 98 Room Air 97.7 04/13/17 00:00 61 04/13/17 00:00 98.2 60 20 103/57 100 Room Air 98.2 04/12/17 20:00 62 04/12/17 20:00 97.0 62 20 106/60 100 97.0 04/12/17 20:00 Room Air 04/12/17 17:46 115/60 04/12/17 17:45 115/60 04/12/17 17:45 62 115/60 04/12/17 16:00 58 04/12/17 16:00 97.5 60 21 108/50 95 Room Air 97.5 04/12/17 13:00 105/70 General Appearance: alert Neck: supple Cardiovascular: normal rate, regular rhythm Respiratory/Chest: lungs clear Abdomen: normal bowel sounds, non tender, soft Extremities: no swelling Intake and Output 04/12/17 04/13/17 19:00 07:00 Intake Total 800 ml 0 ml Balance 800 ml 0 ml Intake Oral 800 ml 0 ml # Voids 1 Laboratory Tests Test 04/13/17 07:20 04/13/17 11:10 Sodium Level 129 MMOL/L (136-145) L Potassium Level 5.1 MMOL/L (3.5-5.1) Chloride Level 93 MMOL/L (98-107) L Carbon Dioxide Level 26 MMOL/L (21-32) Anion Gap 10 mmol/L (5-15) Blood Urea Nitrogen 76 mg/dL (7-18) H Creatinine 5.1 MG/DL (0.55-1.30) H Estimat Glomerular Filtration Rate mL/min (>60) Glucose Level 153 MG/DL (74-106) #H Hemoglobin A1c 8.5 % (4.3-6.0) H Uric Acid 5.6 MG/DL (2.6-7.2) Calcium Level 8.6 MG/DL (8.5-10.1) Phosphorus Level 2.6 MG/DL (2.5-4.9) Magnesium Level 2.1 MG/DL (1.8-2.4) Total Bilirubin 0.8 MG/DL (0.2-1.0) Aspartate Amino Transf (AST/SGOT) 23 U/L (15-37) Alanine Aminotransferase (ALT/SGPT) 29 U/L (12-78) Alkaline Phosphatase 238 U/L (46-116) H Troponin I 0.079 ng/mL (0.000-0.056) C-Reactive Protein, Quantitative 0.6 mg/dL (0.00-0.90) Pro-B-Type Natriuretic Peptide > 44316 pg/mL (0-125) H Total Protein 6.4 G/DL (6.4-8.2) Albumin 3.1 G/DL (3.4-5.0) L Globulin 3.3 g/dL Albumin/Globulin Ratio 0.9 (1.0-2.7) L Triglycerides Level 18 MG/DL (30-150) L Cholesterol Level 84 MG/DL (< 200) LDL Cholesterol 30 mg/dL (<100) HDL Cholesterol 61 MG/DL (40-60) H Cholesterol/HDL Ratio 1.4 (3.3-4.4) L Amylase Level 59 U/L (25-115) Lipase 177 U/L (73-393) Vitamin B12 Level 1243 PG/ML (193-986) H Folate 19.0 NG/ML (8.6-58.9) Thyroid Stimulating Hormone (TSH) 10.497 uiU/mL (0.358-3.740) White Blood Count 7.0 K/UL (4.8-10.8) Red Blood Count 3.37 M/UL (4.20-5.40) L Hemoglobin 10.6 G/DL (12.0-16.0) L Hematocrit 33.3 % (37.0-47.0) L Mean Corpuscular Volume 99 FL (80-99) # Mean Corpuscular Hemoglobin 31.4 PG (27.0-31.0) H Mean Corpuscular Hemoglobin Concent 31.8 G/DL (32.0-36.0) L Red Cell Distribution Width 19.8 % (11.6-14.8) H Platelet Count 62 K/UL (150-450) L Mean Platelet Volume 9.1 FL (6.5-10.1) Neutrophils (%) (Auto) % (45.0-75.0) Lymphocytes (%) (Auto) % (20.0-45.0) Monocytes (%) (Auto) % (1.0-10.0) Eosinophils (%) (Auto) % (0.0-3.0) Basophils (%) (Auto) % (0.0-2.0) Neutrophils % (Manual) Pending Lymphocytes % (Manual) Pending Platelet Estimate Pending Platelet Morphology Pending Prothrombin Time 12.8 SEC (9.30-11.50) H Prothromb Time International Ratio 1.2 (0.9-1.1) H Activated Partial Thromboplast Time 32 SEC (23-33) CUAUHTEMOC WALKER Apr 13, 2017 12:25
--- NOTE | 2017-04-13 12:27 | Cardiology Progress Note ---
Assessment/Plan Assessment/Plan 1. Reported history of chest pains. 2. Minimal abnormal cardiac enzymes, questionable significance in light of renal insufficiency. 3. History of aortic stenosis with peak gradient of 27 and mean of 15 previously. 4. History of mitral stenosis with peak gradient of 21 and mean gradient of 7 previously at [facility]. 5. History of congestive heart failure. 6. Coronary artery disease, status post coronary artery bypass grafting in 2004. 7. History of cerebellar tumor, status post resection in 2014. 8. History of ovarian vein thrombosis in 2010. 9. History of thromboembolism. 10. History of sick sinus syndrome, status post permanent pacemaker implantation of [place]. 11. History of hypertension. 12. History of hyperlipidemia. 13. End-stage renal disease, on hemodialysis. 14. thrombocytopenia this is a duplicate addendum note ' plt couts are lwo will dc plavix for nwo may need to dc ecotrin as well tomorrow if lowerer min anb trop remains tele sinus v paced reviewed persoanlly awiat echo for as , ms severity myocardial perfusion imaging tomorrow d/w pt Objective Last 24 Hour Vital Signs Date Time Temp Pulse Resp B/P (MAP) Pulse Ox O2 Delivery O2 Flow Rate FiO2 04/13/17 11:48 128/70 04/13/17 08:30 63 128/70 04/13/17 08:29 63 128/70 04/13/17 08:29 128/70 04/13/17 08:28 128/70 04/13/17 08:00 58 04/13/17 08:00 97.7 63 22 128/70 98 Room Air 97.7 04/13/17 04:00 60 04/13/17 04:00 97.7 60 18 122/61 98 Room Air 97.7 04/13/17 00:00 61 04/13/17 00:00 98.2 60 20 103/57 100 Room Air 98.2 04/12/17 20:00 62 04/12/17 20:00 97.0 62 20 106/60 100 97.0 04/12/17 20:00 Room Air 04/12/17 17:46 115/60 04/12/17 17:45 115/60 04/12/17 17:45 62 115/60 04/12/17 16:00 58 04/12/17 16:00 97.5 60 21 108/50 95 Room Air 97.5 04/12/17 13:00 105/70 Intake and Output 04/12/17 04/13/17 19:00 07:00 Intake Total 800 ml 0 ml Balance 800 ml 0 ml Intake Oral 800 ml 0 ml # Voids 1 Laboratory Tests Test 04/13/17 07:20 04/13/17 11:10 Sodium Level 129 MMOL/L (136-145) L Potassium Level 5.1 MMOL/L (3.5-5.1) Chloride Level 93 MMOL/L (98-107) L Carbon Dioxide Level 26 MMOL/L (21-32) Anion Gap 10 mmol/L (5-15) Blood Urea Nitrogen 76 mg/dL (7-18) H Creatinine 5.1 MG/DL (0.55-1.30) H Estimat Glomerular Filtration Rate mL/min (>60) Glucose Level 153 MG/DL (74-106) #H Hemoglobin A1c 8.5 % (4.3-6.0) H Uric Acid 5.6 MG/DL (2.6-7.2) Calcium Level 8.6 MG/DL (8.5-10.1) Phosphorus Level 2.6 MG/DL (2.5-4.9) Magnesium Level 2.1 MG/DL (1.8-2.4) Total Bilirubin 0.8 MG/DL (0.2-1.0) Aspartate Amino Transf (AST/SGOT) 23 U/L (15-37) Alanine Aminotransferase (ALT/SGPT) 29 U/L (12-78) Alkaline Phosphatase 238 U/L (46-116) H Troponin I 0.079 ng/mL (0.000-0.056) C-Reactive Protein, Quantitative 0.6 mg/dL (0.00-0.90) Pro-B-Type Natriuretic Peptide > 38106 pg/mL (0-125) H Total Protein 6.4 G/DL (6.4-8.2) Albumin 3.1 G/DL (3.4-5.0) L Globulin 3.3 g/dL Albumin/Globulin Ratio 0.9 (1.0-2.7) L Triglycerides Level 18 MG/DL (30-150) L Cholesterol Level 84 MG/DL (< 200) LDL Cholesterol 30 mg/dL (<100) HDL Cholesterol 61 MG/DL (40-60) H Cholesterol/HDL Ratio 1.4 (3.3-4.4) L Amylase Level 59 U/L (25-115) Lipase 177 U/L (73-393) Vitamin B12 Level 1243 PG/ML (193-986) H Folate 19.0 NG/ML (8.6-58.9) Thyroid Stimulating Hormone (TSH) 10.497 uiU/mL (0.358-3.740) White Blood Count 7.0 K/UL (4.8-10.8) Red Blood Count 3.37 M/UL (4.20-5.40) L Hemoglobin 10.6 G/DL (12.0-16.0) L Hematocrit 33.3 % (37.0-47.0) L Mean Corpuscular Volume 99 FL (80-99) # Mean Corpuscular Hemoglobin 31.4 PG (27.0-31.0) H Mean Corpuscular Hemoglobin Concent 31.8 G/DL (32.0-36.0) L Red Cell Distribution Width 19.8 % (11.6-14.8) H Platelet Count 62 K/UL (150-450) L Mean Platelet Volume 9.1 FL (6.5-10.1) Neutrophils (%) (Auto) % (45.0-75.0) Lymphocytes (%) (Auto) % (20.0-45.0) Monocytes (%) (Auto) % (1.0-10.0) Eosinophils (%) (Auto) % (0.0-3.0) Basophils (%) (Auto) % (0.0-2.0) Neutrophils % (Manual) Pending Lymphocytes % (Manual) Pending Platelet Estimate Pending Platelet Morphology Pending Prothrombin Time 12.8 SEC (9.30-11.50) H Prothromb Time International Ratio 1.2 (0.9-1.1) H Activated Partial Thromboplast Time 32 SEC (23-33) CUAUHTEMOC WALKER Apr 13, 2017 12:27
[2017-04-13] MEDS ORDERED: Lexiscan 0.4mg/5ml syringe IV PRN (12:30)
--- NOTE | 2017-04-13 12:45 | Diagnostic Imaging Report ---
Indication:Abdominal pain Technique: Grayscale and duplex Doppler imaging of the abdomen performed. Comparison: None Findings: Study is very limited as the patient was combative. Gallbladder is not visualized. CBD is 3 mm. Main portal vein is patent by Doppler. The kidneys appear slightly echogenic. There is no hydronephrosis. There is no ascites. Spleen is normal in size. The pancreas is not well-seen. IMPRESSION: Limited evaluation. No acute findings.
--- NOTE | 2017-04-13 12:50 | Internal Med Progress Note ---
Subjective Date of Service: Apr 13, 2017 Physician Name Yenifer Schuler Attending Physician Jovani Gr MD Current Medications Medications (Trade) Dose Ordered Sig/Carrie Route PRN Reason Start Time Stop Time Status Last Admin Dose Admin Acetaminophen (Tylenol) 650 mg Q4H PRN ORAL Mild Pain (Pain 1-3)/FEVER 04/12/17 08:00 05/12/17 07:59 Albuterol/ Ipratropium (Albuterol/ Ipratropium) 3 ml EVERY 4 HOURS PRN HHN Shortness of Breath 04/12/17 08:00 04/17/17 07:59 Amlodipine Besylate (Norvasc) 10 mg DAILY ORAL 04/12/17 09:30 05/12/17 09:29 04/13/17 08:30 Atorvastatin Calcium (Lipitor) 80 mg BEDTIME ORAL 04/12/17 21:00 05/12/17 20:59 04/12/17 21:50 Dextrose (Dextrose 50%) STAT PRN IV Hypoglycemia 04/12/17 08:00 05/12/17 07:59 Diltiazem HCl (Cardizem) 10 mg EVERY HOUR PRN IV heart rate more than 120, 04/12/17 08:00 05/12/17 07:59 Diphenhydramine HCl (Benadryl) 25 mg Q8H PRN ORAL Itching 04/12/17 08:00 05/12/17 07:59 Docusate Sodium (Colace) 100 mg TID ORAL 04/13/17 13:00 05/12/17 09:29 Donepezil HCl (Aricept) 5 mg QHS ORAL 04/14/17 21:00 05/12/17 09:29 Gabapentin (Neurontin) 100 mg THREE TIMES A DAY ORAL 04/12/17 09:30 05/12/17 09:29 04/13/17 08:28 Heparin Sodium (Porcine) (Heparin 5000 units/ml) 5,000 units EVERY 8 HOURS SUBQ 04/12/17 14:00 05/12/17 13:59 Future Hold 04/13/17 06:32 Hydralazine HCl (Apresoline) 50 mg Q8HR ORAL 04/13/17 14:00 05/12/17 09:29 Insulin Aspart (NovoLOG) BEFORE MEALS AND HS SUBQ 04/12/17 11:30 05/12/17 11:29 04/13/17 11:49 Isosorbide Mononitrate (Imdur) 30 mg DAILY ORAL 04/13/17 11:30 05/13/17 11:29 04/13/17 11:48 Labetalol HCl (Normodyne) 200 mg BID ORAL 04/12/17 09:30 05/12/17 09:29 04/13/17 08:29 Lansoprazole (Prevacid) 30 mg DAILY ORAL 04/14/17 09:00 05/14/17 08:59 Nitroglycerin (Ntg) 0.4 mg Q5M PRN SL Prn Chest Pain 04/12/17 08:00 05/12/17 07:59 Ondansetron HCl (Zofran) 4 mg Q6H PRN IVP Nausea & Vomiting 04/12/17 08:00 05/12/17 07:59 Pentoxifylline (TRENtal) 400 mg BID ORAL 04/12/17 09:30 05/12/17 09:29 04/13/17 08:28 Polyethylene Glycol (Miralax) 17 gm DAILYPRN PRN ORAL Constipation 04/12/17 08:00 05/12/17 07:59 Regadenoson (Lexiscan) 0.4 mg ONCE PRN IV STRESS TEST 04/13/17 12:30 04/14/17 23:59 Zolpidem Tartrate (Ambien) 5 mg DAILYPRN PRN ORAL Insomnia 04/12/17 08:00 04/19/17 07:59 Allergies: Coded Allergies: No Known Allergies (Unverified , 02/02/15) ROS Limited/Unobtainable: No Constitutional: Reports: no symptoms HEENT: Reports: no symptoms Cardiovascular: Reports: chest pain Respiratory: Reports: no symptoms Gastrointestinal/Abdominal: Reports: no symptoms Genitourinary: Reports: no symptoms Neurologic/Psychiatric: Reports: no symptoms Subjective 76 YO F admitted with chest pain. Now CHF. Cover for Int Morales-Dr Gr. Objective Last Vital Signs Date Time Temp Pulse Resp B/P (MAP) Pulse Ox O2 Delivery O2 Flow Rate FiO2 04/13/17 11:48 128/70 04/13/17 08:30 63 04/13/17 08:00 97.7 22 98 Room Air 97.7 General Appearance: WD/WN, no apparent distress, alert EENT: PERRL/EOMI, normal ENT inspection Neck: non-tender, normal alignment, supple, normal inspection Cardiovascular: normal peripheral pulses, normal rate, regular rhythm, no gallop/murmur, no JVD Respiratory/Chest: chest wall non-tender, no respiratory distress, no accessory muscle use, crackles/rales Abdomen: normal bowel sounds, non tender, soft, no organomegaly, no mass Extremities: normal range of motion Neurologic: miller head wet process II-XII grossly normal, no motor/sensory deficits Skin: normal pigmentation, warm/dry Laboratory Tests Test 04/13/17 07:20 04/13/17 11:10 Sodium Level 129 MMOL/L (136-145) L Potassium Level 5.1 MMOL/L (3.5-5.1) Chloride Level 93 MMOL/L (98-107) L Carbon Dioxide Level 26 MMOL/L (21-32) Anion Gap 10 mmol/L (5-15) Blood Urea Nitrogen 76 mg/dL (7-18) H Creatinine 5.1 MG/DL (0.55-1.30) H Estimat Glomerular Filtration Rate mL/min (>60) Glucose Level 153 MG/DL (74-106) #H Hemoglobin A1c 8.5 % (4.3-6.0) H Uric Acid 5.6 MG/DL (2.6-7.2) Calcium Level 8.6 MG/DL (8.5-10.1) Phosphorus Level 2.6 MG/DL (2.5-4.9) Magnesium Level 2.1 MG/DL (1.8-2.4) Total Bilirubin 0.8 MG/DL (0.2-1.0) Aspartate Amino Transf (AST/SGOT) 23 U/L (15-37) Alanine Aminotransferase (ALT/SGPT) 29 U/L (12-78) Alkaline Phosphatase 238 U/L (46-116) H Troponin I 0.079 ng/mL (0.000-0.056) C-Reactive Protein, Quantitative 0.6 mg/dL (0.00-0.90) Pro-B-Type Natriuretic Peptide > 27074 pg/mL (0-125) H Total Protein 6.4 G/DL (6.4-8.2) Albumin 3.1 G/DL (3.4-5.0) L Globulin 3.3 g/dL Albumin/Globulin Ratio 0.9 (1.0-2.7) L Triglycerides Level 18 MG/DL (30-150) L Cholesterol Level 84 MG/DL (< 200) LDL Cholesterol 30 mg/dL (<100) HDL Cholesterol 61 MG/DL (40-60) H Cholesterol/HDL Ratio 1.4 (3.3-4.4) L Amylase Level 59 U/L (25-115) Lipase 177 U/L (73-393) Vitamin B12 Level 1243 PG/ML (193-986) H Folate 19.0 NG/ML (8.6-58.9) Thyroid Stimulating Hormone (TSH) 10.497 uiU/mL (0.358-3.740) White Blood Count 7.0 K/UL (4.8-10.8) Red Blood Count 3.37 M/UL (4.20-5.40) L Hemoglobin 10.6 G/DL (12.0-16.0) L Hematocrit 33.3 % (37.0-47.0) L Mean Corpuscular Volume 99 FL (80-99) # Mean Corpuscular Hemoglobin 31.4 PG (27.0-31.0) H Mean Corpuscular Hemoglobin Concent 31.8 G/DL (32.0-36.0) L Red Cell Distribution Width 19.8 % (11.6-14.8) H Platelet Count 62 K/UL (150-450) L Mean Platelet Volume 9.1 FL (6.5-10.1) Neutrophils (%) (Auto) % (45.0-75.0) Lymphocytes (%) (Auto) % (20.0-45.0) Monocytes (%) (Auto) % (1.0-10.0) Eosinophils (%) (Auto) % (0.0-3.0) Basophils (%) (Auto) % (0.0-2.0) Neutrophils % (Manual) Pending Lymphocytes % (Manual) Pending Platelet Estimate Pending Platelet Morphology Pending Prothrombin Time 12.8 SEC (9.30-11.50) H Prothromb Time International Ratio 1.2 (0.9-1.1) H Activated Partial Thromboplast Time 32 SEC (23-33) Intake and Output 04/12/17 04/13/17 19:00 07:00 Intake Total 800 ml 0 ml Balance 800 ml 0 ml Intake Oral 800 ml 0 ml # Voids 1 Assessment/Plan Problem List: (1) Hyponatremia (2) Elevated troponin Assessment & Plan: see cardiology note. (3) Epigastric abdominal pain (4) Diabetes mellitus type II, controlled Assessment & Plan: Continue novolog sliding scale. (5) Parkinson's disease (6) Chest pain Assessment & Plan: Await nuclear cardiac stress test. See cardiology note. (7) CHF (congestive heart failure) (8) HTN (hypertension) Assessment & Plan: Continue norvasc and hydralazine (9) CAD (coronary artery disease) (10) Hypercholesterolemia (11) Pacemaker YENIFER SCHULER Apr 13, 2017 12:49
--- NOTE | 2017-04-13 15:48 | Cardiology Report ---
APPROVED REPORT EXAM: Two-dimensional and M-mode echocardiogram with Doppler and color Doppler. INDICATION LV FUNCTION M-Mode DIMENSIONS IVSd1.2 (0.7-1.1cm)Left Atrium (MM)4.3 (1.6-4.0cm) LVDd6.2 (3.5-5.6cm)Aortic Root2.7 (2.0-3.7cm) PWd1.6 (0.7-1.1cm)Aortic Cusp Exc.1.0 (1.5-2.0cm) IVSs1.7 cm LVDs5.7 (2.5-4.0cm) PWs1.5 cm Technically difficult echo due to poor accoustical windows. Global left ventricular hypokinesis. Mild left ventricular enlargements . Left ventricular ejection fraction estimated to be 20-25 %. Mild left ventricular hypertrophy by 2-D. No evidence of pericardial effusion Mild bi-Atrial enlargements . Right ventricular chamber is within normal limits. Heavy Focal aortic valve sclerosis . Heavy Thickened mitral valve leaflets . Mitral annulus and aortic root calcification. Pulmonic valve not well visualized. Normal tricuspid valve structure. IVC dilated at size 3.0 with physiologic collapse. A color flow and spectral Doppler study was performed and revealed: Mild aortic regurgitation. Peak aortic valve gradient of 19 mm Hg and a mean of 10 mmHg. Aortic valve area 1.4 cm2 calculated by continuity equation. Mild to moderate mitral regurgitation. Mitral inflow velocities indicates possible pseudo normalization pattern implying moderately elevated left atrial pressure (Grade II ) Mild to moderate tricuspid regurgitation. Tricuspid systolic velocities suggests peak right ventricular systolic pressure of 57 mmH consistent with moderate pulmonary hypertension. Mild Pulmonic regurgitation present.
[2017-04-13] MEDS ORDERED: NS 275ml ONE (16:37)
[2017-04-13] MEDS: LORazepam Inj 2mg/ml 1ml IV PRN (20:30)
[2017-04-13] MEDS: Atorvastatin 80mg tab ORAL SCH (20:30)
--- NOTE | 2017-04-13 21:10 | Pulmonology Progress Note ---
Assessment/Plan Assessment/Plan ASSESSMENT Chest pain elevated troponin ESRD, on HD cardiomyopathy moderate pulmonary HTN moderate MR and TR severe aortic sclerosis abdominal pain elevated lipase DM OOC pacemaker thrombocytopenia CAD with hx of CABG hx of CVA HTN hx of metastatic cerebellar tumor resection elevated TSH PLAN OF CARE tele serial troponin with minimal elevation , likely due to renal failure ( per cardio) ECHO with EF 20-25% and RVSP of 57 c/w mod pulm HTN, as well as moderate MR and TF ECG paced rhythm cardio eval appreciated a/PLT therapy, Plavix and Heparin dc due to low PLT BP management medical management of SHF with Hydralazine and Imdur, stress test in am continue statin, lipid panel stable DVT GI prophylaxis pain management with Nitro and Morphine prn BS management with SSI check [id number] not at goal, monitor BS and optimize further as needed lipase down to normal abdominal US with echogenic kidneys, o/w negative elevated TSH, check free T4 bowel regimen NOTE: time of this note does not reflect the actual time, the patient was seen, the patient was seen around 1030 case discussed and evaluated by supervising physician Subjective Allergies: Coded Allergies: No Known Allergies (Unverified , 02/02/15) Subjective denies chest pain Objective Last 24 Hour Vital Signs Date Time Temp Pulse Resp B/P (MAP) Pulse Ox O2 Delivery O2 Flow Rate FiO2 04/13/17 20:00 97.0 60 20 112/63 99 Room Air 97.0 04/13/17 17:04 123/68 04/13/17 17:03 62 123/68 04/13/17 16:00 97.6 62 18 123/68 98 Room Air 97.6 04/13/17 16:00 60 04/13/17 13:55 113/50 04/13/17 12:00 60 04/13/17 12:00 97.8 58 20 113/50 98 Room Air 97.8 04/13/17 11:48 128/70 04/13/17 08:30 63 128/70 04/13/17 08:29 63 128/70 04/13/17 08:29 128/70 04/13/17 08:28 128/70 04/13/17 08:00 58 04/13/17 08:00 97.7 63 22 128/70 98 Room Air 97.7 04/13/17 04:00 60 04/13/17 04:00 97.7 60 18 122/61 98 Room Air 97.7 04/13/17 00:00 61 04/13/17 00:00 98.2 60 20 103/57 100 Room Air 98.2 Intake and Output 04/12/17 04/13/17 19:00 07:00 Intake Total 800 ml 0 ml Balance 800 ml 0 ml Intake Oral 800 ml 0 ml # Voids 1 Objective General Appearance: no apparent distress, alert - British speaking female in NASD Lines, tubes and drains: peripheral HEENT: normocephalic, atraumatic, anicteric, mucous membranes moist Neck: non-tender, supple Respiratory/Chest: no respiratory distress, decreased breath sounds, left chest pacemaker Cardiovascular/Chest: normal rate, regular rhythm - SR with TWI, LUE AV fistula + bruit/thrill Abdomen: normal bowel sounds, non tender - obese, soft Extremities: non-tender, no calf tenderness Skin Exam: warm/dry Neurologic: abnormal gait, alert, responsive Musculoskeletal: atrophy - BLE Laboratory Tests 04/13/17 07:20: Sodium Level 129L, Potassium Level 5.1, Chloride Level 93L, Carbon Dioxide Level 26, Anion Gap 10, Blood Urea Nitrogen 76H, Creatinine 5.1H, Estimat Glomerular Filtration Rate , Glucose Level 153#H, Hemoglobin A1c 8.5H, Uric Acid 5.6, Calcium Level 8.6, Phosphorus Level 2.6, Magnesium Level 2.1, Total Bilirubin 0.8, Aspartate Amino Transf (AST/SGOT) 23, Alanine Aminotransferase ( ALT/SGPT) 29, Alkaline Phosphatase 238H, Troponin I 0.079H, C-Reactive Protein, Quantitative 0.6, Pro-B-Type Natriuretic Peptide > 15922W, Total Protein 6.4, Albumin 3.1L, Globulin 3.3, Albumin/Globulin Ratio 0.9L, Triglycerides Level 18L , Cholesterol Level 84, LDL Cholesterol 30, HDL Cholesterol 61H, Cholesterol/ HDL Ratio 1.4L, Amylase Level 59, Lipase 177, Vitamin B12 Level 1243H, Folate 19.0, Thyroid Stimulating Hormone (TSH) 10.497H 04/13/17 11:10: White Blood Count 7.0, Red Blood Count 3.37L, Hemoglobin 10.6L, Hematocrit 33.3L , Mean Corpuscular Volume 99#, Mean Corpuscular Hemoglobin 31.4H, Mean Corpuscular Hemoglobin Concent 31.8L, Red Cell Distribution Width 19.8H, Platelet Count 62L, Mean Platelet Volume 9.1, Neutrophils (%) (Auto) , Lymphocytes (%) (Auto) , Monocytes (%) (Auto) , Eosinophils (%) (Auto) , Basophils (%) (Auto) , Differential Total Cells Counted 100, Neutrophils % ( Manual) 74, Lymphocytes % (Manual) 15L, Monocytes % (Manual) 8, Eosinophils % ( Manual) 3, Basophils % (Manual) 0, Band Neutrophils 0, Platelet Estimate DecreasedL, Platelet Morphology Normal, Anisocytosis 1+, Prothrombin Time 12.8H , Prothromb Time International Ratio 1.2H, Activated Partial Thromboplast Time 32 Current Medications Medications (Trade) Dose Ordered Sig/Carrie Route PRN Reason Start Time Stop Time Status Last Admin Dose Admin Acetaminophen (Tylenol) 650 mg Q4H PRN ORAL Mild Pain (Pain 1-3)/FEVER 04/12/17 08:00 05/12/17 07:59 Albuterol/ Ipratropium (Albuterol/ Ipratropium) 3 ml EVERY 4 HOURS PRN HHN Shortness of Breath 04/12/17 08:00 04/17/17 07:59 Amlodipine Besylate (Norvasc) 10 mg DAILY ORAL 04/12/17 09:30 05/12/17 09:29 04/13/17 08:30 Atorvastatin Calcium (Lipitor) 80 mg BEDTIME ORAL 04/12/17 21:00 05/12/17 20:59 04/13/17 20:30 Dextrose (Dextrose 50%) STAT PRN IV Hypoglycemia 04/12/17 08:00 05/12/17 07:59 Diltiazem HCl (Cardizem) 10 mg EVERY HOUR PRN IV heart rate more than 120, 04/12/17 08:00 05/12/17 07:59 Diphenhydramine HCl (Benadryl) 25 mg Q8H PRN ORAL Itching 04/12/17 08:00 05/12/17 07:59 Docusate Sodium (Colace) 100 mg TID ORAL 04/13/17 13:00 05/12/17 09:29 04/13/17 17:04 Donepezil HCl (Aricept) 5 mg QHS ORAL 04/14/17 21:00 05/12/17 09:29 Gabapentin (Neurontin) 100 mg THREE TIMES A DAY ORAL 04/12/17 09:30 05/12/17 09:29 04/13/17 17:03 Heparin Sodium (Porcine) (Heparin 5000 units/ml) 5,000 units EVERY 8 HOURS SUBQ 04/12/17 14:00 05/12/17 13:59 Future Hold 04/13/17 06:32 Hydralazine HCl (Apresoline) 50 mg Q8HR ORAL 04/13/17 14:00 05/12/17 09:29 04/13/17 13:55 Insulin Aspart (NovoLOG) BEFORE MEALS AND HS SUBQ 04/12/17 11:30 05/12/17 11:29 04/13/17 20:36 Isosorbide Mononitrate (Imdur) 30 mg DAILY ORAL 04/13/17 11:30 05/13/17 11:29 04/13/17 11:48 Labetalol HCl (Normodyne) 200 mg BID ORAL 04/12/17 09:30 05/12/17 09:29 04/13/17 17:03 Lansoprazole (Prevacid) 30 mg DAILY ORAL 04/14/17 09:00 05/14/17 08:59 Lorazepam (Ativan 2mg/ml 1ml) 0.5 mg Q4H PRN IV For Anxiety 04/13/17 20:00 04/20/17 19:59 04/13/17 20:30 Nitroglycerin (Ntg) 0.4 mg Q5M PRN SL Prn Chest Pain 04/12/17 08:00 05/12/17 07:59 Ondansetron HCl (Zofran) 4 mg Q6H PRN IVP Nausea & Vomiting 04/12/17 08:00 05/12/17 07:59 Pentoxifylline (TRENtal) 400 mg BID ORAL 04/12/17 09:30 05/12/17 09:29 04/13/17 17:04 Polyethylene Glycol (Miralax) 17 gm DAILYPRN PRN ORAL Constipation 04/12/17 08:00 05/12/17 07:59 Regadenoson (Lexiscan) 0.4 mg ONCE PRN IV STRESS TEST 04/13/17 12:30 04/14/17 23:59 Zolpidem Tartrate (Ambien) 5 mg DAILYPRN PRN ORAL Insomnia 04/12/17 08:00 04/19/17 07:59 [place] ([facility])My NP Apr 13, 2017 21:10
[2017-04-14] VITALS (8 sets, daily range): BP systolic 99–122; BP diastolic 54–96
[2017-04-14] MEDS: HydrALAZINE 50mg tab ORAL SCH ×3 (06:00→22:42)
[2017-04-14] MEDS: NovoLOG Insulin Flexpen SUBQ SCH ×4 (06:13→22:05)
[2017-04-14] MEDS: Imdur 30mg tab ORAL SCH (08:35)
[2017-04-14] MEDS: Labetalol 200mg tab ORAL SCH ×2 (08:35→17:23)
[2017-04-14] MEDS: Docusate 100mg cap ORAL SCH ×3 (08:46→16:48)
[2017-04-14 09:22] LABS: HEMATOCRIT 35.7 % (37.0-47.0); HEMOGLOBIN 11.4 G/DL (12.0-16.0); MEAN CORPUSCULAR VOLUME 99 FL (80-99); PLATELET COUNT 72 K/UL (150-450); RED BLOOD COUNT 3.61 M/UL (4.20-5.40); RED CELL DISTRIBUTION WIDTH 20.2 % (11.6-14.8); WHITE BLOOD COUNT 6.9 K/UL (4.8-10.8)
[2017-04-14 09:43] LABS: ALANINE AMINOTRANSFERASE 29 U/L (12-78); ALBUMIN 3.3 G/DL (3.4-5.0); ALBUMIN/GLOBULIN RATIO 1.1 (1.0-2.7); ALKALINE PHOSPHATASE 238 U/L (46-116); ANION GAP 14 mmol/L (5-15); ASPARTATE AMINO TRANSFERASE 25 U/L (15-37); BILIRUBIN,TOTAL 0.8 MG/DL (0.2-1.0); BLOOD UREA NITROGEN 93 mg/dL (7-18); CALCIUM 8.6 MG/DL (8.5-10.1); CARBON DIOXIDE 23 MMOL/L (21-32); CHLORIDE 90 MMOL/L (98-107); CREATININE 5.9 MG/DL (0.55-1.30); PHOSPHORUS 3.2 MG/DL (2.5-4.9); SODIUM 127 MMOL/L (136-145)
[2017-04-14 09:47] LABS: POTASSIUM 6.1 MMOL/L (3.5-5.1)
--- NOTE | 2017-04-14 10:52 | Internal Med Progress Note ---
Subjective Date of Service: Apr 14, 2017 Physician Name Yenifer Schuler Attending Physician Jovani Gr MD Current Medications Medications (Trade) Dose Ordered Sig/Carrie Route PRN Reason Start Time Stop Time Status Last Admin Dose Admin Acetaminophen (Tylenol) 650 mg Q4H PRN ORAL Mild Pain (Pain 1-3)/FEVER 04/12/17 08:00 05/12/17 07:59 Albuterol/ Ipratropium (Albuterol/ Ipratropium) 3 ml EVERY 4 HOURS PRN HHN Shortness of Breath 04/12/17 08:00 04/17/17 07:59 Amlodipine Besylate (Norvasc) 10 mg DAILY ORAL 04/12/17 09:30 05/12/17 09:29 04/13/17 08:30 Atorvastatin Calcium (Lipitor) 80 mg BEDTIME ORAL 04/12/17 21:00 05/12/17 20:59 04/13/17 20:30 Dextrose (Dextrose 50%) STAT PRN IV Hypoglycemia 04/12/17 08:00 05/12/17 07:59 Diltiazem HCl (Cardizem) 10 mg EVERY HOUR PRN IV heart rate more than 120, 04/12/17 08:00 05/12/17 07:59 Diphenhydramine HCl (Benadryl) 25 mg Q8H PRN ORAL Itching 04/12/17 08:00 05/12/17 07:59 04/13/17 22:24 Docusate Sodium (Colace) 100 mg TID ORAL 04/13/17 13:00 05/12/17 09:29 04/14/17 08:46 Donepezil HCl (Aricept) 5 mg QHS ORAL 04/14/17 21:00 05/12/17 09:29 Gabapentin (Neurontin) 100 mg THREE TIMES A DAY ORAL 04/12/17 09:30 05/12/17 09:29 04/14/17 08:46 Hydralazine HCl (Apresoline) 50 mg Q8HR ORAL 04/13/17 14:00 05/12/17 09:29 04/13/17 13:55 Insulin Aspart (NovoLOG) BEFORE MEALS AND HS SUBQ 04/12/17 11:30 05/12/17 11:29 04/14/17 06:13 Isosorbide Mononitrate (Imdur) 30 mg DAILY ORAL 04/13/17 11:30 05/13/17 11:29 04/13/17 11:48 Labetalol HCl (Normodyne) 200 mg BID ORAL 04/12/17 09:30 05/12/17 09:29 04/13/17 17:03 Lansoprazole (Prevacid) 30 mg DAILY ORAL 04/14/17 09:00 05/14/17 08:59 04/14/17 08:46 Lorazepam (Ativan 2mg/ml 1ml) 0.5 mg Q4H PRN IV For Anxiety 04/13/17 20:00 04/20/17 19:59 04/13/17 20:30 Nitroglycerin (Ntg) 0.4 mg Q5M PRN SL Prn Chest Pain 04/12/17 08:00 05/12/17 07:59 Ondansetron HCl (Zofran) 4 mg Q6H PRN IVP Nausea & Vomiting 04/12/17 08:00 05/12/17 07:59 Pentoxifylline (TRENtal) 400 mg BID ORAL 04/12/17 09:30 05/12/17 09:29 04/13/17 17:04 Polyethylene Glycol (Miralax) 17 gm DAILYPRN PRN ORAL Constipation 04/12/17 08:00 05/12/17 07:59 Regadenoson (Lexiscan) 0.4 mg ONCE PRN IV STRESS TEST 04/13/17 12:30 04/14/17 23:59 Zolpidem Tartrate (Ambien) 5 mg DAILYPRN PRN ORAL Insomnia 04/12/17 08:00 04/19/17 07:59 Allergies: Coded Allergies: No Known Allergies (Unverified , 02/02/15) ROS Limited/Unobtainable: No Constitutional: Reports: no symptoms HEENT: Reports: no symptoms Cardiovascular: Reports: chest pain Respiratory: Reports: no symptoms Gastrointestinal/Abdominal: Reports: no symptoms Genitourinary: Reports: no symptoms Neurologic/Psychiatric: Reports: no symptoms Subjective 76 YO F admitted with chest pain. Now CHF. Cover for Int Morales-Dr Gr. Await nuclear cardiac stress test. Objective Last Vital Signs Date Time Temp Pulse Resp B/P (MAP) Pulse Ox O2 Delivery O2 Flow Rate FiO2 04/14/17 08:43 99/70 04/14/17 08:35 58 04/14/17 08:32 97.2 19 98 Room Air 97.2 04/14/17 04:11 21 Laboratory Tests Test 04/13/17 11:10 04/14/17 08:15 White Blood Count 7.0 K/UL (4.8-10.8) 6.9 K/UL (4.8-10.8) Red Blood Count 3.37 M/UL (4.20-5.40) L 3.61 M/UL (4.20-5.40) L Hemoglobin 10.6 G/DL (12.0-16.0) L 11.4 G/DL (12.0-16.0) L Hematocrit 33.3 % (37.0-47.0) L 35.7 % (37.0-47.0) L Mean Corpuscular Volume 99 FL (80-99) # 99 FL (80-99) Mean Corpuscular Hemoglobin 31.4 PG (27.0-31.0) H 31.5 PG (27.0-31.0) H Mean Corpuscular Hemoglobin Concent 31.8 G/DL (32.0-36.0) L 31.9 G/DL (32.0-36.0) L Red Cell Distribution Width 19.8 % (11.6-14.8) H 20.2 % (11.6-14.8) H Platelet Count 62 K/UL (150-450) L 72 K/UL (150-450) L Mean Platelet Volume 9.1 FL (6.5-10.1) 8.9 FL (6.5-10.1) Neutrophils (%) (Auto) % (45.0-75.0) % (45.0-75.0) Lymphocytes (%) (Auto) % (20.0-45.0) % (20.0-45.0) Monocytes (%) (Auto) % (1.0-10.0) % (1.0-10.0) Eosinophils (%) (Auto) % (0.0-3.0) % (0.0-3.0) Basophils (%) (Auto) % (0.0-2.0) % (0.0-2.0) Differential Total Cells Counted 100 100 Neutrophils % (Manual) 74 % (45-75) 80 % (45-75) H Lymphocytes % (Manual) 15 % (20-45) L 10 % (20-45) L Monocytes % (Manual) 8 % (1-10) 9 % (1-10) Eosinophils % (Manual) 3 % (0-3) 1 % (0-3) Basophils % (Manual) 0 % (0-2) 0 % (0-2) Band Neutrophils 0 % (0-8) 0 % (0-8) Platelet Estimate Decreased L Decreased L Platelet Morphology Normal Normal Anisocytosis 1+ 2+ Prothrombin Time 12.8 SEC (9.30-11.50) H Prothromb Time International Ratio 1.2 (0.9-1.1) H Activated Partial Thromboplast Time 32 SEC (23-33) Free Thyroxine 0.91 NG/DL (0.76-1.46) Ovalocytes 1+ Sodium Level 127 MMOL/L (136-145) L Potassium Level 6.1 MMOL/L (3.5-5.1) *H Chloride Level 90 MMOL/L (98-107) L Carbon Dioxide Level 23 MMOL/L (21-32) Anion Gap 14 mmol/L (5-15) Blood Urea Nitrogen 93 mg/dL (7-18) H Creatinine 5.9 MG/DL (0.55-1.30) H Estimat Glomerular Filtration Rate mL/min (>60) Glucose Level 123 MG/DL (74-106) H Uric Acid 6.5 MG/DL (2.6-7.2) Calcium Level 8.6 MG/DL (8.5-10.1) Phosphorus Level 3.2 MG/DL (2.5-4.9) Magnesium Level 2.4 MG/DL (1.8-2.4) Total Bilirubin 0.8 MG/DL (0.2-1.0) Aspartate Amino Transf (AST/SGOT) 25 U/L (15-37) Alanine Aminotransferase (ALT/SGPT) 29 U/L (12-78) Alkaline Phosphatase 238 U/L (46-116) H Troponin I 0.044 ng/mL (0.000-0.056) C-Reactive Protein, Quantitative < 0.4 mg/dL (0.00-0.90) Total Protein 6.4 G/DL (6.4-8.2) Albumin 3.3 G/DL (3.4-5.0) L Globulin 3.1 g/dL Albumin/Globulin Ratio 1.1 (1.0-2.7) Microbiology Date/Time Source Procedure Growth Status 04/12/17 03:13 Nasal Nares MRSA Culture - Final NO METHICILLIN RESISTANT STAPH AUREUS... Complete 04/12/17 03:13 Rectum VRE Culture - Final NO VANCOMYCIN RESISTANT ENTEROCOCCUS ... Complete Intake and Output 04/13/17 04/14/17 19:00 07:00 Intake Total 800 ml Output Total 200 ml Balance 800 ml -200 ml Intake Oral 800 ml Output Urine Total 200 ml # Voids 2 Objective General Appearance: WD/WN, no apparent distress, alert EENT: PERRL/EOMI, normal ENT inspection Neck: non-tender, normal alignment, supple, normal inspection Cardiovascular: normal peripheral pulses, normal rate, regular rhythm, no gallop/murmur, no JVD Respiratory/Chest: chest wall non-tender, no respiratory distress, no accessory muscle use, crackles/rales Abdomen: normal bowel sounds, non tender, soft, no organomegaly, no mass Extremities: normal range of motion Neurologic: aircraft skin burnisher II-XII grossly normal, no motor/sensory deficits Skin: normal pigmentation, warm/dry Assessment/Plan Problem List: (1) Hyponatremia (2) Elevated troponin Assessment & Plan: see cardiology note. (3) Epigastric abdominal pain (4) Diabetes mellitus type II, controlled Assessment & Plan: Continue novolog sliding scale. (5) Parkinson's disease (6) Chest pain Assessment & Plan: Await nuclear cardiac stress test. See cardiology note. (7) CHF (congestive heart failure) (8) HTN (hypertension) Assessment & Plan: Continue norvasc and hydralazine (9) CAD (coronary artery disease) Assessment & Plan: S/P CABG (10) Hypercholesterolemia (11) Pacemaker (12) Hyperkalemia Assessment & Plan: hemodialysis today (13) ESRD (end stage renal disease) on dialysis Assessment & Plan: Hemodialysis today per nephrology Status: not improved YENIFER SCHULER Apr 14, 2017 10:52
--- NOTE | 2017-04-14 11:10 | GI Progress Note ---
Assessment/Plan Problems: (1) Pacemaker ICD Codes: Z95.0 - Presence of cardiac pacemaker SNOMED: 716530154 (2) Elevated troponin ICD Codes: R74.8 - Abnormal levels of other serum enzymes SNOMED: 311006377, 664445577, 444424462 (3) Epigastric abdominal pain ICD Codes: R10.13 - Epigastric pain SNOMED: 51001043 (4) Alzheimer's dementia ICD Codes: G30.9 - Alzheimer's disease, unspecified SNOMED: 51037490 (5) Anemia ICD Codes: D64.9 - Anemia, unspecified SNOMED: 788028531 (6) Uncontrolled diabetes mellitus ICD Codes: E11.65 - Type 2 diabetes mellitus with hyperglycemia SNOMED: 803729968 (7) Abdominal pain ICD Codes: R10.9 - Unspecified abdominal pain SNOMED: 18134775 Status: unchanged Status Narrative Discussed with Dr. Polanco. Assessment/Plan defer GI procedures given elevated troponin, fu cardiology recs adv diet bowel regime DM control outpatient GI procedures The patient was seen and examined at bedside and all new and available data was reviewed in the patients chart. I agree with the above findings, impression and plan. (Patient seen earlier today. Signature stamp does not reflect patient encounter time.). - Timothy Polanco MD Subjective Gastrointestinal/Abdominal: Reports: no symptoms Objective Last 24 Hour Vital Signs Date Time Temp Pulse Resp B/P (MAP) Pulse Ox O2 Delivery O2 Flow Rate FiO2 04/14/17 08:43 99/70 04/14/17 08:35 99/70 04/14/17 08:35 58 99/70 04/14/17 08:35 58 99/70 04/14/17 08:32 97.2 58 19 99/70 98 Room Air 97.2 04/14/17 04:11 62 20 Room Air 21 04/14/17 04:00 97.0 86 19 122/61 98 Room Air 97.0 04/14/17 04:00 60 04/14/17 00:00 61 04/14/17 00:00 98.2 62 20 119/59 98 Room Air 98.2 04/13/17 22:28 62 99/50 04/13/17 22:00 99/50 04/13/17 20:00 97.0 60 20 112/63 99 Room Air 97.0 04/13/17 20:00 61 04/13/17 17:04 123/68 04/13/17 17:03 62 123/68 04/13/17 16:00 97.6 62 18 123/68 98 Room Air 97.6 04/13/17 16:00 60 04/13/17 13:55 113/50 04/13/17 12:00 60 04/13/17 12:00 97.8 58 20 113/50 98 Room Air 97.8 04/13/17 11:48 128/70 Intake and Output 04/13/17 04/14/17 19:00 07:00 Intake Total 800 ml Output Total 200 ml Balance 800 ml -200 ml Intake Oral 800 ml Output Urine Total 200 ml # Voids 2 Laboratory Tests Test 04/13/17 11:10 04/14/17 08:15 White Blood Count 7.0 K/UL (4.8-10.8) 6.9 K/UL (4.8-10.8) Red Blood Count 3.37 M/UL (4.20-5.40) L 3.61 M/UL (4.20-5.40) L Hemoglobin 10.6 G/DL (12.0-16.0) L 11.4 G/DL (12.0-16.0) L Hematocrit 33.3 % (37.0-47.0) L 35.7 % (37.0-47.0) L Mean Corpuscular Volume 99 FL (80-99) # 99 FL (80-99) Mean Corpuscular Hemoglobin 31.4 PG (27.0-31.0) H 31.5 PG (27.0-31.0) H Mean Corpuscular Hemoglobin Concent 31.8 G/DL (32.0-36.0) L 31.9 G/DL (32.0-36.0) L Red Cell Distribution Width 19.8 % (11.6-14.8) H 20.2 % (11.6-14.8) H Platelet Count 62 K/UL (150-450) L 72 K/UL (150-450) L Mean Platelet Volume 9.1 FL (6.5-10.1) 8.9 FL (6.5-10.1) Neutrophils (%) (Auto) % (45.0-75.0) % (45.0-75.0) Lymphocytes (%) (Auto) % (20.0-45.0) % (20.0-45.0) Monocytes (%) (Auto) % (1.0-10.0) % (1.0-10.0) Eosinophils (%) (Auto) % (0.0-3.0) % (0.0-3.0) Basophils (%) (Auto) % (0.0-2.0) % (0.0-2.0) Differential Total Cells Counted 100 100 Neutrophils % (Manual) 74 % (45-75) 80 % (45-75) H Lymphocytes % (Manual) 15 % (20-45) L 10 % (20-45) L Monocytes % (Manual) 8 % (1-10) 9 % (1-10) Eosinophils % (Manual) 3 % (0-3) 1 % (0-3) Basophils % (Manual) 0 % (0-2) 0 % (0-2) Band Neutrophils 0 % (0-8) 0 % (0-8) Platelet Estimate Decreased L Decreased L Platelet Morphology Normal Normal Anisocytosis 1+ 2+ Prothrombin Time 12.8 SEC (9.30-11.50) H Prothromb Time International Ratio 1.2 (0.9-1.1) H Activated Partial Thromboplast Time 32 SEC (23-33) Free Thyroxine 0.91 NG/DL (0.76-1.46) Ovalocytes 1+ Sodium Level 127 MMOL/L (136-145) L Potassium Level 6.1 MMOL/L (3.5-5.1) *H Chloride Level 90 MMOL/L (98-107) L Carbon Dioxide Level 23 MMOL/L (21-32) Anion Gap 14 mmol/L (5-15) Blood Urea Nitrogen 93 mg/dL (7-18) H Creatinine 5.9 MG/DL (0.55-1.30) H Estimat Glomerular Filtration Rate mL/min (>60) Glucose Level 123 MG/DL (74-106) H Uric Acid 6.5 MG/DL (2.6-7.2) Calcium Level 8.6 MG/DL (8.5-10.1) Phosphorus Level 3.2 MG/DL (2.5-4.9) Magnesium Level 2.4 MG/DL (1.8-2.4) Total Bilirubin 0.8 MG/DL (0.2-1.0) Aspartate Amino Transf (AST/SGOT) 25 U/L (15-37) Alanine Aminotransferase (ALT/SGPT) 29 U/L (12-78) Alkaline Phosphatase 238 U/L (46-116) H Troponin I 0.044 ng/mL (0.000-0.056) C-Reactive Protein, Quantitative < 0.4 mg/dL (0.00-0.90) Total Protein 6.4 G/DL (6.4-8.2) Albumin 3.3 G/DL (3.4-5.0) L Globulin 3.1 g/dL Albumin/Globulin Ratio 1.1 (1.0-2.7) Height (Feet): 5 Height (Inches): 1.00 Weight (Pounds): 152 General Appearance: WD/WN, no apparent distress, alert, overweight Cardiovascular: normal rate Respiratory/Chest: normal breath sounds, no respiratory distress Abdominal Exam: normal bowel sounds, non tender, soft Extremities: normal range of motion, non-tender Dana Waed [place] Apr 14, 2017 11:10 DILLON POLANCO Apr 21, 2017 12:36
--- NOTE | 2017-04-14 11:57 | Nephrology Progress Note ---
Assessment/Plan Problem List: (1) ESRD (end stage renal disease) on dialysis (2) CAD (coronary artery disease) Assessment K is 6.1 today Chest pain elevated troponin ESRD, on HD has left arm fistula abdominal pain probably acute pancreatitis DM OOC pacemaker CAD with hx of CABG hx of CVA HTN hx of metastatic cerebellar tumor resection Plan Due HD 04/14 colleen discussed with RN add nitrates per cardiology BS and BP control per orders Subjective ROS Limited/Unobtainable: No Constitutional: Reports: malaise Objective Objective Last 24 Hour Vital Signs Date Time Temp Pulse Resp B/P (MAP) Pulse Ox O2 Delivery O2 Flow Rate FiO2 04/14/17 11:34 97.2 04/14/17 08:43 99/70 04/14/17 08:35 99/70 04/14/17 08:35 58 99/70 04/14/17 08:35 58 99/70 04/14/17 08:32 97.2 58 19 99/70 98 Room Air 97.2 04/14/17 07:56 60 04/14/17 04:11 62 20 Room Air 21 04/14/17 04:00 97.0 86 19 122/61 98 Room Air 97.0 04/14/17 04:00 60 04/14/17 00:00 61 04/14/17 00:00 98.2 62 20 119/59 98 Room Air 98.2 04/13/17 22:28 62 99/50 04/13/17 22:00 99/50 04/13/17 20:00 97.0 60 20 112/63 99 Room Air 97.0 04/13/17 20:00 61 04/13/17 17:04 123/68 04/13/17 17:03 62 123/68 04/13/17 16:00 97.6 62 18 123/68 98 Room Air 97.6 04/13/17 16:00 60 04/13/17 13:55 113/50 04/13/17 12:00 60 04/13/17 12:00 97.8 58 20 113/50 98 Room Air 97.8 Intake and Output 04/13/17 04/14/17 19:00 07:00 Intake Total 800 ml Output Total 200 ml Balance 800 ml -200 ml Intake Oral 800 ml Output Urine Total 200 ml # Voids 2 Laboratory Tests 04/14/17 08:15: White Blood Count 6.9, Red Blood Count 3.61L, Hemoglobin 11.4L, Hematocrit 35.7L , Mean Corpuscular Volume 99, Mean Corpuscular Hemoglobin 31.5H, Mean Corpuscular Hemoglobin Concent 31.9L, Red Cell Distribution Width 20.2H, Platelet Count 72L, Mean Platelet Volume 8.9, Neutrophils (%) (Auto) , Lymphocytes (%) (Auto) , Monocytes (%) (Auto) , Eosinophils (%) (Auto) , Basophils (%) (Auto) , Differential Total Cells Counted 100, Neutrophils % ( Manual) 80H, Lymphocytes % (Manual) 10L, Monocytes % (Manual) 9, Eosinophils % ( Manual) 1, Basophils % (Manual) 0, Band Neutrophils 0, Platelet Estimate DecreasedL, Platelet Morphology Normal, Anisocytosis 2+, Ovalocytes 1+, Sodium Level 127L, Potassium Level 6.1*H, Chloride Level 90L, Carbon Dioxide Level 23, Anion Gap 14, Blood Urea Nitrogen 93H, Creatinine 5.9H, Estimat Glomerular Filtration Rate , Glucose Level 123H, Uric Acid 6.5, Calcium Level 8.6, Phosphorus Level 3.2, Magnesium Level 2.4, Total Bilirubin 0.8, Aspartate Amino Transf (AST/SGOT) 25, Alanine Aminotransferase (ALT/SGPT) 29, Alkaline Phosphatase 238H, Troponin I 0.044, C-Reactive Protein, Quantitative < 0.4, Total Protein 6.4, Albumin 3.3L, Globulin 3.1, Albumin/Globulin Ratio 1.1 Height (Feet): 5 Height (Inches): 1.00 Weight (Pounds): 152 General Appearance: no apparent distress Cardiovascular: normal rate Respiratory/Chest: decreased breath sounds Abdomen: soft Objective no change DODIE CONNER Apr 14, 2017 11:57
--- NOTE | 2017-04-14 12:44 | Diagnostic Imaging Report ---
Indication: Shortness of breath Technique: One view of the chest Comparison: 04/12/2017 Findings: There is a left chest bifocal pacemaker again demonstrated. The heart remains enlarged. Evidence of prior CABG. There is new retrocardiac opacity surrounding a lucency, and slight blunting of left costophrenic sulcus.. Impression: Retrocardiac opacity with central lucency. This could represent developing infiltrate, versus a hiatal hernia which is not evident on the earlier study. Cardiomegaly
--- NOTE | 2017-04-14 13:55 | Pulmonology Progress Note ---
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 continue HD might get discharged if stress test negative. Subjective ROS Limited/Unobtainable: No Constitutional: Reports: no symptoms HEENT: Repors: no symptoms Allergies: Coded Allergies: No Known Allergies (Unverified , 02/02/15) Objective Last 24 Hour Vital Signs Date Time Temp Pulse Resp B/P (MAP) Pulse Ox O2 Delivery O2 Flow Rate FiO2 04/14/17 13:03 97.2 59 19 108/60 98 Room Air 97.2 04/14/17 12:33 97.2 04/14/17 11:34 97.2 04/14/17 08:43 99/70 04/14/17 08:35 99/70 04/14/17 08:35 58 99/70 04/14/17 08:35 58 99/70 04/14/17 08:32 97.2 58 19 99/70 98 Room Air 97.2 04/14/17 07:56 60 04/14/17 04:11 62 20 Room Air 21 04/14/17 04:00 97.0 86 19 122/61 98 Room Air 97.0 04/14/17 04:00 60 04/14/17 00:00 61 04/14/17 00:00 98.2 62 20 119/59 98 Room Air 98.2 04/13/17 22:28 62 99/50 04/13/17 22:00 99/50 04/13/17 20:00 97.0 60 20 112/63 99 Room Air 97.0 04/13/17 20:00 61 04/13/17 17:04 123/68 04/13/17 17:03 62 123/68 04/13/17 16:00 97.6 62 18 123/68 98 Room Air 97.6 04/13/17 16:00 60 04/13/17 13:55 113/50 Intake and Output 04/13/17 04/14/17 19:00 07:00 Intake Total 800 ml Output Total 200 ml Balance 800 ml -200 ml Intake Oral 800 ml Output Urine Total 200 ml # Voids 2 General Appearance: WD/WN HEENT: normocephalic, atraumatic Respiratory/Chest: chest wall non-tender, lungs clear Breasts: no masses Cardiovascular: normal peripheral pulses, normal rate Abdomen: normal bowel sounds, soft, non tender Genitourinary: normal external genitalia Extremities: no cyanosis 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 Complete 04/12/17 03:13 Rectum VRE Culture - Final NO VANCOMYCIN RESISTANT ENTEROCOCCUS ... Complete Laboratory Tests 04/14/17 08:15: White Blood Count 6.9, Red Blood Count 3.61L, Hemoglobin 11.4L, Hematocrit 35.7L , Mean Corpuscular Volume 99, Mean Corpuscular Hemoglobin 31.5H, Mean Corpuscular Hemoglobin Concent 31.9L, Red Cell Distribution Width 20.2H, Platelet Count 72L, Mean Platelet Volume 8.9, Neutrophils (%) (Auto) , Lymphocytes (%) (Auto) , Monocytes (%) (Auto) , Eosinophils (%) (Auto) , Basophils (%) (Auto) , Differential Total Cells Counted 100, Neutrophils % ( Manual) 80H, Lymphocytes % (Manual) 10L, Monocytes % (Manual) 9, Eosinophils % ( Manual) 1, Basophils % (Manual) 0, Band Neutrophils 0, Platelet Estimate DecreasedL, Platelet Morphology Normal, Anisocytosis 2+, Ovalocytes 1+, Sodium Level 127L, Potassium Level 6.1*H, Chloride Level 90L, Carbon Dioxide Level 23, Anion Gap 14, Blood Urea Nitrogen 93H, Creatinine 5.9H, Estimat Glomerular Filtration Rate , Glucose Level 123H, Uric Acid 6.5, Calcium Level 8.6, Phosphorus Level 3.2, Magnesium Level 2.4, Total Bilirubin 0.8, Aspartate Amino Transf (AST/SGOT) 25, Alanine Aminotransferase (ALT/SGPT) 29, Alkaline Phosphatase 238H, Troponin I 0.044, C-Reactive Protein, Quantitative < 0.4, Total Protein 6.4, Albumin 3.3L, Globulin 3.1, Albumin/Globulin Ratio 1.1 Current Medications Medications (Trade) Dose Ordered Sig/Carrie Route PRN Reason Start Time Stop Time Status Last Admin Dose Admin Acetaminophen (Tylenol) 650 mg Q4H PRN ORAL Mild Pain (Pain 1-3)/FEVER 04/12/17 08:00 05/12/17 07:59 04/14/17 11:34 Albuterol/ Ipratropium (Albuterol/ Ipratropium) 3 ml EVERY 4 HOURS PRN HHN Shortness of Breath 04/12/17 08:00 04/17/17 07:59 Amlodipine Besylate (Norvasc) 10 mg DAILY ORAL 04/12/17 09:30 05/12/17 09:29 04/13/17 08:30 Atorvastatin Calcium (Lipitor) 80 mg BEDTIME ORAL 04/12/17 21:00 05/12/17 20:59 04/13/17 20:30 Dextrose (Dextrose 50%) STAT PRN IV Hypoglycemia 04/12/17 08:00 05/12/17 07:59 Diltiazem HCl (Cardizem) 10 mg EVERY HOUR PRN IV heart rate more than 120, 04/12/17 08:00 05/12/17 07:59 Diphenhydramine HCl (Benadryl) 25 mg Q8H PRN ORAL Itching 04/12/17 08:00 05/12/17 07:59 04/13/17 22:24 Docusate Sodium (Colace) 100 mg TID ORAL 04/13/17 13:00 05/12/17 09:29 04/14/17 08:46 Donepezil HCl (Aricept) 5 mg QHS ORAL 04/14/17 21:00 05/12/17 09:29 Gabapentin (Neurontin) 100 mg THREE TIMES A DAY ORAL 04/12/17 09:30 05/12/17 09:29 04/14/17 08:46 Hydralazine HCl (Apresoline) 50 mg Q8HR ORAL 04/13/17 14:00 05/12/17 09:29 04/13/17 13:55 Insulin Aspart (NovoLOG) BEFORE MEALS AND HS SUBQ 04/12/17 11:30 05/12/17 11:29 04/14/17 06:13 Isosorbide Mononitrate (Imdur) 30 mg DAILY ORAL 04/13/17 11:30 05/13/17 11:29 04/13/17 11:48 Labetalol HCl (Normodyne) 200 mg BID ORAL 04/12/17 09:30 05/12/17 09:29 04/13/17 17:03 Lansoprazole (Prevacid) 30 mg DAILY ORAL 04/14/17 09:00 05/14/17 08:59 04/14/17 08:46 Lorazepam (Ativan 2mg/ml 1ml) 0.5 mg Q4H PRN IV For Anxiety 04/13/17 20:00 04/20/17 19:59 04/13/17 20:30 Nitroglycerin (Ntg) 0.4 mg Q5M PRN SL Prn Chest Pain 04/12/17 08:00 05/12/17 07:59 Ondansetron HCl (Zofran) 4 mg Q6H PRN IVP Nausea & Vomiting 04/12/17 08:00 05/12/17 07:59 Pentoxifylline (TRENtal) 400 mg BID ORAL 04/12/17 09:30 05/12/17 09:29 04/13/17 17:04 Polyethylene Glycol (Miralax) 17 gm DAILYPRN PRN ORAL Constipation 04/12/17 08:00 05/12/17 07:59 Regadenoson (Lexiscan) 0.4 mg ONCE PRN IV STRESS TEST 04/13/17 12:30 04/14/17 23:59 Zolpidem Tartrate (Ambien) 5 mg DAILYPRN PRN ORAL Insomnia 04/12/17 08:00 04/19/17 07:59 ALMA DELIA MONTES Apr 14, 2017 13:55
[2017-04-14] MEDS: LORazepam Inj 2mg/ml 1ml IV PRN ×3 (15:28→21:49)
--- NOTE | 2017-04-14 17:44 | Diagnostic Imaging Report ---
Indications: 76-year-old female with chest pain Technique: Single day single isotope protocol utilized. Initially, resting images obtained using IV administration 10 millicuries 99M technetium Myoview. Subsequently, patient underwent lexiscan stress testing. See cardiology report for details. During Lexiscan infusion, IV administration 31.8 mCi 99 M technetium Myoview. SPECT and planar images obtained. SPECT images gated to 8 phases of the cardiac cycle were also obtained, and reformatted into cine images for evaluation of ejection fraction. Comparison: none Findings: Presence or absence of symptoms during infusion not described on the cardiology report. Per cardiology report, resting EKG demonstrates ventricular paced rhythm. Presence or absence of as ST changes are not described. Imaging demonstrates a perfusion defect of the inferolateral wall predominantly near the base. This does not appear to change significantly on the resting images. There is also a smaller anteroseptal perfusion defect which is fixed on the poststress images. There is mild left ventricular dilatation. Calculated post stress ejection fraction 58% there is suggestion of inferior wall hypokinesis Impression: Nonischemic clinical response to pharmacologic stress, per cardiology report Nonischemic electrocardiographic response to pharmacologic stress, per cardiology report Large and inferolateral infarct, probable smaller anteroseptal infarct. No evidence of ischemia at level of stress achieved Calculated post stress ejection fraction 58%, despite the fairly extensive fixed perfusion abnormality
[2017-04-14] MEDS ORDERED: Donepezil 5mg Tab ORAL SCH (21:00)
[2017-04-14] MEDS: Atorvastatin 80mg tab ORAL SCH (22:03)
[2017-04-15] VITALS: BP 125/60
[2017-04-15 04:36] VITALS: BP 120/58
[2017-04-15] MEDS: HydrALAZINE 50mg tab ORAL SCH (06:33)
[2017-04-15] MEDS: NovoLOG Insulin Flexpen SUBQ SCH (06:36)
[2017-04-15 07:42] VITALS: BP 130/65
[2017-04-15 07:50] VITALS: BP 130/65
[2017-04-15 08:28] LABS: HEMATOCRIT 33.8 % (37.0-47.0); HEMOGLOBIN 10.9 G/DL (12.0-16.0); MEAN CORPUSCULAR VOLUME 99 FL (80-99); PLATELET COUNT 68 K/UL (150-450); RED BLOOD COUNT 3.41 M/UL (4.20-5.40); RED CELL DISTRIBUTION WIDTH 19.7 % (11.6-14.8)
[2017-04-15] MEDS: Docusate 100mg cap ORAL SCH ×2 (08:45→08:49)
[2017-04-15] MEDS: Labetalol 200mg tab ORAL SCH ×2 (08:46→08:49)
[2017-04-15] MEDS: Imdur 30mg tab ORAL SCH ×2 (08:46→08:49)
--- NOTE | 2017-04-15 08:49 | Pulmonology Progress Note ---
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 continue HD check electrolytes check K discharge planning in progress. Subjective ROS Limited/Unobtainable: No Constitutional: Reports: no symptoms HEENT: Repors: no symptoms Respiratory: Reports: no symptoms Cardiovascular: Reports: no symptoms Gastrointestinal/Abdominal: Reports: no symptoms Allergies: Coded Allergies: No Known Allergies (Unverified , 02/02/15) Objective Last 24 Hour Vital Signs Date Time Temp Pulse Resp B/P (MAP) Pulse Ox O2 Delivery O2 Flow Rate FiO2 04/15/17 07:50 98.4 68 18 130/65 97 98.4 04/15/17 06:33 120/58 04/15/17 04:36 97.7 61 18 120/58 96 97.7 04/15/17 04:00 69 04/15/17 00:00 97.5 65 20 125/60 96 Room Air 97.5 04/15/17 00:00 65 04/14/17 22:42 120/70 04/14/17 21:00 Room Air 04/14/17 21:00 98.0 76 20 117/55 Room Air 98.0 04/14/17 20:00 97.7 76 20 117/96 95 Room Air 97.7 04/14/17 20:00 68 04/14/17 17:23 100/60 04/14/17 17:23 59 100/60 04/14/17 17:00 97.7 67 20 119/54 Room Air 97.7 04/14/17 17:00 Room Air 04/14/17 16:28 97.2 04/14/17 16:15 97.2 59 19 100/60 98 Room Air 97.2 04/14/17 15:29 97.2 04/14/17 15:16 55 04/14/17 13:52 108/60 04/14/17 13:03 97.2 59 19 108/60 98 Room Air 97.2 04/14/17 12:03 60 04/14/17 11:34 97.2 Intake and Output 04/14/17 04/15/17 19:00 07:00 Intake Total 300 ml 200 ml Output Total 3000 ml Balance 300 ml -2800 ml Intake Oral 300 ml 200 ml Hemodialysis UF 3000 ml # Voids 2 4 # Bowel Movements 1 General Appearance: WD/WN HEENT: normocephalic, atraumatic Respiratory/Chest: chest wall non-tender, lungs clear Cardiovascular: normal peripheral pulses, normal rate Abdomen: normal bowel sounds, soft, non tender Genitourinary: normal external genitalia Extremities: no cyanosis Skin: no rash 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, no motor/sensory deficits Lymphatic: no neck adenopathy Laboratory Tests 04/15/17 06:30: White Blood Count 8.0, Red Blood Count 3.41L, Hemoglobin 10.9L, Hematocrit 33.8L , Mean Corpuscular Volume 99, Mean Corpuscular Hemoglobin 32.0H, Mean Corpuscular Hemoglobin Concent 32.3, Red Cell Distribution Width 19.7H, Platelet Count 68L, Mean Platelet Volume 9.1, Neutrophils (%) (Auto) , Lymphocytes (%) (Auto) , Monocytes (%) (Auto) , Eosinophils (%) (Auto) , Basophils (%) (Auto) , Neutrophils % (Manual) [Pending], Lymphocytes % (Manual) [Pending], Platelet Estimate [Pending], Platelet Morphology [Pending], Sodium Level [Pending], Potassium Level [Pending], Chloride Level [Pending], Carbon Dioxide Level [Pending], Blood Urea Nitrogen [Pending], Creatinine [Pending], Estimat Glomerular Filtration Rate [Pending], Glucose Level [Pending], Uric Acid [Pending], Calcium Level [Pending], Phosphorus Level [Pending], Magnesium Level [Pending], Iron Level [Pending], Unsaturated Iron Binding [Pending], Total Bilirubin [Pending], Aspartate Amino Transf (AST/SGOT) [Pending], Alanine Aminotransferase (ALT/SGPT) [Pending], Alkaline Phosphatase [Pending], Troponin I [Pending], C-Reactive Protein, Quantitative [Pending], Pro-B-Type Natriuretic Peptide [Pending], Total Protein [Pending], Albumin [Pending], Globulin [Pending ] Current Medications Medications (Trade) Dose Ordered Sig/Carrie Route PRN Reason Start Time Stop Time Status Last Admin Dose Admin Acetaminophen (Tylenol) 650 mg Q4H PRN ORAL Mild Pain (Pain 1-3)/FEVER 04/12/17 08:00 05/12/17 07:59 04/14/17 15:29 Albuterol/ Ipratropium (Albuterol/ Ipratropium) 3 ml EVERY 4 HOURS PRN HHN Shortness of Breath 04/12/17 08:00 04/17/17 07:59 Amlodipine Besylate (Norvasc) 10 mg DAILY ORAL 04/12/17 09:30 05/12/17 09:29 04/13/17 08:30 Atorvastatin Calcium (Lipitor) 80 mg BEDTIME ORAL 04/12/17 21:00 05/12/17 20:59 04/14/17 22:03 Dextrose (Dextrose 50%) STAT PRN IV Hypoglycemia 04/12/17 08:00 05/12/17 07:59 Diltiazem HCl (Cardizem) 10 mg EVERY HOUR PRN IV heart rate more than 120, 04/12/17 08:00 05/12/17 07:59 Diphenhydramine HCl (Benadryl) 25 mg Q8H PRN ORAL Itching 04/12/17 08:00 05/12/17 07:59 04/13/17 22:24 Docusate Sodium (Colace) 100 mg TID ORAL 04/13/17 13:00 05/12/17 09:29 04/14/17 16:48 Donepezil HCl (Aricept) 5 mg QHS ORAL 04/14/17 21:00 05/12/17 09:29 04/14/17 22:02 Gabapentin (Neurontin) 100 mg THREE TIMES A DAY ORAL 04/12/17 09:30 05/12/17 09:29 04/14/17 16:47 Hydralazine HCl (Apresoline) 50 mg Q8HR ORAL 04/13/17 14:00 05/12/17 09:29 04/15/17 06:33 Insulin Aspart (NovoLOG) BEFORE MEALS AND HS SUBQ 04/12/17 11:30 05/12/17 11:29 04/15/17 06:36 Isosorbide Mononitrate (Imdur) 30 mg DAILY ORAL 04/13/17 11:30 05/13/17 11:29 04/13/17 11:48 Labetalol HCl (Normodyne) 200 mg BID ORAL 04/12/17 09:30 05/12/17 09:29 04/13/17 17:03 Lansoprazole (Prevacid) 30 mg DAILY ORAL 04/14/17 09:00 05/14/17 08:59 04/14/17 08:46 Lorazepam (Ativan 2mg/ml 1ml) 0.5 mg Q4H PRN IV For Anxiety 04/13/17 20:00 04/20/17 19:59 04/14/17 21:49 Nitroglycerin (Ntg) 0.4 mg Q5M PRN SL Prn Chest Pain 04/12/17 08:00 05/12/17 07:59 Ondansetron HCl (Zofran) 4 mg Q6H PRN IVP Nausea & Vomiting 04/12/17 08:00 05/12/17 07:59 Pentoxifylline (TRENtal) 400 mg BID ORAL 04/12/17 09:30 05/12/17 09:29 04/13/17 17:04 Polyethylene Glycol (Miralax) 17 gm DAILYPRN PRN ORAL Constipation 04/12/17 08:00 05/12/17 07:59 04/14/17 17:52 Zolpidem Tartrate (Ambien) 5 mg DAILYPRN PRN ORAL Insomnia 04/12/17 08:00 04/19/17 07:59 ALMA DELIA MONTES Apr 15, 2017 08:49
[2017-04-15 08:50] VITALS: BP 130/65
[2017-04-15 09:45] LABS: % IRON SATURATION 28 % (15-50); IRON 66 ug/dL (50-175); TOTAL IRON BINDING CAPACITY 233 ug/dL (250-450)
[2017-04-15 09:51] LABS: ALANINE AMINOTRANSFERASE 28 U/L (12-78); ALBUMIN 3.3 G/DL (3.4-5.0); ALKALINE PHOSPHATASE 213 U/L (46-116); ASPARTATE AMINO TRANSFERASE 33 U/L (15-37); BILIRUBIN,TOTAL 1.2 MG/DL (0.2-1.0); BLOOD UREA NITROGEN 47 mg/dL (7-18); CALCIUM 8.6 MG/DL (8.5-10.1); CHLORIDE 93 MMOL/L (98-107); CREATININE 4.2 MG/DL (0.55-1.30); SODIUM 135 MMOL/L (136-145)
[2017-04-15 09:53] LABS: PHOSPHORUS 3.3 MG/DL (2.5-4.9)
[2017-04-15 10:00] LABS: CARBON DIOXIDE 24 MMOL/L (21-32)
[2017-04-15 10:02] LABS: ANION GAP 18 mmol/L (5-15); BILIRUBIN,DIRECT 0.5 MG/DL (0.0-0.3)
--- NOTE | 2017-04-15 12:58 | Nephrology Progress Note ---
Assessment/Plan Problem List: (1) ESRD (end stage renal disease) on dialysis (2) CAD (coronary artery disease) Assessment K is 6.1 today Chest pain elevated troponin ESRD, on HD has left arm fistula abdominal pain probably acute pancreatitis DM OOC pacemaker CAD with hx of CABG hx of CVA HTN hx of metastatic cerebellar tumor resection Plan HD 04/14 , now K normal On nitrates per cardiology BS and BP controled per orders agree with DC Subjective ROS Limited/Unobtainable: No Interval Events/Complaints seen at 9 am Objective Objective Last 24 Hour Vital Signs Date Time Temp Pulse Resp B/P (MAP) Pulse Ox O2 Delivery O2 Flow Rate FiO2 04/15/17 08:50 130/65 04/15/17 08:49 130/65 04/15/17 08:49 68 130/65 04/15/17 08:49 68 130/65 04/15/17 08:00 66 04/15/17 07:50 98.4 68 18 130/65 97 98.4 04/15/17 06:33 120/58 04/15/17 06:33 68 18 Room Air 04/15/17 04:36 97.7 61 18 120/58 96 97.7 04/15/17 04:00 69 04/15/17 00:00 97.5 65 20 125/60 96 Room Air 97.5 04/15/17 00:00 65 04/14/17 22:42 120/70 04/14/17 21:00 Room Air 04/14/17 21:00 98.0 76 20 117/55 Room Air 98.0 04/14/17 20:00 97.7 76 20 117/96 95 Room Air 97.7 04/14/17 20:00 68 04/14/17 17:23 100/60 04/14/17 17:23 59 100/60 04/14/17 17:00 97.7 67 20 119/54 Room Air 97.7 04/14/17 17:00 Room Air 04/14/17 16:28 97.2 04/14/17 16:15 97.2 59 19 100/60 98 Room Air 97.2 04/14/17 15:29 97.2 04/14/17 15:16 55 04/14/17 13:52 108/60 04/14/17 13:03 97.2 59 19 108/60 98 Room Air 97.2 Intake and Output 04/14/17 04/15/17 19:00 07:00 Intake Total 300 ml 200 ml Output Total 3000 ml Balance 300 ml -2800 ml Intake Oral 300 ml 200 ml Hemodialysis UF 3000 ml # Voids 2 4 # Bowel Movements 1 Laboratory Tests 04/15/17 06:30: White Blood Count 8.0, Red Blood Count 3.41L, Hemoglobin 10.9L, Hematocrit 33.8L , Mean Corpuscular Volume 99, Mean Corpuscular Hemoglobin 32.0H, Mean Corpuscular Hemoglobin Concent 32.3, Red Cell Distribution Width 19.7H, Platelet Count 68L, Mean Platelet Volume 9.1, Neutrophils (%) (Auto) , Lymphocytes (%) (Auto) , Monocytes (%) (Auto) , Eosinophils (%) (Auto) , Basophils (%) (Auto) , Differential Total Cells Counted 100, Neutrophils % ( Manual) 76H, Lymphocytes % (Manual) 11L, Monocytes % (Manual) 13H, Eosinophils % (Manual) 0, Basophils % (Manual) 0, Band Neutrophils 0, Platelet Estimate DecreasedL, Platelet Morphology Normal, Hypochromasia 1+, Anisocytosis 2+, Sodium Level 135L, Potassium Level 4.0, Chloride Level 93L, Carbon Dioxide Level 24, Anion Gap 18H, Blood Urea Nitrogen 47H, Creatinine 4.2H, Estimat Glomerular Filtration Rate , Glucose Level 162H, Uric Acid 4.3, Calcium Level 8.6, Phosphorus Level 3.3, Magnesium Level 2.2, Iron Level 66, Total Iron Binding Capacity 233L, Percent Iron Saturation 28, Unsaturated Iron Binding 167 , Total Bilirubin 1.2H, Direct Bilirubin 0.5H, Aspartate Amino Transf (AST/SGOT ) 33, Alanine Aminotransferase (ALT/SGPT) 28, Alkaline Phosphatase 213H, Troponin I 1.664H, C-Reactive Protein, Quantitative 1.4H, Pro-B-Type Natriuretic Peptide 88249T, Total Protein 6.5, Albumin 3.3L, Globulin 3.2, Albumin/Globulin Ratio 1.0 Height (Feet): 5 Height (Inches): 1.00 Weight (Pounds): 149 General Appearance: no apparent distress Cardiovascular: normal rate Respiratory/Chest: decreased breath sounds Abdomen: soft Objective no change DODIE CONNER Apr 15, 2017 12:58
--- NOTE | 2017-04-15 15:28 | GI Progress Note ---
Assessment/Plan Problems: (1) Pacemaker ICD Codes: Z95.0 - Presence of cardiac pacemaker SNOMED: 631327369 (2) Elevated troponin ICD Codes: R74.8 - Abnormal levels of other serum enzymes SNOMED: 626235041, 186756232, 048679418 (3) Epigastric abdominal pain ICD Codes: R10.13 - Epigastric pain SNOMED: 24506286 (4) Alzheimer's dementia ICD Codes: G30.9 - Alzheimer's disease, unspecified SNOMED: 75453396 (5) Anemia ICD Codes: D64.9 - Anemia, unspecified SNOMED: 943923170 (6) Uncontrolled diabetes mellitus ICD Codes: E11.65 - Type 2 diabetes mellitus with hyperglycemia SNOMED: 701810046 (7) Abdominal pain ICD Codes: R10.9 - Unspecified abdominal pain SNOMED: 95161310 Status: stable Status Narrative Discussed with Dr. Polanco. Assessment/Plan defer GI procedures given elevated troponin, fu cardiology recs adv diet bowel regime DM control outpatient GI procedures The patient was seen and examined at bedside and all new and available data was reviewed in the patients chart. I agree with the above findings, impression and plan. (Patient seen earlier today. Signature stamp does not reflect patient encounter time.). - Timothy Polanco MD Subjective Gastrointestinal/Abdominal: Reports: no symptoms Objective Last 24 Hour Vital Signs Date Time Temp Pulse Resp B/P (MAP) Pulse Ox O2 Delivery O2 Flow Rate FiO2 04/15/17 08:50 130/65 04/15/17 08:49 130/65 04/15/17 08:49 68 130/65 04/15/17 08:49 68 130/65 04/15/17 08:00 66 04/15/17 07:50 98.4 68 18 130/65 97 98.4 04/15/17 06:33 120/58 04/15/17 06:33 68 18 Room Air 04/15/17 04:36 97.7 61 18 120/58 96 97.7 04/15/17 04:00 69 04/15/17 00:00 97.5 65 20 125/60 96 Room Air 97.5 04/15/17 00:00 65 04/14/17 22:42 120/70 04/14/17 21:00 Room Air 04/14/17 21:00 98.0 76 20 117/55 Room Air 98.0 04/14/17 20:00 97.7 76 20 117/96 95 Room Air 97.7 04/14/17 20:00 68 04/14/17 17:23 100/60 04/14/17 17:23 59 100/60 04/14/17 17:00 97.7 67 20 119/54 Room Air 97.7 04/14/17 17:00 Room Air 04/14/17 16:28 97.2 04/14/17 16:15 97.2 59 19 100/60 98 Room Air 97.2 04/14/17 15:29 97.2 Intake and Output 04/14/17 04/15/17 19:00 07:00 Intake Total 300 ml 200 ml Output Total 3000 ml Balance 300 ml -2800 ml Intake Oral 300 ml 200 ml Hemodialysis UF 3000 ml # Voids 2 4 # Bowel Movements 1 Laboratory Tests Test 04/15/17 06:30 White Blood Count 8.0 K/UL (4.8-10.8) Red Blood Count 3.41 M/UL (4.20-5.40) L Hemoglobin 10.9 G/DL (12.0-16.0) L Hematocrit 33.8 % (37.0-47.0) L Mean Corpuscular Volume 99 FL (80-99) Mean Corpuscular Hemoglobin 32.0 PG (27.0-31.0) H Mean Corpuscular Hemoglobin Concent 32.3 G/DL (32.0-36.0) Red Cell Distribution Width 19.7 % (11.6-14.8) H Platelet Count 68 K/UL (150-450) L Mean Platelet Volume 9.1 FL (6.5-10.1) Neutrophils (%) (Auto) % (45.0-75.0) Lymphocytes (%) (Auto) % (20.0-45.0) Monocytes (%) (Auto) % (1.0-10.0) Eosinophils (%) (Auto) % (0.0-3.0) Basophils (%) (Auto) % (0.0-2.0) Differential Total Cells Counted 100 Neutrophils % (Manual) 76 % (45-75) H Lymphocytes % (Manual) 11 % (20-45) L Monocytes % (Manual) 13 % (1-10) H Eosinophils % (Manual) 0 % (0-3) Basophils % (Manual) 0 % (0-2) Band Neutrophils 0 % (0-8) Platelet Estimate Decreased L Platelet Morphology Normal Hypochromasia 1+ Anisocytosis 2+ Sodium Level 135 MMOL/L (136-145) L Potassium Level 4.0 MMOL/L (3.5-5.1) Chloride Level 93 MMOL/L (98-107) L Carbon Dioxide Level 24 MMOL/L (21-32) Anion Gap 18 mmol/L (5-15) H Blood Urea Nitrogen 47 mg/dL (7-18) H Creatinine 4.2 MG/DL (0.55-1.30) H Estimat Glomerular Filtration Rate mL/min (>60) Glucose Level 162 MG/DL (74-106) H Uric Acid 4.3 MG/DL (2.6-7.2) Calcium Level 8.6 MG/DL (8.5-10.1) Phosphorus Level 3.3 MG/DL (2.5-4.9) Magnesium Level 2.2 MG/DL (1.8-2.4) Iron Level 66 ug/dL (50-175) Total Iron Binding Capacity 233 ug/dL (250-450) L Percent Iron Saturation 28 % (15-50) Unsaturated Iron Binding 167 ug/dL (112-346) Total Bilirubin 1.2 MG/DL (0.2-1.0) H Direct Bilirubin 0.5 MG/DL (0.0-0.3) H Aspartate Amino Transf (AST/SGOT) 33 U/L (15-37) Alanine Aminotransferase (ALT/SGPT) 28 U/L (12-78) Alkaline Phosphatase 213 U/L (46-116) H Troponin I 1.664 ng/mL (0.000-0.056) C-Reactive Protein, Quantitative 1.4 mg/dL (0.00-0.90) H Pro-B-Type Natriuretic Peptide 43339 pg/mL (0-125) H Total Protein 6.5 G/DL (6.4-8.2) Albumin 3.3 G/DL (3.4-5.0) L Globulin 3.2 g/dL Albumin/Globulin Ratio 1.0 (1.0-2.7) Height (Feet): 5 Height (Inches): 1.00 Weight (Pounds): 149 General Appearance: WD/WN, no apparent distress, alert Cardiovascular: normal rate Respiratory/Chest: normal breath sounds, no respiratory distress Abdominal Exam: normal bowel sounds, non tender, soft Extremities: normal range of motion, non-tender Dana Wade N.P. Apr 15, 2017 15:28 DILLON POLANCO Apr 22, 2017 13:30
--- NOTE | 2017-04-18 03:00 | Discharge Summary 2 SIG ---
DATE OF ADMISSION: 04/12/2017 DATE OF DISCHARGE: 04/15/2017 ATTENDING PHYSICIAN: Jovani Gr M.D. CONSULTANTS: 1. Daisha Child M.D. 2. Santo Polanco M.D. 3. Mamadou Forbes M.D. 4. Micah Sotelo M.D. BRIEF HOSPITAL COURSE: The patient is a 76-year-old female with history of coronary artery disease, presented to ED complaining of chest pain. She has medical history significant for coronary artery disease and status post coronary artery bypass graft in 2004. Symptoms started on 04/11/2017 when she began to have chest pain. Chest pain was substernal with no radiation to the jaw or to the shoulder. She also complained of epigastric pain for several days. She has a prior history of aortic stenosis, diabetes, end-stage renal disease, on dialysis, history of Parkinson disease, Alzheimer's dementia, hyperlipidemia and metastatic cerebellar tumor resection in 2014. On evaluation at ED, blood work did not show any leukocytosis. Initial troponin was 0.123. Creatinine was 3.9, BUN 59, and sodium was 129. She had an EKG that showed a paced rhythm. There was noted some T-wave inversion. She was given aspirin by EMS. She came in with thrombocytopenia and was noted to have elevated lipase 586 consistent with acute pancreatitis. She was given IV morphine. She was then admitted for evaluation of chest pain and diabetes mellitus and pancreatitis. She underwent cardiac evaluation with Dr. Sotelo. She had history of permanent pacemaker implantation in 2016 and a known aortic stenosis. ProBNP was 34,888. Cardiac troponins were monitored. EKG showed T-wave inversion in leads 1, aVL, and ST-segment depression in V5 and V6 as well as T-wave inversion in V2, V3, and V6 in comparison with prior electrocardiogram back in May 2016. They appeared to be more extensive that what was on prior occasion. She underwent an echocardiogram that showed ejection fraction of 20% to 25% with global left ventricular hypokinesis, mild left ventricular enlargement, mild aortic regurgitation, [id number] mitral regurgitation, [id number] tricuspid regurgitation, and moderate pulmonary hypertension. The was initially on Plavix and aspirin, unable to get heparin due to thrombocytopenia. Plavix was eventually discontinued.The patient had persistently elevated alkaline phosphatase. Abdominal ultrasound showed no acute findings. Lipase down trended. Amylase was normal. She was eventually started on diet. She was given inpatient hemodialysis. Nitrates was added for better blood pressure control. There was mild increase in the patient's troponin. She underwent myocardial perfusion scan that showed nonischemic results. There was large inferolateral infarct and a probable smaller anteroseptal infarct with no evidence of ischemia at the level of stress achieved. She was eventually discharged home. FINAL DIAGNOSES: 1. Coronary artery disease. 2. Old cerebellar stroke. 3. Cerebellar tumour. 4. End-stage renal disease, on hemodialysis. 5. Parkinson disease. 6. Hypertension. 7. Diabetes mellitus. 8. Pacemaker status. 9. Alzheimer's dementia. 10. Old cerebrovascular accident. 11. Probable acute pancreatitis. 12. Severe aortic sclerosis. 13. Moderate pulmonary hypertension. 14. Moderate mitral regurgitation and tricuspid regurgitation. 15. Thrombocytopenia. 16. Elevated TSH. DISPOSITION: The patient was discharged home. DISCHARGE MEDICATIONS: Refer to medication list. DISCHARGE INSTRUCTIONS: Follow up as outpatient in a week. Daisha Child M.D. I have been assigned to dictate discharge summary on this account and I was not involved in the patient's management. Ebony Kapoor N.P. DR: ISABELLA JOB#: [id number] CC: LAURI
--- NOTE | 2017-04-23 16:46 | Cardiology Report ---
APPROVED REPORT EKG Measurement Heart [id number] Normal sinus rhythm Nonspecific intraventricular conduction delay Abnormal ECG
== END 2017-04-15 09:47 | disposition home or self-care (01) | DRG 291 ==
LOC: EDBD 03:34 → EMR 03:51 → 2E 04:26 → EDBEDREQ 04:59 → 2E 04-14 23:03
PROC: 5A1D70Z Performance of Urinary Filtration, Intermittent, Less than 6 Hours Per Day (ICD-10-PCS; principal; 2017-04-14)
DX: I13.2 Hypertensive heart and chronic kidney disease with heart failure and with stage 5 chronic kidney disease, or end stage renal disease (principal); N18.6 End stage renal disease; E11.65 Type 2 diabetes mellitus with hyperglycemia; D69.6 Thrombocytopenia, unspecified; K85.90 Acute pancreatitis without necrosis or infection, unspecified; G20 Parkinson's disease; E87.1 Hypo-osmolality and hyponatremia; G30.9 Alzheimer's disease, unspecified; F02.80 Dementia in other diseases classified elsewhere, unspecified severity, without behavioral disturbance, psychotic disturbance, mood disturbance, and anxiety; D64.9 Anemia, unspecified; I50.9 Heart failure, unspecified; Z99.2 Dependence on renal dialysis; I25.10 Atherosclerotic heart disease of native coronary artery without angina pectoris; Z95.1 Presence of aortocoronary bypass graft; I34.0 Nonrheumatic mitral (valve) insufficiency; Z95.0 Presence of cardiac pacemaker; Z85.841 Personal history of malignant neoplasm of brain; Z86.73 Personal history of transient ischemic attack (TIA), and cerebral infarction without residual deficits; R07.9 Chest pain, unspecified; I35.0 Nonrheumatic aortic (valve) stenosis; E78.5 Hyperlipidemia, unspecified; Z85.43 Personal history of malignant neoplasm of ovary; I27.20 Pulmonary hypertension, unspecified; I36.1 Nonrheumatic tricuspid (valve) insufficiency; R10.13 Epigastric pain
CPT/HCPCS: 36415; 71045; 76700; 78452; 80053; 80061; 82150; 82248; 82270; 82378; 82550; 82553; 82607; 82746; 82962; 83036; 83540; 83550; 83690; 83735; 83880; 84100; 84439; 84443; 84484; 84550; 85007; 85025; 85610; 85730; 86140; 87081; 93005; 93017; 93306; 94664; 99285; J1815; J2405; J2785